=== PATIENT | female | born 1955 | race Caucasian/White ===

== ENCOUNTER 2016-09-08 08:08 | Day surgery (SDC) | payer BC ==
[2016-09-06 15:53] VITALS: BMI 35.5
[~2016-09-08 08:08] MED LIST: LACTATED RINGERS 1,000 ML IV SCH; LIDOCAINE 1% 20 ML VIAL (10MG/ML) FOR IV START INTRADERMA PRN
[2016-09-08 08:36] VITALS: RESP 16; TEMP 97.7
[2016-09-08] MEDS ORDERED: PROPOFOL 10 MG/ML 20 ML VIAL IV ONE (09:09)
[2016-09-08] MEDS ORDERED: LIDOCAINE 1% INJ 10MG/ML (20 ML MDV) ONE (09:09)
--- NOTE | 2016-09-08 09:30 | P.PCN ---
Date of Procedure: 09/08/16 Procedure(s) Performed: BRIEF HISTORY: Patient is a 51-year-old pleasant white female, scheduled for an elective colonoscopy as a part of evaluation of change in bowel habits and chronic constipation for the last several months duration. PROCEDURE PERFORMED: Colonoscopy. PREOPERATIVE DIAGNOSIS: Change in bowel habits IV sedation per Anesthesia. PROCEDURE: After informed consent was obtained, the patient, was brought into the endoscopy unit. IV sedation was administered by Anesthesia under continuous monitoring. Digital rectal examination was normal. Initially the Olympus CF- 160 flexible video colonoscope was then inserted in the rectum, gradually advanced into the cecum without any difficulty. Careful examination was performed as the scope was gradually being withdrawn. Ileocecal valve and the appendiceal orifice were visualized and appeared normal. Prep was excellent. Mucosa of the cecum, ascending colon, transverse colon, descending colon, sigmoid colon, and rectum appeared normal. scattered sigmoid diverticulosis seen. Retroflexion was performed in the rectum and no lesions were seen. The patient tolerated the procedure well. IMPRESSION: Normal-appearing colon from rectum to cecum with no evidence of choledochal neoplasia Scattered sigmoid diverticulosis RECOMMENDATIONS: Findings of this examination were discussed with the patient as well as her family. She was advised to be a high-fiber diet and take fiber supplements on a regular basis. She can have a repeat colonoscopy.
[2016-09-08 09:51] VITALS: BP 121/80; PULSE 65
== END 2016-09-08 10:09 | disposition home or self-care (01) ==
LOC: ORWHC2ENDO 08:08
PROVIDERS: ATTEND Internal Medicine Gastroenterology
DX: K57.30 Diverticulosis of large intestine without perforation or abscess without bleeding (principal); I10 Essential (primary) hypertension; E78.5 Hyperlipidemia, unspecified; J45.909 Unspecified asthma, uncomplicated; F17.200 Nicotine dependence, unspecified, uncomplicated; Z79.899 Other long term (current) drug therapy; Z88.5 Allergy status to narcotic agent; Z88.8 Allergy status to other drugs, medicaments and biological substances; Z91.041 Radiographic dye allergy status
CPT/HCPCS: 45378; J2001; J2704

== ENCOUNTER → 2017-01-18 | Outpatient (CLI) | payer BC ==
--- NOTE | 2017-01-19 07:18 | MM ---
Reason for exam: screening (asymptomatic). Last mammogram was performed 2 years and 4 months ago. History: Family history of breast cancer in aunt. Physical Findings: A clinical breast exam by your physician is recommended on an annual basis and results should be correlated with mammographic findings. MG 3D Screening Mammo W/Cad Bilateral CC and MLO view(s) were taken. Prior study comparison: December 19, 2015, mammogram, performed at [facility]. September 30, 2014, left breast MG diagnostic mammo LT w CAD. April 04, 2014, bilateral MG work up mamm w CAD BILAT. The breast tissue is heterogeneously dense. This may lower the sensitivity of mammography. There is chronic nodularity in the left breast. No significant changes when compared with prior studies. ASSESSMENT: Benign, BI-RAD 2 RECOMMENDATION: Routine screening mammogram of both breasts in 1 year.
== END | disposition home or self-care (01) ==
LOC: RADMAMWWP 07:44
PROVIDERS: ATTEND Family Medicine
DX: Z12.31 Encounter for screening mammogram for malignant neoplasm of breast (principal)
CPT/HCPCS: 77063; G0202

== ENCOUNTER 2017-06-19 11:17 | Observation (INO) | payer BC ==
[2017-06-19] MEDS ORDERED: SODIUM CHLORIDE 0.9% 1,000 ML IV STA ×2 (11:23)
[2017-06-19 11:53] LABS: Basophils # (A) 0.1 k/uL (0-0.2); Basophils % (A) 1 %; Eosinophils # (A) 0.2 k/uL (0-0.7); Eosinophils % (A) 2 %; HCT 40.3 % (34.0-46.0); HGB 13.1 gm/dL (11.4-16.0); Lymphocytes # (A) 3.9 k/uL (1.0-4.8); Lymphocytes % (A) 37 %; MCH 31.5 pg (25.0-35.0); MCHC 32.5 g/dL (31.0-37.0); Mean Platelet Volume 7.4; Monocytes # (A) 0.9 k/uL (0-1.0); Monocytes % (A) 8 %; Neutrophils # (A) 5.2 k/uL (1.3-7.7); Neutrophils % (A) 50 %; Platelet Count 329 k/uL (150-450); RBC 4.15 m/uL (3.80-5.40); RDW 12.9 % (11.5-15.5); WBC 10.6 k/uL (3.8-10.6)
--- NOTE | 2017-06-19 11:58 | ED ---
General Adult HPI - General Chief complaint: Chest Pain Stated complaint: Chest pain Time Seen by Provider: 06/19/17 11:23 Source: patient, RN notes reviewed, old records reviewed Mode of arrival: wheelchair Limitations: no limitations - History of Present Illness Initial comments: This is a 7-year-old female the ER for evaluation regards to chest pain. Patient has history of high blood pressure high cholesterol. History of smoking. No family history, no diabetes. Patient coming in with anterior chest pain occasional radiation. General episode of this earlier in the week and recurrence of this today. Patient states she was at work when the symptoms happen. She is noticeably increased fatigue lately she states she could not get up initially was very tired and fatigued. She denies any fevers or isn't body aches or pains, no known sick contacts. No travel history. Patient states she is not have pain currently right now she does feel discomfort and pressure - Related Data Home Medications Medication Instructions Recorded Confirmed Bisoprolol-Hctz 10-6.25 mg [Ziac 1 tab PO BID 09/18/13 06/19/17 10-6.25 MG] Pravastatin Sodium [Pravachol] 40 mg PO HS 09/18/13 06/19/17 Previous Rx's Medication Instructions Recorded Aspirin 81 mg PO DAILY chew 06/20/17 Nicotine 21Mg/24Hr Patch [Habitrol] 1 patch TRANSDERM DAILY #30 patch 06/20/17 Allergies Allergy/AdvReac Type Severity Reaction Status Date / Time codeine Allergy Unknown Verified 06/19/17 11:42 Iodinated Contrast- Oral and Allergy Rash/Hives Verified 06/19/17 11:42 IV Dye [Iodinated Contrast Media - IV Dye] morphine Allergy Unknown Verified 06/19/17 11:42 sertraline HCl [From Zoloft] Allergy Unknown Verified 06/19/17 11:42 Review of Systems ROS Statement: Those systems with pertinent positive or pertinent negative responses have been documented in the HPI. ROS Other: All systems not noted in ROS Statement are negative. Past Medical History Past Medical History: Asthma, Hyperlipidemia, Hypertension Additional Past Medical History / Comment(s): IBS, History of Any Multi-Drug Resistant Organisms: None Reported Past Surgical History: Back Surgery, Section, Cholecystectomy, Hysterectomy Additional Past Surgical History / Comment(s): cervical fusion, rt knee arthroscopy, rt ankle surgery-fx Past Anesthesia/Blood Transfusion Reactions: No Reported Reaction Past Psychological History: No Psychological Hx Reported Smoking Status: Current every day smoker Past Alcohol Use History: None Reported Past Drug Use History: None Reported - Past Family History Mother Family Medical History: Cancer General Exam Limitations: no limitations General appearance: alert, in no apparent distress Head exam: Present: atraumatic, normocephalic, normal inspection Eye exam: Present: normal appearance, PERRL, EOMI. Absent: scleral icterus, conjunctival injection, periorbital swelling ENT exam: Present: normal exam, mucous membranes moist Neck exam: Present: normal inspection. Absent: tenderness, meningismus, lymphadenopathy Respiratory exam: Present: normal lung sounds bilaterally. Absent: respiratory distress, wheezes, rales, rhonchi, stridor Cardiovascular Exam: Present: regular rate, normal rhythm, normal heart sounds. Absent: systolic murmur, diastolic murmur, rubs, gallop, clicks GI/Abdominal exam: Present: soft, normal bowel sounds. Absent: distended, tenderness, guarding, rebound, rigid Extremities exam: Present: normal inspection, full ROM, normal capillary refill. Absent: tenderness, pedal edema, joint swelling, calf tenderness Back exam: Present: normal inspection Neurological exam: Present: alert, oriented X3, CN II-XII intact Psychiatric exam: Present: normal affect, normal mood Skin exam: Present: warm, dry, intact, normal color. Absent: rash Course Vital Signs 06/19/17 06/19/17 06/19/17 11:18 13:24 14:02 Temperature 98.5 F 97.2 F L Pulse Rate 77 69 Pulse Rate [ 70 Hand Ironer ] Respiratory 18 20 Rate Blood Pressure 137/69 143/93 O2 Sat by Pulse 100 100 Oximetry 06/19/17 15:28 Temperature 97.6 F Pulse Rate 79 Pulse Rate [ Hand Ironer ] Respiratory 16 Rate Blood Pressure 127/74 O2 Sat by Pulse 97 Oximetry EKG Findings - EKG Comments: EKG Findings:: EKG shows normal sinus rhythm rate of 75, [place] 182, QRS 100, QTC 453 Medical Decision Making - Medical Decision Making 61 female the ER for evaluation history of chest pain coming in with chest pain. Patient be admitted for cardiac observation - Lab Data Result diagrams: 06/20/17 04:48 06/19/17 11:40 Lab Results 02/06/19/17 06/19/17 Range/Units 11:40 11:40 11:40 WBC 10.6 (3.8-10.6) k/uL RBC 4.15 (3.80-5.40) m/uL Hgb 13.1 (11.4-16.0) gm/dL Hct 40.3 (34.0-46.0) % MCV 97.0 (80.0-100.0) fL MCH 31.5 (25.0-35.0) pg MCHC 32.5 (31.0-37.0) g/dL RDW 12.9 (11.5-15.5) % Plt Count 329 (150-450) k/uL Neutrophils % 50 % Lymphocytes % 37 % Monocytes % 8 % Eosinophils % 2 % Basophils % 1 % Neutrophils # 5.2 (1.3-7.7) k/uL Lymphocytes # 3.9 (1.0-4.8) k/uL Monocytes # 0.9 (0-1.0) k/uL Eosinophils # 0.2 (0-0.7) k/uL Basophils # 0.1 (0-0.2) k/uL PT (9.0-12.0) sec INR (<1.2) APTT (22.0-30.0) sec D-Dimer (<0.60) mg/L FEU Sodium 136 L (137-145) mmol/L Potassium 4.3 (3.5-5.1) mmol/L Chloride 101 (98-107) mmol/L Carbon Dioxide 25 (22-30) mmol/L Anion Gap 10 mmol/L BUN 19 H (7-17) mg/dL Creatinine 0.80 (0.52-1.04) mg/dL Est GFR (MDRD) Af Amer >60 (>60 ml/min/1.73 sqM) Est GFR (MDRD) Non-Af >60 (>60 ml/min/1.73 sqM) Glucose 100 H (74-99) mg/dL Calcium 9.5 (8.4-10.2) mg/dL Magnesium 1.9 (1.6-2.3) mg/dL Total Bilirubin 0.6 (0.2-1.3) mg/dL AST 17 (14-36) U/L ALT 17 (9-52) U/L Alkaline Phosphatase 67 (38-126) U/L Total Creatine Kinase 74 (30-135) U/L CK-MB (CK-2) 0.9 (0.0-2.4) ng/mL CK-MB (CK-2) Rel Index 1.2 Troponin I <0.012 (0.000-0.034) ng/mL Total Protein 6.7 (6.3-8.2) g/dL Albumin 3.8 (3.5-5.0) g/dL Lipase 118 (23-300) U/L 06/19/17 Range/Units 11:40 WBC (3.8-10.6) k/uL RBC (3.80-5.40) m/uL Hgb (11.4-16.0) gm/dL Hct (34.0-46.0) % MCV (80.0-100.0) fL MCH (25.0-35.0) pg MCHC (31.0-37.0) g/dL RDW (11.5-15.5) % Plt Count (150-450) k/uL Neutrophils % % Lymphocytes % % Monocytes % % Eosinophils % % Basophils % % Neutrophils # (1.3-7.7) k/uL Lymphocytes # (1.0-4.8) k/uL Monocytes # (0-1.0) k/uL Eosinophils # (0-0.7) k/uL Basophils # (0-0.2) k/uL PT 9.7 (9.0-12.0) sec INR 1.0 (<1.2) APTT 24.2 (22.0-30.0) sec D-Dimer 0.44 (<0.60) mg/L FEU Sodium (137-145) mmol/L Potassium (3.5-5.1) mmol/L Chloride (98-107) mmol/L Carbon Dioxide (22-30) mmol/L Anion Gap mmol/L BUN (7-17) mg/dL Creatinine (0.52-1.04) mg/dL Est GFR (MDRD) Af Amer (>60 ml/min/1.73 sqM) Est GFR (MDRD) Non-Af (>60 ml/min/1.73 sqM) Glucose (74-99) mg/dL Calcium (8.4-10.2) mg/dL Magnesium (1.6-2.3) mg/dL Total Bilirubin (0.2-1.3) mg/dL AST (14-36) U/L ALT (9-52) U/L Alkaline Phosphatase (38-126) U/L Total Creatine Kinase (30-135) U/L CK-MB (CK-2) (0.0-2.4) ng/mL CK-MB (CK-2) Rel Index Troponin I (0.000-0.034) ng/mL Total Protein (6.3-8.2) g/dL Albumin (3.5-5.0) g/dL Lipase (23-300) U/L - Radiology Data Radiology results: report reviewed (Chest x-rays negative for acute disease), image reviewed Critical Care Time Critical Care Time: Yes Total Critical Care Time: 31 Disposition Clinical Impression: Chest pain Disposition: ADMITTED IP TO THIS [facility] Condition: Undetermined
[2017-06-19 12:04] LABS: ALT 17 U/L (9-52); AST 17 U/L (14-36); Albumin 3.8 g/dL (3.5-5.0); Alkaline Phosphatase 67 U/L (38-126); Anion Gap 10 mmol/L; Blood Urea Nitrogen 19 mg/dL (7-17); Calcium 9.5 mg/dL (8.4-10.2); Carbon Dioxide 25 mmol/L (22-30); Chloride 101 mmol/L (98-107); Glucose 100 mg/dL (74-99); Lipase 118 U/L (23-300); Magnesium 1.9 mg/dL (1.6-2.3); Potassium 4.3 mmol/L (3.5-5.1); Sodium 136 mmol/L (137-145); Total Bilirubin 0.6 mg/dL (0.2-1.3); Total Protein 6.7 g/dL (6.3-8.2)
[2017-06-19 12:10] LABS: D-Dimer 0.44 mg/L FEU (<0.60)
[2017-06-19 12:14] LABS: Partial Thromboplastin Time 24.2 sec (22.0-30.0); Prothrombin Time 9.7 sec (9.0-12.0)
[2017-06-19 12:16] LABS: Creatine Kinase 74 U/L (30-135)
[2017-06-19 12:28] LABS: Creatine Kinase MB 0.9 ng/mL (0.0-2.4); Troponin I <0.012 ng/mL (0.000-0.034)
--- NOTE | 2017-06-19 13:09 | XR ---
EXAMINATION TYPE: XR chest 2V DATE OF EXAM: 06/19/2017 HISTORY: Chest Pain. REFERENCE: Previous study dated 11/30/2015. FINDINGS: There has been a previous ACDF of the lower cervical spine. The lungs are clear. Pleural space are clear. The heart is not enlarged. IMPRESSION: NO ACTIVE INTRATHORACIC DISEASE.
[2017-06-19] MEDS ORDERED: NITROGLYCERIN SL TABS 0.4 MG TAB SUBLINGUAL PRN (13:24)
[2017-06-19] MEDS ORDERED: HEPARIN SODIUM,PORCINE 5,000 UNIT/ML 1 ML VIAL IV ONE (13:24)
[2017-06-19] MEDS ORDERED: ASPIRIN 81 MG PO STA (13:24)
[2017-06-19] MEDS ORDERED: HEPARIN SODIUM,PORCINE 5,000 UNIT/ML 1 ML VIAL IV PRN (13:24)
[2017-06-19] MEDS ORDERED: HEPARIN SOD,PORK IN 0.45% NACL 25,000 UNIT in 0.45% NACL 1 500ML.BAG IV SCH (13:30)
[2017-06-19] MEDS: NICOTINE 21MG/24HR PATCH TRANSDERM SCH (17:57)
[2017-06-19 19:04] LABS: Creatine Kinase 72 U/L (30-135)
[2017-06-19 19:16] LABS: Creatine Kinase MB 1.1 ng/mL (0.0-2.4); Troponin I <0.012 ng/mL (0.000-0.034)
[2017-06-19] MEDS: METOPROLOL TARTRATE 25 MG TAB PO SCH (20:50)
--- NOTE | 2017-06-20 00:28 | HP ---
HISTORY AND PHYSICAL CHIEF COMPLAINT: Chest pain. HISTORY OF PRESENT ILLNESS: This 61-year-old woman with a past history of asthma, hypertension, irritable bowel syndrome, back surgery, being followed by Dr. Saini in the outpatient setting, has complaints of left-sided chest pain. Pain was really sharp in character and subsequently felt like an ache, which was felt on the left side of the chest without much radiation. The patient was having repeat episodes this week. This was the third episode and the patient came to [facility] and was admitted for further evaluation and treatment. There is no history of fevers or rigors. No history of headache, loss of consciousness, or seizures. PAST MEDICAL HISTORY: Asthma, hypertension, hyperlipidemia, irritable bowel syndrome, history of degenerative joint disease. MEDICATIONS: Home medications are Pravachol 40 mg at bedtime, bisoprolol, Ziac 1 tab p.o. b.i.d. ALLERGIES: CODEINE, IODINATED CONTRAST, MORPHINE, ZOLOFT. FAMILY HISTORY: History of cancer in the family. Coronary artery disease in father and brother who is younger. SOCIAL HISTORY: History of smoking on a daily basis. No history of alcohol intake. REVIEW OF SYSTEMS: ENT: No diminished vision or hearing. Cardiovascular System: As mentioned earlier. GI: No nausea. . No dysuria. NERVOUS SYSTEM: No numbness or weakness. IMMUNOLOGY: As mentioned. ENDOCRINE: No history of diabetes or hypothyroidism. CONSTITUTIONAL: As mentioned earlier. PSYCHOLOGY: As mentioned earlier. PHYSICAL EXAMINATION: Alert and oriented x3. Pulse is 80, blood pressure 100/62, respirations 18, temperature 98.5, pulse ox 97% on room air. HEENT: Conjunctivae normal. Oral mucosa moist. NECK: No jugular venous distention. No carotid bruit. No lymph node enlargement. CARDIOVASCULAR: S1 and S2 muffled. LUNGS: Breath sounds diminished at the bases. No rhonchi. No crackles. ABDOMEN: Soft, nontender. No mass palpable. LEGS: No edema or swelling. NERVOUS SYSTEM: Higher functions as mentioned. Moves all 4 limbs. No focal motor deficits. LYMPHATICS: No lymph node enlargement. SKIN: No ulcers. LABS: CBC within normal limits. APTT 39.4. Sodium is 136. ASSESSMENT: 1. Chest pain, possible unstable angina, possibly musculoskeletal. 2. History of asthma. 3. Hypertension. 4. Hyperlipidemia. 5. History of irritable bowel syndrome. 6. Status post history of cholecystitis with cholecystectomy. 7. History of family history of coronary artery disease. RECOMMENDATIONS: This 61-year-old woman who presented with multiple complex medical issues, we will monitor the patient closely, continue the current management and symptomatic treatment. Unstable angina protocol and acute coronary syndrome protocol. Cardiology consultation. Possible stress test. Resume the rest of the medications. Guarded prognosis because of multiple complex medical issues. Discussed with the patient who understand. MMODL / IJN: [id number] /
[2017-06-20 00:55] LABS: Creatine Kinase 70 U/L (30-135)
[2017-06-20 01:09] LABS: Troponin I <0.012 ng/mL (0.000-0.034)
[2017-06-20 04:59] LABS: Mean Platelet Volume 7.3; Platelet Count 295 k/uL (150-450)
[2017-06-20 05:44] LABS: Cholesterol 154 mg/dL (<200); HDL Cholesterol 45 mg/dL (40-60); LDL Cholesterol,Calculated 93 mg/dL (0-99); Triglycerides 80 mg/dL (<150)
[2017-06-20 08:22] VITALS: BP 119/72; PULSE 61; RESP 16; TEMP 98.3
[2017-06-20] MEDS ORDERED: ASPIRIN 81 MG PO SCH (09:00)
[2017-06-20] MEDS ORDERED: ATORVASTATIN 80 MG TAB PO SCH (09:00)
[2017-06-20] MEDS ORDERED: ASPIRIN 325 MG TAB PO SCH (09:00)
[2017-06-20] MEDS ORDERED: DOBUTamine DRIP for NUC MED 250 MG in DEXTROSE/WATER 1 250ML.BAG IV ONE (11:09)
--- NOTE | 2017-06-20 11:50 | P.CRDCN ---
History of Present Illness Consult date: 06/20/17 Consult reason: chest pain History of present illness: Mrs. Herbert is a pleasant 61-year-old female past medical history significant for hypertension, dyslipidemia, chronic tobacco use and asthma. She denies history of coronary artery disease and has never seen a continuous improvement analyst for any reason. She states her father and brother both have coronary artery disease. We have been asked to see her in consultation for complaints of chest pain. She states over the previous 3 weeks she has had 3 episodes of chest pain. The first one was a heavy sensation over the left anterior chest wall that lasted less than 15 minutes with no associated symptoms. The second was similar to the first with no associated symptoms. Both of these times the pain went away on its own with no aggravating or alleviating factors. Most recently last night she had another episode with the pain on the left side of her chest described as a pressure. This time she got diaphoretic, light headed and mildly short of breath. The symptoms went away on their own. She has had not further episodes since admission. EKG on arrival reveals sinus mechanism with no acute ST or T-wave abnormalities. Chest xray is negative for an acute cardiopulmonary process. Laboratory data reviewed, hemoglobin 13.1, platelets 295, d-dimer negative, potassium 4.3, magnesium 1.9, creatinine 0.8, cardiac enzymes negative 3. LDL 93, HDL 45. Current cardiac medications include pravastatin 40 mg daily and Ziac 10/6.25 mg twice a day. Review of Systems At the time of my exam: CONSTITUTIONAL: Denies fever. Denies chills. EYES: Denies blurred vision. Denies vision changes. Denies eye pain. EARS, NOSE, MOUTH & THROAT: Denies headache. Denies sore throat. Denies ear pain. CARDIOVASCULAR: Denies chest pain. Denies shortness of breath. Denies orthopnea. Denies PND. Denies palpitations. RESPIRATORY: Denies cough. GASTROINTESTINAL: Denies abdominal pain. Denies diarrhea. Denies constipation. Denies nausea. Denies vomiting. MUSCULOSKELETAL: Denies myalgias. INTEGUMENTARY: Denies pruitis. Denies rash. NEUROLOGIC: Denies numbness. Denies tingling. Denies weakness. PSYCHIATRIC: Denies anxiety. Denies depression. ENDOCRINE: Denies fatigue. Denies weight change. Denies polydipsia. Denies polyurina. GENITOURINARY: Denies burning, hematuria or urgency with micturation. HEMATOLOGIC: Denies history of anemia. Denies bleeding. Past Medical History Past Medical History: Asthma, Hyperlipidemia, Hypertension Additional Past Medical History / Comment(s): IBS, History of Any Multi-Drug Resistant Organisms: None Reported Past Surgical History: Back Surgery, Section, Cholecystectomy, Hysterectomy Additional Past Surgical History / Comment(s): cervical fusion, rt knee arthroscopy, rt ankle surgery-fx Past Anesthesia/Blood Transfusion Reactions: No Reported Reaction Past Psychological History: No Psychological Hx Reported Smoking Status: Current every day smoker Past Alcohol Use History: None Reported Additional Past Alcohol Use History / Comment(s): smoikes 1/2 PPD, has smoked for 40 yrs Past Drug Use History: None Reported - Past Family History Mother Family Medical History: Cancer Medications and Allergies Home Medications Medication Instructions Recorded Confirmed Type Bisoprolol-Hctz 10-6.25 mg [Ziac 1 tab PO BID 09/18/13 06/19/17 History 10-6.25 MG] Pravastatin Sodium [Pravachol] 40 mg PO HS 09/18/13 06/19/17 History Allergies Allergy/AdvReac Type Severity Reaction Status Date / Time codeine Allergy Unknown Verified 06/19/17 11:42 Iodinated Contrast- Oral and Allergy Rash/Hives Verified 06/19/17 11:42 IV Dye [Iodinated Contrast Media - IV Dye] morphine Allergy Unknown Verified 06/19/17 11:42 sertraline HCl [From Zoloft] Allergy Unknown Verified 06/19/17 11:42 Physical Exam Vitals: Vital Signs Temp Pulse Pulse Pulse Resp BP BP 06/20/17 08:00 98.3 F 61 16 119/72 06/20/17 04:00 98.6 F 63 18 118/70 06/20/17 03:34 62 16 06/19/17 23:35 65 16 06/19/17 23:29 98.1 F 68 16 121/70 06/19/17 20:00 68 18 06/19/17 19:19 98.5 F 80 18 100/62 06/19/17 16:55 16 06/19/17 16:05 97.9 F 68 16 136/76 06/19/17 15:28 97.6 F 79 16 127/74 06/19/17 14:02 97.2 F L 69 20 143/93 06/19/17 13:24 70 06/19/17 11:18 98.5 F 77 18 137/69 Pulse Ox 06/20/17 08:00 98 06/20/17 04:00 96 06/20/17 03:34 06/19/17 23:35 06/19/17 23:29 98 06/19/17 20:00 06/19/17 19:19 97 06/19/17 16:55 06/19/17 16:05 96 06/19/17 15:28 97 06/19/17 14:02 100 06/19/17 13:24 06/19/17 11:18 100 Intake and Output 06/19/17 06/20/17 06/20/17 22:59 06:59 14:59 Intake Total 1634.933 Balance 1634.933 Intake: Amount of Fluid Infused ( 1000 ml) Intake, IV Titration 134.933 Amount Heparin Sod,Pork in 0.45% 134.933 NaCl 25,000 unit In 0.45 % NaCl 1 500ml.bag @ 11.6 UNITS/KG/HR 19.99 mls/hr IV .Q24H [facility] Rx#: [id number] Oral 500 Other: Voiding Method Toilet Toilet # Voids 2 Weight 87.5 kg Blood pressure 118/70 heart rate 63 afebrile GENERAL: This is a 61-year-old female in no apparent distress at the time of my examination. HEENT: Head is atraumatic, normocephalic. Pupils are equal, round. Sclerae anicteric. Conjunctivae are clear. Mucous membranes of the mouth are moist. Neck is supple. There is no jugular venous distention. No carotid bruit is heard. LUNGS: Clear to auscultation no wheezes, rales or rhonchi. No chest wall tenderness is noted on palpation or with deep breathing. HEART: Regular rate and rhythm without murmurs, rubs or gallops. S1 and S2 heard. ABDOMEN: Soft, nontender. Bowel sounds are heard. No organomegaly noted. EXTREMITIES: No evidence of peripheral edema and no calf tenderness noted. VASCULAR: Radial and dorsalis pedis pulses palpated, no evidence of clubbing. NEUROLOGIC: Patient is awake, alert and oriented x3. Results 06/20/17 04:48 06/19/17 11:40 Cardiac Enzymes 06/19/17 06/19/17 06/19/17 Range/Units 11:40 11:40 18:24 AST 17 (14-36) U/L CK-MB (CK-2) 0.9 1.1 (0.0-2.4) ng/mL Troponin I <0.012 <0.012 (0.000-0.034) ng/mL 06/20/17 Range/Units 00:10 AST (14-36) U/L CK-MB (CK-2) 1.0 (0.0-2.4) ng/mL Troponin I <0.012 (0.000-0.034) ng/mL Coagulation 06/19/17 06/19/17 06/20/17 Range/Units 11:40 21:29 04:48 PT 9.7 (9.0-12.0) sec APTT 24.2 39.4 H 57.3 H (22.0-30.0) sec Lipids 06/20/17 Range/Units 04:48 Triglycerides 80 (<150) mg/dL Cholesterol 154 (<200) mg/dL HDL Cholesterol 45 (40-60) mg/dL CBC 06/19/17 06/20/17 Range/Units 11:40 04:48 WBC 10.6 (3.8-10.6) k/uL RBC 4.15 (3.80-5.40) m/uL Hgb 13.1 (11.4-16.0) gm/dL Hct 40.3 (34.0-46.0) % Plt Count 329 295 (150-450) k/uL Comprehensive Metabolic Panel 06/19/17 Range/Units 11:40 Sodium 136 L (137-145) mmol/L Potassium 4.3 (3.5-5.1) mmol/L Chloride 101 (98-107) mmol/L Carbon Dioxide 25 (22-30) mmol/L BUN 19 H (7-17) mg/dL Creatinine 0.80 (0.52-1.04) mg/dL Glucose 100 H (74-99) mg/dL Calcium 9.5 (8.4-10.2) mg/dL AST 17 (14-36) U/L ALT 17 (9-52) U/L Alkaline Phosphatase 67 (38-126) U/L Total Protein 6.7 (6.3-8.2) g/dL Albumin 3.8 (3.5-5.0) g/dL Current Medications Generic Name Dose Route Start Last Admin Trade Name Freq PRN Reason Stop Dose Admin Aspirin 325 mg 06/20/17 09:00 Aspirin PO DAILY [facility] Atorvastatin Calcium 80 mg 06/20/17 09:00 Lipitor PO DAILY [facility] Heparin Sodium (Porcine) 0 unit 06/19/17 13:24 Heparin IV Q6HR PRN Low PTT Protocol Heparin Sodium/Sodium Chloride 500 mls @ 19.99 mls/hr 06/19/17 13:30 22:20 25,000 unit/ Sodium Chloride IV 14.73 units/kg/hr .Q24H ROSS 25.4 mls/hr Protocol Titration 11.6 UNITS/KG/HR Metoprolol Tartrate 25 mg 06/19/17 21:00 06/19/17 20:50 Lopressor PO 25 mg BID ROSS Administration Nicotine 1 patch 06/19/17 17:30 06/19/17 17:57 Habitrol 21mg/24hr Patch TRANSDERM 1 patch DAILY [facility] Administration Nitroglycerin 0.4 mg 06/19/17 13:24 Nitrostat SUBLINGUAL Q5M PRN Chest Pain Intake and Output 06/19/17 06/20/17 06/20/17 22:59 06:59 14:59 Intake Total 1634.933 Balance 1634.933 Intake: Amount of Fluid Infused ( 1000 ml) Intake, IV Titration 134.933 Amount Heparin Sod,Pork in 0.45% 134.933 NaCl 25,000 unit In 0.45 % NaCl 1 500ml.bag @ 11.6 UNITS/KG/HR 19.99 mls/hr IV .Q24H [facility] Rx#: [id number] Oral 500 Other: Voiding Method Toilet Toilet # Voids 2 Weight 87.5 kg 06/20/17 04:48 06/19/17 11:40 Assessment and Plan Assessment: ASSESSMENT 1. Chest pain, atypical. An acute coronary event has been ruled out with no EKG changes indicative of ischemia and Negative cardiac enzymes. 2. Hypertension 3. Dyslipidemia 4. Chronic tobacco use PLAN Obtain 2-D echocardiogram and Doppler study to assess cardiac structure and function. Perform stress echocardiogram to assess for stress induced cardiac ischemia. Continue with Ziac and pravastatin as previously ordered. Add aspirin 81 mg daily. The above diagnostic testing is negative she is stable from a cardiac perspective. Follow-up with Dr. Prieto in 2-3 weeks. Nurse Practitioner note has been reviewed, I agree with a documented findings and plan of care. Patient was seen and examined.
[2017-06-20] MEDS ORDERED: BISOPROLOL-HCTZ 10-6.25 MG 1 EACH TAB PO SCH (12:00)
[2017-06-20] MEDS: METOPROLOL TARTRATE 25 MG TAB PO SCH (12:02)
[2017-06-20] MEDS: NICOTINE 21MG/24HR PATCH TRANSDERM SCH (12:05)
--- NOTE | 2017-06-20 12:37 | ECHOF ---
Referral Reason:chest pain MEASUREMENTS -------- HEIGHT: 154.9 cm WEIGHT: 87.1 kg BP: 119/72 RVIDd: 2.9 cm (< 3.3) IVSd: 1.0 cm (0.6 - 1.1) LVIDd: 5.1 cm (3.9 - 5.3) LVPWd: 1.0 cm (0.6 - 1.1) IVSs: 1.3 cm LVIDs: 3.3 cm LVPWs: 1.4 cm LAESV Index (A-L): 19.24 ml/m Ao Diam: 3.2 cm (2.0 - 3.7) AV Cusp: 1.8 cm (1.5 - 2.6) LA Diam: 3.0 cm (2.7 - 3.8) MV E Luis: 1.04 m/s MV DecT: 199 ms MV A Luis: 0.80 m/s MV E/A Ratio: 1.29 RAP: 5.00 mmHg RVSP: 26.64 mmHg MV EF SLOPE: 121.94 mm/s (70 - 150) MV EXCURSION: 1.99 cm (> 18.000) FINDINGS -------- Sinus rhythm. This was a technically good study. The left ventricular size is normal. Left ventricular wall thickness is normal. Overall left vent ricular systolic function is normal with, an EF between 55 - 60 %. The right ventricle is normal in size and function. Normal LA size by volume 22+/-6 ml/m2. The right atrium is normal in size. Aortic valve is trileaflet and is mildly thickened. Trace amount of aortic regurgitation. There is no evidence of aortic stenosis. The mitral valve leaflets are mildly thickened. Mild mitral regurgitation is present. Trace tricuspid regurgitation present. Right ventricular systolic pressure is normal at < 35 mmHg. There is no evidence of pulmonary hypertension. Trace/mild (physiologic) pulmonic regurgitation. The aortic root size is normal. Normal inferior vena cava with normal inspiratory collapse consistent with estimated right atrial pre ssure of 5 mmHg. The pericardium is normal. There is no pericardial effusion. CONCLUSIONS -------- 1. Sinus rhythm. 2. This was a technically good study. 3. The left ventricular size is normal. 4. Left ventricular wall thickness is normal. 5. Overall left ventricular systolic function is normal with, an EF between 55 - 60 %. 6. Normal LA size by volume 22+/-6 ml/m2. 7. Aortic valve is trileaflet and is mildly thickened. 8. Trace amount of aortic regurgitation. 9. The mitral valve leaflets are mildly thickened. 10. Mild mitral regurgitation is present. 11. Trace tricuspid regurgitation present. 12. Right ventricular systolic pressure is normal at < 35 mmHg. 13. There is no evidence of pulmonary hypertension. 14. Trace/mild (physiologic) pulmonic regurgitation. 15. The aortic root size is normal. 16. There is no pericardial effusion. DOORMAKER: Joaquín Sheikh RDCS
--- NOTE | 2017-06-20 12:53 | ECHOS ---
STRESS ECHOCARDIOGRAM INDICATIONS: Chest pain. BASELINE HEART RATE: 67 BASELINE BLOOD PRESSURE: 138/44 MAXIMUM HEART RATE: 138 MAXIMUM BLOOD PRESSURE: 154/58 85% MPHR: 136 100% MPHR: 150 MAXIMUM STAGE REACHED: 4 TOTAL EXERCISE TIME: 12:00 CLINICAL INFORMATION: Patient was given dobutamine infusion according to standard protocol. Peak heart rate of 138 was achieved. Maximum blood pressure of 154/58 mmHg was noted. Resting EKG shows normal sinus rhythm with normal QRS interval and QRS duration and normal ST-T waves. No ST-segment depression suggestive of ischemia is noted. The baseline echocardiographic images reveals normal left ventricular chamber size with normal left ventricular systolic function. In the immediate post exercise period. Normal increase in the wall thickness and contractility is noted. FINAL IMPRESSION: This stress echocardiographic study is negative for stress-induced ischemia. EKG portion of the stress test is not suggestive of ischemia. MMODL / IJN: [id number] /
--- NOTE | 2017-06-20 14:36 | US ---
EXAMINATION TYPE: US venous doppler duplex LE BI DATE OF EXAM: 06/20/2017 1:19 PM COMPARISON: NONE CLINICAL HISTORY: 61-year-old female leg swelling; possible DVT. SIDE PERFORMED: Bilateral TECHNIQUE: The lower extremity deep venous system is examined utilizing real time linear array sonog wm with graded compression, doppler sonography and color-flow sonography. FINDINGS: VESSELS IMAGED: External Iliac Vein (EIV) Common Femoral Vein Deep Femoral Vein Greater Saphenous Vein * Femoral Vein Popliteal Vein Small Saphenous Vein * Proximal Calf Veins (* superficial vessels) Right Leg: Negative for DVT Left Leg: Negative for DVT IMPRESSION: No evidence for DVT within the bilateral lower extremities imaged from the groin to the upper calves.
[2017-06-20] MEDS ORDERED: PRAVASTATIN SODIUM 40 MG TAB PO SCH (21:00)
--- NOTE | 2017-06-20 22:14 | DS ---
DISCHARGE SUMMARY FINAL DIAGNOSES: 1. Chest pain possible musculoskeletal pain. Negative stress test with myocardial infarction ruled out. 2. History of asthma. 3. Hypertension. 4. Hyperlipidemia. 5. History of irritable bowel syndrome. 6. History of cholecystitis, cholecystectomy. 7. Family history of coronary artery disease. DISCHARGED DISPOSITION: Patient is being discharged in stable with guarded prognosis. HISTORY OF PRESENT ILLNESS: This 61-year-old woman with a past medical history of multiple medical problems being followed by Dr. Saini in the outpatient setting, complaining of chest pain, myocardial infarction ruled out. A stress echo was negative. The patient discharged in stable condition with guarded prognosis. Cardiology cleared the patient for discharge. On exam vitals are stable. Cardiovascular: S1, S2. Abdomen is soft. Nervous system: No focal deficits. DISCHARGE ADVICE AND MEDICATIONS: 1. Discharge diet is cardiac diet. 2. Activity limited until followup. 3. Follow up with Dr. Saini in 2-3 days. 4. Follow up with Dr. Prieto as advised. MEDICATION: 1. Ecotrin 81 mg p.o. daily. 2. Lisinopril hydrochlorothiazide 1 p.o. b.i.d. 3. Habitrol 21 daily. 4. Pravachol 40 mg q.h.s. Once again, the patient is being discharged in stable condition with guarded prognosis. MMODL / IJN: [id number] /
== END 2017-06-20 16:27 | disposition home or self-care (01) ==
LOC: EC 11:17 → 3OBS 13:24
PROVIDERS: ADMIT Hospitalist; ATTEND Hospitalist
DX: R07.89 Other chest pain (principal); I10 Essential (primary) hypertension; E78.00 Pure hypercholesterolemia, unspecified; R53.83 Other fatigue; R61 Generalized hyperhidrosis; R06.02 Shortness of breath; R42 Dizziness and giddiness; F17.210 Nicotine dependence, cigarettes, uncomplicated; E78.5 Hyperlipidemia, unspecified; K58.9 Irritable bowel syndrome, unspecified; M19.90 Unspecified osteoarthritis, unspecified site; J45.909 Unspecified asthma, uncomplicated; Z79.899 Other long term (current) drug therapy; Z88.5 Allergy status to narcotic agent; Z88.8 Allergy status to other drugs, medicaments and biological substances; Z91.041 Radiographic dye allergy status; Z98.1 Arthrodesis status; Z80.9 Family history of malignant neoplasm, unspecified; Z82.49 Family history of ischemic heart disease and other diseases of the circulatory system; Z90.49 Acquired absence of other specified parts of digestive tract
CPT/HCPCS: 99291; 96361 ×5; 96376 ×2; 96365 ×2; 96366 ×2; 36415; 93005; 93017; 93306; 93350; 85379; 80061; 80053; 82550 ×2; 82553 ×2; 83690; 83735; 84484 ×2; 85025; 85049; 85610; 85730 ×2; 71046; 93970; G0378 ×2; S4990 ×2; J1644 ×2; J1250

== ENCOUNTER 2018-12-19 17:31 | Emergency (ER) | payer BC ==
[2018-12-19 17:56] VITALS: BP 130/83; PULSE 74; RESP 18; TEMP 98.6
[2018-12-19] MEDS ORDERED: methylPREDNISolone SOD SUCCI 125 MG/2 ML VIAL IM ONE (18:22)
[2018-12-19] MEDS ORDERED: KETOROLAC 30 MG/ML 1 ML VIAL IM STA (18:22)
[2018-12-19] MEDS ORDERED: traMADol 50 MG STARTER PACK 3 TAB BTL PO STA (18:34)
--- NOTE | 2018-12-19 18:36 | ED ---
Extremity Problem HPI - General Chief complaint: Extremity Problem,Nontraumatic Stated complaint: arms/legs pain Time Seen by Provider: 12/19/18 18:09 Source: patient Mode of arrival: wheelchair Limitations: physical limitation - History of Present Illness Initial comments: 63-year-old female patient presents to the emergency department today for evaluation of bilateral arm and leg pain. Patient states that she has been having this pain for the last 2 years. Patient states worsening over the last 2 days. Patient does admit that she did stop taking her naproxen a couple of weeks ago to give herself a "break" from it. Patient states she is having mid low back pain, reports radiating pain down bilateral posterior legs to her feet. States that she always has some element of numbness and tingling to her feet which has not changed. States that her legs are hurting so much she is having difficulty raising them and walking. She denies any saddle anesthesia or loss of bowel or bladder control. Denies any chest pain, shortness of breath, abdominal pain, nausea, or vomiting. Denies any hematuria, dysuria, urinary frequency, urinary urgency. Patient denies any new pains just states that her symptoms are worsened usual. Denies fever or chills. Patient denies any recent rash, diarrhea, constipation, dizziness, weakness, headache, visual changes, or any other complaints. - Related Data Home Medications Medication Instructions Recorded Confirmed Bisoprolol-Hctz 10-6.25 mg [Ziac 1 tab PO BID 09/18/13 12/19/18 10-6.25 MG] Pravastatin Sodium [Pravachol] 40 mg PO DAILY 09/18/13 12/19/18 Previous Rx's Medication Instructions Recorded Aspirin 81 mg PO DAILY chew 06/20/17 Ibuprofen [Motrin] 600 mg PO Q8HR PRN #30 tab 12/19/18 predniSONE 50 mg PO DAILY #5 tablet 12/19/18 Allergies Allergy/AdvReac Type Severity Reaction Status Date / Time codeine Allergy Unknown Verified 12/19/18 18:06 Iodinated Contrast- Oral and Allergy Rash/Hives Verified 12/19/18 18:06 IV Dye [Iodinated Contrast Media - IV Dye] morphine Allergy Unknown Verified 12/19/18 18:06 sertraline HCl [From Zoloft] Allergy Unknown Verified 12/19/18 18:06 Review of Systems ROS Statement: Those systems with pertinent positive or pertinent negative responses have been documented in the HPI. ROS Other: All systems not noted in ROS Statement are negative. Past Medical History Past Medical History: Asthma, Hyperlipidemia, Hypertension Additional Past Medical History / Comment(s): IBS, History of Any Multi-Drug Resistant Organisms: None Reported Past Surgical History: Back Surgery, Section, Cholecystectomy, Hysterectomy Additional Past Surgical History / Comment(s): cervical fusion, rt knee arthroscopy, rt ankle surgery-fx Past Anesthesia/Blood Transfusion Reactions: No Reported Reaction Past Psychological History: No Psychological Hx Reported Smoking Status: Current every day smoker Past Alcohol Use History: None Reported Past Drug Use History: None Reported - Past Family History Mother Family Medical History: Cancer General Exam Limitations: physical limitation General appearance: alert, in no apparent distress, other (This is a well- developed, well-nourished adult female patient in no acute distress. Vital signs upon presentation are temperature 98.6F, pulse 74, respirations 18, blood pressure 130/83, pulse ox 98% on room air.) Eye exam: Present: normal appearance, PERRL, EOMI. Absent: scleral icterus, conjunctival injection, periorbital swelling ENT exam: Present: normal exam, normal oropharynx, mucous membranes moist Respiratory exam: Present: normal lung sounds bilaterally. Absent: respiratory distress, wheezes, rales, rhonchi, stridor Cardiovascular Exam: Present: regular rate, normal rhythm, normal heart sounds. Absent: systolic murmur, diastolic murmur, rubs, gallop, clicks GI/Abdominal exam: Present: soft, normal bowel sounds. Absent: distended, tenderness, guarding, rebound, rigid Extremities exam: Present: normal inspection, full ROM, normal capillary refill, other (Skin to all Chevys is pink, warm, dry. Cap refills less than 3 seconds. Radial pulses 2+ and equal bilaterally. Pedal and posttibial pulses are 2+ and equal bilaterally.). Absent: tenderness, pedal edema, joint swelling, calf tenderness Back exam: Present: normal inspection. Absent: vertebral tenderness Neurological exam: Present: alert, oriented X3, CN II-XII intact, other (Strength in all extremities is 5/5.) Psychiatric exam: Present: normal affect, normal mood Skin exam: Present: warm, dry, intact, normal color. Absent: rash Course Vital Signs 12/19/18 17:53 Temperature 98.6 F Pulse Rate 74 Respiratory 18 Rate Blood Pressure 130/83 O2 Sat by Pulse 98 Oximetry Medical Decision Making - Medical Decision Making 63-year-old female patient presents the emergency department today for evaluation of bilateral arm and leg pain. Patient states she's had the pain for the last 2 years worsening over the last 2 days. She does admit to stop taking her naproxen 2 weeks ago. Physical examination is unremarkable. She is neurologically neurovascularly intact. She has no injury. She is afebrile with normal vital signs. She'll be given anti-inflammatory and steroid medication. She is instructed to follow-up with her primary care physician tomorrow as she has planned. Return parameters were discussed in detail. She verbalizes understanding and agrees with this plan. Disposition Clinical Impression: Lumbar radiculopathy Disposition: HOME SELF-CARE Condition: Good Instructions (If sedation given, give patient instructions): Lumbar Radiculopathy (ED), Arthralgia (ED) Additional Instructions: Take medications as directed. Follow-up with her primary care physician for recheck in 1-2 days. Return to the emergency department immediately for any new, worsening, or concerning symptoms. Prescriptions: Ibuprofen [Motrin] 600 mg PO Q8HR PRN #30 tab PRN Reason: Pain predniSONE 50 mg PO DAILY #5 tablet Is patient prescribed a controlled substance at d/c from ED?: No Referrals: Haris Saini DO [Primary Care Provider] - 1-2 days Time of Disposition: 18:36
== END 2018-12-19 19:12 | disposition home or self-care (01) ==
LOC: EC 17:31
DX: M54.16 Radiculopathy, lumbar region (principal); M79.601 Pain in right arm; M79.602 Pain in left arm; E78.5 Hyperlipidemia, unspecified; I10 Essential (primary) hypertension; F17.200 Nicotine dependence, unspecified, uncomplicated; Z88.5 Allergy status to narcotic agent; Z88.8 Allergy status to other drugs, medicaments and biological substances; Z91.041 Radiographic dye allergy status; Z79.899 Other long term (current) drug therapy; Z98.1 Arthrodesis status
CPT/HCPCS: 99283; 96372 ×2; J2930; J1885

== ENCOUNTER → 2019-04-10 | Outpatient (CLI) | payer BC ==
--- NOTE | 2019-04-10 20:08 | MR ---
EXAMINATION TYPE: MR knee LT wo con DATE OF EXAM: 04/10/2019 COMPARISON: None HISTORY: Lt knee pain x 5 mos, no trauma TECHNIQUE: Multiplanar, multisequence imaging of the left knee is performed without IV contrast. FINDINGS: MEDIAL MENISCUS: Root anchor tear is present at the posterior horn of the medial meniscus, abnormal s ignal also present within the body of the meniscus which likely extends to the articular surface, cor onal image 19, there is pseudoextrusion present LATERAL MENISCUS: Within the posterior horn of the lateral meniscus on coronal image #22, sagittal im age 14 there is abnormal signal with signal extending to the articular surface suggestive of tear CRUCIATE LIGAMENTS: The anterior and posterior cruciate ligaments are intact and the origin of the po sterior cruciate ligament shows some abnormal increased signal and thickening suggestive of strain or partial tear COLLATERAL LIGAMENTS: The medial collateral ligament shows some fluid signal along its course, there is possible strain, and lateral collateral ligament complex are intact and unremarkable. EXTENSOR MECHANISM: Visualized quadriceps and patellar tendons are intact. EFFUSION: Suprapatellar joint effusion is present. POPLITEAL CYST: No popliteal/salas cyst. TRICOMPARTMENT SPACES: Joint space loss present especially the medial compartment CARTILAGE: Grade IV chondromalacia present at the medial compartment and grade 3 to grade IV chondrom alacia posterior patella BONE MARROW SIGNAL: Subchondral reactive marrow signal change present in the medial compartment OTHER: Subcutaneous edema is present in the prepatellar location extending along the patellar tendon in the subcutaneous fat, there is marginal spurring especially in the medial compartment. Origin of the medial belly of the gastrocnemius tendon shows possible strain or partial tear, there is increase d signal present IMPRESSION: Tears of the menisci as described. Possible partial tear of the origin of the posterior cruciate liga ment. Osteoarthritis. Additional findings above.
== END | disposition home or self-care (01) ==
LOC: RADMRIMAIN 15:56
PROVIDERS: ATTEND Family Medicine
DX: M17.12 Unilateral primary osteoarthritis, left knee (principal); S83.282A Other tear of lateral meniscus, current injury, left knee, initial encounter; S83.242A Other tear of medial meniscus, current injury, left knee, initial encounter; M22.42 Chondromalacia patellae, left knee

== ENCOUNTER → 2020-11-05 | Outpatient (CLI) | payer BC ==
--- NOTE | 2020-11-06 16:38 | US ---
EXAMINATION TYPE: US thyroid st tissue head/neck DATE OF EXAM: 11/05/2020 COMPARISON: NONE CLINICAL HISTORY: E04.1 Nontoxic single thyroid nodule. Difficult exam due to location of thyroid and patient's heavy breathing GLAND SIZE: Right Lobe: 3.5 x 2.0 x 1.2 cm Overall Parenchyma: heterogenous Left Lobe: 3.6 x 2.2 x 1.4 cm Overall Parenchyma: heterogeneous Isthmus Thickness: 0.5 cm NODULES RIGHT: # of nodules measured on right: 1 1. 1.1 X 1.1 x 1.0 cm, lower mid, mixed cystic and solid, complex cystic nodule, which is wider nomi n tall, with smooth margins, without echogenic foci. Prior size: No previous LEFT: # of nodules measured on left: 1 1. 1.2 X 1.1 x 1.1 cm, lower mid, solid or almost completely solid, hypoechoic nodule, which is yazan ler than wide, with smooth margins, with echogenic foci. Prior size: No previous ISTHMUS: # of nodules measured in the isthmus: 0 Bilateral neck scanned, no evidence of lymphadenopathy. IMPRESSION: 1. Bilateral nodules. Complex cystic nodule within the right lobe. Solid appearing hypoechoic nodule with coarse calcifications in the left lobe suggestive of a TI RADS 4 nodule. Continued sonographic f ollow-up is recommended. 2017 ACR TI-RADS LEVEL: 4 *Highest TI-RADS level nodule reported
== END | disposition home or self-care (01) ==
LOC: RADUSWWP 16:08
PROVIDERS: ATTEND Family Medicine
DX: E04.2 Nontoxic multinodular goiter (principal)
CPT/HCPCS: 76536

== ENCOUNTER → 2022-07-29 | Outpatient (CLI) | payer BC ==
--- NOTE | 2022-07-29 13:53 | CTL ---
EXAMINATION TYPE: CT Low Dose Lung DATE OF EXAM ORDERED: 07/29/2022 HISTORY: . Lung cancer screening CT DLP: 122.[address] CTDI: 3.8 mGy Automated exposure control for dose reduction was used. SCREENING VISIT: Initial COMPARISON: None TECHNIQUE: Low dose computed tomography scan was performed through the chest at 1 mm thick sections a nd reconstructed images in the coronal plane at [address] DIAGNOSTIC QUALITY: Satisfactory FINDINGS: LUNG NODULES: None. LUNGS: COPD: Severity: None Fibrosis: Severity: None Lymph nodes: None Other findings: None RIGHT PLEURAL SPACE: Effusion: None Calcification: None Thickening: None Pneumothorax: None LEFT PLEURAL SPACE: Effusion: None Calcification: None Thickening: None Pneumothorax: None HEART: Heart Size: Normal Coronary calcification: Moderate Pericardial effusion: None OTHER FINDINGS: Upper abdomen: Normal Bony thorax: Normal Supraclavicular region: Normal Other: Ascending thoracic aorta at the level the main pulmonary artery measures 3.6 cm. The main pul monary artery at the bifurcation measures 2.2 cm. IMPRESSION: 1. No suspicious change to suggest primary or metastatic neoplasm. FOLLOW UP CT CHEST RECOMMENDATION: Follow-up low-dose CT chest [address] LUNG RAD: Lung-Rad 1 Negative
== END | disposition home or self-care (01) ==
LOC: RADCTMAIN 07:23
PROVIDERS: ATTEND Family Medicine
DX: Z12.2 Encounter for screening for malignant neoplasm of respiratory organs (principal); F17.210 Nicotine dependence, cigarettes, uncomplicated
CPT/HCPCS: 71271

== ENCOUNTER → 2022-11-03 | Outpatient (CLI) | payer BC ==
--- NOTE | 2022-11-03 09:04 | US ---
EXAMINATION TYPE: US thyroid st tissue head/neck DATE OF EXAM: 11/03/2022 COMPARISON: US 2020 CLINICAL INDICATION: Female, 67 years old with history of E04.1 NONTOXIC SINGLE THYROID NODULE; GLAND SIZE: Right Lobe: 3.7 x 1.8 x 1.6 cm Overall Parenchyma: heterogenous Left Lobe: 4.5 x 1.7 x 1.3 cm Overall Parenchyma: heterogenous Isthmus Thickness: 0.3 cm NODULES RIGHT: # of nodules measured on right: 3 1. 1.2 X 1.2 x 1.0 cm, mid, mixed cystic and solid, hypoechoic nodule, which is taller than wide, w ith smooth margins, without echogenic foci. Prior size: 1.1 x 1.1 x 1.0 cm 2. 1.0 X 0.8 x 0.9 cm, upper medial, cystic or almost completely cystic, anechoic nodule, which is wider than tall, with smooth margins, without echogenic foci. Prior size: no previous 3. 0.8 X 0.5 x 0.9 cm, lower medial, cystic or almost completely cystic, anechoic nodule, which is wider than tall, with smooth margins, without echogenic foci. Prior size: no previous LEFT: # of nodules measured on left: 3 1. 1.2 X 1.3 x 1.1 cm, mid, solid or almost completely solid, hypoechoic nodule, which is as wide a s tall, with ill-defined margins, without echogenic foci. Prior size: 1.2 x 1.1 x 1.1 cm 2. 0.9 X 0.8 x 1.0 cm, upper mid, cystic or almost completely cystic, anechoic nodule, which is wi louann than tall, with smooth margins, without echogenic foci. Prior size: no previous 3. 0.7 X 0.5 x 0.5 cm, upper mid, mixed cystic and solid, hypoechoic nodule, which is wider than ta ll, with smooth margins, without echogenic foci. Prior size: no previous ISTHMUS: # of nodules measured in the isthmus: 0 Bilateral neck scanned, no evidence of lymphadenopathy. IMPRESSION: Stable nonspecific nodularity.
== END | disposition home or self-care (01) ==
LOC: RADUSWWP 08:16
PROVIDERS: ATTEND Family Medicine
DX: E04.2 Nontoxic multinodular goiter (principal)
CPT/HCPCS: 76536

== ENCOUNTER 2022-11-10 07:18 | Emergency (ER) | payer BC ==
--- NOTE | 2022-11-10 07:49 | ED ---
General Adult HPI - General Chief complaint: Extremity Injury, Lower Stated complaint: L knee pain Time Seen by Provider: 11/10/22 07:31 Source: patient, RN notes reviewed Mode of arrival: wheelchair Limitations: no limitations - History of Present Illness Initial comments: Patient is a pleasant 67-year-old female presenting to the emergency department with concerns for left knee pain. Patient has history of chronic knee pain for years. Patient states she has had increased pain over the past 4 months. Patient was walking on steps a few days ago and questions if she may have twisted her knee a little bit more. Patient does have increased pain with attempted ambulation. No weakness. Patient did have an MRI done a week or so ago with her pain doctor at an outside facility however does not have results yet. Patient has not seen an orthopedic doctor recently. - Related Data Home Medications Medication Instructions Recorded Confirmed Bisoprolol-Hctz 10-6.25 mg [Ziac 1 tab PO BID 09/18/13 12/19/18 10-6.25 MG] Pravastatin Sodium [Pravachol] 40 mg PO DAILY 09/18/13 12/19/18 Previous Rx's Medication Instructions Recorded Aspirin 81 mg PO DAILY chew 06/20/17 Ibuprofen [Motrin] 600 mg PO Q8HR PRN #30 tab 12/19/18 predniSONE 50 mg PO DAILY #5 tablet 12/19/18 Allergies Allergy/AdvReac Type Severity Reaction Status Date / Time codeine Allergy Unknown Verified 11/10/22 07:30 Iodinated Contrast Media Allergy Rash/Hives Verified 11/10/22 07:30 [Iodinated Contrast Media - IV Dye] morphine Allergy Unknown Verified 11/10/22 07:30 sertraline HCl [From Zoloft] Allergy Unknown Verified 11/10/22 07:30 Review of Systems ROS Statement: Those systems with pertinent positive or pertinent negative responses have been documented in the HPI. ROS Other: All systems not noted in ROS Statement are negative. Constitutional: Denies: fever Eyes: Denies: eye pain ENT: Denies: ear pain Respiratory: Denies: cough Cardiovascular: Denies: chest pain Endocrine: Denies: fatigue Gastrointestinal: Denies: abdominal pain Genitourinary: Denies: dysuria Musculoskeletal: Reports: as per HPI Past Medical History Past Medical History: Asthma, Hyperlipidemia, Hypertension Additional Past Medical History / Comment(s): IBS, History of Any Multi-Drug Resistant Organisms: None Reported Past Surgical History: Back Surgery, Section, Cholecystectomy, Hysterectomy Additional Past Surgical History / Comment(s): cervical fusion, rt knee arthroscopy, rt ankle surgery-fx, lower back fusion. Past Anesthesia/Blood Transfusion Reactions: No Reported Reaction Past Psychological History: No Psychological Hx Reported Smoking Status: Current every day smoker Past Alcohol Use History: None Reported Past Drug Use History: None Reported - Past Family History Mother Family Medical History: Cancer General Exam Limitations: no limitations General appearance: alert, in no apparent distress Head exam: Present: normocephalic Eye exam: Present: normal appearance Neck exam: Present: normal inspection Respiratory exam: Present: normal lung sounds bilaterally Cardiovascular Exam: Present: regular rate, normal rhythm GI/Abdominal exam: Present: soft. Absent: tenderness Extremities exam: Present: tenderness (Minimal tenderness left anterior knee). Absent: pedal edema, calf tenderness Neurological exam: Present: alert Psychiatric exam: Present: normal affect, normal mood Skin exam: Present: normal color Course Vital Signs 11/10/22 07:25 Temperature 98.6 F Pulse Rate 72 Respiratory 20 Rate Blood Pressure 134/69 O2 Sat by Pulse 99 Oximetry Medical Decision Making - Medical Decision Making Was pt. sent in by a medical professional or institution (NASIMA Swanson, WAREHOUSE FOREMAN, urgent care, hospital, or usp...) When possible be specific @ -No Did you speak to anyone other than the patient for history (EMS, parent, family, police, friend...)? What history was obtained from this source @ -No Did you review nursing and triage notes (agree or disagree)? Why? @ -I reviewed and agree with nursing and triage notes Were old charts reviewed (outside hosp., previous admission, EMS record, old EKG, old radiological studies, urgent care reports/EKG's, usp records)? Report findings @ -No old charts were reviewed Differential Diagnosis (chest pain, altered mental status, abdominal pain women, abdominal pain men, vaginal bleeding, weakness, fever, dyspnea, syncope, headache, dizziness, GI bleed, back pain, seizure, CVA, palpatations, mental health, musculoskeletal)? @ -Differential Musculoskeletal Muscular strain, contusion, ligament sprain, fracture, arthritis, septic arth ritis, bursitis, cellulitis, muscle spasm, nerve compression, DVT, arterial occlusion, herpes zoster, electrolyte abnormality, tumor.... This is not meant to be in all inclusive list EKG interpreted by me (3pts min.). @ -As above X-rays interpreted by me (1pt min.). @ -X-ray left knee does show severe osteoarthritis. CT interpreted by me (1pt min.). @ -None done U/S interpreted by me (1pt. min.). @ -None done What testing was considered but not performed or refused? (CT, X-rays, U/S, labs)? Why? @ -None What meds were considered but not given or refused? Why? @ -None Did you discuss the management of the patient with other professionals (professionals i.e. DrDenny, PA, WAREHOUSE FOREMAN, lab, RT, psych nurse, elementary school social worker, wallpaperer, teacher, weapons officer naval activity, special education case manager)? Give summary @ -No Was smoking cessation discussed for >3mins.? @ -No Was critical care preformed (if so, how long)? @ -No Were there social determinants of health that impacted care today? How? (Homelessness, low income, unemployed, alcoholism, drug addiction, transportation, low edu. Level, literacy, decrease access to med. care, senior living, rehab)? @ -No Was there de-escalation of care discussed even if they declined (Discuss DNR or withdrawal of care, Hospice)? DNR status @ -No What co-morbidities impacted this encounter? (DM, HTN, Smoking, COPD, CAD, Cancer, CVA, ARF, Chemo, Hep., AIDS, mental health diagnosis, sleep apnea, morbid obesity)? @ -None Was patient admitted / discharged? Hospital course, mention meds given and route, prescriptions, significant lab abnormalities, going to OR and other pertinent info. @ -Patient reevaluated and updated. Patient is recommended that she follow-up with her orthopedic surgeon. Patient is receptive to a shot of Toradol and wrap. Patient does admit that she took 2 Reddick was prior to arrival which seemed to help Undiagnosed new problem with uncertain prognosis? @ -No Drug Therapy requiring intensive monitoring for toxicity (Heparin, Nitro, Insulin, Cardizem)? @ -No Were any procedures done? @ -No Diagnosis/symptom? @ -Left knee pain Acute, or Chronic, or Acute on Chronic? @ -Acute on chronic Uncomplicated (without systemic symptoms) or Complicated (systemic symptoms)? @ -default Side effects of treatment? @ -No Exacerbation, Progression, or Severe Exacerbation? @ -No Poses a threat to life or bodily function? How? (Chest pain, [place], [place], pneumonia, PE, COPD, DKA, ARF, appy, cholecystitis, CVA, Diverticulitis, Homicidal, Suicidal, threat to staff... and all critical care pts) @ -No Disposition Clinical Impression: Left knee pain Disposition: HOME SELF-CARE Condition: Stable Instructions (If sedation given, give patient instructions): Knee Pain (ED), Osteoarthritis (ED) Additional Instructions: Please do follow-up with your orthopedic surgeon and primary care physician in the next couple days for recheck. Return for increased pain, swelling, worsening or changing symptoms or any other concerns. Is patient prescribed a controlled substance at d/c from ED?: No Referrals: Haris Saini DO [Primary Care Provider] - 1-2 days Eladio Mcclain MD [STAFF PHYSICIAN] - 1-2 days Time of Disposition: 08:32
--- NOTE | 2022-11-10 08:18 | XR ---
EXAMINATION TYPE: XR knee complete LT DATE OF EXAM: 11/10/2022 COMPARISON: NONE HISTORY: Pain TECHNIQUE: Three views are submitted. FINDINGS: Severe narrowing of the medial injury. Moderate changes joint small cyst versus fluid collection. The re is diffuse.. Osseous structures are intact. No acute fracture seen. IMPRESSION: 1. Severe osteoarthritis
[2022-11-10] MEDS ORDERED: KETOROLAC 15 MG/ML 1 ML VIAL IM STA (08:30)
[2022-11-10 08:54] VITALS: BP 129/76; PULSE 70; RESP 16; TEMP 98.2
== END 2022-11-10 08:54 | disposition home or self-care (01) ==
LOC: EC 07:18
DX: M17.12 Unilateral primary osteoarthritis, left knee (principal); I10 Essential (primary) hypertension; J45.909 Unspecified asthma, uncomplicated; E78.5 Hyperlipidemia, unspecified; F17.200 Nicotine dependence, unspecified, uncomplicated; Z79.899 Other long term (current) drug therapy; Z88.5 Allergy status to narcotic agent; Z88.8 Allergy status to other drugs, medicaments and biological substances; Z91.041 Radiographic dye allergy status
CPT/HCPCS: 73562; 99283; 96372; J1885

== ENCOUNTER → 2022-11-17 | Outpatient (CLI) | payer BC ==
[2022-11-17 14:32] LABS: Basophils # (A) 0.05 X 10*3/uL (0.00-0.10); Basophils % (A) 0.7 %; Eosinophils # (A) 0.16 X 10*3/uL (0.04-0.35); Eosinophils % (A) 2.2 %; HCT 39.2 % (37.2-46.3); HGB 12.8 d/dL (12.0-15.0); Lymphocytes # (A) 2.52 X 10*3/uL (0.90-5.00); Lymphocytes % (A) 34.1 %; MCH 32.3 pg (27.0-32.0); MCHC 32.7 d/dL (32.0-37.0); Mean Platelet Volume 12.4 FL (9.5-12.2); Monocytes # (A) 0.92 X 10*3/uL (0.20-1.00); Monocytes % (A) 12.5 %; NRBC Per 100 WBC 0 X 10*3/uL (0.00-0.01); Neutrophils # (A) 3.69 X 10*3/uL (1.80-7.70); Platelet Count 336 X 10*3/uL (140-440); RBC 3.96 X 10*6/uL (4.10-5.20); WBC 7.38 X 10*3/uL (4.50-10.00)
[2022-11-17 14:46] LABS: Anion Gap 12.2 mmol/L (4.00-12.00); Carbon Dioxide 20.8 mmol/L (21.6-31.8); Potassium 4.5 mmol/L (3.5-5.5)
== END | disposition home or self-care (01) ==
LOC: LABPAT 08:18
PROVIDERS: ATTEND Orthopaedic Surgery
DX: Z01.818 Encounter for other preprocedural examination (principal); M23.92 Unspecified internal derangement of left knee; R94.31 Abnormal electrocardiogram [ECG] [EKG]
CPT/HCPCS: 80051; 85025; 93005

== ENCOUNTER 2022-12-02 12:16 | Day surgery (SDC) | payer BC ==
[2022-11-24 10:06] VITALS: BMI 43.4
--- NOTE | 2022-12-01 14:22 | HP ---
HISTORY AND PHYSICAL DATE OF SURGERY: 12/02/2022. HISTORY OF PRESENT ILLNESS: Karma Herbert is a 67-year-old patient seen with progressive left knee pain. We discussed options. She elected to proceed with left knee arthroscopy. Consent regarding the procedure obtained. PAST MEDICAL HISTORY: Hyperlipidemia, hypertension. PAST SURGICAL HISTORY: Noncontributory. DAILY MEDICATIONS: 1. Aspirin. 2. Ibuprofen. 3. Atorvastatin. 4. Bisoprolol. ALLERGIES: Zoloft, codeine, morphine, IV contrast dye. SOCIAL HISTORY: She denies tobacco use. PHYSICAL EVALUATION OF LEFT KNEE: Range of motion is -2/3 to 115 degrees. Mild to moderate effusion. Tenderness along the medial and lateral joint lines. Positive medial Mahesh's. Positive lateral Mahesh's. Ligaments are stable. Hip rotation is without pain. Distal neurovascular exam is intact. IMAGING STUDIES: Left knee radiographs revealed moderate medial patellofemoral compartment osteoarthritis. MRI of the left knee revealed medial and lateral meniscal tears along with osteoarthritis. IMPRESSION: 1. Internal derangement of left knee with medial and lateral meniscal tears. 2. Hypertension. 3. Hyperlipidemia. PLAN: Left knee arthroscopy with partial medial/lateral meniscectomy and debridement. MMODL / IJN: [id number] /
[~2022-12-02 12:16] MED LIST changes: +DEXAMETHASONE SOD PHOSPHATE 4 MG/ML 1 ML VIAL IV ONE; -LIDOCAINE 1% 20 ML VIAL (10MG/ML) FOR IV START INTRADERMA PRN; +ONDANSETRON 4 MG/2 ML VIAL IVP ONE; +fentaNYL (PF) 50 MCG/ML 2 ML AMP IV PRN
[2022-12-02] MEDS ORDERED: MIDAZOLAM 2 MG/2 ML VIAL ONE (13:44)
[2022-12-02] MEDS ORDERED: fentaNYL (PF) 50 MCG/ML 2 ML AMP ONE (13:44)
[2022-12-02] MEDS ORDERED: LIDOCAINE 2% INJ 20 MG/ML (2 ML VIAL) ONE (13:44)
[2022-12-02] MEDS ORDERED: PROPOFOL 10 MG/ML 20 ML VIAL IV ONE (13:44)
[2022-12-02] MEDS ORDERED: HYDROmorphone (PF) 1 MG/ML ONE (13:44)
[2022-12-02] MEDS ORDERED: BUPIVACAINE (PF) 0.25% 30 ML VIAL INTRAARTIC ONE ×2 (14:03→14:14)
[2022-12-02 14:33] VITALS: TEMP 97
--- NOTE | 2022-12-02 14:39 | P.OP ---
Date of Procedure: 12/02/22 Preoperative Diagnosis: Internal derangement left knee Postoperative Diagnosis: 1. Tear medial and lateral meniscus left knee 2. Grade 4 chondromalacia medial femoral condyle left knee 3. Reactive synovitis medial, lateral and suprapatellar compartments left knee Procedure(s) Performed: 1. Arthroscopic partial medial and lateral meniscectomy left knee 2. Arthroscopic microfracture medial femoral condyle the 3. Arthroscopic partial synovectomy medial, lateral and suprapatellar compartments left knee Anesthesia: GETA, local Surgeon: Jerry Jones Estimated Blood Loss (ml): 11 Pathology: none sent Condition: stable Disposition: PACU Indications for Procedure: 67-year-old patient seen with progressive left knee pain. After having treatment options discussed, she elected to proceed with arthroscopy Operative Findings: See description of procedure Description of Procedure: Patient was taken to the operative suite. Patient underwent a general anesthetic by the department of anesthesia. Patient was given preoperative antibiotics. The left lower extremity was placed in a well-padded arthroscopic leg velez. The left leg was prepped and draped in the normal sterile orthopedic fashion. A lateral parapatellar and suprapatellar incision was made. Trochars were inserted. Arthroscopy was initiated. Suprapatellar pouch revealed diffuse thick reactive synovitis. The patellofemoral joint appeared to articulate congruently. There was grade 2/3 chondromalacia of the patella and grade 3/4 chondromalacia of the femoral sulcus. The scope was guided into the medial gutter. The loose bodies or plica were identified. The scope was then guided into the medial compartment. A medial parapatellar incision was made. Trocar inserted followed by probe. There was a complex tear involving the posterior horn and midbody medial meniscus. There were grade 4 chondromalacia changes of medial femoral condyle and tibial plateau with exposed bone on both size. There was thick reactive synovitis anteriorly. I performed a partial medial meniscectomy getting down to stable meniscal tissue. I performed a partial synovectomy decompressing the reactive synovitis. I introduced a microfracture awl and perform microfractures to the medial femoral condyle area of exposed bone penetrating the bone with resultant bleeding at the microfracture sites Scope and probe were then guided into the intercondylar no tch. Cruciates were identified, probed and found to be stable. The scope and probe were then guided into lateral compartment. There was a radial tear mid body lateral meniscus. There were grade 1/2 chondromalacia changes lateral compartment with no tears. There was some thick reactive synovitis anteriorly. I performed a partial lateral meniscectomy. I performed a partial synovectomy. The residual meniscus was stable. There was good decompression of the synovitis. The scope was in guided back into the suprapatellar compartment. I introduced a motorized shaver into the suprapatellar compartment. I debrided some piecemeal fragments of meniscus I encountered. I performed a partial synovectomy. Shaver was now removed. There was good decompression of the synovitis. I took one more look around the entire knee, no residual debris. Instruments were now removed from the joint. The joint was infiltrated with .25% Marcaine. Steri-Strips were applied to the portal sites. Sterile dressings were applied. The patient was placed into a KEVIN hose. No tourniquet was utilized. The patient was awakened, transferred to a bed and taken to recovery stable satisfactory condition.
[2022-12-02] MEDS ORDERED: HYDROmorphone 0.5 MG/0.5 ML SYRINGE IVP ONE (14:42)
[2022-12-02 15:11] VITALS: RESP 16
[2022-12-02 15:42] VITALS: BP 130/75; PULSE 71
== END 2022-12-02 16:12 | disposition home or self-care (01) ==
LOC: OR 12:16
PROVIDERS: ATTEND Orthopaedic Surgery
DX: S83.282A Other tear of lateral meniscus, current injury, left knee, initial encounter (principal); M94.262 Chondromalacia, left knee; M65.862 Other synovitis and tenosynovitis, left lower leg; I10 Essential (primary) hypertension; E78.5 Hyperlipidemia, unspecified; Z79.82 Long term (current) use of aspirin; Z88.5 Allergy status to narcotic agent; Z79.899 Other long term (current) drug therapy; X58.XXXA Exposure to other specified factors, initial encounter
CPT/HCPCS: 29880; 29879; J2250; J1100; J0690; J2405; J3010; J1170 ×2; J2704; J2001; J0665

== ENCOUNTER → 2023-03-04 | Outpatient (CLI) | payer BC ==
[2023-03-04 16:05] LABS: Blood Urea Nitrogen 17.1 mg/dL (9.0-27.0); Calcium 10.1 mg/dL (8.7-10.3); Carbon Dioxide 25.2 mmol/L (21.6-31.8); Chloride 97 mmol/L (96-109); Glucose 123 mg/dL (70-110); Potassium 4.7 mmol/L (3.5-5.5); Sodium 134 mmol/L (135-145)
[2023-03-04 16:37] LABS: Basophils # (A) 0.06 X 10*3/uL (0.00-0.10); Basophils % (A) 0.7 %; Eosinophils # (A) 0.19 X 10*3/uL (0.04-0.35); Eosinophils % (A) 2.3 %; HCT 39.7 % (37.2-46.3); HGB 13.1 d/dL (12.0-15.0); Lymphocytes # (A) 2.41 X 10*3/uL (0.90-5.00); Lymphocytes % (A) 29.6 %; MCH 32.3 pg (27.0-32.0); Mean Platelet Volume 12.2 FL (9.5-12.2); Monocytes # (A) 0.97 X 10*3/uL (0.20-1.00); Monocytes % (A) 11.9 %; NRBC Per 100 WBC 0 X 10*3/uL (0.00-0.01); Neutrophils # (A) 4.43 X 10*3/uL (1.80-7.70); Neutrophils % (A) 54.6 %; Platelet Count 340 X 10*3/uL (140-440); RBC 4.05 X 10*6/uL (4.10-5.20); RDW 13.1 % (11.5-14.5); WBC 8.13 X 10*3/uL (4.50-10.00)
== END | disposition home or self-care (01) ==
LOC: LABPAT 08:08
PROVIDERS: ATTEND Orthopaedic Surgery
DX: Z01.812 Encounter for preprocedural laboratory examination (principal); M17.12 Unilateral primary osteoarthritis, left knee; Z22.322 Carrier or suspected carrier of Methicillin resistant Staphylococcus aureus
CPT/HCPCS: 80048; 85025; 87070

== ENCOUNTER 2023-03-14 05:48 | Observation (INO) | payer BC ==
[2023-03-08 11:32] VITALS: BMI 44.9
--- NOTE | 2023-03-13 18:16 | HP ---
HISTORY AND PHYSICAL DATE OF SURGERY: 03/14/2023. HISTORY OF PRESENT ILLNESS: Karma Herbert is a 67-year-old patient, seen with symptomatic left knee osteoarthritis. We discussed options for treatment. She elected to proceed with left total knee arthroplasty. Consent regarding the procedure was obtained. Clearance was provided by Dr. Saini. PAST MEDICAL HISTORY: Hypertension and hyperlipidemia. PAST SURGICAL HISTORY: Left knee arthroscopy. DAILY MEDICATIONS: 1. Aspirin. 2. Atorvastatin. 3. Bisoprolol. 4. Hydrocodone. 5. Ibuprofen. ALLERGIES: 1. Zoloft. 2. Codeine. 3. Morphine. 4. Sulfate. 5. IV contrast dye. SOCIAL HISTORY: Noncontributory. PHYSICAL EVALUATION OF THE LEFT KNEE: Range of motion is -6 to 125 degrees. Mild effusion. Tenderness, medial joint line. Crepitus along the medial patellofemoral compartments with range of motion. Pain with patellofemoral compression. Ligaments are stable. Hip rotation is without pain. Distal neurovascular exam is intact. IMAGING STUDIES: Left knee radiographs reveal severe osteoarthritic changes. IMPRESSION: 1. Left knee osteoarthritis. 2. Hypertension. 3. Hyperlipidemia. PLAN: Left total knee arthroplasty. MMODL / IJN: [id number] /
[~2023-03-14 05:48] MED LIST changes: +ACETAMINOPHEN TAB 500 MG TAB PO PRN; -DEXAMETHASONE SOD PHOSPHATE 4 MG/ML 1 ML VIAL IV ONE; -LACTATED RINGERS 1,000 ML IV SCH; +MELOXICAM 7.5 MG TAB PO PRN; -ONDANSETRON 4 MG/2 ML VIAL IVP ONE; +TRANEXAMIC 1,000 MG/100ML-NACL 1,000 MG in SALINE 1 100ML.BAG IVPB PRN; -fentaNYL (PF) 50 MCG/ML 2 ML AMP IV PRN
[2023-03-14] MEDS ORDERED: ONDANSETRON 4 MG/2 ML VIAL IVP ONE (06:29)
[2023-03-14] MEDS ORDERED: fentaNYL (PF) 50 MCG/ML 2 ML AMP IV PRN (06:29)
[2023-03-14] MEDS ORDERED: LIDOCAINE 1% (10MG/ML) FOR IV START INTRADERMA PRN (06:29)
[2023-03-14] MEDS: LACTATED RINGERS 1,000 ML IV SCH ×3 (06:51→21:44)
[2023-03-14] MEDS ORDERED: DEXAMETHASONE SOD PHOSPHATE 4 MG/ML 1 ML VIAL IVP ONE (06:52)
[2023-03-14] MEDS ORDERED: MIDAZOLAM 2 MG/2 ML VIAL IVP ONE (07:14)
[2023-03-14] MEDS ORDERED: fentaNYL (PF) 50 MCG/ML 2 ML AMP IVP ONE (07:14)
[2023-03-14] MEDS ORDERED: TRANEXAMIC 1,000 MG/100ML-NACL PREMIX BAG ONE (07:30)
[2023-03-14] MEDS ORDERED: SODIUM CHLORIDE 0.9% (PF) 10 ML VIAL ONE (07:30)
[2023-03-14] MEDS ORDERED: MIDAZOLAM 2 MG/2 ML VIAL ONE (07:30)
[2023-03-14] MEDS ORDERED: ROPIVACAINE 5 MG/ML 30 ML VIAL ONE (07:30)
[2023-03-14] MEDS ORDERED: PROPOFOL 10 MG/ML 20 ML VIAL IV ONE (07:30)
[2023-03-14] MEDS ORDERED: PHENYLEPHRINE 10 MG/ML 5 ML VIAL ONE (07:30)
[2023-03-14] MEDS ORDERED: ceFAZolin 1,000 MG in SODIUM CHLORIDE 0.9% 1,000 ML IRRIGATION ONE (08:06)
[2023-03-14 08:12] LABS: INR 0.9 (<1.2); Prothrombin Time 10.4 sec (10.0-12.5)
[2023-03-14] MEDS ORDERED: LACTATED RINGERS 1,000 ML IV ONE (09:26)
[2023-03-14] MEDS ORDERED: NALOXONE 0.4 MG/ML 1 ML VIAL IV PRN (09:34)
[2023-03-14] MEDS ORDERED: HYDROmorphone 0.5 MG/0.5 ML SYRINGE IVP PRN (09:34)
[2023-03-14] MEDS ORDERED: HYDROcodone/APAP 5-325MG 1 EACH TAB PO PRN (09:34)
[2023-03-14] MEDS ORDERED: ONDANSETRON 4 MG/2 ML VIAL IVP PRN (09:34)
--- NOTE | 2023-03-14 09:34 | P.OP ---
Date of Procedure: 03/14/23 Preoperative Diagnosis: Left knee osteoarthritis Postoperative Diagnosis: Left knee osteoarthritis Procedure(s) Performed: Left total knee arthroplasty Implants: 1. Depuy attune size 5 narrow left cruciate retaining cemented femur 2. Depuy attune size 4 fixed bearing cemented tibial baseplate 3. Depuy attune size 5 fixed bearing cruciate retaining 14 mm polyethylene tibial insert 4. Depuy attune 35 mm all polyethylene cemented patella Anesthesia: regional (Adductor canal catheter, Ipack block), spinal Surgeon: Jerry Jones Assistant Professor Of Economics #1: Joselito Ruano Estimated Blood Loss (ml): 40 Pathology: none sent Condition: stable Disposition: PACU Indications for Procedure: 67 -year-old patient seen with symptomatic left knee osteoarthritis. After having treatment options discussed, she elected to proceed with total knee arthroplasty. Operative Findings: see description of procedure Description of Procedure: Patient was taken to the operative suite after having an adductor canal catheter placed by the department of anesthesia. Patient underwent a spinal anesthetic by the department of anesthesia. Patient was given preoperative IV intake antibiotics and TXA. A well-padded tourniquet was placed about the left lower extremity. The lower extremity was then prepped and draped in the normal sterile orthopedic fashion. The extremity was elevated, a tourniquet was insufflated to 300. A standard anterior incision was made sharply through skin. Dissection was taken down through the subcutaneous soft tissues down to the extensor mechanism. A medial arthrotomy was performed, patella was everted and knee was flexed. There was advanced osteoarthritis noted. I introduced my distal intramedullary femoral drill. I then introduced the distal femoral cu tting jig. Ye DEL REAL secured the cutting jig with 2 pins. I held retractors in position while Ye DEL REAL performed the distal femoral resection through the guide area we now removed her distal femoral cutting guide. We now placed our 4-in-1 femoral cutting block and positioned and it was secured with 2 pins by Ye DEL REAL while I held the block in position. The distal femoral finishing was now completed. A proximal tibial cutting guide was positioned. I held the guide in the appropriate position with both hands well Ye DEL REAL inserted stabilizing pins into the guide. Proximal tibial cut was made. We now placed a trial femoral component into position, along with an appropriate size tibial tray and insert. We now took the knee through range of motion and had full extension good flexion and good overall soft tissue balance noted. The patella was everted and stabilized with 2 towel clips held by Ye DEL REAL while I performed a flush with patellar quad tendon utilizing a fresh sawblade. We templated the patella, appropriate drill holes were made. An appropriate trial patella was positioned, knee was taken through full range of motion with the patella tracking very nicely. The trial patella was removed. Drill holes were made through the femoral component. All trial components were removed after marking off the appropriate rotation of the tibia. Retractors were now positioned along the proximal tibia. An appropriate keel punch was made with the appropriate size tibial guide by myself on Ye DEL REAL assisted by holding retractors. At this point appropriate size implants were chosen and opened. The joint was irrigated copiously with pulse lavage mechanical irrigation. The wound was irrigated with pulse lavage mechanical irrigation. We mixed antibiotic methylmethacrylate. We placed the knee into flexion. We placed multiple retractors assisted by Ye DEL REAL to expose the proximal tibia. Once the methyl methacrylate was ready, the tibial component was cemented into place removing any excess methylmethacrylate form by both myself and Ye DEL REAL. The femoral component was cemented into place removing the removing any excess methylmethacrylate performed by both myself and Ye DEL REAL. We then inserted the appropriate size polyethylene tibial insert. We made sure that it was locked into position. We took the knee into full extension, and then back in a flexion making sure we had removed any excess methylmethacrylate. The patellar component was then cemented down and secured with clamp. Excess methylmethacrylate removed. We kept the knee in full extension, patellar clamp in position until methylmethacrylate had hardened. Once it had hardened the patellar clamp was removed. The knee was taken through full range of motion. The patella tracked nicely. There was good soft tissue balancing. The tourniquet was now released. Additional hemostasis was achieved via electrocautery. A second gram of TXA was given. The wound again was irrigated with pulse lavage mechanical irrigation. The extensor mechanism was repaired with Ethibond suture. We checked the repair with range of motion and it was stable. The subcutaneous soft tissues were repaired with Vicryl in layers. The skin was approximated with pernio/Dermabond. Sterile dressings were applied followed by loose web roll and Gavino bandage. The patient was transferred to a bed, and taken to recovery in stable and satisfactory condition. Ye DEL REAL assisted with this complex procedure.
[2023-03-14] MEDS: fentaNYL (PF) 50 MCG/ML 2 ML AMP IVP ONE ×3 (10:12→10:34)
[2023-03-14] MEDS ORDERED: ROPIVACAINE 1,100 MG, SODIUM CHLORIDE 0.9% 500 ML 330 ML, EMPTY PAIN BALL 1 EACH MISCELLANE PRN ×2 (10:16)
--- NOTE | 2023-03-14 10:20 | P.ANPRN ---
Procedure Note - Anesthesia - Nerve Block Performed Left Adductor Canal Infusion Time Out Performed: Yes (0713) Date of Procedure: 03/14/23 Procedure Start Time: 07:14 Procedure Stop Time: 07:17 Location of Patient: PreOp Indication: Acute Post-Operative Pain, Requested by Surgeon Specifically requested for management of pain by DrDenny: Jerry Jones Sedation Type: Sedate with meaningful contact maintained Preparation: Sterile Prep, Sterile Dressing Position: Supine Catheter Depth at Skin (cm): 8 Catheter: Indwelling Needle Types: Pajunk Needle Gauge: 18 Ultrasound used to visualize needle placement: Yes Ultrasound used to observe medication spread: Yes Injectate: 0.5% Ropivacaine (see comment for volume) (15cc +5cc nacl pf) Blood Aspirated: No Pain Paresthesia on Injection Noted: No Resistance on Injection: Normal Image Stored and Saved: Yes Events: Uneventful and Well Tolerated
--- NOTE | 2023-03-14 10:21 | P.ANPRN ---
Procedure Note - Anesthesia - Nerve Block Performed Left iPack Single Time Out Performed: Yes (0713.) Date of Procedure: 03/14/23 Procedure Start Time: :18 Procedure Stop Time: :21 Location of Patient: PreOp Indication: Acute Post-Operative Pain, Requested by Surgeon Specifically requested for management of pain by DrDenny: Jerry Jones Sedation Type: Sedate with meaningful contact maintained Preparation: Sterile Prep Position: Supine Catheter: None Needle Types: Pajunk Needle Gauge: 21 Ultrasound used to visualize needle placement: Yes Ultrasound used to observe medication spread: Yes Injectate: 0.5% Ropivacaine (see comment for volume) (15cc +5cc nacl pf) Blood Aspirated: No Pain Paresthesia on Injection Noted: No Resistance on Injection: Normal Image Stored and Saved: Yes Events: Uneventful and Well Tolerated
[2023-03-14] MEDS: HYDROcodone/APAP 7.5-325MG 1 EACH TAB PO PRN ×2 (11:06→17:12)
--- NOTE | 2023-03-14 11:06 | XR ---
EXAMINATION TYPE: XR knee limited LT DATE OF EXAM: 03/14/2023 CLINICAL HISTORY: Postoperative evaluation Two views of the left knee are submitted. Identified are changes of total knee arthroplasty with fem oral and tibial components appearing well seated. Postsurgical soft tissue changes are noted. Align ment is anatomic.
[2023-03-14] MEDS: HYDROmorphone 0.5 MG/0.5 ML SYRINGE IVP PRN ×4 (11:29→20:36)
--- NOTE | 2023-03-14 12:41 | P.CONS ---
History of Present Illness - Reason for Consult Consult date: 03/14/23 Medical management Requesting physician: Jerry Jones - Chief Complaint Left knee surgery - History of Present Illness Pleasant 67 year patient follows with Dr. Saini. Patient undergone left total knee arthroplasty. Postprocedure pain is controlled. No nausea vomiting. No chest pain. Patient's 2 daughters at the bedside. Chronic stable medical conditions include COPD, hypertension, hyperlipidemia, IBS. Review of systems: GEN.: Tired EYES: None HEENT: None NECK: None RESPIRATORY: Occasional cough CARDIOVASCULAR: None GASTROINTESTINAL: None GENITOURINARY: None MUSCULOSKELETAL: Joint pains LYMPHATICS: None HEMATOLOGICAL: None PSYCHIATRY: None NEUROLOGICAL: None Past medical history to include: COPD, hypertension, hyperlipidemia, osteoarthritis, IBS, Coumadin 2020 treated with monoclonal antibody infusion, back surgery Social history: Smoking half a pack a day since age of 17. No alcohol. . Physical examination: VITAL SIGNS: 97.6, 68, 16, 129/80, 95% room air GENERAL: BMI 46.3, declining but awake not in distress. EYES: Pupils equal. Conjunctiva normal. HEENT: External appearance of nose and ears normal, oral cavity grossly normal. NECK: JVD not raised; masses not palpable. HEART: First and second heart sounds are normal; no edema. LUNGS: Respiratory rate normal; decreased breath sounds. ABDOMEN: Soft, nontender, liver spleen not palpable, no masses palpable. PSYCH: Alert and oriented x3; mood and affect normal. MUSCULOSKELETAL:No Clubbing/cyanosis;muscles-grossly intact . Dressing over the left knee NEUROLOGICAL: Cranial nerves grossly intact; no facial asymmetry, power and sensation grossly intact. LYMPHATICS: No lymph nodes palpable in the axilla and neck INVESTIGATIONS, reviewed in the clinical context: March 04: White count 8.1 hemoglobin 13.1 platelets 314 sodium 134 potassium 4.7 creatinine 0.9 Assessment plan: -Left total knee arthroplasty IV cefazolin for infection prophylaxis. Subcu Lovenox for DVT prophylaxis. Pain control -Primary osteoarthritis Pain control as needed -Hyperlipidemia Lipitor 10 mg per day -Essential hypertension Ziac 10/6.25 one tablet twice a day -Muscle spasms Flexeril 5 mg twice a day -Morbid obesity BMI 46.3 Weight loss measures -COPD in a current smoker Use albuterol when necessary -Chronic nicotine dependence, cigarette smoker Patient has declined nicotine patch Care was discussed with the patient. Questions answered. Thank you Dr. Jones Past Medical History Past Medical History: Asthma, Chest Pain / Angina, COPD, Hyperlipidemia, Hypertension, Osteoarthritis (OA) Additional Past Medical History / Comment(s): IBS, chest pain attributed to anxiety(2018), hx Covid 2019 with monoclonal antibody infusion. History of Any Multi-Drug Resistant Organisms: None Reported Past Surgical History: Back Surgery, Section, Cholecystectomy, Hysterectomy, Orthopedic Surgery Additional Past Surgical History / Comment(s): Cervical fusion, bilateral knee arthroscopy, right ankle surgery, lower back fusion, section X2., total knee 03/14/23 Past Anesthesia/Blood Transfusion Reactions: No Reported Reaction Additional Past Anesthesia/Blood Transfusion Reaction / Comm: Has never had blood transfusion. Past Psychological History: No Psychological Hx Reported Smoking Status: Current every day smoker Past Alcohol Use History: None Reported Additional Past Alcohol Use History / Comment(s): Smokes 1/2 PPD, started at age 17. Past Drug Use History: None Reported - Past Family History Mother Family Medical History: Cancer Additional Family Medical History / Comment(s): Colon cancer, at age 55. Medications and Allergies Home Medications Medication Instructions Recorded Confirmed Type Bisoprolol-Hctz 10-6.25 mg [Ziac 1 tab PO BID 09/18/13 03/08/23 History 10-6.25 MG] Aspirin 81 mg PO DAILY chew 06/20/17 03/08/23 Rx Atorvastatin Calcium 10 mg PO DAILY 11/24/22 03/08/23 History HYDROcodone/APAP 7.5-325MG [[place] 1 tab PO TID 11/24/22 03/08/23 History 7.5-325] Ibuprofen [Motrin] 800 mg PO Q8HR PRN 11/24/22 03/08/23 History Cyclobenzaprine [Flexeril] 5 mg PO BID 03/08/23 03/08/23 History Allergies Allergy/AdvReac Type Severity Reaction Status Date / Time Iodinated Contrast Media Allergy Rash/Hives,states Verified 03/14/23 06:30 [Iodinated Contrast Media - "can IV Dye] tolerate iodine on skin" codeine AdvReac severe Verified 03/14/23 06:30 constipation morphine AdvReac Hallucinati Verified 03/14/23 06:30 ons sertraline HCl [From Zoloft] AdvReac Hallucinati Verified 03/14/23 06:30 ons Physical Exam Vitals: Vital Signs Temp Pulse Pulse Resp BP BP Pulse Ox 03/14/23 10:41 68 16 129/80 95 03/14/23 10:26 62 16 143/84 99 03/14/23 10:11 66 16 129/79 99 03/14/23 09:56 97.6 F 69 20 127/70 99 03/14/23 06:40 98.0 F 76 18 136/76 94 L Intake and Output 03/13/23 03/14/23 03/14/23 22:59 06:59 14:59 Intake Total 300 1251 Output Total 40 Balance 300 1211 Intake: IV 300 1251 Output: Estimated Blood Loss 40 Other: Weight 111.2 kg 111.2 kg
[2023-03-14] MEDS: ENOXAPARIN 30 MG/0.3 ML SYRINGE SQ SCH (20:35)
[2023-03-14] MEDS: SENNOSIDES-DOCUSATE SODIUM 1 EACH TAB PO SCH (20:36)
[2023-03-15] MEDS: HYDROcodone/APAP 7.5-325MG 1 EACH TAB PO PRN ×4 (00:02→20:59)
[2023-03-15] MEDS: LACTATED RINGERS 1,000 ML IV SCH ×3 (00:02→17:12)
[2023-03-15] MEDS: BISOPROLOL-HCTZ 10-6.25 MG 1 EACH TAB PO SCH ×3 (00:39→20:59)
[2023-03-15] MEDS: HYDROmorphone 0.5 MG/0.5 ML SYRINGE IVP PRN ×2 (01:24→08:11)
--- NOTE | 2023-03-15 07:39 | P.PN ---
Progress Note - Text Progress Note Date: 03/15/23 (164) Anesthesiology Postop day 1 status post total knee arthroplasty with adductor canal catheter. Patient doing well. VAS 6 out of 10. Gross strength intact in lower extremity. Afebrile. Denies alterations in sensorium. Catheter site intact. Heart regular rate Lungs nonlabored Abdomen nondistended Assessment: Postop day 1 status post total knee arthroplasty with adductor canal catheter Plan: 1.All questions answered. Spoke with the patient about the possibility of inc reasing the rate on the catheter which will allow for pain control potentially. Only downside is it will decrease induration. Maintain catheter 2 more days with patient removal at home. Instructions to be given at discharge. 2.This note was dictated using Let[employer] software. Please be advised there is a potential for misspellings or errors in supervisor ski production.
[2023-03-15] MEDS: ENOXAPARIN 30 MG/0.3 ML SYRINGE SQ SCH ×2 (07:47→20:59)
[2023-03-15] MEDS: ATORVASTATIN 10 MG TAB PO SCH (07:48)
[2023-03-15 10:44] LABS: HCT 38.1 % (37.2-46.3); HGB 12.5 g/dL (12.0-15.0); MCH 32.2 pg (27.0-32.0); MCHC 32.8 g/dL (32.0-37.0); MCV 98.2 FL (80.0-97.0); NRBC Per 100 WBC 0 X 10*3/uL (0.00-0.01); Platelet Count 253 X 10*3/uL (140-440); RBC 3.88 X 10*6/uL (4.10-5.20); RDW 13.2 % (11.5-14.5); WBC 13.11 X 10*3/uL (4.50-10.00)
--- NOTE | 2023-03-15 10:59 | P.PN ---
Subjective Progress Note Date: 03/15/23 Principal diagnosis: Status post left total knee arthroplasty Patient evaluated today at bedside, she appears comfortable resting in bed. She does note some pain in the knee when ambulating. She was a little nervous to do stairs today due to instability and weakness with the knee. She denies any headaches, lightheadedness, chest pain or shortness of breath. Objective - Vital Signs Vital signs: Vital Signs Temp 98.3 F 03/15/23 06:58 Pulse 84 03/15/23 06:58 Resp 19 03/15/23 06:58 BP 120/72 03/15/23 06:58 Pulse Ox 100 03/15/23 06:58 FiO2 Intake & Output 03/14/23 03/15/23 03/15/23 18:59 06:59 18:59 Intake Total 1251 Output Total 40 Balance 1211 Weight 111.2 kg Intake: IV 1251 Output: Estimated Blood Loss 40 Other: Voiding Method Toilet Bedside Commode # Voids 3 1 - Exam Left lower extremity: Incision is clean, dry, and intact. The exofin fusion tape is in good con dition. There is minimal soft tissue swelling and ecchymosis surrounding the medial and lateral aspects of the incision. Calf is soft, no tenderness with palpation. Plantar flexion, dorsiflexion, EHL, FHL are intact. Sensory exam to light touch throughout the extremity is intact, dorsal pedis pulses 2+. - Labs CBC & Chem 7: 03/15/23 06:01 Labs: Abnormal Lab Results - Last 24 Hours (Table) 03/15/23 Range/Units 06:01 WBC 13.11 H (4.50-10.00) X 10*3/uL RBC 3.88 L (4.10-5.20) X 10*6/uL MCV 98.2 H (80.0-97.0) FL MCH 32.2 H (27.0-32.0) pg Assessment and Plan Assessment: Postoperative day #1 status post left total knee arthroplasty Plan: Pain control, continue current medications DVT prophylaxis, continue current medications Wound care, continue to monitor surgical dressing Continue PT/OT Medical recommendations appreciated Discharge planning: Due to inability to do stairs, would like to keep patient in hospital 1 additional night with hope for discharge to home with home care on 03/16/2023 Time with Patient: Less than 30
[2023-03-15 11:43] LABS: Basophils # (A) 0.05 X 10*3/uL (0.00-0.10); Basophils % (A) 0.4 %; Eosinophils # (A) 0.04 X 10*3/uL (0.04-0.35); Eosinophils % (A) 0.3 %; Lymphocytes # (A) 2.27 X 10*3/uL (0.90-5.00); Lymphocytes % (A) 17.3 %; Monocytes # (A) 2.01 X 10*3/uL (0.20-1.00); Monocytes % (A) 15.3 %; Neutrophils # (A) 8.65 X 10*3/uL (1.80-7.70)
[2023-03-15] MEDS: IPRATROPIUM-ALBUTEROL 3 ML NEB INHALATION SCH ×4 (12:22→20:27)
--- NOTE | 2023-03-15 17:20 | P.PN ---
Progress Note - Text Progress Note Date: 03/15/23 - Chief Complaint Left knee surgery - History of Present Illness Pleasant 67 year patient follows with Dr. Saini. Patient undergone left total knee arthroplasty. Postprocedure pain is controlled. No nausea vomiting. No chest pain. Patient's 2 daughters at the bedside. Chronic stable medical conditions include COPD, hypertension, hyperlipidemia, IBS. March 15: Patient had uncomfortable leg. Significant pain. Some nausea. Did eat some this morning. Has been out of bed with therapy. Some wheezing and shortness of breath. DuoNeb being added. Diet discussed. Active Medications Hydrocodone Bitart/Acetaminophen (Hydrocodone/Apap 5-325mg 1 Each Tab) 1 each PO Q6HR PRN PRN Reason: Pain Scale 1 to 5 Stop: 04/13/23 09:35 Hydrocodone Bitart/Acetaminophen (Hydrocodone/Apap 7.5-325mg 1 Each Tab) 1 each PO Q6H PRN PRN Reason: Pain Scale 6 to 10 Stop: 04/13/23 09:35 Last Admin: 03/15/23 12:33 Dose: 1 each Albuterol/Ipratropium (Ipratropium-Albuterol 3 Ml Neb) 3 ml INHALATION RT-QID [facility] Last Admin: 03/15/23 16:37 Dose: Not Given Atorvastatin Calcium (Atorvastatin 10 Mg Tab) 10 mg PO DAILY [facility] Last Admin: 03/15/23 07:48 Dose: 10 mg Bisoprolol Fumarate (Bisoprolol-Hctz 10-6.25 Mg 1 Each Tab) 1 each PO BID [facility] Last Admin: 03/15/23 07:47 Dose: 1 each Ropivacaine 1,100 mg/ Sodium Chloride 330 ml/ Bandage/Support Products 1 each 0 mg MISCELLANE Q2H PRN PRN Reason: Breakthrough Pain Last Admin: 03/14/23 10:20 Dose: 1,100 mg Enoxaparin Sodium (Enoxaparin 30 Mg/0.3 Ml Syringe) 30 mg SQ Q12HR [facility] Stop: 04/13/23 21:01 Last Admin: 03/15/23 07:47 Dose: 30 mg Hydromorphone HCl (Hydromorphone 0.5 Mg/0.5 Ml Syringe) 0.25 mg IVP Q3HR PRN PRN Reason: Pain Scale 4 to 6 Stop: 04/13/23 09:35 Hydromorphone HCl (Hydromorphone 0.5 Mg/0.5 Ml Syringe) 0.5 mg IVP Q3HR PRN PRN Reason: Pain Scale 7 to 10 Stop: 04/13/23 09:35 Last Admin: 03/15/23 08:11 Dose: 0.5 mg Lactated Ringer's (Lactated Ringers) 1,000 mls @ 20 mls/hr IV .Q24H ROSS Stop: 04/13/23 06:30 Last Admin: 03/15/23 07:52 Dose: Not Given Lactated Ringer's (Lactated Ringers) 1,000 mls @ 100 mls/hr IV .Q10H ROSS Stop: 04/13/23 09:46 Last Admin: 03/15/23 17:12 Dose: Not Given Lidocaine HCl (Lidocaine 1% (10mg/Ml) For Iv Start) 0.1 ml INTRADERMA PER PROTOCOL PRN PRN Reason: IV Start Stop: 04/13/23 06:30 Naloxone HCl (Naloxone 0.4 Mg/Ml 1 Ml Vial) 0.2 mg IV Q2M PRN PRN Reason: Opioid Reversal Stop: 04/13/23 09:35 Ondansetron HCl (Ondansetron 4 Mg/2 Ml Vial) 4 mg IVP Q8HR PRN PRN Reason: Nausea And Vomiting Stop: 04/13/23 09:35 Last Admin: 03/15/23 00:02 Dose: 4 mg Senna/Docusate Sodium (Sennosides-Docusate Sodium 1 Each Tab) 2 each PO HS ROSS Stop: 04/13/23 21:01 Last Admin: 03/14/23 20:36 Dose: 2 each Past medical history to include: COPD, hypertension, hyperlipidemia, osteoarthritis, IBS, Coumadin 2020 treated with monoclonal antibody infusion, back surgery Social history: Smoking half a pack a day since age of 17. No alcohol. . Physical examination: VITAL SIGNS: 98.4, 99, 19, 1 47/80, 92% room air GENERAL: BMI 46.3, resting in bed EYES: Pupils equal. Conjunctiva normal. HEENT: External appearance of nose and ears normal, oral cavity grossly normal. NECK: JVD not raised; masses not palpable. HEART: First and second heart sounds are normal; no edema. LUNGS: Respiratory rate increased; decreased breath sounds. Wheezing ABDOMEN: Soft, nontender, liver spleen not palpable, no masses palpable. PSYCH: Alert and oriented x3; mood and affect normal. MUSCULOSKELETAL:No Clubbing/cyanosis;muscles-grossly intact . Dressing over the left knee INVESTIGATIONS, reviewed in the clinical context: March 15: White count 13.1 hemoglobin 12.5 platelets 253 March 14: White count 8.1 hemoglobin 13.1 platelets 314 sodium 134 potassium 4.7 creatinine 0.9 Assessment plan: -Left total knee arthroplasty IV cefazolin for infection prophylaxis. Subcu Lovenox for DVT prophylaxis. Pain control -Primary osteoarthritis Pain control as needed -Hyperlipidemia Lipitor 10 mg per day -Essential hypertension Ziac 10/6.25 one tablet twice a day -Muscle spasms Flexeril 5 mg twice a day -Morbid obesity BMI 46.3 Weight loss measures -Acute COPD exacerbation in a current smoker DuoNeb 4 times a day. Pulmicort nebulizer twice a day -Chronic nicotine dependence, cigarette smoker Patient has declined nicotine patch *DuoNeb 4 times a day, Pulmicort nebulizer. Other medications to continue. Discussed with patient and daughter the bedside. Thank you Dr. Jones
[2023-03-15] MEDS: BUDESONIDE 1 MG/2 ML NEBU INHALATION SCH (20:27)
[2023-03-15] MEDS: SENNOSIDES-DOCUSATE SODIUM 1 EACH TAB PO SCH (20:59)
[2023-03-16] MEDS: LACTATED RINGERS 1,000 ML IV SCH ×2 (01:48→01:49)
[2023-03-16 08:01] VITALS: BP 123/76; RESP 17; TEMP 98.8
[2023-03-16] MEDS: ENOXAPARIN 30 MG/0.3 ML SYRINGE SQ SCH (08:21)
[2023-03-16] MEDS: BISOPROLOL-HCTZ 10-6.25 MG 1 EACH TAB PO SCH (08:22)
[2023-03-16] MEDS: ATORVASTATIN 10 MG TAB PO SCH (08:22)
[2023-03-16] MEDS: BUDESONIDE 1 MG/2 ML NEBU INHALATION SCH (08:25)
[2023-03-16] MEDS: IPRATROPIUM-ALBUTEROL 3 ML NEB INHALATION SCH ×2 (08:25→11:36)
[2023-03-16 08:52] VITALS: PULSE 90
--- NOTE | 2023-03-16 11:30 | P.PN ---
Subjective Progress Note Date: 03/16/23 Principal diagnosis: Status post left total knee arthroplasty Patient evaluated today at bedside, she is resting comfortably. Patient states that she's feeling a lot better since yesterday. She was able to ambulate the halls yesterday with minimal difficulty. She plans to do stairs with physical therapy today. She denies any headaches, lightheadedness, chest pain or shortn ess of breath. Objective - Vital Signs Vital signs: Vital Signs Temp 98.8 F 03/16/23 07:15 Pulse 90 03/16/23 08:39 Resp 17 03/16/23 07:15 BP 123/76 03/16/23 07:15 Pulse Ox 92 L 03/16/23 07:15 FiO2 Intake & Output 03/15/23 03/16/23 03/16/23 18:59 06:59 18:59 Other: Voiding Method Toilet Toilet Bedside Commode # Voids 3 1 - Exam Left lower extremity: Incision is clean, dry, and intact. The exofin fusion tape is in good condition. There is minimal soft tissue swelling and ecchymosis surrounding the medial and lateral aspects of the incision. Calf is soft, no tenderness with palpation. Plantar flexion, dorsiflexion, EHL, FHL are intact. Sensory exam to light touch throughout the extremity is intact, dorsal pedis pulses 2+. - Labs CBC & Chem 7: 03/15/23 06:01 Labs: Abnormal Lab Results - Last 24 Hours (Table) 03/15/23 Range/Units 06:01 Neutrophils # 8.65 H (1.80-7.70) X 10*3/uL Monocytes # 2.01 H (0.20-1.00) X 10*3/uL Assessment and Plan Assessment: Postoperative day #2 status post left total knee arthroplasty Plan: Pain control, patient does take [place] 7.5 mg/325 mg is prescribed from a different provider, she'll resume this after discharge DVT prophylaxis, aspirin 325 mg daily at discharge Wound care, continue to monitor surgical dressing Continue PT/OT Medical recommendations appreciated Discharge planning: Plan for discharge to home today with home health care Time with Patient: Less than 30
--- NOTE | 2023-03-16 11:34 | P.DS ---
Providers Date of admission: 03/15/23 10:59 Expected date of discharge: 03/16/23 Attending physician: Jerry Jones Consults: 03/14/23 09:34 Consult Physician Routine Consulting Provider: Tarun Souza Consult Reason/Comments: Medical management Do you want consulting provider notified?: Yes Primary care physician: [facility] Course: Date of admission: 03/14/2023 Date of discharge: 03/16/2023 Admission diagnosis: Status post left total knee arthroplasty Discharge diagnosis: Same Attending physician: Dr. Jones Surgical procedures: Left total knee arthroplasty Brief history: Patient is a 67-year-old female with a history of as a progressive primary left knee osteoarthritis. At this point patient has failed conservative treatment measures and has opted to proceed with a elective left total knee arthroplasty. Hospital course: Details of patient's surgery can be found in operative report. Patient tolerated the procedure well and was subsequently transported to orthopedic floor. Patient's orthopeidc and medical care was provided daily. Patient had daily laboratory tests performed for evaluation of overall blood counts. Patient had daily physical therapy to include strengthening range of motion as well as education with walker ambulation. Patient was treated with Lovenox for their postoperative DVT prophylaxis during their inpatient stay. Patient was noted to have a relatively uneventful postoperative course. Patient reported satisfactory pain control with oral pain medications by postoperative day 2. Patient showed satisfactory progress with physical therapy. Patient moved steadily through the program and had no difficulty meeting the goals by postoperative day 2. Given patient's otherwise satisfactory course and having met physical therapy goals, plan is to discharge patient home on postoperative day 2. Discharge condition/disposition: Patient will be discharged home in stable condition. Discharge medications: Instructions are given on resumption of patient's normal daily medications per primary care recommendation, in addition patient will be prescribed Senna S, aspirin 325 mg. Discharge instructions: 1. Wound care and infection precautions, keep incision dry and covered while showering, no lotions, creams, moisturizers. No soaking, tubs, pools, hottubs. Do not scrub over the incision. 2. Weight-bear as tolerated with walker / cane until follow-up. 3. Ice and elevate when necessary. Do not exceed 20 minutes per hour with ice pack. 4. Utilize compression sleeve until seen at first follow up appointment. 5. Visiting nursing care. 6. Home physical therapy including home CPM. 7. Pain meds and anticoagulants per prescription. 8. Pain medication has potential to cause constipation. Increase oral fluid and fiber intake. Contact primary care provider if you have not had a bowel movement within 48 hours after discharge 9. No anti-inflammatory medication until discussed at first post operative visit, this including Motrin, Aleve, Mobic, Diclofenac. 10. Follow up in office at 2 weeks postop with Ye Ruano PA-C/Trung Rodriguez 11. Follow up with your primary care doctor 7-10 days after discharge. 12. Contact [facility] with any questions, . Procedures: Left total knee arthroplasty Patient Condition at Discharge: Good Plan - Discharge Summary Discharge Rx Participant: Yes New Discharge Prescriptions: New Aspirin 325 mg PO DAILY #30 tab Sennosides/Docusate Sodium [Senna-S 8.6-50 mg Tablet] 2 each PO DAILY PRN #30 tablet PRN Reason: Constipation Discontinued Aspirin 81 mg PO DAILY chew No Action Bisoprolol-Hctz 10-6.25 mg [Ziac 10-6.25 MG] 1 tab PO BID HYDROcodone/APAP 7.5-325MG [[place] 7.5-325] 1 tab PO TID Ibuprofen [Motrin] 800 mg PO Q8HR PRN PRN Reason: Pain Atorvastatin Calcium 10 mg PO DAILY Cyclobenzaprine [Flexeril] 5 mg PO BID Discharge Medication List Bisoprolol-Hctz 10-6.25 mg [Ziac 10-6.25 MG] 1 tab PO BID 09/18/13 [History] Atorvastatin Calcium 10 mg PO DAILY 11/24/22 [History] HYDROcodone/APAP 7.5-325MG [[place] 7.5-325] 1 tab PO TID 11/24/22 [History] Ibuprofen [Motrin] 800 mg PO Q8HR PRN 11/24/22 [History] Cyclobenzaprine [Flexeril] 5 mg PO BID 03/08/23 [History] Aspirin 325 mg PO DAILY #30 tab 03/16/23 [Rx] Sennosides/Docusate Sodium [Senna-S 8.6-50 mg Tablet] 2 each PO DAILY PRN #30 tablet 03/16/23 [Rx] Follow up Appointment(s)/Referral(s): [facility], [NON-STAFF] - 1-2 Days ([facility] will call you to schedule your in home nursing and physical therapy visits. ) [facility] [NON-STAFF] - As Needed (Please call [facility] once home to arrange for delivery of the Continous Passive Motion (CPM) machine. ) Joselito Ruano, PAC [PHYSICIAN DOOR OPERATOR] - 03/30/23 2:00 pm Patient Instructions/Handouts: Knee Replacement (DC), Knee Replacement (GEN) Activity/Diet/Wound Care/Special Instructions: Orthopedic Discharge Instructions: 1. Wound care and infection precautions, keep incision dry and covered while showering, no lotions, creams, moisturizers. No soaking, pools, hot tubs. Do not scrub over incision. 2. Weight-bear as tolerated with walker / cane until follow-up. 3. Ice and elevate when necessary. Do not exceed 20 minutes per hour with ice pack. 4. Utilize compression sleeve until seen at first follow up appointment. 5. Pain meds and anticoagulants per prescription. 6. Pain medication has potential to cause constipation. Increase oral fluid and fiber intake. Contact primary care provider if you have not had a bowel movement within 48 hours after discharge. 7. No anti-inflammatory medication until discussed at first post operative visit, this including Motrin, Aleve, Mobic, Diclofenac. 8. Follow up in office at 2 weeks postop with Ye Ruano PA-C / Trung Graves PA-C 9. Follow up with your primary care doctor 7-10 days after discharge. 10. Contact [facility] with any questions, . Keep incision clean, dry, intact. While showering, cover dressing with Saran wrap. Keep dressing on until 03/21/2023. Okay to remove dressing on 03/21/2023. It is okay to shower directly over incision once dressing is removed. Discharge Disposition: HOME WITH HOME HEALTH SERVICES
--- NOTE | 2023-03-16 17:21 | P.PN ---
Progress Note - Text Progress Note Date: 03/16/23 - Chief Complaint Left knee surgery - History of Present Illness Pleasant 67 year patient follows with Dr. Saini. Patient undergone left total knee arthroplasty. Postprocedure pain is controlled. No nausea vomiting. No chest pain. Patient's 2 daughters at the bedside. Chronic stable medical conditions include COPD, hypertension, hyperlipidemia, IBS. March 15: Patient had uncomfortable leg. Significant pain. Some nausea. Did eat some this morning. Has been out of bed with therapy. Some wheezing and shortness of breath. DuoNeb being added. Diet discussed. March 16: Breathing much better. Sitting up in a chair. Did work with physical therapy. We will add Advair and albuterol when necessary tp discharge medications. Discussed with patient. Current medications reviewed Past medical history to include: COPD, hypertension, hyperlipidemia, osteoarthritis, IBS, Coumadin 2020 treated with monoclonal antibody infusion, back surgery Social history: Smoking half a pack a day since age of 17. No alcohol. . Physical examination: VITAL SIGNS: ID 8.8, 95, 17, 123.76, 92% room air GENERAL: Up in a recliner, comfortable EYES: Pupils equal. Conjunctiva normal. HEENT: External appearance of nose and ears normal, oral cavity grossly normal. NECK: JVD not raised; masses not palpable. HEART: First and second heart sounds are normal; no edema. LUNGS: Respiratory rate increased; decreased breath sounds. Wheezing ABDOMEN: Soft, nontender, liver spleen not palpable, no masses palpable. PSYCH: Alert and oriented x3; mood and affect normal. MUSCULOSKELETAL:No Clubbing/cyanosis;muscles-grossly intact . Dressing over the left knee INVESTIGATIONS, reviewed in the clinical context: March 15: White count 13.1 hemoglobin 12.5 platelets 253 March 14: White count 8.1 hemoglobin 13.1 platelets 314 sodium 134 potassium 4.7 creatinine 0.9 Assessment plan: -Left total knee arthroplasty IV cefazolin for infection prophylaxis. Subcu Lovenox for DVT prophylaxis. Pain control Aspirin for DVT prophylaxis -Primary osteoarthritis Pain control as needed -Hyperlipidemia Lipitor 10 mg per day -Essential hypertension Ziac 10/6.25 one tablet twice a day -Muscle spasms Flexeril 5 mg twice a day -Morbid obesity BMI 46.3 Weight loss measures -Acute COPD exacerbation in a current smoker: Better Advair 250/50 one puff twice a day. Albuterol when necessary -Chronic nicotine dependence, cigarette smoker Patient has declined nicotine patch Patient counseled Advair and albuterol prescribed. Questions answered. Follow-up with PCP upon discharge. Thank you Dr. Jones
== END 2023-03-16 13:16 | disposition home health service (06) ==
LOC: OR 05:48 → 4SSUR 10:16 → OR 03-15 10:59 → 4SSUR 03-15 10:59
PROVIDERS: ADMIT Orthopaedic Surgery; ATTEND Orthopaedic Surgery
DX: M17.12 Unilateral primary osteoarthritis, left knee (principal); J44.9 Chronic obstructive pulmonary disease, unspecified; I10 Essential (primary) hypertension; E78.5 Hyperlipidemia, unspecified; M62.838 Other muscle spasm; K58.9 Irritable bowel syndrome, unspecified; F17.210 Nicotine dependence, cigarettes, uncomplicated; E66.01 Morbid (severe) obesity due to excess calories; Z68.42 Body mass index [BMI] 45.0-49.9, adult; F41.9 Anxiety disorder, unspecified; Z79.82 Long term (current) use of aspirin; Z79.1 Long term (current) use of non-steroidal anti-inflammatories (NSAID); Z79.899 Other long term (current) drug therapy; Z88.5 Allergy status to narcotic agent; Z88.8 Allergy status to other drugs, medicaments and biological substances; Z91.041 Radiographic dye allergy status; Z86.16 Personal history of COVID-19; Z90.49 Acquired absence of other specified parts of digestive tract; Z98.891 History of uterine scar from previous surgery; Z90.710 Acquired absence of both cervix and uterus; Z98.1 Arthrodesis status; Z98.890 Other specified postprocedural states; Z80.0 Family history of malignant neoplasm of digestive organs
CPT/HCPCS: 27447; 96372 ×3; 94640 ×3; 97116 ×2; 97162; 97166; 64999; 64448; 85025; 85610; 73560; G0378 ×2; C1776; C1713 ×2; C1751; J2250; J1100; J0690 ×3; J2405 ×2; J3010; J1650 ×3; J2795; J2704; J1170 ×2; J2371

== ENCOUNTER → 2023-05-30 | Outpatient (CLI) | payer BC ==
[2023-05-30 12:01] LABS: Basophils # (A) 0.03 X 10*3/uL (0.00-0.10); Basophils % (A) 0.3 %; Eosinophils # (A) 0.04 X 10*3/uL (0.04-0.35); Eosinophils % (A) 0.4 %; HGB 11.5 g/dL (12.0-15.0); Lymphocytes # (A) 1.64 X 10*3/uL (0.90-5.00); Lymphocytes % (A) 17.5 %; MCH 31.7 pg (27.0-32.0); MCHC 32.9 g/dL (32.0-37.0); MCV 96.4 FL (80.0-97.0); Mean Platelet Volume 10.2 FL (9.5-12.2); Monocytes # (A) 0.66 X 10*3/uL (0.20-1.00); Monocytes % (A) 7.1 %; NRBC Per 100 WBC 0 X 10*3/uL (0.00-0.01); Neutrophils # (A) 6.79 X 10*3/uL (1.80-7.70); Neutrophils % (A) 72.6 %; Platelet Count 617 X 10*3/uL (140-440); RBC 3.63 X 10*6/uL (4.10-5.20); RDW 13.5 % (11.5-14.5); WBC 9.36 X 10*3/uL (4.50-10.00)
[2023-05-30 12:08] LABS: Blood Urea Nitrogen 18.2 mg/dL (9.0-27.0); Calcium 9.5 mg/dL (8.7-10.3); Carbon Dioxide 27.2 mmol/L (21.6-31.8); Chloride 94 mmol/L (96-109); Glucose 129 mg/dL (70-110); Potassium 3.6 mmol/L (3.5-5.5); Sodium 135 mmol/L (135-145)
[2023-05-30 12:56] LABS: Prothrombin Time 10.8 sec (9.9-11.9)
== END | disposition home or self-care (01) ==
LOC: LABPAT 08:47
PROVIDERS: ATTEND Orthopaedic Surgery
DX: Z01.812 Encounter for preprocedural laboratory examination (principal); M17.11 Unilateral primary osteoarthritis, right knee; Z22.322 Carrier or suspected carrier of Methicillin resistant Staphylococcus aureus
CPT/HCPCS: 36415; 80048; 85025; 85610; 87070

== ENCOUNTER 2023-05-31 11:59 | Inpatient (IN) | payer BC, MEDICARE ==
[2023-05-31 13:01] LABS: Basophils # (A) 0.1 k/uL (0-0.2); Basophils % (A) 1 %; Eosinophils # (A) 0.1 k/uL (0-0.7); Eosinophils % (A) 1 %; HCT 36.8 % (34.0-46.0); HGB 12.4 gm/dL (11.4-16.0); Lymphocytes # (A) 1.9 k/uL (1.0-4.8); Lymphocytes % (A) 13 %; MCH 32.3 pg (25.0-35.0); MCHC 33.7 g/dL (31.0-37.0); MCV 95.8 fL (80.0-100.0); Mean Platelet Volume 7.6; Monocytes # (A) 0.8 k/uL (0-1.0); Monocytes % (A) 6 %; Neutrophils # (A) 11.2 k/uL (1.3-7.7); Neutrophils % (A) 78 %; Platelet Count 730 k/uL (150-450); RBC 3.85 m/uL (3.80-5.40); RDW 13.3 % (11.5-15.5); WBC 14.3 k/uL (3.8-10.6)
--- NOTE | 2023-05-31 13:21 | US ---
EXAMINATION TYPE: US venous doppler duplex LE LT DATE OF EXAM: 05/31/2023 1:02 PM COMPARISON: CLINICAL INDICATION: Female, 67 years old with history of pain; Left anterior knee redness. On baby aspirin. Knee replacement in March. SIDE PERFORMED: Left TECHNIQUE: The lower extremity deep venous system is examined utilizing real time linear array sonog wm with graded compression, doppler sonography and color-flow sonography. VESSELS IMAGED: Common Femoral Vein Deep Femoral Vein Greater Saphenous Vein * Femoral Vein Popliteal Vein Small Saphenous Vein * Proximal Calf Veins (* superficial vessels) Left Leg: Negative for DVT IMPRESSION: Grayscale, color doppler, spectral doppler imaging performed of the deep veins of the lo wer extremities. There is normal flow, compressibility, vascular waveforms.
[2023-05-31 13:33] LABS: ALT 33 U/L (4-34); AST 32 U/L (14-36); African American GFR (CKD) >90 (>60 ml/min/1.73 sqM); Albumin 3.7 g/dL (3.5-5.0); Alkaline Phosphatase 124 U/L (38-126); Anion Gap 11 mmol/L; Blood Urea Nitrogen 17 mg/dL (7-17); Calcium 9.5 mg/dL (8.4-10.2); Carbon Dioxide 26 mmol/L (22-30); Chloride 96 mmol/L (98-107); Glucose 123 mg/dL (74-99); Non-African American GFR(CKD) >90 (>60 ml/min/1.73 sqM); Potassium 3.6 mmol/L (3.5-5.1); Sodium 133 mmol/L (137-145); Total Bilirubin 0.8 mg/dL (0.2-1.3); Total Protein 7.3 g/dL (6.3-8.2)
--- NOTE | 2023-05-31 13:48 | ED ---
Extremity Problem HPI - General Chief complaint: Extremity Problem,Nontraumatic Stated complaint: poss L Knee Infection, sent by pcp Time Seen by Provider: 05/31/23 12:11 Source: patient, RN notes reviewed Mode of arrival: ambulatory Limitations: no limitations - History of Present Illness Initial comments: 67-year-old female presents emergency department chief complaint of left leg infection. Patient states that she started having some difficulty with the last week was seen orthopedics office had a reevaluation this morning and sent here for possible admission. She states she had a knee replacement March states that she was scheduled to have her right one done coming up until she is developed redness, pain to her left knee region. She denies any fever denies any history of DVT denies any trauma. No drainage - Related Data Home Medications Medication Instructions Recorded Confirmed Bisoprolol-Hctz 10-6.25 mg [Ziac 1 tab PO BID 09/18/13 05/31/23 10-6.25 MG] Atorvastatin Calcium 10 mg PO HS 11/24/22 05/31/23 Cyclobenzaprine [Flexeril] 5 mg PO BID 03/08/23 05/31/23 Aspirin EC [Ecotrin Low Dose] 81 mg PO DAILY 05/31/23 05/31/23 Cephalexin [Keflex] 500 mg PO DIRECTED 05/31/23 05/31/23 HYDROcodone/APAP 7.5-325MG [[employer] 1 tab PO TID PRN 05/31/23 05/31/23 7.5-325] Ibuprofen [Motrin] 800 mg PO TID PRN 05/31/23 05/31/23 Allergies Allergy/AdvReac Type Severity Reaction Status Date / Time Iodinated Contrast Media Allergy Rash/Hives,states Verified 05/31/23 15:09 [Iodinated Contrast Media - "can IV Dye] tolerate iodine on skin" codeine AdvReac severe Verified 05/31/23 15:09 constipation morphine AdvReac Hallucinati Verified 05/31/23 15:09 ons sertraline HCl [From Zoloft] AdvReac Hallucinati Verified 05/31/23 15:09 ons Review of Systems ROS Statement: Those systems with pertinent positive or pertinent negative responses have been documented in the HPI. ROS Other: All systems not noted in ROS Statement are negative. Past Medical History Past Medical History: Asthma, Hyperlipidemia, Hypertension Additional Past Medical History / Comment(s): IBS, History of Any Multi-Drug Resistant Organisms: None Reported Past Surgical History: Back Surgery, Section, Cholecystectomy, Hysterectomy, Orthopedic Surgery Additional Past Surgical History / Comment(s): Cervical fusion, bilateral knee arthroscopy, right ankle surgery, lower back fusion, section X2., total knee 03/14/23 Past Anesthesia/Blood Transfusion Reactions: No Reported Reaction Additional Past Anesthesia/Blood Transfusion Reaction / Comment(s): Has never had blood transfusion. Past Psychological History: No Psychological Hx Reported Smoking Status: Current every day smoker Past Alcohol Use History: None Reported Past Drug Use History: None Reported - Past Family History Mother Family Medical History: Cancer Additional Family Medical History / Comment(s): Colon cancer, at age 55. General Exam Limitations: no limitations General appearance: alert, in no apparent distress Head exam: Present: atraumatic, normocephalic, normal inspection Respiratory exam: Present: normal lung sounds bilaterally. Absent: respiratory distress, wheezes, rales, rhonchi, stridor Cardiovascular Exam: Present: regular rate, normal rhythm, normal heart sounds. Absent: systolic murmur, diastolic murmur, rubs, gallop, clicks Extremities exam: Present: other (Left knee anterior surface there is some erythema noted not circumferential, moderate tenderness neurovascular intact) Course Vital Signs 05/31/23 12:00 Temperature 98.4 F Pulse Rate 94 Respiratory 20 Rate Blood Pressure 121/73 O2 Sat by Pulse 98 Oximetry Medical Decision Making - Medical Decision Making Was pt. sent in by a medical professional or institution (, PA, FANCY SEWER, urgent care, hospital, or [place] health care facility...) When possible be specific @ -Ortho Did you speak to anyone other than the patient for history (EMS, parent, family, police, friend...)? What history was obtained from this source @ -No Did you review nursing and triage notes (agree or disagree)? Why? @ -I reviewed and agree with nursing and triage notes Were old charts reviewed (outside hosp., previous admission, EMS record, old EKG, old radiological studies, urgent care reports/EKG's, [place] health care facility records)? Report findings @ -Reviewed prior labs, imaging Differential Diagnosis (chest pain, altered mental status, abdominal pain women, abdominal pain men, vaginal bleeding, weakness, fever, dyspnea, syncope, headache, dizziness, GI bleed, back pain, seizure, CVA, palpatations, mental health, musculoskeletal)? @ -[Cellulitis, infected joint, prosthetic EKG interpreted by me (3pts min.). @ -None X-rays interpreted by me (1pt min.). @ -[None done CT interpreted by me (1pt min.). @ -None done U/S interpreted by me (1pt. min.). @ -[Ultrasound left venous Doppler negative for acute DVT What testing was considered but not performed or refused? (CT, X-rays, U/S, labs)? Why? @ -Consider x-ray though had completed outpatient on What meds were considered but not given or refused? Why? @ -[None Did you discuss the management of the patient with other professionals (professionals i.e. , PA, FANCY SEWER, lab, RT, psych nurse, social service manager, brush sander, teacher, human resources officer, case investigator)? Give summary @ -Ortho for admission] Was smoking cessation discussed for >3mins.? @ -No Was critical care preformed (if so, how long)? @ -No Were there social determinants of health that impacted care today? How? (Homelessness, low income, unemployed, alcoholism, drug addiction, transportation, low edu. Level, literacy, decrease access to med. care, m[facility], rehab)? @ -No Was there de-escalation of care discussed even if they declined (Discuss DNR or withdrawal of care, Hospice)? DNR status @ -No What co-morbidities impacted this encounter? (DM, HTN, Smoking, COPD, CAD, Cancer, CVA, ARF, Chemo, Hep., AIDS, mental health diagnosis, sleep apnea, morbi d obesity)? @ -None Was patient admitted / discharged? Hospital course, mention meds given and route , prescriptions, significant lab abnormalities, going to OR and other pertinent info. @ -[Admitted to hospital for IV antibiotics, possible surgical intervention if no improvement pending Ortho decision Undiagnosed new problem with uncertain prognosis? @ -No Drug Therapy requiring intensive monitoring for toxicity (Heparin, Nitro, Insulin, Cardizem)? @ -No Were any procedures done? @ -No Diagnosis/symptom? @ -Status post left knee replacement, cellulitis Acute, or Chronic, or Acute on Chronic? @ -[Acute Uncomplicated (without systemic symptoms) or Complicated (systemic symptoms)? @ -Uncomplicated Side effects of treatment? @ -[No Exacerbation, Progression, or Severe Exacerbation? @ -No Poses a threat to life or bodily function? How? (Chest pain, USA, VT, pneumonia, PE, COPD, DKA, ARF, appy, cholecystitis, CVA, Diverticulitis, Homicidal, Suicidal, threat to staff... and all critical care pts) @ -No - Lab Data Result diagrams: 05/31/23 12:33 05/31/23 12:33 Lab Results 05/31/23 05/31/23 05/31/23 Range/Units 12:33 12: 12:33 WBC 14.3 H (3.8-10.6) k/uL RBC 3.85 (3.80-5.40) m/uL Hgb 12.4 (11.4-16.0) gm/dL Hct 36.8 (34.0-46.0) % MCV 95.8 (80.0-100.0) fL MCH 32.3 (25.0-35.0) pg MCHC 33.7 (31.0-37.0) g/dL RDW 13.3 (11.5-15.5) % Plt Count 730 H (150-450) k/uL MPV 7.6 Neutrophils % 78 % Lymphocytes % 13 % Monocytes % 6 % Eosinophils % 1 % Basophils % 1 % Neutrophils # 11.2 H (1.3-7.7) k/uL Lymphocytes # 1.9 (1.0-4.8) k/uL Monocytes # 0.8 (0-1.0) k/uL Eosinophils # 0.1 (0-0.7) k/uL Basophils # 0.1 (0-0.2) k/uL Sodium 133 L (137-145) mmol/L Potassium 3.6 (3.5-5.1) mmol/L Chloride 96 L (98-107) mmol/L Carbon Dioxide 26 (22-30) mmol/L Anion Gap 11 mmol/L BUN 17 (7-17) mg/dL Creatinine 0.64 (0.52-1.04) mg/dL Est GFR (CKD-EPI)AfAm >90 (>60 ml/min/1.73 sqM) Est GFR (CKD-EPI)NonAf >90 (>60 ml/min/1.73 sqM) Glucose 123 H (74-99) mg/dL Plasma Lactic Acid Kenji 1.8 (0.7-2.0) mmol/L Calcium 9.5 (8.4-10.2) mg/dL Total Bilirubin 0.8 (0.2-1.3) mg/dL AST 32 (14-36) U/L ALT 33 (4-34) U/L Alkaline Phosphatase 124 (38-126) U/L C-Reactive Protein 15.2 H (<1.0) mg/dL Total Protein 7.3 (6.3-8.2) g/dL Albumin 3.7 (3.5-5.0) g/dL Disposition Clinical Impression: Cellulitis of left knee, Status post total left knee replacement, Knee pain Disposition: ADMITTED IP TO THIS [facility] Condition: Fair Time of Disposition: 14:27
[2023-05-31 14:06] LABS: C Reactive Protein 15.2 mg/dL (<1.0)
[2023-05-31] MEDS ORDERED: ONDANSETRON 4 MG/2 ML VIAL IVP PRN (14:27)
[2023-05-31] MEDS ORDERED: NALOXONE 0.4 MG/ML 1 ML VIAL IV PRN (14:27)
[2023-05-31] MEDS ORDERED: VANCOMYCIN IV PER PHARMACY 1 EACH MISC MISCELLANE PRN (14:30)
[2023-05-31] MEDS: HYDROcodone/APAP 10-325MG 1 EACH TAB PO ONE (14:34)
[2023-05-31] MEDS: KETOROLAC 15 MG/ML 1 ML VIAL IVP STA (14:35)
[2023-05-31] MEDS: VANCOMYCIN 1,750 MG in SODIUM CHLORIDE 0.9% 500 ML 500 ML IVPB ONE (15:20)
[2023-05-31 20:02] LABS: Erythrocyte Sedimentation Rate 111 mm/Hr (0-30)
[2023-05-31] MEDS: BISOPROLOL-HCTZ 10-6.25 MG 1 EACH TAB PO SCH (20:47)
[2023-05-31] MEDS: ATORVASTATIN 10 MG TAB PO SCH (20:47)
[2023-05-31] MEDS: CYCLOBENZAPRINE 5 MG TAB PO SCH (20:47)
[2023-05-31] MEDS: HYDROcodone/APAP 7.5-325MG 1 EACH TAB PO PRN (20:52)
--- NOTE | 2023-05-31 21:25 | P.CONS ---
History of Present Illness - Reason for Consult Consult date: 05/31/23 Medical management Requesting physician: Jerry Jones - Chief Complaint Left knee redness - History of Present Illness Pleasant 67 year patient follows with Dr. Saini. March 14, 2023 left total knee arthroplasty by Dr. Jones.. About a week ago patient was pushing around a washing machine. She thinks she may have overextended her left knee. Subsequently patient started having increasing pain and swelling in the same. Started to use ice packs. Started to get worse. 5 days ago she went to see Dr. Kelly on a Tuesday in his office. He asked her to return today. It was looking worse. He scented out of the ER concern for infection. For admission. Was started on IV vancomycin. Patient did complain of chills at home. Blood cultures were drawn in the ER. Patient does not remember direct injury to the left knee. Review of systems: GEN.: Chills EYES: None HEENT: None NECK: None RESPIRATORY: Some cough and wheezing CARDIOVASCULAR: None GASTROINTESTINAL: None GENITOURINARY: None MUSCULOSKELETAL: As above LYMPHATICS: None HEMATOLOGICAL: None PSYCHIATRY: None NEUROLOGICAL: None Past medical history to include: COPD, hypertension, hyperlipidemia, osteoarthritis, IBS, Coumadin 2020 treated with monoclonal antibody infusion, back surgery Social history: Smoking half a pack a day since age of 17. No alcohol. . Physical examination: VITAL SIGNS: 99.8, 83, 16, 120/74, 98% room air GENERAL: BMI 45.3, laying in bed EYES: Pupils equal. Conjunctiva normal. HEENT: External appearance of nose and ears normal, oral cavity grossly normal. NECK: JVD not raised; masses not palpable. HEART: First and second heart sounds are normal; no edema. LUNGS: Respiratory rate normal; decreased breath sounds. ABDOMEN: Soft, nontender, liver spleen not palpable, no masses palpable. PSYCH: Alert and oriented x3; mood and affect normal. MUSCULOSKELETAL:No Clubbing/cyanosis;muscles-grossly intact . Increased swelling some redness over the left knee. NEUROLOGICAL: Cranial nerves grossly intact; no facial asymmetry, power and sensation grossly intact. LYMPHATICS: No lymph nodes palpable in the axilla and neck INVESTIGATIONS, reviewed in the clinical context: May 31, 2023: White count 14.3 hemoglobin 12.4 platelets 730 left shift sodium 133 potassium 3.6 creatinine 0.64 CRP 15.2 Venous Doppler left leg: Negative for DVT Assessment plan: -Acute infection/cellulitis in a recent left total knee arthroplasty that was done on March 14, 2023: No history of direct contact injury. Being followed by Dr. Kelly from orthopedics. IV vancomycin. Blood culture. -Left total knee arthroplasty on March 14, 2023 -Primary osteoarthritis Pain control as needed -Hyperlipidemia Lipitor 10 mg per day -Essential hypertension Ziac 10/6.25 one tablet twice a day -Muscle spasms Flexeril 5 mg twice a day -Morbid obesity BMI 45.3 Weight loss measures -COPD n in a current smoker: r Advair 250/50 one puff twice a day. Albuterol when necessary -Chronic nicotine dependence, cigarette smoker Nicotine patch -DNR Discussed with patient. Questions answered. Nicotine patch. Subcu Lovenox. Thank you Dr. Jones Past Medical History Past Medical History: Asthma, Hyperlipidemia, Hypertension, Osteoarthritis (OA) Additional Past Medical History / Comment(s): IBS History of Any Multi-Drug Resistant Organisms: None Reported Past Surgical History: Back Surgery, Section, Cholecystectomy, Hysterectomy, Orthopedic Surgery Additional Past Surgical History / Comment(s): Cervical fusion, bilateral knee arthroscopy, right ankle surgery, lower back fusion, section X2., left total knee 03/14/23 Past Anesthesia/Blood Transfusion Reactions: No Reported Reaction Additional Past Anesthesia/Blood Transfusion Reaction / Comm: Has never had blood transfusion. Past Psychological History: No Psychological Hx Reported Smoking Status: Current every day smoker Past Alcohol Use History: None Reported Additional Past Alcohol Use History / Comment(s): bernardos 1/2 PPD, has smoked for 40-42 yrs Past Drug Use History: None Reported - Past Family History Mother Family Medical History: Cancer Additional Family Medical History / Comment(s): Colon cancer, at age 55. Medications and Allergies Home Medications Medication Instructions Recorded Confirmed Type Bisoprolol-Hctz 10-6.25 mg [Ziac 1 tab PO BID 09/18/13 05/31/23 History 10-6.25 MG] Atorvastatin Calcium 10 mg PO HS 11/24/22 05/31/23 History Cyclobenzaprine [Flexeril] 5 mg PO BID 03/08/23 05/31/23 History Aspirin EC [Ecotrin Low Dose] 81 mg PO DAILY 05/31/23 05/31/23 History Cephalexin [Keflex] 500 mg PO DIRECTED 05/31/23 05/31/23 History HYDROcodone/APAP 7.5-325MG [[place] 1 tab PO TID PRN 05/31/23 05/31/23 History 7.5-325] Ibuprofen [Motrin] 800 mg PO TID PRN 05/31/23 05/31/23 History Allergies Allergy/AdvReac Type Severity Reaction Status Date / Time Iodinated Contrast Media Allergy Rash/Hives,states Verified 05/31/23 15:09 [Iodinated Contrast Media - "can IV Dye] tolerate iodine on skin" codeine AdvReac severe Verified 05/31/23 15:09 constipation morphine AdvReac Hallucinati Verified 05/31/23 15:09 ons sertraline HCl [From Zoloft] AdvReac Hallucinati Verified 05/31/23 15:09 ons Physical Exam Vitals: Vital Signs Temp Pulse Resp BP BP Pulse Ox 05/31/23 20:58 99.7 F H 05/31/23 20:07 99.8 F H 83 16 120/74 98 05/31/23 17:37 98.4 F 18 120/61 05/31/23 12:00 98.4 F 94 20 121/73 98 Intake and Output 05/31/23 05/31/23 05/31/23 06:59 14:59 22:59 Other: # Voids 1 Weight 108.862 kg 108.862 kg Results CBC & Chem 7: 05/31/23 12:33 05/31/23 12:33 Labs: Abnormal Lab Results - Last 24 Hours (Table) 05/31/23 05/31/23 Range/Units 12:33 12:33 WBC 14.3 H (3.8-10.6) k/uL Plt Count 730 H (150-450) k/uL Neutrophils # 11.2 H (1.3-7.7) k/uL ESR 111 H (0-30) mm/Hr Sodium 133 L (137-145) mmol/L Chloride 96 L (98-107) mmol/L Glucose 123 H (74-99) mg/dL C-Reactive Protein 15.2 H (<1.0) mg/dL
[2023-05-31] MEDS: ENOXAPARIN 40 MG/0.4 ML SYRINGE SQ SCH (21:49)
[2023-05-31] MEDS: NICOTINE 14MG/24HR PATCH TRANSDERM SCH (21:58)
[2023-06-01] MEDS ORDERED: ACETAMINOPHEN TAB 325 MG TAB PO PRN (02:31)
[2023-06-01 07:31] LABS: African American GFR (CKD) >90 (>60 ml/min/1.73 sqM); Non-African American GFR(CKD) >90 (>60 ml/min/1.73 sqM)
[2023-06-01] MEDS: VANCOMYCIN 1,750 MG in SODIUM CHLORIDE 0.9% 500 ML 500 ML IVPB SCH (08:43)
[2023-06-01] MEDS: HYDROmorphone 0.5 MG/0.5 ML SYRINGE IVP PRN (08:47)
--- NOTE | 2023-06-01 09:19 | P.HPOR ---
History of Present Illness H&P Date: 06/01/23 Chief Complaint: Left lower extremity cellulitis, possible left knee peripro sthetic infectio Patient is a 67-year-old female who was admitted to [facility] on 05/31/2023 after being evaluated in the outpatient setting for an issue with her left knee. Patient is well-known to our orthopedic service, she had a left total knee done in March 2023. Over the last week or so patient has developed some issues with the left knee. She thought she hyperextended the kne e initially, she was evaluated last week in the outpatient setting. An aspiration was done at that time, it was a bloody aspirate, no cultures are sensitivities were ordered. Patient seemed to improve significantly over the next week. Patient was then evaluated in the office on 05/31/2023, she had extensive redness throughout the extremity. Patient had complained of worsening pain and difficulty with ambulation. Patient was then asked to report to [facility] for lab work, admission and likely surgical intervention. Patient has been evaluated by internal medicine, she was started on IV vancomycin. Patient's white blood cell count was 14, her ESR was 111 and her CRP was 15. Patient was evaluated in the observation unit today, she was resting comfortably. Patient denies any severe pain, she does note discomfort when she attempts to move the leg. She feels that the extremity is quite heavy compared to the other side. The redness has worsened over the anterior, medial and lateral aspect of the knee. I am unable to appreciate an obvious effusion. Passive range of motion reproduces minimal discomfort. She did admit to some chills last night, she has been afebrile. She denies any headaches, lightheadedness, chest pain, shortness of breath, nausea or vomiting. Review of Systems Constitutional: Reports as per HPI Past Medical History Past Medical History: Asthma, Hyperlipidemia, Hypertension, Osteoarthritis (OA) Additional Past Medical History / Comment(s): IBS History of Any Multi-Drug Resistant Organisms: None Reported Past Surgical History: Back Surgery, Section, Cholecystectomy, Hyst erectomy, Orthopedic Surgery Additional Past Surgical History / Comment(s): Cervical fusion, bilateral knee arthroscopy, right ankle surgery, lower back fusion, section X2., left total knee 03/14/23 Past Anesthesia/Blood Transfusion Reactions: No Reported Reaction Additional Past Anesthesia/Blood Transfusion Reaction / Comment(s): Has never had blood transfusion. Past Psychological History: No Psychological Hx Reported Smoking Status: Current every day smoker Past Alcohol Use History: None Reported Additional Past Alcohol Use History / Comment(s): anastacio 1/2 PPD, has smoked for 40-42 yrs Past Drug Use History: None Reported - Past Family History Mother Family Medical History: Cancer Additional Family Medical History / Comment(s): Colon cancer, at age 55. Medications and Allergies Home Medications Medication Instructions Recorded Confirmed Type Bisoprolol-Hctz 10-6.25 mg [Z[employer] 1 tab PO BID 09/18/13 05/31/23 History 10-6.25 MG] Atorvastatin Calcium 10 mg PO HS 11/24/22 05/31/23 History Cyclobenzaprine [Flexeril] 5 mg PO BID 03/08/23 05/31/23 History Aspirin EC [Ecotrin Low Dose] 81 mg PO DAILY 05/31/23 05/31/23 History Cephalexin [Keflex] 500 mg PO DIRECTED 05/31/23 05/31/23 History HYDROcodone/APAP 7.5-325MG [[place] 1 tab PO TID PRN 05/31/23 05/31/23 History 7.5-325] Ibuprofen [Motrin] 800 mg PO TID PRN 05/31/23 05/31/23 History Allergies Allergy/AdvReac Type Severity Reaction Status Date / Time Iodinated Contrast Media Allergy Rash/Hives,states Verified 05/31/23 15:09 [Iodinated Contrast Media - "can IV Dye] tolerate iodine on skin" codeine AdvReac severe Verified 05/31/23 15:09 constipation morphine AdvReac Hallucinati Verified 05/31/23 15:09 ons sertraline HCl [From Zoloft] AdvReac Hallucinati Verified 05/31/23 15:09 ons Physical Examination Left lower extremity: Well-healed incision over the anterior aspect of the knee. There is a scab present on the lateral aspect of the knee, near the portal site from her previous left knee arthroscopy. No obvious effusion is present on exam. There is redness noted throughout the medial, lateral and anterior aspect of the knee. There are no obvious open lesions or areas of fluctuance appreciated. Patient is a very difficult time with flexion and extension actively, passively this reproduces minimal discomfort. Logroll maneuver reproduces no groin pain. Plantarflexion, dorsiflexion, EHL, FHL are intact. Calf is soft, no tenderness with palpation. Sensory exam to light touch throughout the extremity is intact. 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 Jones. With patient's current symptoms along with her lab work, this likely represents a periprosthetic infection involving her left knee. Patient is boarded at this time for an incision and drainage with irrigation and debridement, stage I revision and antibiotic bead placement of the left knee for 06/02/2023. Risk and benefits of the procedure were discussed with the patient, this to include but not exclude worsening infection, blood loss, neurovascular injury, development of blood clot, and adequate healing of soft tissues, long-term IV antibiotics and oral antibiotics, need for subsequent surgery. Patient is in good understanding and would like to proceed. Consent to be obtained prior to procedure Infectious disease consult has been placed, plan for culture and sensitivity during surgery. Would recommend continuing IV antibiotics at this time Medical recommendations appreciated Protective weightbearing, recommend use of a walker at this time. PT/OT evaluation after surgery DVT prophylaxis, subcu medication to be utilized during hospital stay N.p.o. after midnight Further recommendations to follow Time with Patient: Less than 30
[2023-06-01] MEDS: CEFEPIME 2 GM in SODIUM CHLORIDE 0.9% 100 ML IVPB SCH (15:24)
--- NOTE | 2023-06-01 17:16 | P.PN ---
Progress Note - Text Progress Note Date: 06/01/23 - Chief Complaint Left knee redness - History of Present Illness Pleasant 67 year patient follows with Dr. Saini. March 14, 2023 left total knee arthroplasty by Dr. Jones.. About a week ago patient was pushing around a washing machine. She thinks she may have overextended her left knee. Subsequently patient started having increasing pain and swelling in the same. Started to use ice packs. Started to get worse. 5 days ago she went to see Dr. Kelly on a Tuesday in his office. He asked her to return today. It was looking worse. He scented out of the ER concern for infection. For admission. Was started on IV vancomycin. Patient did complain of chills at home. Blood cultures were drawn in the ER. Patient does not remember direct injury to the left knee. June 01: Pain swelling redness around the left knee persist. On IV vancomycin. And cefepime. Planning for I&D per Ortho tomorrow. Tolerating diet. Active Medications Hydrocodone Bitart/Acetaminophen (Hydrocodone/Apap 7.5-325mg 1 Each Tab) 1 each PO Q6HR PRN PRN Reason: Pain Last Admin: 06/01/23 12:12 Dose: 1 each Atorvastatin Calcium (Atorvastatin 10 Mg Tab) 10 mg PO HS [facility] Last Admin: 05/31/23 20:47 Dose: 10 mg Bisoprolol Fumarate (Bisoprolol-Hctz 10-6.25 Mg 1 Each Tab) 1 each PO BID [facility] Last Admin: 06/01/23 08:43 Dose: 1 each Cyclobenzaprine HCl (Cyclobenzaprine 5 Mg Tab) 5 mg PO BID [facility] Last Admin: 06/01/23 08:43 Dose: 5 mg Enoxaparin Sodium (Enoxaparin 40 Mg/0.4 Ml Syringe) 40 mg SQ DAILY [facility] Last Admin: 06/01/23 08:43 Dose: 40 mg Hydromorphone HCl (Hydromorphone 0.5 Mg/0.5 Ml Syringe) 0.5 mg IVP Q3HR PRN PRN Reason: Moderate Pain (Scale 4 to 6) Last Admin: 06/01/23 14:07 Dose: 0.5 mg Vancomycin HCl 1,750 mg/ (Sodium Chloride) 500 mls @ 167 mls/hr IVPB Q16H [facility] Last Admin: 06/01/23 08:43 Dose: 167 mls/hr Cefepime HCl 2 gm/ Sodium (Chloride) 100 mls @ 25 mls/hr IVPB Q8HR [facility]; Protocol Last Admin: 06/01/23 15:24 Dose: 25 mls/hr Naloxone HCl (Naloxone 0.4 Mg/Ml 1 Ml Vial) 0.2 mg IV Q2M PRN PRN Reason: Opioid Reversal Nicotine (Nicotine 14mg/24hr Patch) 1 patch TRANSDERM DAILY [facility] Last Admin: 06/01/23 08:43 Dose: Not Given Ondansetron HCl (Ondansetron 4 Mg/2 Ml Vial) 4 mg IVP Q8HR PRN PRN Reason: Nausea And Vomiting Past medical history to include: COPD, hypertension, hyperlipidemia, osteoarthritis, IBS, Coumadin 2020 treated with monoclonal antibody infusion, back surgery Social history: Smoking half a pack a day since age of 17. No alcohol. . Physical examination: VITAL SIGNS: 98.1, 72, 18, 113/70, 98% room air GENERAL: Resting in bed EYES: Pupils equal. Conjunctiva normal. HEENT: External appearance of nose and ears normal, oral cavity grossly normal. NECK: JVD not raised; masses not palpable. HEART: First and second heart sounds are normal; no edema. LUNGS: Respiratory rate normal; decreased breath sounds. ABDOMEN: Soft, nontender, liver spleen not palpable, no masses palpable. PSYCH: Alert and oriented x3; mood and affect normal. MUSCULOSKELETAL:No Clubbing/cyanosis;muscles-grossly intact . Increased swelling some redness over the left knee. INVESTIGATIONS, reviewed in the clinical context: June 01: Procalcitonin 0.12 May 31, 2023: White count 14.3 hemoglobin 12.4 platelets 730 left shift sodium 133 potassium 3.6 creatinine 0.64 CRP 15.2 Venous Doppler left leg: Negative for DVT Assessment plan: -Acute infection/cellulitis in a recent left total knee arthroplasty that was done on March 14, 2023:: No improvement No history of direct contact injury. Being followed by Dr. Kelly from orthopedics. IV vancomycin. Blood culture. Plan for I&D tomorrow. -Left total knee arthroplasty on March 14, 2023 -Primary osteoarthritis Pain control as needed -Hyperlipidemia Lipitor 10 mg per day -Essential hypertension Ziac 10/6.25 one tablet twice a day -Muscle spasms Flexeril 5 mg twice a day -Morbid obesity BMI 45.3 Weight loss measures -COPD n in a current smoker: r Advair 250/50 one puff twice a day. Albuterol when necessary -Chronic nicotine dependence, cigarette smoker Nicotine patch -DNR Continue current medications. Plan for I&D tomorrow. ID has been consulted Thank you Dr. Jones Past Medical History Past Medical History: Asthma, Hyperlipidemia, Hypertension, Osteoarthritis (OA) Additional Past Medical History / Comment(s): IBS History of Any Multi-Drug Resistant Organisms: None Reported Past Surgical History: Back Surgery, Section, Cholecystectomy, Hysterectomy, Orthopedic Surgery Additional Past Surgical History / Comment(s): Cervical fusion, bilateral knee arthroscopy, right ankle surgery, lower back fusion, section X2., left total knee 03/14/23 Past Anesthesia/Blood Transfusion Reactions: No Reported Reaction Additional Past Anesthesia/Blood Transfusion Reaction / Comm: Has never had blood transfusion. Past Psychological History: No Psychological Hx Reported Smoking Status: Current every day smoker Past Alcohol Use History: None Reported Additional Past Alcohol Use History / Comment(s): anastacio 1/2 PPD, has smoked for 40-42 yrs Past Drug Use History: None Reported
--- NOTE | 2023-06-02 10:28 | P.CONS ---
History of Present Illness - Reason for Consult Consult date: 06/01/23 Periprostatic joint infection Requesting physician: Joselito Ruano - Chief Complaint Left knee pain swelling redness x days - History of Present Illness Patient is a 67-year-old female with a past medical history significant for hypertension hyperlipidemia asthma osteoarthritis patient did have a left knee replacement in March 2023 patient was doing well until about a week ago when the patient started having increasing pain swelling and redness to left knee area patient denies having any history of any trauma however think she may have overstretched it with worsening of her symptoms patient did presented to her orthopedic surgeon last week patient did have aspiration of the left knee which was bloody aspiration, no cultures or sensitivity was done and the patient was not started on antibiotic patient did have a follow-up visit with the surgeon yesterday which was noticed to have worsening cellulitis to the left knee area and the patient was advised to go to the hospital for admission and I&D of the left knee patient denies high-grade fever did have some chills she did have a low-grade fever of 99.8 F last night patient did have mild head ache but no URI symptoms no chest pain shortness of breath or cough no nausea no vomiting no abdominal pain no diarrhea pain to the left knee is down to about 3 out of 10 more of a dull aching to throbbing without any radiation with associated swelling redness currently do not have any open wound or any drainage. Patient did have white count of 14.3 with a left shift, creatinine 0.64 liver exams are normal CRP is 15.2 blood cultures obtained which are currently pending patient did have a venous Doppler negative for DVT Review of Systems Positive point and negatives has been mentioned in the HPI, complete review of systems was performed and all other systems are negative Past Medical History Past Medical History: Asthma, Hyperlipidemia, Hypertension, Osteoarthritis (OA) Additional Past Medical History / Comment(s): IBS History of Any Multi-Drug Resistant Organisms: None Reported Past Surgical History: Back Surgery, Section, Cholecystectomy, Hysterectomy, Orthopedic Surgery Additional Past Surgical History / Comment(s): Cervical fusion, bilateral knee arthroscopy, right ankle surgery, lower back fusion, section X2., left total knee 03/14/23 Past Anesthesia/Blood Transfusion Reactions: No Reported Reaction Additional Past Anesthesia/Blood Transfusion Reaction / Comm: Has never had blood transfusion. Past Psychological History: No Psychological Hx Reported Smoking Status: Current every day smoker Past Alcohol Use History: None Reported Additional Past Alcohol Use History / Comment(s): smoikes 1/2 PPD, has smoked for 40-42 yrs Past Drug Use History: None Reported - Past Family History Mother Family Medical History: Cancer Additional Family Medical History / Comment(s): Colon cancer, at age 55. Medications and Allergies Home Medications Medication Instructions Recorded Confirmed Type Bisoprolol-Hctz 10-6.25 mg [Ziac 1 tab PO BID 09/18/13 05/31/23 History 10-6.25 MG] Atorvastatin Calcium 10 mg PO HS 11/24/22 05/31/23 History Cyclobenzaprine [Flexeril] 5 mg PO BID 03/08/23 05/31/23 History Aspirin EC [Ecotrin Low Dose] 81 mg PO DAILY 05/31/23 05/31/23 History Ibuprofen [Motrin] 800 mg PO TID PRN 05/31/23 05/31/23 History Enoxaparin [Lovenox] 30 mg SQ Q12H each 06/08/23 Rx HYDROcodone/APAP 7.5-325MG [[place] 1 tab PO TID PRN #9 tab 06/08/23 Rx 7.5-325] HYDROcodone/APAP 7.5-325MG [[place] 1 each PO Q6HR PRN #28 tab 06/08/23 Rx 7.5] Multivitamins, Thera [Multivitamin 1 each PO DAILY@1200 tab 06/08/23 Rx (formulary)] Nicotine 14Mg/24Hr Patch [Habitrol] 1 patch TRANSDERM DAILY patch 06/08/23 Rx Sennosides-Docusate Sodium 2 each PO HS tab 06/08/23 Rx [Senokot-S] Vancomycin Oral Solution 250 mg PO Q6HR 10 Days #200 ml 06/13/23 Rx [Vancomycin HCl Oral Soln] cefTRIAXone [Rocephin] 2,000 mg IVP Q24HR #30 each 06/13/23 Rx Nystatin 100,000 Unit/ml Susp 500,000 unit PO QID ml 06/14/23 Rx [Mycostatin Oral Susp] Allergies Allergy/AdvReac Type Severity Reaction Status Date / Time Iodinated Contrast Media Allergy Rash/Hives,states Verified 05/31/23 15:09 [Iodinated Contrast Media - "can IV Dye] tolerate iodine on skin" codeine AdvReac severe Verified 05/31/23 15:09 constipation morphine AdvReac Hallucinati Verified 05/31/23 15:09 ons sertraline HCl [From Zoloft] AdvReac Hallucinati Verified 05/31/23 15:09 ons Physical Exam Vitals: Vital Signs Temp Pulse Pulse Resp BP BP Pulse Ox 06/01/23 07:20 98.3 F 85 135/79 98 06/01/23 02:26 99.4 F 81 18 96/60 96 05/31/23 20:58 99.7 F H 05/31/23 20:07 99.8 F H 83 16 120/74 98 05/31/23 17:37 98.4 F 18 120/61 05/31/23 12:00 98.4 F 94 20 121/73 98 Intake and Output 05/31/23 06/01/23 06/01/23 22:59 06:59 14:59 Other: Voiding Method Toilet # Voids 1 4 Weight 108.862 kg GENERAL DESCRIPTION: Elderly female lying in bed, no distress. No tachypnea or accessory muscle of respiration use. HEENT: Shows Pallor , no scleral icterus. Oral mucous membrane is dry. No pharyngeal erythema or thrush NECK: Trachea central, no thyromegaly. LUNGS: Unlabored breathing. Clear to auscultation anteriorly. No wheeze or crackle. HEART: S1, S2, regular rate and rhythm. No loud murmur ABDOMEN: Soft, no tenderness , guarding or rigidity, no organomegaly EXTREMITIES: Left knee did have area of swelling redness which is warm and tender to touch SKIN: No rash, no masses palpable. NEUROLOGICAL: The patient is awake, alert, oriented x3, mood and affect normal. Results CBC & Chem 7: 06/14/23 05:35 06/14/23 05:35 Labs: Abnormal Lab Results - Last 24 Hours (Table) 05/31/23 05/31/23 Range/Units 12:33 12:33 WBC 14.3 H (3.8-10.6) k/uL Plt Count 730 H (150-450) k/uL Neutrophils # 11.2 H (1.3-7.7) k/uL ESR 111 H (0-30) mm/Hr Sodium 133 L (137-145) mmol/L Chloride 96 L (98-107) mmol/L Glucose 123 H (74-99) mg/dL C-Reactive Protein 15.2 H (<1.0) mg/dL Assessment and Plan (1) Cellulitis of left knee Status: Acute Code(s): L03.116 - CELLULITIS OF LEFT LOWER LIMB SNOMED Code(s): 18238975323271693 (2) Leukocytosis Status: Acute Code(s): D72.829 - ELEVATED WHITE BLOOD CELL COUNT, UNSPECIFIED SNOMED Code(s): 748347634 (3) Septic arthritis of knee, left Status: Acute Code(s): M00.9 - PYOGENIC ARTHRITIS, UNSPECIFIED SNOMED Code(s): 581296797 Plan: 1patient presented to hospital with left knee pain swelling and redness in this patient who recently did have left knee replacement in March 2023 now with evidence of left knee cellulitis and concern for possible periprosthetic joint infection likely from a gram-positive skin corrie gram-negative infection less likely but not entirely excluded. 2patient is scheduled for surgery at which time deep culture should be obtained and that will help determine the depth of infection 3continue with vancomycin will add cefepime for gram-negative coverage while waiting for the culture to finalize We will follow on clinical condition and cultures to further adjust medication if needed Thank you for this consultation we will follow the patient along with you Dictation was produced using [employer] dictation software. please excuse any grammatical, word or spelling errors. Time with Patient: Greater than 30
[2023-06-02] MEDS: LACTATED RINGERS 1,000 ML IV ONE (13:45)
[2023-06-02] MEDS ORDERED: MIDAZOLAM 2 MG/2 ML VIAL ONE (14:26)
[2023-06-02] MEDS ORDERED: SUCCINYLCHOLINE CHLORIDE 200 MG/10 ML VIAL IV ONE (14:26)
[2023-06-02] MEDS ORDERED: GLYCOPYRROLATE 0.2 MG/ML 2 ML VIAL ONE (14:26)
[2023-06-02] MEDS ORDERED: fentaNYL (PF) 50 MCG/ML 2 ML AMP ONE (14:26)
[2023-06-02] MEDS ORDERED: NEOSTIGMINE 1 MG/ML 10 ML VIAL ONE (14:26)
[2023-06-02] MEDS ORDERED: PROPOFOL 10 MG/ML 20 ML VIAL IV ONE (14:26)
[2023-06-02] MEDS ORDERED: HYDROmorphone (PF) 1 MG/ML ONE (14:26)
[2023-06-02] MEDS ORDERED: LIDOCAINE 1% INJ 10MG/ML (20 ML MDV) ONE (14:26)
[2023-06-02] MEDS ORDERED: ROCURONIUM 10 MG/ML (5 ML VIAL) IV ONE (14:26)
[2023-06-02] MEDS: ceFAZolin 1,000 MG in SODIUM CHLORIDE 0.9% 1,000 ML IRRIGATION ONE (14:31)
[2023-06-02] MEDS: VANCOMYCIN 1,000 MG VIAL MISCELLANE ONE (15:01)
--- NOTE | 2023-06-02 15:44 | P.PN ---
Subjective Progress Note Date: 06/02/23 Principal diagnosis: Reason for follow-up is left knee septic arthritis Patient is a 67-year-old female with a past medical history significant for hypertension hyperlipidemia asthma osteoarthritis patient did have a left knee replacement in March 2023, presented to the hospital with worsening pain and swelling and redness to the left knee area concerning for periprosthetic joint infection. On today's evaluation that is 06/02/2023, patient remains to be afebrile, the patient is breathing comfortably on room air denies any chest pain shortness of breath or cough no nausea vomiting no abdominal pain no diarrhea has been reported, denies any worsening pain to the left knee area. Patient did have a sed rate of 79 creatinine is 0.64 CRP 8.7 blood culture negative so far Objective - Vital Signs Vital signs: Vital Signs Temp 98.6 F 06/02/23 06:59 Pulse 75 06/02/23 06:59 Resp 19 06/02/23 06:59 BP 104/71 06/02/23 06:59 Pulse Ox 93 L 06/02/23 06:59 FiO2 Intake & Output 06/01/23 06/02/23 06/02/23 18:59 06:59 18:59 Intake Total 600 Balance 600 Intake: Intake, IV Titration 600 Amount Cefepime 2 gm In Sodium 100 Chloride 0.9% 100 ml @ 25 mls/hr IVPB Q8HR [facility] Rx# :[id number] Vancomycin 1,750 mg In 500 Sodium Chloride 0.9% 500 ml 500 ml @ 167 mls/hr IVPB Q16H [facility] Rx#: [id number] Other: Voiding Method Toilet # Voids 6 3 - Exam GENERAL DESCRIPTION: An elderly female lying in bed in no distress RESPIRATORY SYSTEM: Unlabored breathing , decreased breath sounds at bases HEART: S1 S2 regular rate and rhythm , ABDOMEN: Soft , no tenderness EXTREMITIES: Left knee with swelling and redness which is warm and tender to touch - Labs CBC & Chem 7: 05/31/23 12:33 06/01/23 06:24 Labs: Abnormal Lab Results - Last 24 Hours (Table) 06/01/23 Range/Units 06:24 Procalcitonin 0.12 H (0.02-0.09) ng/mL Microbiology - Last 24 Hours (Table) 05/31/23 12:30 Blood Culture - Preliminary Blood 05/31/23 12:33 Blood Culture - Preliminary Blood Assessment and Plan (1) Septic arthritis of knee, left Current Visit: Yes Status: Acute Code(s): M00.9 - PYOGENIC ARTHRITIS, UNSPECIFIED SNOMED Code(s): 360421616 (2) Leukocytosis Current Visit: Yes Status: Acute Code(s): D72.829 - ELEVATED WHITE BLOOD CELL COUNT, UNSPECIFIED SNOMED Code(s): 089461209 Plan: 1patient presented to hospital with left knee pain swelling and redness in this patient who recently did have left knee replacement in March 2023 now with evidence of left knee cellulitis and concern for possible periprosthetic joint infection likely from a gram-positive skin corrie gram-negative infection less likely but not entirely excluded. 2patient is scheduled for surgery this afternoon at which time deep culture should be obtained and that will help determine the depth of infection 3patient to continue with vancomycin and cefepime while waiting for the culture to finalize Dictation was produced using [employer] dictation software. please excuse any grammatical, word or spelling errors. Time with Patient: Less than 30
--- NOTE | 2023-06-02 16:36 | P.PN ---
Progress Note - Text Progress Note Date: 06/02/23 - Chief Complaint Left knee redness - History of Present Illness Pleasant 67 year patient follows with Dr. Saini. March 14, 2023 left total knee arthroplasty by Dr. Jones.. About a week ago patient was pushing around a washing machine. She thinks she may have overextended her left knee. Subsequently patient started having increasing pain and swelling in the same. Started to use ice packs. Started to get worse. 5 days ago she went to see Dr. Kelly on a Tuesday in his office. He asked her to return today. It was looking worse. He scented out of the ER concern for infection. For admission. Was started on IV vancomycin. Patient did complain of chills at home. Blood cultures were drawn in the ER. Patient does not remember direct injury to the left knee. June 01: Pain swelling redness around the left knee persist. On IV vancomycin. And cefepime. Planning for I&D per Ortho tomorrow. Tolerating diet. June 02: Saw the patient this morning. Pending I&D. On IV cefepime and vancomycin. Active Medications Hydrocodone Bitart/Acetaminophen (Hydrocodone/Apap 7.5-325mg 1 Each Tab) 1 each PO Q6HR PRN PRN Reason: Pain Last Admin: 06/02/23 06:44 Dose: 1 each Atorvastatin Calcium (Atorvastatin 10 Mg Tab) 10 mg PO HS [facility] Last Admin: 06/01/23 20:02 Dose: 10 mg Bisoprolol Fumarate (Bisoprolol-Hctz 10-6.25 Mg 1 Each Tab) 1 each PO BID [facility] Last Admin: 06/02/23 09:54 Dose: 1 each Cyclobenzaprine HCl (Cyclobenzaprine 5 Mg Tab) 5 mg PO BID [facility] Last Admin: 06/02/23 09:54 Dose: 5 mg Enoxaparin Sodium (Enoxaparin 40 Mg/0.4 Ml Syringe) 40 mg SQ DAILY [facility] Last Admin: 06/02/23 10:03 Dose: Not Given Hydromorphone HCl (Hydromorphone 0.5 Mg/0.5 Ml Syringe) 0.5 mg IVP Q3HR PRN PRN Reason: Moderate Pain (Scale 4 to 6) Last Admin: 06/02/23 13:12 Dose: 0.5 mg Vancomycin HCl 1,750 mg/ (Sodium Chloride) 500 mls @ 167 mls/hr IVPB Q16H [facility] Last Admin: 06/02/23 00:10 Dose: 167 mls/hr Cefepime HCl 2 gm/ Sodium (Chloride) 100 mls @ 25 mls/hr IVPB Q8HR [facility]; Protocol Last Admin: 06/02/23 09:54 Dose: 25 mls/hr Lactated Ringer's (Lactated Ringers) 1,000 mls @ 20 mls/hr IV .Q24H [facility] Naloxone HCl (Naloxone 0.4 Mg/Ml 1 Ml Vial) 0.2 mg IV Q2M PRN PRN Reason: Opioid Reversal Nicotine (Nicotine 14mg/24hr Patch) 1 patch TRANSDERM DAILY [facility] Last Admin: 06/02/23 10:03 Dose: Not Given Ondansetron HCl (Ondansetron 4 Mg/2 Ml Vial) 4 mg IVP Q8HR PRN PRN Reason: Nausea And Vomiting Past medical history to include: COPD, hypertension, hyperlipidemia, osteoarthritis, IBS, Coumadin 2020 treated with monoclonal antibody infusion, back surgery Social history: Smoking half a pack a day since age of 17. No alcohol. . Physical examination: VITAL SIGNS: 97.5, 76, 19, 104/71, 93% room air GENERAL: Resting in bed EYES: Pupils equal. Conjunctiva normal. HEENT: External appearance of nose and ears normal, oral cavity grossly normal. NECK: JVD not raised; masses not palpable. HEART: First and second heart sounds are normal; no edema. LUNGS: Respiratory rate normal; decreased breath sounds. ABDOMEN: Soft, nontender, liver spleen not palpable, no masses palpable. PSYCH: Alert and oriented x3; mood and affect normal. MUSCULOSKELETAL:No Clubbing/cyanosis;muscles-grossly intact . Increased swelling some redness over the left knee. INVESTIGATIONS, reviewed in the clinical context: June 02: ESR 79 CRP 8.7 June 01: Procalcitonin 0.12 May 31, 2023: White count 14.3 hemoglobin 12.4 platelets 730 left shift sodium 133 potassium 3.6 creatinine 0.64 CRP 15.2 Venous Doppler left leg: Negative for DVT Assessment plan: -Acute infection/cellulitis in a recent left total knee arthroplasty that was done on March 14, 2023:: No improvement No history of direct contact injury. Being followed by Dr. Kelly from orthopedics. IV vancomycin. Blood culture. Plan for I&D later this afternoon -Left total knee arthroplasty on March 14, 2023 -Primary osteoarthritis Pain control as needed -Hyperlipidemia Lipitor 10 mg per day -Essential hypertension Ziac 10/6.25 one tablet twice a day -Muscle spasms Flexeril 5 mg twice a day -Morbid obesity BMI 45.3 Weight loss measures -COPD n in a current smoker: r Advair 250/50 one puff twice a day. Albuterol when necessary -Chronic nicotine dependence, cigarette smoker Nicotine patch -DNR Continue IV vancomycin and cefepime. Pending I&D. Thank you Dr. Jones Past Medical History Past Medical History: Asthma, Hyperlipidemia, Hypertension, Osteoarthritis (OA) Additional Past Medical History / Comment(s): IBS History of Any Multi-Drug Resistant Organisms: None Reported Past Surgical History: Back Surgery, Section, Cholecystectomy, Hysterectomy, Orthopedic Surgery Additional Past Surgical History / Comment(s): Cervical fusion, bilateral knee arthroscopy, right ankle surgery, lower back fusion, section X2., left total knee 03/14/23 Past Anesthesia/Blood Transfusion Reactions: No Reported Reaction Additional Past Anesthesia/Blood Transfusion Reaction / Comm: Has never had blood transfusion. Past Psychological History: No Psychological Hx Reported Smoking Status: Current every day smoker Past Alcohol Use History: None Reported Additional Past Alcohol Use History / Comment(s): anastacio 1/2 PPD, has smoked for 40-42 yrs Past Drug Use History: None Reported
[2023-06-02] MEDS ORDERED: NALOXONE 0.4 MG/ML 1 ML VIAL IV PRN (17:18)
[2023-06-02] MEDS ORDERED: HYDROmorphone 0.5 MG/0.5 ML SYRINGE IVP PRN (17:18)
[2023-06-02] MEDS ORDERED: HYDROcodone/APAP 5-325MG 1 EACH TAB PO PRN (17:18)
--- NOTE | 2023-06-02 17:18 | P.OP ---
Date of Procedure: 06/02/23 Preoperative Diagnosis: Left knee periprosthetic infection Postoperative Diagnosis: Left knee periprosthetic infection Procedure(s) Performed: Stage I revision left total knee arthroplasty with antibiotic bead placement Implants: 1. Remedy medium antibiotic femoral component 2. Remedy medium antibiotic tibial component 3. Remedy medium antibiotic tibial insert wedge Anesthesia: LEONILAA Surgeon: Jerry Jones Divorce Attorney #1: Joselito Ruano Estimated Blood Loss (ml): 85 Pathology: none sent Condition: stable Disposition: PACU Indications for Procedure: Six 7-year-old patient seen with a left knee periprosthetic infection. I discussed this complex issue with both the patient and her daughter. I recommended a stage I revision which I reviewed would be removing her implant, placing a temporary antibiotic implant and in the future she would need stage II revision. I discussed the procedure, risks, complications and recovery. Patient was agreeable. Consents obtained. Operative Findings: See description of procedure Description of Procedure: Patient was taken to the operative suite. She underwent a general anesthetic by the department of anesthesia. A well-padded tourniquet placed left proximal thigh. The left lower extremity was prepped and draped in the normal sterile orthopedic fashion. We elevated the extremity insufflated tourniquet to 300. An incision was then made through the previous cicatrix sharply through skin. I dissected down to the extensor mechanism. I immediately encountered purulent fluid. Cultures were obtained. There was an erosive defect along the medial retinacular area. I performed a medial arthrotomy. With a sharp blade I debrided out some of that abnormal looking medial retinacular tissue. We took additional cultures of the purulent fluid within the joint itself. We now flexed the knee. With the assistance of Ye DEL REAL I carefully began using various small sawblade's and thin osteotomes to free up the femoral component. I was able to finally remove that with minimal bone loss. We removed removed our polyethylene tibial tray. I now began freeing up the tibial tray utilizing thin osteotomes as well as the thin sawblade. I also finally utilized the tibial extractor device and was able to remove the tibia with again minimal bone loss. I straighten out the knee. I everted the patella. Utilizing a saw blade I cut at the cement bone interface and remove the polyethylene patella. I remove the polyethylene pegs utilizing a drill. I now flex the knee again and worked on removing any residual cement within the proximal tibial canal. I examined the wound and noted all cement had been successfully removed. Utilizing a sharp #10 blade I debrided out any abnormal appearing tissue. I now irrigated the wound out copiously with 9000 cc of fluid via pulse lavage. The last 3000 cc bag was with antibiotic fluid. We now soak the knee with Irrisept. I now reexamine the wound and did not find any evidence for any residual abnormal looking tissue. I now trialed the remedy temporary femur and tibial components and the best close the size was a medium for her. I now mixed antibiotic beads for implantation. When those are completed I mixed antibiotic cement. When the cement was ready. I placed some along the backside of our remedy medium tibial component and then secured it to our tibial insert wide and then placed cement along the edge of that a place along her proximal tibia. We then placed cement along our medium femoral component in place in position. We took the knee to extension. We let the cement hardened. I had noted that the cement mantle had incorporated into the femoral component and the knee was not moving. I now chiseled out away. I remove the remedy medium femoral component. We chose a remedy medium stemmed femoral component. We mix additional antibiotic cement. We cemented that along the distal femur and it was secure. Work we were able to flex and extend the knee without any impingement. We now released the tourniquet. We achieved hemostasis via electrocautery. We inserted a drain exiting out superior laterally. We now implanted the remaining beads into the joint. We now repaired the extensor mechanism and capsule utilizing Ethibond suture. I did note about a 1 cm defect along the medial capsule area. It was stable with flexion extension. The subcutaneous soft tissues were approximately 2-0 Vicryl. The skin was approximated with skin jordan. We connected the drain to Hemovac suction. Sterile dressings were applied. A sterile Gavino bandage was applied. The extremity was placed into a long leg knee immobilizer. The patient was awakened, transferred to bed and recovery in stable condition. Ye DEL REAL assisted in all aspects of this complex procedure.
[2023-06-02] MEDS: HYDROmorphone 0.5 MG/0.5 ML SYRINGE IVP ONE (18:01)
--- NOTE | 2023-06-02 18:55 | XR ---
EXAMINATION TYPE: XR knee limited LT DATE OF EXAM: 06/02/2023 6:42 PM CLINICAL INDICATION:Female, 67 years old with history of Evaluation for Postop abnormality and alignm ent; [facility] COMPARISON: None. TECHNIQUE: XR knee limited LT; examined in Frontal, lateral and oblique projections. FINDINGS: Postsurgical change with suspected antimicrobial bead placement throughout the joint. Angela or metallic hardware is no longer visualized. Hardware with less density may be present. Correlate wi th surgical history. Skin jordan present with subjacent lucencies. IMPRESSION: Post surgical change. No evidence of fracture.
[2023-06-02] MEDS: SENNOSIDES-DOCUSATE SODIUM 1 EACH TAB PO SCH (20:13)
[2023-06-02] MEDS: HYDROcodone/APAP 7.5-325MG 1 EACH TAB PO PRN (20:14)
[2023-06-02] MEDS: LACTATED RINGERS 1,000 ML IV SCH (20:20)
[2023-06-02] MEDS: HYDROmorphone 0.5 MG/0.5 ML SYRINGE IVP PRN (21:18)
[2023-06-03] MEDS: LACTATED RINGERS 1,000 ML IV SCH (01:24)
[2023-06-03] MEDS: ENOXAPARIN 30 MG/0.3 ML SYRINGE SQ SCH (06:21)
[2023-06-03 07:40] LABS: African American GFR (CKD) >90 (>60 ml/min/1.73 sqM); Non-African American GFR(CKD) >90 (>60 ml/min/1.73 sqM)
[2023-06-03 11:10] LABS: Basophils # (A) 0.06 X 10*3/uL (0.00-0.10); Basophils % (A) 0.5 %; Eosinophils # (A) 0.06 X 10*3/uL (0.04-0.35); Eosinophils % (A) 0.5 %; HGB 9.7 g/dL (12.0-15.0); Lymphocytes # (A) 1.96 X 10*3/uL (0.90-5.00); MCH 31.5 pg (27.0-32.0); MCHC 32.3 g/dL (32.0-37.0); MCV 97.4 FL (80.0-97.0); Mean Platelet Volume 9.7 FL (9.5-12.2); Monocytes # (A) 1.34 X 10*3/uL (0.20-1.00); NRBC Per 100 WBC 0 X 10*3/uL (0.00-0.01); Neutrophils # (A) 8.62 X 10*3/uL (1.80-7.70); Neutrophils % (A) 70.4 %; Platelet Count 628 X 10*3/uL (140-440); RBC 3.08 X 10*6/uL (4.10-5.20); RDW 13.8 % (11.5-14.5); WBC 12.23 X 10*3/uL (4.50-10.00)
--- NOTE | 2023-06-03 11:39 | P.PN ---
Subjective Progress Note Date: 06/03/23 Principal diagnosis: Left knee periprosthetic infection t Patient seen at bedside this morning lying; position with knee immobilizer on and wound VAC present over left anterior knee as well as drain present. Patient says she did work with therapy this morning and did need a lot of help when she got up with therapy. Patient was present with daughter during encounter and states that she would like to go to rehab upon discharge from hospital. Patient says the medication is helping control the pain somewhat. Patient says the pain is tolerable when she is resting in bed. Patient says the pain does increase when she gets up with therapy. Nair is currently in place. Case management working on rehab placement. Patient denies chest pain, fever, shortness breath, nausea, vomiting, change in vision. Objective - Vital Signs Vital signs: Vital Signs Temp 98.4 F 06/03/23 06:54 Pulse 83 06/03/23 06:54 Resp 18 06/03/23 06:54 BP 116/69 06/03/23 06:54 Pulse Ox 95 06/03/23 06:54 FiO2 Intake & Output 06/02/23 06/03/23 06/03/23 18:59 06:59 18:59 Intake Total 1601 900 Output Total 133 993 4287 Balance 1266 25 -2000 Weight 108.862 kg Intake: IV 1601 Oral 900 Output: Drainage 25 Left Knee 25 Urine 753 180 6792 Estimated Blood Loss 85 Other: Voiding Method Toilet Indwelling Catheter - Exam Left knee: Incision is clean, and intact. The wound VAC is in good condition. Hemovac drain is in place with minimal output. We will maintain for 1 more day and pos sible removal tomorrow. There is minimal soft tissue swelling and ecchymosis surrounding the medial and lateral aspects of the incision. Calf is soft, no tenderness with palpation. Plantar flexion, dorsiflexion, EHL, FHL are intact. Sensory exam to light touch throughout the extremity is intact, dorsal pedis pulses 2+. - Labs CBC & Chem 7: 06/03/23 06:05 06/03/23 06:05 Labs: Abnormal Lab Results - Last 24 Hours (Table) 06/02/23 06/03/23 Range/Units 07:30 06:05 WBC 12.23 H (4.50-10.00) X 10*3/uL RBC 3.08 L (4.10-5.20) X 10*6/uL Hgb 9.7 L (12.0-15.0) g/dL Hct 30.0 L (37.2-46.3) % MCV 97.4 H (80.0-97.0) FL Plt Count 628 H (140-440) X 10*3/uL Immature Gran # 0.19 H (0.00-0.04) X 10*3/uL Neutrophils # 8.62 H (1.80-7.70) X 10*3/uL Monocytes # 1.34 H (0.20-1.00) X 10*3/uL ESR 79 H (0-30) mm/Hr Microbiology - Last 24 Hours (Table) 05/31/23 12:30 Blood Culture - Preliminary Blood 05/31/23 12:33 Blood Culture - Preliminary Blood Assessment and Plan Assessment: Left knee periprosthetic infection - Postoperative day 1 status post - Stage I revision left total knee arthroplasty with antibiotic bead placement Plan: Left knee periprosthetic infection - surgery performed yesterday, , 06/02/2023 - Stage I revision left total knee arthroplasty with antibiotic bead placement. Patient stable at bedside this morning with surgical drain and wound VAC in place over left anterior knee. Nursing is to continue monitor wound VAC. We'll maintain Hemovac drain for 1 more day with possible removal tomorrow versus Tuesday. Patient is to be toe-touch 25% weightbearing to left lower extremity and use walker while about. Knee immobilizer on while up and about. Cultures pending. ID and medcine following. currently on vancomycin and cefepime IV. Pain medication as needed. We'll continue to follow patient during standard hospital. Case management working on rehab placement. Likely discharge to rehab on Tuesday. 2. Appreciate medical and ID management 3. Pain management - [place]; Flexeril; Dilaudid 4. DVT prophylaxis - Lovenox 5. GI prophylaxis - senna 6. PT/OT - toe-touch weightbearing 25% left lower extremity with walker and knee immobilizer on while up and about. Weight-bear as tolerated right lower e xtremity 7. Encourage incentive spirometer use 8. Discharge planning - likely discharge to rehab on Tuesday Time with Patient: Less than 30
[2023-06-03] MEDS: MULTIVITAMINS, THERA 1 EACH TAB PO SCH (12:31)
--- NOTE | 2023-06-03 15:27 | P.PN ---
Subjective Progress Note Date: 06/03/23 Principal diagnosis: Reason for follow-up is left knee septic arthritis Patient is a 67-year-old female with a past medical history significant for hypertension hyperlipidemia asthma osteoarthritis patient did have a left knee replacement in March 2023, presented to the hospital with worsening pain and swelling and redness to the left knee area concerning for periprosthetic joint infection.Patient is status post stage I revision left total knee arthroplasty with antibiotic bead placement on 06/02/2023. On today's evaluation that is 06/03/2023, the patient continues to be afebrile patient is currently breathing comfortably on room air not requiring any oxygen, the patient denies having any chest pain shortness of breath or cough, the patient denies nausea vomiting no abdominal pain no diarrhea. Patient pain to the left knee is currently controlled with pain medication Patient white count is down to 12.23 creatinine 0.61, ESR was 111 CRP of 15.2 trending down cultures are pending Objective - Vital Signs Vital signs: Vital Signs Temp 98.4 F 06/03/23 06:54 Pulse 83 06/03/23 06:54 Resp 18 06/03/23 06:54 BP 116/69 06/03/23 06:54 Pulse Ox 95 06/03/23 06:54 FiO2 Intake & Output 06/02/23 06/03/23 06/03/23 18:59 06:59 18:59 Intake Total 1601 900 Output Total 273 919 0908 Balance 1266 25 -1999 Weight 108.862 kg Intake: IV 1601 Oral 900 Output: Drainage 25 Left Knee 25 Urine 721 883 9144 Estimated Blood Loss 85 Other: Voiding Method Toilet Indwelling Catheter Indwelling Catheter - Exam GENERAL DESCRIPTION: An elderly female lying in bed in no distress RESPIRATORY SYSTEM: Unlabored breathing , decreased breath sounds at bases HEART: S1 S2 regular rate and rhythm , ABDOMEN: Soft , no tenderness EXTREMITIES: Left knee incision covered with wound VAC - Labs CBC & Chem 7: 06/03/23 06:05 06/03/23 06:05 Labs: Abnormal Lab Results - Last 24 Hours (Table) 06/03/23 Range/Units 06:05 WBC 12.23 H (4.50-10.00) X 10*3/uL RBC 3.08 L (4.10-5.20) X 10*6/uL Hgb 9.7 L (12.0-15.0) g/dL Hct 30.0 L (37.2-46.3) % MCV 97.4 H (80.0-97.0) FL Plt Count 628 H (140-440) X 10*3/uL Immature Gran # 0.19 H (0.00-0.04) X 10*3/uL Neutrophils # 8.62 H (1.80-7.70) X 10*3/uL Monocytes # 1.34 H (0.20-1.00) X 10*3/uL Microbiology - Last 24 Hours (Table) 05/31/23 12:30 Blood Culture - Preliminary Blood 05/31/23 12:33 Blood Culture - Preliminary Blood Assessment and Plan (1) Septic arthritis of knee, left Current Visit: Yes Status: Acute Code(s): M00.9 - PYOGENIC ARTHRITIS, UNSPECIFIED SNOMED Code(s): 587460386 (2) Leukocytosis Current Visit: Yes Status: Acute Code(s): D72.829 - ELEVATED WHITE BLOOD CELL COUNT, UNSPECIFIED SNOMED Code(s): 359050174 Plan: 1patient presented to hospital with left knee pain swelling and redness in this patient who recently did have left knee replacement in March 2023 now with evidence of left knee cellulitis and concern for possible periprosthetic joint infection likely from a gram-positive skin corrie gram-negative infection less likely but not entirely excluded. 2patient is s/p stage I procedure with arthroplasty antibiotic bead placement along with deep cultures which are currently pending 3patient to continue with vancomycin and cefepime while waiting for the culture to finalize will need a PICC line for outpatient IV antibiotic discussed with the case aide Multiple family members at bedside questions were answered Dictation was produced using [employer]ation software. please excuse any grammatical, word or spelling errors. Time with Patient: Less than 30
--- NOTE | 2023-06-03 16:14 | P.PN ---
Progress Note - Text Progress Note Date: 06/03/23 - Chief Complaint Left knee redness - History of Present Illness Pleasant 67 year patient follows with Dr. Saini. March 14, 2023 left total knee arthroplasty by Dr. Jones.. About a week ago patient was pushing around a washing machine. She thinks she may have overextended her left knee. Subsequently patient started having increasing pain and swelling in the same. Started to use ice packs. Started to get worse. 5 days ago she went to see Dr. Kelly on a Tuesday in his office. He asked her to return today. It was looking worse. He scented out of the ER concern for infection. For admission. Was started on IV vancomycin. Patient did complain of chills at home. Blood cultures were drawn in the ER. Patient does not remember direct injury to the left knee. June 01: Pain swelling redness around the left knee persist. On IV vancomycin. And cefepime. Planning for I&D per Ortho tomorrow. Tolerating diet. June 02: Saw the patient this morning. Pending I&D. On IV cefepime and vancomycin. June 03: Patient underwent I&D of the left prosthetic joint. Purulence was obtained. Surgical intervention was further carried out. Antibiotic beads were placed in the joint. Patient has a brace on the left leg. Only toe weightbearing. Spoke to patient daughter at the bedside. Looking into rehab. Active Medications Hydrocodone Bitart/Acetaminophen (Hydrocodone/Apap 5-325mg 1 Each Tab) 1 each PO Q6HR PRN PRN Reason: Pain Scale 1 to 5 Hydrocodone Bitart/Acetaminophen (Hydrocodone/Apap 7.5-325mg 1 Each Tab) 1 each PO Q6H PRN PRN Reason: Pain Scale 6 to 10 Last Admin: 06/03/23 10:49 Dose: 1 each Atorvastatin Calcium (Atorvastatin 10 Mg Tab) 10 mg PO HS [facility] Last Admin: 06/02/23 20:13 Dose: 10 mg Bisoprolol Fumarate (Bisoprolol-Hctz 10-6.25 Mg 1 Each Tab) 1 each PO BID [facility] Last Admin: 06/03/23 09:35 Dose: 1 each Cyclobenzaprine HCl (Cyclobenzaprine 5 Mg Tab) 5 mg PO BID [facility] Last Admin: 06/03/23 09:35 Dose: 5 mg Enoxaparin Sodium (Enoxaparin 30 Mg/0.3 Ml Syringe) 30 mg SQ Q12H [facility] Last Admin: 06/03/23 06:21 Dose: 30 mg Hydromorphone HCl (Hydromorphone 0.5 Mg/0.5 Ml Syringe) 0.25 mg IVP Q3HR PRN PRN Reason: Pain Scale 4 to 6 Hydromorphone HCl (Hydromorphone 0.5 Mg/0.5 Ml Syringe) 0.5 mg IVP Q3HR PRN PRN Reason: Pain Scale 7 to 10 Last Admin: 06/03/23 12:42 Dose: 0.5 mg Hydromorphone HCl (Hydromorphone 0.5 Mg/0.5 Ml Syringe) 0.125 mg IVP Q3HR PRN PRN Reason: Pain Scale 1 to 3 Vancomycin HCl 1,750 mg/ (Sodium Chloride) 500 mls @ 167 mls/hr IVPB Q16H [facility] Last Admin: 06/03/23 09:36 Dose: 167 mls/hr Cefepime HCl 2 gm/ Sodium (Chloride) 100 mls @ 25 mls/hr IVPB Q8HR [facility]; Protocol Last Admin: 06/03/23 09:35 Dose: 25 mls/hr Lactated Ringer's (Lactated Ringers) 1,000 mls @ 100 mls/hr IV .Q10H [facility] Last Admin: 06/03/23 14:32 Dose: Not Given Miscellaneous Information (Vancomycin Trough Due 1 Each Misc) 0 each MISCELLANE DIRECTED ONE Stop: 06/04/23 15:01 Multivitamins (Multivitamins, Thera 1 Each Tab) 1 each PO DAILY@1200 [facility] Last Admin: 06/03/23 12:31 Dose: 1 each Naloxone HCl (Naloxone 0.4 Mg/Ml 1 Ml Vial) 0.2 mg IV Q2M PRN PRN Reason: Opioid Reversal Nicotine (Nicotine 14mg/24hr Patch) 1 patch TRANSDERM DAILY [facility] Last Admin: 06/03/23 08:52 Dose: Not Given Ondansetron HCl (Ondansetron 4 Mg/2 Ml Vial) 4 mg IVP Q8HR PRN PRN Reason: Nausea And Vomiting Senna/Docusate Sodium (Sennosides-Docusate Sodium 1 Each Tab) 2 each PO HS [facility] Last Admin: 06/02/23 20:13 Dose: 2 each Past medical history to include: COPD, hypertension, hyperlipidemia, osteoarthritis, IBS, Coumadin 2020 treated with monoclonal antibody infusion, back surgery Social history: Smoking half a pack a day since age of 17. No alcohol. . Physical examination: VITAL SIGNS: 98.5, 95, 18, 110/73, 95% room air GENERAL: Resting in bed EYES: Pupils equal. Conjunctiva normal. HEENT: External appearance of nose and ears normal, oral cavity grossly normal. NECK: JVD not raised; masses not palpable. HEART: First and second heart sounds are normal; no edema. LUNGS: Respiratory rate normal; decreased breath sounds. ABDOMEN: Soft, nontender, liver spleen not palpable, no masses palpable. PSYCH: Alert and oriented x3; mood and affect normal. MUSCULOSKELETAL:No Clubbing/cyanosis;muscles-grossly intact . Left leg in a brace INVESTIGATIONS, reviewed in the clinical context: June 03: White count 12.2 hemoglobin 9.7 June 02: ESR 79 CRP 8.7 June 01: Procalcitonin 0.12 May 31, 2023: White count 14.3 hemoglobin 12.4 platelets 730 left shift sodium 133 potassium 3.6 creatinine 0.64 CRP 15.2 Venous Doppler left leg: Negative for DVT Assessment plan: -Acute infected left total knee arthroplasty that was done on March 14, 2023:: Pleural fluid was obtained from the joint during I&D by Dr. Kelly on June 02. Followed by antibiotic beads placed.. Left leg in a brace. Toe-touch weightbearing. -Left total knee arthroplasty on March 14, 2023 -Primary osteoarthritis Pain control as needed -Hyperlipidemia Lipitor 10 mg per day -Essential hypertension Ziac 10/6.25 one tablet twice a day -Muscle spasms Flexeril 5 mg twice a day -Morbid obesity BMI 45.3 Weight loss measures -COPD n in a current smoker: r Advair 250/50 one puff twice a day. Albuterol when necessary -Chronic nicotine dependence, cigarette smoker Nicotine patch -DNR -Disposition: Being evaluated for subacute rehab Continue IV vancomycin and cefepime. Discussed with patient daughter. Thank you Dr. Jones Past Medical History Past Medical History: Asthma, Hyperlipidemia, Hypertension, Osteoarthritis (OA) Additional Past Medical History / Comment(s): IBS History of Any Multi-Drug Resistant Organisms: None Reported Past Surgical History: Back Surgery, Section, Cholecystectomy, Hysterectomy, Orthopedic Surgery Additional Past Surgical History / Comment(s): Cervical fusion, bilateral knee arthroscopy, right ankle surgery, lower back fusion, section X2., left total knee 03/14/23 Past Anesthesia/Blood Transfusion Reactions: No Reported Reaction Additional Past Anesthesia/Blood Transfusion Reaction / Comm: Has never had blood transfusion. Past Psychological History: No Psychological Hx Reported Smoking Status: Current every day smoker Past Alcohol Use History: None Reported Additional Past Alcohol Use History / Comment(s): anastacio 1/2 PPD, has smoked for 40-42 yrs Past Drug Use History: None Reported
--- NOTE | 2023-06-04 14:18 | P.PN ---
Subjective Progress Note Date: 06/04/23 Principal diagnosis: Left knee periprosthetic infection Patient seen and examined this morning. Patient is resting comfortably in bed. Left lower extremity presents in immobilizer. Prevena wound VAC is present over the left knee incision, x 4 cartridges have been utilized. Sanguineous output is present. Hemovac present with no measurable output, this drain has been removed. Dressing applied to this site. Patient reports her pain is managed on current regimen. Patient denies any numbness or tingling to the left extremity. She is able to perform ankle flexion and extension without difficulty. No acute concerns at this time. Encourage patient to utilize incentive spirometer. Objective - Vital Signs Vital signs: Vital Signs Temp 99.6 F 06/04/23 07:07 Pulse 83 06/04/23 07:07 Resp 18 06/04/23 07:07 BP 116/74 06/04/23 07:07 Pulse Ox 94 L 06/04/23 08:19 FiO2 Intake & Output 06/03/23 06/04/23 06/04/23 18:59 06:59 18:59 Intake Total 900 Output Total 2800 3110 Balance -2800 -2210 Intake: Oral 900 Output: Drainage 10 Left Knee 10 Urine 2800 3100 Uretheral (Nair) 500 Other: Voiding Method Indwelling Catheter External Catheter Bedside Commode # Bowel Movements 1 - Exam Incision over the left knee presents with Prevana wound vac in place, holding compression and is patent. There is minimal soft tissue swelling and ecchymosis surrounding the medial and lateral aspects of the incision. Calf is soft, no tenderness with palpation. Plantar flexion, dorsiflexion, EHL, FHL are intact. Sensory exam to light touch throughout the extremity is intact, dorsal pedis pulses 2+. - Labs CBC & Chem 7: 06/03/23 06:05 06/03/23 06:05 Labs: Microbiology - Last 24 Hours (Table) 06/02/23 15:56 Gram Stain - Preliminary Knee - Left Wound Culture - Preliminary 06/02/23 15:56 Gram Stain - Preliminary Knee - Left Wound Culture - Preliminary 06/02/23 15:56 Gram Stain - Preliminary Knee - Left Wound Culture - Preliminary 05/31/23 12:30 Blood Culture - Preliminary Blood 05/31/23 12:33 Blood Culture - Preliminary Blood Assessment and Plan Assessment: Postoperative day 2 status post - Stage I revision left total knee arthroplasty with antibiotic bead placement Left knee periprosthetic infection Plan: 1. Appreciate medical and ID management 2. Wound cultures pending, continue on vancomycin and cefepime IV per ID. 3. Nursing is to continue monitor wound VAC. 4. Pain management - [place]; Flexeril; Dilaudid 5. DVT prophylaxis - Lovenox 6. GI prophylaxis - senna 7. PT/OT - toe-touch weightbearing 25% left lower extremity with walker and knee immobilizer on while up and about. Weight-bear as tolerated right lower extremity 8. Encourage incentive spirometer use 9. Discharge planning - likely discharge to rehab on Tuesday *I reviewed and discussed this case with my attending Dr. Jones, whom has reviewed this chart and films and is in agreement with assessment and plan of care as outlined above. I have personally seen and examined the patient, performed the documentation and the assessment and plan as written. Number of minutes spent on the visit: 20m.
[2023-06-04] MEDS: LACTULOSE 20 GM/30 ML CUP PO ONE (14:46)
[2023-06-04 15:22] LABS: African American GFR (CKD) >90 (>60 ml/min/1.73 sqM); Non-African American GFR(CKD) 81 (>60 ml/min/1.73 sqM)
--- NOTE | 2023-06-04 15:58 | P.PN ---
Progress Note - Text Progress Note Date: 06/04/23 - Chief Complaint Left knee redness - History of Present Illness Pleasant 67 year patient follows with Dr. Saini. March 14, 2023 left total knee arthroplasty by Dr. Jones.. About a week ago patient was pushing around a washing machine. She thinks she may have overextended her left knee. Subsequently patient started having increasing pain and swelling in the same. Started to use ice packs. Started to get worse. 5 days ago she went to see Dr. Kelly on a Tuesday in his office. He asked her to return today. It was looking worse. He scented out of the ER concern for infection. For admission. Was started on IV vancomycin. Patient did complain of chills at home. Blood cultures were drawn in the ER. Patient does not remember direct injury to the left knee. June 01: Pain swelling redness around the left knee persist. On IV vancomycin. And cefepime. Planning for I&D per Ortho tomorrow. Tolerating diet. June 02: Saw the patient this morning. Pending I&D. On IV cefepime and vancomycin. June 03: Patient underwent I&D of the left prosthetic joint. Purulence was obtained. Surgical intervention was further carried out. Antibiotic beads were placed in the joint. Patient has a brace on the left leg. Only toe weightbearing. Spoke to patient daughter at the bedside. Looking into rehab. June 04: Some pain in the affected knee. Tolerating diet. No fever. On IV cefepime IV vancomycin. Cultures pending. Active Medications Hydrocodone Bitart/Acetaminophen (Hydrocodone/Apap 5-325mg 1 Each Tab) 1 each PO Q6HR PRN PRN Reason: Pain Scale 1 to 5 Hydrocodone Bitart/Acetaminophen (Hydrocodone/Apap 7.5-325mg 1 Each Tab) 1 each PO Q6H PRN PRN Reason: Pain Scale 6 to 10 Last Admin: 06/04/23 11:57 Dose: 1 each Atorvastatin Calcium (Atorvastatin 10 Mg Tab) 10 mg PO HS [facility] Last Admin: 06/03/23 20:20 Dose: 10 mg Bisoprolol Fumarate (Bisoprolol-Hctz 10-6.25 Mg 1 Each Tab) 1 each PO BID [facility] Last Admin: 06/04/23 08:52 Dose: 1 each Cyclobenzaprine HCl (Cyclobenzaprine 5 Mg Tab) 5 mg PO BID [facility] Last Admin: 06/04/23 08:50 Dose: 5 mg Enoxaparin Sodium (Enoxaparin 30 Mg/0.3 Ml Syringe) 30 mg SQ Q12H [facility] Last Admin: 06/04/23 05:47 Dose: 30 mg Hydromorphone HCl (Hydromorphone 0.5 Mg/0.5 Ml Syringe) 0.25 mg IVP Q3HR PRN PRN Reason: Pain Scale 4 to 6 Hydromorphone HCl (Hydromorphone 0.5 Mg/0.5 Ml Syringe) 0.5 mg IVP Q3HR PRN PRN Reason: Pain Scale 7 to 10 Last Admin: 06/04/23 08:51 Dose: 0.5 mg Hydromorphone HCl (Hydromorphone 0.5 Mg/0.5 Ml Syringe) 0.125 mg IVP Q3HR PRN PRN Reason: Pain Scale 1 to 3 Vancomycin HCl 1,750 mg/ (Sodium Chloride) 500 mls @ 167 mls/hr IVPB Q16H [facility] Last Admin: 06/04/23 00:32 Dose: 167 mls/hr Cefepime HCl 2 gm/ Sodium (Chloride) 100 mls @ 25 mls/hr IVPB Q8HR [facility]; Protocol Last Admin: 06/04/23 08:52 Dose: 25 mls/hr Lactated Ringer's (Lactated Ringers) 1,000 mls @ 100 mls/hr IV .Q10H [facility] Last Admin: 06/04/23 05:43 Dose: Not Given Multivitamins (Multivitamins, Thera 1 Each Tab) 1 each PO DAILY@1200 [facility] Last Admin: 06/04/23 08:50 Dose: 1 each Naloxone HCl (Naloxone 0.4 Mg/Ml 1 Ml Vial) 0.2 mg IV Q2M PRN PRN Reason: Opioid Reversal Nicotine (Nicotine 14mg/24hr Patch) 1 patch TRANSDERM DAILY [facility] Last Admin: 06/04/23 08:31 Dose: Not Given Ondansetron HCl (Ondansetron 4 Mg/2 Ml Vial) 4 mg IVP Q8HR PRN PRN Reason: Nausea And Vomiting Senna/Docusate Sodium (Sennosides-Docusate Sodium 1 Each Tab) 2 each PO HS [facility] Last Admin: 06/03/23 20:20 Dose: 2 each Past medical history to include: COPD, hypertension, hyperlipidemia, osteoarthritis, IBS, Coumadin 2020 treated with monoclonal antibody infusion, back surgery Social history: Smoking half a pack a day since age of 17. No alcohol. . Physical examination: VITAL SIGNS: 98.6, 86, 18, 1 one 9 x 72, 98% room air GENERAL: Resting in bed EYES: Pupils equal. Conjunctiva normal. HEENT: External appearance of nose and ears normal, oral cavity grossly normal. NECK: JVD not raised; masses not palpable. HEART: First and second heart sounds are normal; no edema. LUNGS: Respiratory rate normal; decreased breath sounds. ABDOMEN: Soft, nontender, liver spleen not palpable, no masses palpable. PSYCH: Alert and oriented x3; mood and affect normal. MUSCULOSKELETAL:No Clubbing/cyanosis;muscles-grossly intact . Left leg in a brace INVESTIGATIONS, reviewed in the clinical context: June 03: White count 12.2 hemoglobin 9.7 June 02: ESR 79 CRP 8.7 June 01: Procalcitonin 0.12 May 31, 2023: White count 14.3 hemoglobin 12.4 platelets 730 left shift sodium 133 potassium 3.6 creatinine 0.64 CRP 15.2 Venous Doppler left leg: Negative for DVT Assessment plan: -Acute infected left total knee arthroplasty that was done on March 14, 2023:: Pleural fluid was obtained from the joint during I&D by Dr. Kelly on June 02. Followed by antibiotic beads placed.. Left leg in a brace. Toe-touch weightbearing. -Left total knee arthroplasty on March 14, 2023 -Primary osteoarthritis Pain control as needed -Hyperlipidemia Lipitor 10 mg per day -Essential hypertension Ziac 10/6.25 one tablet twice a day -Muscle spasms Flexeril 5 mg twice a day -Morbid obesity BMI 45.3 Weight loss measures -COPD n in a current smoker: r Advair 250/50 one puff twice a day. Albuterol when necessary -Chronic nicotine dependence, cigarette smoker Nicotine patch -DNR -Disposition: Being evaluated for subacute rehab IV vancomycin and cefepime. Discussed with patient. Follow labs Thank you Dr. Jones Past Medical History Past Medical History: Asthma, Hyperlipidemia, Hypertension, Osteoarthritis (OA) Additional Past Medical History / Comment(s): IBS History of Any Multi-Drug Resistant Organisms: None Reported Past Surgical History: Back Surgery, Section, Cholecystectomy, Hysterectomy, Orthopedic Surgery Additional Past Surgical History / Comment(s): Cervical fusion, bilateral knee arthroscopy, right ankle surgery, lower back fusion, section X2., left total knee 03/14/23 Past Anesthesia/Blood Transfusion Reactions: No Reported Reaction Additional Past Anesthesia/Blood Transfusion Reaction / Comm: Has never had blood transfusion. Past Psychological History: No Psychological Hx Reported Smoking Status: Current every day smoker Past Alcohol Use History: None Reported Additional Past Alcohol Use History / Comment(s): anastacio 1/2 PPD, has smoked for 40-42 yrs Past Drug Use History: None Reported
[2023-06-04] MEDS: VANCOMYCIN TROUGH DUE 1 EACH MISC MISCELLANE ONE (19:30)
--- NOTE | 2023-06-04 23:31 | P.PN ---
Subjective Progress Note Date: 06/04/23 Principal diagnosis: Reason for follow-up is left knee septic arthritis Patient is a 67-year-old female with a past medical history significant for hypertension hyperlipidemia asthma osteoarthritis patient did have a left knee replacement in March 2023, presented to the hospital with worsening pain and swelling and redness to the left knee area concerning for periprosthetic joint infection.Patient is status post stage I revision left total knee arthroplasty with antibiotic bead placement on 06/02/2023. On today's evaluation that is 06/04/2023, the patient denies having any fever or any chills, patient is breathing comfortably on room air, the patient denies hav ing any chest pain shortness of breath , Pt did have occasional cough patient denies having any nausea vomiting diarrhea and abdominal pain. Patient pain to the left knee is currently controlled with the pain medication. No CBC was done today creatinine 0.77 Vanco trough is 11.8 cultures currently pending Objective - Vital Signs Vital signs: Vital Signs Temp 99.6 F 06/04/23 07:07 Pulse 83 06/04/23 07:07 Resp 18 06/04/23 07:07 BP 116/74 06/04/23 07:07 Pulse Ox 94 L 06/04/23 08:19 FiO2 Intake & Output 06/03/23 06/04/23 06/04/23 18:59 06:59 18:59 Intake Total 900 Output Total 2800 3110 Balance -2800 -2210 Intake: Oral 900 Output: Drainage 10 Left Knee 10 Urine 2800 3100 Uretheral (Nair) 500 Other: Voiding Method Indwelling Catheter External Catheter # Bowel Movements 1 - Exam GENERAL DESCRIPTION: An elderly female lying in bed in no distress RESPIRATORY SYSTEM: Unlabored breathing , decreased breath sounds at bases HEART: S1 S2 regular rate and rhythm , ABDOMEN: Soft , no tenderness EXTREMITIES: Left knee incision covered with wound VAC - Labs CBC & Chem 7: 06/03/23 06:05 06/04/23 14:47 Labs: Abnormal Lab Results - Last 24 Hours (Table) 06/03/23 Range/Units 06:05 WBC 12.23 H (4.50-10.00) X 10*3/uL RBC 3.08 L (4.10-5.20) X 10*6/uL Hgb 9.7 L (12.0-15.0) g/dL Hct 30.0 L (37.2-46.3) % MCV 97.4 H (80.0-97.0) FL Plt Count 628 H (140-440) X 10*3/uL Immature Gran # 0.19 H (0.00-0.04) X 10*3/uL Neutrophils # 8.62 H (1.80-7.70) X 10*3/uL Monocytes # 1.34 H (0.20-1.00) X 10*3/uL Microbiology - Last 24 Hours (Table) 06/02/23 15:56 Gram Stain - Preliminary Knee - Left Wound Culture - Preliminary 06/02/23 15:56 Gram Stain - Preliminary Knee - Left Wound Culture - Preliminary 06/02/23 15:56 Gram Stain - Preliminary Knee - Left Wound Culture - Preliminary 05/31/23 12:30 Blood Culture - Preliminary Blood 05/31/23 12:33 Blood Culture - Preliminary Blood Assessment and Plan (1) Septic arthritis of knee, left Current Visit: Yes Status: Acute Code(s): M00.9 - PYOGENIC ARTHRITIS, UNSP ECIFIED SNOMED Code(s): 185826105 (2) Leukocytosis Current Visit: Yes Status: Acute Code(s): D72.829 - ELEVATED WHITE BLOOD CELL COUNT, UNSPECIFIED SNOMED Code(s): 706875214 Plan: 1patient presented to hospital with left knee pain swelling and redness in this patient who recently did have left knee replacement in March 2023 now with evidence of left knee cellulitis and concern for possible periprosthetic joint infection likely from a gram-positive skin corrie gram-negative infection less likely but not entirely excluded. 2patient is s/p stage I procedure with arthroplasty antibiotic bead placement along with deep cultures 3patient to continue with vancomycin and cefepime while waiting for the culture to finalize, which are currently pending questions concern answered Dictation was produced using [employer] dictation software. please excuse any grammatical, word or spelling errors. Time with Patient: Less than 30
[2023-06-05 06:23] LABS: Basophils # (A) 0.1 k/uL (0-0.2); Basophils % (A) 0 %; Eosinophils # (A) 0.2 k/uL (0-0.7); Eosinophils % (A) 1 %; HCT 29.3 % (34.0-46.0); Lymphocytes # (A) 2.3 k/uL (1.0-4.8); Lymphocytes % (A) 12 %; MCH 32.2 pg (25.0-35.0); MCHC 33.3 g/dL (31.0-37.0); MCV 96.7 fL (80.0-100.0); Mean Platelet Volume 7.8; Monocytes # (A) 1.2 k/uL (0-1.0); Monocytes % (A) 6 %; Neutrophils # (A) 15.9 k/uL (1.3-7.7); Neutrophils % (A) 80 %; Platelet Count 671 k/uL (150-450); RBC 3.03 m/uL (3.80-5.40); RDW 13.7 % (11.5-15.5); WBC 19.8 k/uL (3.8-10.6)
[2023-06-05 06:32] LABS: African American GFR (CKD) >90 (>60 ml/min/1.73 sqM); Anion Gap 7 mmol/L; Blood Urea Nitrogen 11 mg/dL (7-17); Calcium 9.8 mg/dL (8.4-10.2); Carbon Dioxide 24 mmol/L (22-30); Chloride 101 mmol/L (98-107); Glucose 98 mg/dL (74-99); Non-African American GFR(CKD) >90 (>60 ml/min/1.73 sqM); Sodium 132 mmol/L (137-145)
[2023-06-05 06:46] LABS: HGB 9.8 gm/dL (11.4-16.0)
[2023-06-05] MEDS: CEFEPIME 2 GM in SODIUM CHLORIDE 0.9% 100 ML IVPB SCH ×2 (08:00→16:47)
[2023-06-05] MEDS: HYDROmorphone 0.5 MG/0.5 ML SYRINGE IVP PRN (09:45)
--- NOTE | 2023-06-05 15:14 | P.PN ---
Progress Note - Text Progress Note Date: 06/05/23 - Chief Complaint Left knee redness - History of Present Illness Pleasant 67 year patient follows with Dr. Saini. March 14, 2023 left total knee arthroplasty by Dr. Jones.. About a week ago patient was pushing around a washing machine. She thinks she may have overextended her left knee. Subsequently patient started having increasing pain and swelling in the same. Started to use ice packs. Started to get worse. 5 days ago she went to see Dr. Kelly on a Tuesday in his office. He asked her to return today. It was looking worse. He scented out of the ER concern for infection. For admission. Was started on IV vancomycin. Patient did complain of chills at home. Blood cultures were drawn in the ER. Patient does not remember direct injury to the left knee. June 01: Pain swelling redness around the left knee persist. On IV vancomycin. And cefepime. Planning for I&D per Ortho tomorrow. Tolerating diet. June 02: Saw the patient this morning. Pending I&D. On IV cefepime and vancomycin. June 03: Patient underwent I&D of the left prosthetic joint. Purulence was obtained. Surgical intervention was further carried out. Antibiotic beads were placed in the joint. Patient has a brace on the left leg. Only toe weightbearing. Spoke to patient daughter at the bedside. Looking into rehab. June 04: Some pain in the affected knee. Tolerating diet. No fever. On IV cefepime IV vancomycin. Cultures pending. June 05: Knee pain better. Some anxiety. Patient counseled at length. Continue IV antibiotics. Cultures coming back negative for now. Eating about 50% Active Medications Hydrocodone Bitart/Acetaminophen (Hydrocodone/Apap 5-325mg 1 Each Tab) 1 each PO Q6HR PRN PRN Reason: Pain Scale 1 to 5 Hydrocodone Bitart/Acetaminophen (Hydrocodone/Apap 7.5-325mg 1 Each Tab) 1 each PO Q6H PRN PRN Reason: Pain Scale 6 to 10 Last Admin: 06/05/23 13:19 Dose: 1 each Atorvastatin Calcium (Atorvastatin 10 Mg Tab) 10 mg PO HS ROSS Last Admin: 06/04/23 20:03 Dose: 10 mg Bisoprolol Fumarate (Bisoprolol-Hctz 10-6.25 Mg 1 Each Tab) 1 each PO BID [facility] Last Admin: 06/05/23 08:00 Dose: 1 each Cyclobenzaprine HCl (Cyclobenzaprine 5 Mg Tab) 5 mg PO BID [facility] Last Admin: 06/05/23 08:00 Dose: 5 mg Enoxaparin Sodium (Enoxaparin 30 Mg/0.3 Ml Syringe) 30 mg SQ Q12H [facility] Last Admin: 06/05/23 06:31 Dose: 30 mg Hydromorphone HCl (Hydromorphone 0.5 Mg/0.5 Ml Syringe) 0.25 mg IVP Q3HR PRN PRN Reason: Pain Scale 4 to 6 Last Admin: 06/05/23 09:45 Dose: 0.25 mg Hydromorphone HCl (Hydromorphone 0.5 Mg/0.5 Ml Syringe) 0.5 mg IVP Q3HR PRN PRN Reason: Pain Scale 7 to 10 Last Admin: 06/04/23 22:20 Dose: 0.5 mg Hydromorphone HCl (Hydromorphone 0.5 Mg/0.5 Ml Syringe) 0.125 mg IVP Q3HR PRN PRN Reason: Pain Scale 1 to 3 Vancomycin HCl 1,750 mg/ (Sodium Chloride) 500 mls @ 167 mls/hr IVPB Q16H [facility] Last Admin: 06/05/23 08:00 Dose: 167 mls/hr Cefepime HCl 2 gm/ Sodium (Chloride) 100 mls @ 25 mls/hr IVPB Q8HR [facility]; Protocol Multivitamins (Multivitamins, Thera 1 Each Tab) 1 each PO DAILY@1200 [facility] Last Admin: 06/05/23 08:00 Dose: 1 each Naloxone HCl (Naloxone 0.4 Mg/Ml 1 Ml Vial) 0.2 mg IV Q2M PRN PRN Reason: Opioid Reversal Nicotine (Nicotine 14mg/24hr Patch) 1 patch TRANSDERM DAILY [facility] Last Admin: 06/05/23 11:44 Dose: Not Given Ondansetron HCl (Ondansetron 4 Mg/2 Ml Vial) 4 mg IVP Q8HR PRN PRN Reason: Nausea And Vomiting Senna/Docusate Sodium (Sennosides-Docusate Sodium 1 Each Tab) 2 each PO HS [facility] Last Admin: 06/04/23 20:03 Dose: 2 each Past medical history to include: COPD, hypertension, hyperlipidemia, osteoarthritis, IBS, Coumadin 2020 treated with monoclonal antibody infusion, back surgery Social history: Smoking half a pack a day since age of 17. No alcohol. . Physical examination: VITAL SIGNS: 98.6, 84, 16, 135/72, 97% room air GENERAL: Reclining in bed EYES: Pupils equal. Conjunctiva normal. HEENT: External appearance of nose and ears normal, oral cavity grossly normal. NECK: JVD not raised; masses not palpable. HEART: First and second heart sounds are normal; no edema. LUNGS: Respiratory rate normal; decreased breath sounds. ABDOMEN: Soft, nontender, liver spleen not palpable, no masses palpable. PSYCH: Alert and oriented x3; mood and affect normal. MUSCULOSKELETAL:No Clubbing/cyanosis;muscles-grossly intact . Left leg in a brace INVESTIGATIONS, reviewed in the clinical context: June 05: White count 19.8 hemoglobin 9.8 potassium 4 creatinine 0.63 procalcitonin 0.25 June 03: White count 12.2 hemoglobin 9.7 June 02: ESR 79 CRP 8.7 June 01: Procalcitonin 0.12 May 31, 2023: White count 14.3 hemoglobin 12.4 platelets 730 left shift sodium 133 potassium 3.6 creatinine 0.64 CRP 15.2 Venous Doppler left leg: Negative for DVT Assessment plan: -Acute infected left total knee arthroplasty that was done on March 14, 2023:: Joint fluid was obtained from the joint during I&D by Dr. Kelly on June 02. Followed by antibiotic beads placed.. Left leg in a brace. Toe-touch weightbearing. IV cefepime. IV vancomycin. Joint fluid cultures: Negative till now. Noted increasing white count. -Left total knee arthroplasty on March 14, 2023 -Primary osteoarthritis Pain control as needed -Hyperlipidemia Lipitor 10 mg per day -Essential hypertension Ziac 10/6.25 one tablet twice a day -Muscle spasms Flexeril 5 mg twice a day -Morbid obesity BMI 45.3 Weight loss measures -COPD n in a current smoker: r Advair 250/50 one puff twice a day. Albuterol when necessary -Chronic nicotine dependence, cigarette smoker Nicotine patch -DNR -Disposition: Being evaluated for subacute rehab IV vancomycin and cefepime. Patient counseled about anxiety. Questions answered. Thank you Dr. Jones Past Medical History Past Medical History: Asthma, Hyperlipidemia, Hypertension, Osteoarthritis (OA) Additional Past Medical History / Comment(s): IBS History of Any Multi-Drug Resistant Organisms: None Reported Past Surgical History: Back Surgery, Section, Cholecystectomy, Hysterectomy, Orthopedic Surgery Additional Past Surgical History / Comment(s): Cervical fusion, bilateral knee arthroscopy, right ankle surgery, lower back fusion, section X2., left total knee 03/14/23 Past Anesthesia/Blood Transfusion Reactions: No Reported Reaction Additional Past Anesthesia/Blood Transfusion Reaction / Comm: Has never had blood transfusion. Past Psychological History: No Psychological Hx Reported Smoking Status: Current every day smoker Past Alcohol Use History: None Reported Additional Past Alcohol Use History / Comment(s): anastacio 1/2 PPD, has smoked for 40-42 yrs Past Drug Use History: None Reported
--- NOTE | 2023-06-05 16:02 | P.PN ---
Subjective Progress Note Date: 06/05/23 Principal diagnosis: Reason for follow-up is left knee septic arthritis Patient is a 67-year-old female with a past medical history significant for hypertension hyperlipidemia asthma osteoarthritis patient did have a left knee replacement in March 2023, presented to the hospital with worsening pain and swelling and redness to the left knee area concerning for periprosthetic joint infection.Patient is status post stage I revision left total knee arthroplasty with antibiotic bead placement on 06/02/2023. On today's evaluation that is 06/05/2023, the patient did have a low-grade fever of 99.9 F this afternoon, patient is breathing comfortably on room air and no need for supplemental oxygen, the patient denies chest pain shortness of breath or cough, patient denies abdominal pain and no nausea vomiting or diarrhea, patient denies any worsening pain to the left knee area. Patient white count is up to 19.8 today, creatinine 0.63 cultures are so far pending Objective - Vital Signs Vital signs: Vital Signs Temp 99.9 F H 06/05/23 14:28 Pulse 77 06/05/23 14:28 Resp 18 06/05/23 14:28 BP 119/78 06/05/23 14:28 Pulse Ox 97 06/05/23 14:28 FiO2 Intake & Output 06/04/23 06/05/23 06/05/23 18:59 06:59 18:59 Intake Total 1350 Output Total 900 Balance -900 1350 Intake: Oral 1350 Output: Urine 900 Other: Voiding Method Bedside Commode # Voids 2 4 # Bowel Movements 1 - Exam GENERAL DESCRIPTION: An elderly female lying in bed in no distress RESPIRATORY SYSTEM: Unlabored breathing , decreased breath sounds at bases HEART: S1 S2 regular rate and rhythm , ABDOMEN: Soft , no tenderness EXTREMITIES: Left knee incision covered with wound VAC - Labs CBC & Chem 7: 06/05/23 05:52 06/05/23 05:52 Labs: Abnormal Lab Results - Last 24 Hours (Table) 06/05/23 06/05/23 06/05/23 Range/Units 05:52 05:52 05:52 WBC 19.8 H (3.8-10.6) k/uL RBC 3.03 L (3.80-5.40) m/uL Hgb 9.8 L D (11.4-16.0) gm/dL Hct 29.3 L (34.0-46.0) % Plt Count 671 H (150-450) k/uL Neutrophils # 15.9 H (1.3-7.7) k/uL Monocytes # 1.2 H (0-1.0) k/uL Sodium 132 L (137-145) mmol/L Procalcitonin 0.25 H (0.02-0.09) ng/mL Microbiology - Last 24 Hours (Table) 06/02/23 15:56 Anaerobic Culture - Preliminary Knee - Left 06/02/23 15:56 Anaerobic Culture - Preliminary Knee - Left 06/02/23 15:56 Anaerobic Culture - Preliminary Knee - Left 06/02/23 15:56 Gram Stain - Preliminary Knee - Left Wound Culture - Preliminary Assessment and Plan (1) Septic arthritis of knee, left Current Visit: Yes Status: Acute Code(s): M00.9 - PYOGENIC ARTHRITIS, UNSPECIFIED SNOMED Code(s): 107296171 (2) Leukocytosis Current Visit: Yes Status: Acute Code(s): D72.829 - ELEVATED WHITE BLOOD CELL COUNT, UNSPECIFIED SNOMED Code(s): 798269598 Plan: 1patient presented to hospital with left knee pain swelling and redness in this patient who recently did have left knee replacement in March 2023 now with evidence of left knee cellulitis and concern for possible periprosthetic joint infection likely from a gram-positive skin corrie gram-negative infection less likely but not entirely excluded. 2patient is s/p stage I procedure with arthroplasty antibiotic bead placement along with deep cultures 3patient did have slight worsening of the white count which is slightly concerning we will switch cefepime to Invanz continue vancomycin while waiting for the culture to finalize PICC line for outpatient antibiotic therapy Dictation was produced using [employer] dictation software. please excuse any grammatical, word or spelling errors.
[2023-06-05] MEDS: ERTAPENEM 1 GM in SODIUM CHLORIDE 0.9% 50 ML IVPB SCH (16:37)
[2023-06-05] MEDS: ONDANSETRON 4 MG/2 ML VIAL IVP PRN (21:53)
[2023-06-05] MEDS: ACETAMINOPHEN TAB 500 MG TAB PO PRN (22:40)
[2023-06-06 07:37] LABS: ALT 27 U/L (4-34); AST 26 U/L (14-36); African American GFR (CKD) >90 (>60 ml/min/1.73 sqM); Albumin 2.8 g/dL (3.5-5.0); Alkaline Phosphatase 152 U/L (38-126); Anion Gap 9 mmol/L; Blood Urea Nitrogen 13 mg/dL (7-17); Calcium 9.5 mg/dL (8.4-10.2); Carbon Dioxide 22 mmol/L (22-30); Chloride 100 mmol/L (98-107); Globulin 2.9 g/dL; Glucose 90 mg/dL (74-99); Non-African American GFR(CKD) 89 (>60 ml/min/1.73 sqM); Potassium 3.8 mmol/L (3.5-5.1); Sodium 131 mmol/L (137-145); Total Bilirubin 0.5 mg/dL (0.2-1.3); Total Protein 5.7 g/dL (6.3-8.2)
[2023-06-06 08:42] LABS: Basophils # (A) 0.08 X 10*3/uL (0.00-0.10); Basophils % (A) 0.4 %; Eosinophils # (A) 0.18 X 10*3/uL (0.04-0.35); Eosinophils % (A) 0.9 %; HCT 26.5 % (37.2-46.3); HGB 8.6 g/dL (12.0-15.0); Lymphocytes # (A) 2.27 X 10*3/uL (0.90-5.00); Lymphocytes % (A) 11.3 %; MCHC 32.5 g/dL (32.0-37.0); MCV 98.5 FL (80.0-97.0); Mean Platelet Volume 10.7 FL (9.5-12.2); Monocytes # (A) 1.97 X 10*3/uL (0.20-1.00); Monocytes % (A) 9.8 %; NRBC Per 100 WBC 0 X 10*3/uL (0.00-0.01); Neutrophils # (A) 15.26 X 10*3/uL (1.80-7.70); Neutrophils % (A) 75.8 %; Platelet Count 540 X 10*3/uL (140-440); RBC 2.69 X 10*6/uL (4.10-5.20); WBC 20.12 X 10*3/uL (4.50-10.00)
[2023-06-06 10:17] LABS: INR 1.06 sec (0.93-1.11); Prothrombin Time 11.4 sec (9.9-11.9)
--- NOTE | 2023-06-06 14:10 | P.PN ---
Subjective Progress Note Date: 06/06/23 Principal diagnosis: Status post stage I revision left knee, incision and drainage with irrigation and debridement and antibiotic bead placement Patient evaluated at bedside today, she has family members present. She is doing rather well she states. She has been having a difficult time with weightbearing with the walker, it is very difficult for her to rest the foot on the ground. The wound VAC continues to put out bloody serosanguineous fluid. The Hemovac was removed yesterday. Patient's white blood cell count was noted to be significantly elevated today, infectious disease has adjusted the IV antibiotics. Patient denies any shortness of breath, chest pain, nausea or vomiting. She has been utilizing the knee immobilizer as instructed. Objective - Vital Signs Vital signs: Vital Signs Temp 98.0 F 06/06/23 13:57 Pulse 90 06/06/23 13:57 Resp 20 06/06/23 13:57 BP 119/71 06/06/23 13:57 Pulse Ox 93 L 06/06/23 13:57 FiO2 Intake & Output 06/05/23 06/06/23 06/06/23 18:59 06:59 18:59 Intake Total 950 Output Total 1200 Balance -1200 950 Intake: Oral 950 Output: Urine 1200 Other: # Voids 4 5 # Bowel Movements 1 1 - Exam Left lower extremity: Wound VAC is in good position and condition, there is no notable leaks present. Notable swelling in the extremity, no excessive erythema is noted. The calf is soft, no tenderness with palpation. Plantarflexion, dorsiflexion, EHL, FHL are intact. Sensory exam to light touch is intact throughout the extremity, dorsalis pedis pulses 2+ - Labs CBC & Chem 7: 06/06/23 05:39 06/06/23 05:39 Labs: Abnormal Lab Results - Last 24 Hours (Table) 06/06/23 06/06/23 Range/Units 05:39 05:39 WBC 20.12 H (4.50-10.00) X 10*3/uL RBC 2.69 L (4.10-5.20) X 10*6/uL Hgb 8.6 L (12.0-15.0) g/dL Hct 26.5 L (37.2-46.3) % MCV 98.5 H (80.0-97.0) FL Plt Count 540 H (140-440) X 10*3/uL Immature Gran # 0.36 H (0.00-0.04) X 10*3/uL Neutrophils # 15.26 H (1.80-7.70) X 10*3/uL Monocytes # 1.97 H (0.20-1.00) X 10*3/uL Sodium 131 L (137-145) mmol/L Alkaline Phosphatase 152 H (38-126) U/L C-Reactive Protein 10.60 H (0.00-0.80) mg/dL Total Protein 5.7 L (6.3-8.2) g/dL Albumin 2.8 L (3.5-5.0) g/dL Microbiology - Last 24 Hours (Table) 06/02/23 15:56 Gram Stain - Preliminary Knee - Left Wound Culture - Preliminary Strep agalactiae - (group b) 06/02/23 15:56 Gram Stain - Preliminary Knee - Left Wound Culture - Preliminary Strep agalactiae - (group b) 06/02/23 15:56 Gram Stain - Preliminary Knee - Left Wound Culture - Preliminary 05/31/23 12:30 Blood Culture - Final Blood 05/31/23 12:33 Blood Culture - Final Blood 06/02/23 15:56 Anaerobic Culture - Preliminary Knee - Left 06/02/23 15:56 Anaerobic Culture - Preliminary Knee - Left 06/02/23 15:56 Anaerobic Culture - Preliminary Knee - Left Assessment and Plan Assessment: Left lower extremity cellulitis Left knee periprosthetic infection History of previous left total knee arthroplasty Postoperative day #4 status post stage I revision left knee, incision and drainage with irrigation and debridement, antibiotic bead placement Plan: Pain control, continue with current medications DVT prophylaxis, continue with current medications Wound care instructions, will change wound VAC on 06/07/2023 Encourage incentive spirometer Toe-touch weightbearing left lower extremity, utilize knee immobilizer at all times Other medical specialty recommendations appreciated Discussed with nursing, patient is scheduled for PICC line on 06/07/2023 Discharge planning: Will continue to follow patient during hospital stay Time with Patient: Less than 30
--- NOTE | 2023-06-06 15:45 | P.PN ---
Progress Note - Text Progress Note Date: 06/06/23 - Chief Complaint Left knee redness - History of Present Illness Pleasant 67 year patient follows with Dr. Saini. March 14, 2023 left total knee arthroplasty by Dr. Jones.. About a week ago patient was pushing around a washing machine. She thinks she may have overextended her left knee. Subsequently patient started having increasing pain and swelling in the same. Started to use ice packs. Started to get worse. 5 days ago she went to see Dr. Kelly on a Tuesday in his office. He asked her to return today. It was looking worse. He scented out of the ER concern for infection. For admission. Was started on IV vancomycin. Patient did complain of chills at home. Blood cultures were drawn in the ER. Patient does not remember direct injury to the left knee. June 01: Pain swelling redness around the left knee persist. On IV vancomycin. And cefepime. Planning for I&D per Ortho tomorrow. Tolerating diet. June 02: Saw the patient this morning. Pending I&D. On IV cefepime and vancomycin. June 03: Patient underwent I&D of the left prosthetic joint. Purulence was obtained. Surgical intervention was further carried out. Antibiotic beads were placed in the joint. Patient has a brace on the left leg. Only toe weightbearing. Spoke to patient daughter at the bedside. Looking into rehab. June 04: Some pain in the affected knee. Tolerating diet. No fever. On IV cefepime IV vancomycin. Cultures pending. June 05: Knee pain better. Some anxiety. Patient counseled at length. Continue IV antibiotics. Cultures coming back negative for now. Eating about 50% June 06: Less anxious. Tolerating diet. Antibiotic changed to IV Ancef. Wound culture growing Streptococcus agalactiae group B. Wound VAC. Active Medications Acetaminophen (Acetaminophen Tab 500 Mg Tab) 500 mg PO Q6HR PRN PRN Reason: Fever and/ or Pain Last Admin: 06/05/23 22:40 Dose: 500 mg Hydrocodone Bitart/Acetaminophen (Hydrocodone/Apap 5-325mg 1 Each Tab) 1 each PO Q6HR PRN PRN Reason: Pain Scale 1 to 5 Hydrocodone Bitart/Acetaminophen (Hydrocodone/Apap 7.5-325mg 1 Each Tab) 1 each PO Q6H PRN PRN Reason: Pain Scale 6 to 10 Last Admin: 06/06/23 12:43 Dose: 1 each Atorvastatin Calcium (Atorvastatin 10 Mg Tab) 10 mg PO HS [facility] Last Admin: 06/05/23 20:07 Dose: 10 mg Bisoprolol Fumarate (Bisoprolol-Hctz 10-6.25 Mg 1 Each Tab) 1 each PO BID [facility] Last Admin: 06/06/23 08:18 Dose: Not Given Cyclobenzaprine HCl (Cyclobenzaprine 5 Mg Tab) 5 mg PO BID [facility] Last Admin: 06/06/23 08:30 Dose: 5 mg Enoxaparin Sodium (Enoxaparin 30 Mg/0.3 Ml Syringe) 30 mg SQ Q12H [facility] Last Admin: 06/06/23 05:32 Dose: 30 mg Hydromorphone HCl (Hydromorphone 0.5 Mg/0.5 Ml Syringe) 0.25 mg IVP Q3HR PRN PRN Reason: Pain Scale 4 to 6 Last Admin: 06/06/23 00:07 Dose: 0.25 mg Hydromorphone HCl (Hydromorphone 0.5 Mg/0.5 Ml Syringe) 0.5 mg IVP Q3HR PRN PRN Reason: Pain Scale 7 to 10 Last Admin: 06/06/23 08:29 Dose: 0.5 mg Hydromorphone HCl (Hydromorphone 0.5 Mg/0.5 Ml Syringe) 0.125 mg IVP Q3HR PRN PRN Reason: Pain Scale 1 to 3 Cefazolin Sodium 2 gm/ Sodium (Chloride) 50 mls @ 100 mls/hr IVPB Q8HR [facility]; Protocol Last Admin: 06/06/23 12:43 Dose: 100 mls/hr Multivitamins (Multivitamins, Thera 1 Each Tab) 1 each PO DAILY@1200 [facility] Last Admin: 06/06/23 08:30 Dose: 1 each Naloxone HCl (Naloxone 0.4 Mg/Ml 1 Ml Vial) 0.2 mg IV Q2M PRN PRN Reason: Opioid Reversal Nicotine (Nicotine 14mg/24hr Patch) 1 patch TRANSDERM DAILY [facility] Last Admin: 06/06/23 08:19 Dose: Not Given Ondansetron HCl (Ondansetron 4 Mg/2 Ml Vial) 4 mg IVP Q8HR PRN PRN Reason: Nausea And Vomiting Last Admin: 06/05/23 21:53 Dose: 4 mg Senna/Docusate Sodium (Sennosides-Docusate Sodium 1 Each Tab) 2 each PO HS [facility] Last Admin: 06/05/23 20:09 Dose: Not Given Past medical history to include: COPD, hypertension, hyperlipidemia, osteoarthritis, IBS, Coumadin 2020 treated with monoclonal antibody infusion, back surgery Social history: Smoking half a pack a day since age of 17. No alcohol. . Physical examination: VITAL SIGNS: 98, 90, 20, 1 one 9 x 71, 93% room air GENERAL: Reclining in bed, comfortable EYES: Pupils equal. Conjunctiva normal. HEENT: External appearance of nose and ears normal, oral cavity grossly normal. NECK: JVD not raised; masses not palpable. HEART: First and second heart sounds are normal; no edema. LUNGS: Respiratory rate normal; decreased breath sounds. ABDOMEN: Soft, nontender, liver spleen not palpable, no masses palpable. PSYCH: Alert and oriented x3; mood and affect normal. MUSCULOSKELETAL:No Clubbing/cyanosis;muscles-grossly intact . Left leg in a immobilizer. Wound VAC. INVESTIGATIONS, reviewed in the clinical context: June 06: White count 20.1 hemoglobin 8.6 potassium 3.8 creatinine 0.71 CRP 10.6 Wound culture [June 02] Streptococcus agalactiae group B June 05: White count 19.8 hemoglobin 9.8 potassium 4 creatinine 0.63 procalcitonin 0.25 June 2: White count 12.2 hemoglobin 9.7 June 02: ESR 79 CRP 8.7 June 01: Procalcitonin 0.12 May 31, 2023: White count 14.3 hemoglobin 12.4 platelets 730 left shift sodium 133 potassium 3.6 creatinine 0.64 CRP 15.2 Venous Doppler left leg: Negative for DVT Assessment plan: -Acute infected left total knee arthroplasty that was done on March 14, 2023:: Joint fluid was obtained from the joint during I&D by Dr. Kelly on June 02. Followed by antibiotic beads placed.. Wound culture growing Streptococcus agalactiae group B Left leg in a brace. Toe-touch weightbearing. IV cefepime. IV vancomycin. Joint fluid cultures: Negative till now. Noted increasing white count. -Left total knee arthroplasty on March 14, 2023 -Primary osteoarthritis Pain control as needed -Hyperlipidemia Lipitor 10 mg per day -Essential hypertension Ziac 10/6.25 one tablet twice a day -Muscle spasms Flexeril 5 mg twice a day -Morbid obesity BMI 45.3 Weight loss measures -COPD n in a current smoker: r Advair 250/50 one puff twice a day. Albuterol when necessary -Chronic nicotine dependence, cigarette smoker Nicotine patch -DNR -Disposition: Being evaluated for subacute rehab Antibiotic changed to IV Ancef. Note white count is further elevated. Follow- up with ID. Thank you Dr. Jones Past Medical History Past Medical History: Asthma, Hyperlipidemia, Hypertension, Osteoarthritis (OA) Additional Past Medical History / Comment(s): IBS History of Any Multi-Drug Resistant Organisms: None Reported Past Surgical History: Back Surgery, Section, Cholecystectomy, Hysterectomy, Orthopedic Surgery Additional Past Surgical History / Comment(s): Cervical fusion, bilateral knee arthroscopy, right ankle surgery, lower back fusion, section X2., left total knee 03/14/23 Past Anesthesia/Blood Transfusion Reactions: No Reported Reaction Additional Past Anesthesia/Blood Transfusion Reaction / Comm: Has never had blood transfusion. Past Psychological History: No Psychological Hx Reported Smoking Status: Current every day smoker Past Alcohol Use History: None Reported Additional Past Alcohol Use History / Comment(s): anastacio 1/2 PPD, has smoked for 40-42 yrs Past Drug Use History: None Reported
--- NOTE | 2023-06-07 07:20 | P.PN ---
Subjective Progress Note Date: 06/06/23 Principal diagnosis: Reason for follow-up is left knee septic arthritis Patient is a 67-year-old female with a past medical history significant for hypertension hyperlipidemia asthma osteoarthritis patient did have a left knee replacement in March 2023, presented to the hospital with worsening pain and swelling and redness to the left knee area concerning for periprosthetic joint infection.Patient is status post stage I revision left total knee arthroplasty with antibiotic bead placement on 06/02/2023. On today's evaluation that is 06/06/2023, the patient continues to be afebrile, patient is breathing comfortably on room air, the patient denies chest pain sh ortness of breath and no significant cough, patient denies nausea no vomiting, no abdominal pain and no diarrhea. Pain to the left knee is controlled with the current medication. Patient white count is 20.12 creatinine 0.71 culture has been finalized with Streptococcus agalactiae group B Objective - Vital Signs Vital signs: Vital Signs Temp 97.6 F 06/06/23 07:51 Pulse 82 06/06/23 07:51 Resp 20 06/06/23 07:51 BP 106/68 06/06/23 07:51 Pulse Ox 92 L 06/06/23 09:29 FiO2 Intake & Output 06/05/23 06/06/23 06/06/23 18:59 06:59 18:59 Intake Total 950 Output Total 1200 Balance -1200 950 Intake: Oral 950 Output: Urine 1200 Other: # Voids 4 5 # Bowel Movements 1 1 - Exam GENERAL DESCRIPTION: An elderly female lying in bed in no distress RESPIRATORY SYSTEM: Unlabored breathing , decreased breath sounds at bases HEART: S1 S2 regular rate and rhythm , ABDOMEN: Soft , no tenderness EXTREMITIES: Left knee incision covered with wound VAC - Labs CBC & Chem 7: 06/06/23 05:39 06/06/23 05:39 Labs: Abnormal Lab Results - Last 24 Hours (Table) 06/05/23 06/06/23 06/06/23 Range/Units 05:52 05:39 05:39 WBC 20.12 H (4.50-10.00) X 10*3/uL RBC 2.69 L (4.10-5.20) X 10*6/uL Hgb 8.6 L (12.0-15.0) g/dL Hct 26.5 L (37.2-46.3) % MCV 98.5 H (80.0-97.0) FL Plt Count 540 H (140-440) X 10*3/uL Immature Gran # 0.36 H (0.00-0.04) X 10*3/uL Neutrophils # 15.26 H (1.80-7.70) X 10*3/uL Monocytes # 1.97 H (0.20-1.00) X 10*3/uL Sodium 131 L (137-145) mmol/L Alkaline Phosphatase 152 H (38-126) U/L C-Reactive Protein 10.60 H (0.00-0.80) mg/dL Total Protein 5.7 L (6.3-8.2) g/dL Albumin 2.8 L (3.5-5.0) g/dL Procalcitonin 0.25 H (0.02-0.09) ng/mL Microbiology - Last 24 Hours (Table) 06/02/23 15:56 Gram Stain - Preliminary Knee - Left Wound Culture - Preliminary Strep agalactiae - (group b) 06/02/23 15:56 Gram Stain - Preliminary Knee - Left Wound Culture - Preliminary Strep agalactiae - (group b) 06/02/23 15:56 Gram Stain - Preliminary Knee - Left Wound Culture - Preliminary 05/31/23 12:30 Blood Culture - Final Blood 05/31/23 12:33 Blood Culture - Final Blood 06/02/23 15:56 Anaerobic Culture - Preliminary Knee - Left 06/02/23 15:56 Anaerobic Culture - Preliminary Knee - Left 06/02/23 15:56 Anaerobic Culture - Preliminary Knee - Left Assessment and Plan (1) Septic arthritis of knee, left Current Visit: Yes Status: Acute Code(s): M00.9 - PYOGENIC ARTHRITIS, UNSPECIFIED SNOMED Code(s): 517930172 (2) Leukocytosis Current Visit: Yes Status: Acute Code(s): D72.829 - ELEVATED WHITE BLOOD CELL COUNT, UNSPECIFIED SNOMED Code(s): 717139260 Plan: 1patient presented to hospital with left knee pain swelling and redness in this patient who recently did have left knee replacement in March 2023 now with evidence of left knee cellulitis and concern for possible periprosthetic joint infection likely from a gram-positive skin corrie gram-negative infection less likely but not entirely excluded. 2patient is s/p stage I procedure with arthroplasty antibiotic bead placement along with deep cultures which are currently growing Streptococcus agalactiae 3we will discontinue vancomycin and Invanz start the patient on cefazolin 2 g every 8 hours on the basis of the culture PICC line has been ordered for outpatient IV antibiotic therapy Dictation was produced using [employer] dictation software. please excuse any grammatical, word or spelling errors. Time with Patient: Less than 30
--- NOTE | 2023-06-07 09:18 | P.PN ---
Subjective Progress Note Date: 06/07/23 Principal diagnosis: Status post stage I revision left knee, incision and drainage with irrigation and debridement and antibiotic bead placement Patient evaluated at bedside today, she is resting in her hospital chair. I was able to discussed with nursing prior to seeing the patient, she has been complaining of some lower abdominal pain over the last few days. She made it aw are to them earlier this morning. She does have a history of previous UTIs. Patient is scheduled for PICC line today. Pain is well-tolerated at this time. She continues to utilize the knee immobilizer. She denies any chest pain, shortness of breath, fever or chills. Objective - Vital Signs Vital signs: Vital Signs Temp 98.8 F 06/07/23 07:51 Pulse 80 06/07/23 07:51 Resp 18 06/07/23 07:51 BP 129/74 06/07/23 07:51 Pulse Ox 94 L 06/07/23 07:51 FiO2 Intake & Output 06/06/23 06/07/23 06/07/23 18:59 06:59 18:59 Other: # Voids 6 1 # Bowel Movements 2 - Exam Left lower extremity: Wound VAC is in good position and condition, there is no notable leaks present. Notable swelling in the extremity, no excessive erythema is noted. The calf is soft, no tenderness with palpation. Plantarflexion, dorsiflexion, EHL, FHL are intact. Sensory exam to light touch is intact throughout the extremity, dorsalis pedis pulses 2+ - Labs CBC & Chem 7: 06/06/23 05:39 06/06/23 05:39 Labs: Abnormal Lab Results - Last 24 Hours (Table) 06/06/23 Range/Units 05:39 C-Reactive Protein 10.60 H (0.00-0.80) mg/dL Microbiology - Last 24 Hours (Table) 06/02/23 15:56 Gram Stain - Final Knee - Left Wound Culture - Final 06/02/23 15:56 Gram Stain - Preliminary Knee - Left Wound Culture - Preliminary Strep agalactiae - (group b) 06/02/23 15:56 Gram Stain - Preliminary Knee - Left Wound Culture - Preliminary Strep agalactiae - (group b) Assessment and Plan Assessment: Left lower extremity cellulitis Left knee periprosthetic infection History of previous left total knee arthroplasty Postoperative day #5 status post stage I revision left knee, incision and drainage with irrigation and debridement, antibiotic bead placement Plan: Pain control, continue with current medications DVT prophylaxis, continue with current medications Plan to change wound VAC later today, will monitor incision at that time Encourage incentive spirometer Toe-touch weightbearing left lower extremity, utilize knee immobilizer at all times Urinalysis has been ordered to rule out UTI CBC ordered for today, recheck white blood cell count and hemoglobin Other medical specialty recommendations appreciated Discharge planning: Will continue to follow patient during hospital stay Time with Patient: Less than 30
[2023-06-07 09:19] LABS: Appearance,Urine Cloudy (Clear); Bilirubin,Urine Negative (Negative); Blood,Urine Negative (Negative); Color,Urine Colorless; Glucose,Urine (UA) Negative (Negative); Hyaline Casts,Urine 3 /lpf (0-2); Ketones,Urine Negative (Negative); Leukocyte Esterase,Urine Negative (Negative); Mucus,Urine Rare /hpf; Nitrite,Urine Negative (Negative); Protein,Urine Trace (Negative); Specific Gravity,Urine 1.009 (1.001-1.035); Squamous Epithelial Cell,Urine 20 /hpf (0-4); Urobilinogen,Urine <2.0 mg/dL (<2.0); WBC,Urine <1 /hpf (0-5)
[2023-06-07 10:06] VITALS: BMI 45.3
[2023-06-07 11:29] LABS: Basophils # (A) 0.1 k/uL (0-0.2); Basophils % (A) 0 %; Eosinophils # (A) 0.2 k/uL (0-0.7); Eosinophils % (A) 1 %; HCT 28.8 % (34.0-46.0); HGB 9.4 gm/dL (11.4-16.0); Hypochromasia Slight; Lymphocytes # (A) 2.1 k/uL (1.0-4.8); Lymphocytes % (A) 13 %; MCH 31.9 pg (25.0-35.0); MCHC 32.7 g/dL (31.0-37.0); MCV 97.5 fL (80.0-100.0); Mean Platelet Volume 7.9; Monocytes # (A) 0.8 k/uL (0-1.0); Monocytes % (A) 5 %; Neutrophils # (A) 12.8 k/uL (1.3-7.7); Neutrophils % (A) 79 %; Platelet Count 709 k/uL (150-450); RBC 2.95 m/uL (3.80-5.40); RDW 13.8 % (11.5-15.5); WBC 16.2 k/uL (3.8-10.6)
--- NOTE | 2023-06-07 12:21 | P.PN ---
Subjective Progress Note Date: 06/07/23 Principal diagnosis: Reason for follow-up is left knee septic arthritis Patient is a 67-year-old female with a past medical history significant for hypertension hyperlipidemia asthma osteoarthritis patient did have a left knee replacement in March 2023, presented to the hospital with worsening pain and swelling and redness to the left knee area concerning for periprosthetic joint infection.Patient is status post stage I revision left total knee arthroplasty with antibiotic bead placement on 06/02/2023. On today's evaluation that is 06/07/2023, the patient did have a low-grade fever 100.7 last night however the patient is afebrile this morning, patient is currently breathing comfortably on room air, the patient denies chest pain or cough, patient denies abdominal pain, no nausea no vomiting or any diarrhea. Has been complaining of urinary symptoms and denies any worsening pain to the left knee area. Patient white count is down to 16.2 creatinine 0.71 UA done this morning negative for leukocyte esterase or WBCs Objective - Vital Signs Vital signs: Vital Signs Temp 98.8 F 06/07/23 07:51 Pulse 80 06/07/23 07:51 Resp 18 06/07/23 07:51 BP 129/74 06/07/23 07:51 Pulse Ox 94 L 06/07/23 07:51 FiO2 Intake & Output 06/06/23 06/07/23 06/07/23 18:59 06:59 18:59 Weight 108.862 kg Other: Voiding Method Bedside Commode # Voids 6 1 # Bowel Movements 2 - Exam GENERAL DESCRIPTION: An elderly female lying in bed in no distress RESPIRATORY SYSTEM: Unlabored breathing , decreased breath sounds at bases HEART: S1 S2 regular rate and rhythm , ABDOMEN: Soft , no tenderness EXTREMITIES: Left knee incision covered with wound VAC - Labs CBC & Chem 7: 06/07/23 11:07 06/06/23 05:39 Labs: Abnormal Lab Results - Last 24 Hours (Table) 06/07/23 06/07/23 Range/Units 09:03 11:07 WBC 16.2 H (3.8-10.6) k/uL RBC 2.95 L (3.80-5.40) m/uL Hgb 9.4 L (11.4-16.0) gm/dL Hct 28.8 L (34.0-46.0) % Plt Count 709 H (150-450) k/uL Neutrophils # 12.8 H (1.3-7.7) k/uL Urine Appearance Cloudy H (Clear) Urine Protein Trace H (Negative) Ur Squamous Epith Cells 20 H (0-4) /hpf Hyaline Casts 3 H (0-2) /lpf Urine Mucus Rare H (None) /hpf Microbiology - Last 24 Hours (Table) 06/02/23 15:56 Anaerobic Culture - Final Knee - Left 06/02/23 15:56 Gram Stain - Final Knee - Left Wound Culture - Final Strep agalactiae - (group b) 06/02/23 15:56 Gram Stain - Final Knee - Left Wound Culture - Final Strep agalactiae - (group b) 06/02/23 15:56 Anaerobic Culture - Final Knee - Left 06/02/23 15:56 Anaerobic Culture - Final Knee - Left 06/02/23 15:56 Gram Stain - Final Knee - Left Wound Culture - Final Assessment and Plan (1) Septic arthritis of knee, left Current Visit: Yes Status: Acute Code(s): M00.9 - PYOGENIC ARTHRITIS, UNSPECIFIED SNOMED Code(s): 099867256 (2) Leukocytosis Current Visit: Yes Status: Acute Code(s): D72.829 - ELEVATED WHITE BLOOD CELL COUNT, UNSPECIFIED SNOMED Code(s): 641516697 Plan: 1patient presented to hospital with left knee pain swelling and redness in this patient who recently did have left knee replacement in March 2023 now with evidence of left knee cellulitis and concern for possible periprosthetic joint infection likely from a gram-positive skin corrie gram-negative infection less likely but not entirely excluded. 2patient is s/p stage I procedure with arthroplasty antibiotic bead placement along with deep cultures which are currently growing Streptococcus agalactiae 3patient to continue with cefazolin 2 g every 8 hours, has been complaining of some urinary symptoms and UA negative with a question of possible vaginal candidiasis we will give her a dose of Diflucan p.o. x 1 Dictation was produced using [employer] dictation software. please excuse any grammatical, word or spelling errors. Time with Patient: Less than 30
--- NOTE | 2023-06-07 13:07 | P.PCN ---
Date of Procedure: 06/07/23 Preoperative Diagnosis: left knee joint infection, need for IV antibiotics Postoperative Diagnosis: Same Procedure(s) Performed: Left upper extremity basilic vein PICC placement under ultrasound and fluoroscopic guidance Anesthesia: local Surgeon: Felipe Poe Pathology: none sent Condition: stable Disposition: floor Description of Procedure: After written and informed consent was obtained the patient and all risks, benefits and competitions were described the patient was brought to the [facility] and laid in a supine position with his left arm outstretched on an armboard. The area of the left arm was prepped and draped in usual sterile fashion. Timeout was performed in normal fashion. Utilizing ultrasound the basilic vein was visualized and shown to be compressible without any visible thrombus. Under ultrasound guidance the basilic vein was then cannulated with a micropuncture needle and wire was placed under direct visualization of fluoroscopy. Introducer sheath was then placed. The catheter was measured and cut to the appropriate length which was 48 cm. The catheter was then guided through the breakaway sheath and the sheath was removed with good positioning was visualized under fluoroscopy. The catheter was pulled and flushed easily. It was then secured in place in normal fashion. Patient tolerated the procedure well was sent back to his room for recovery.
--- NOTE | 2023-06-07 13:42 | P.PN ---
Progress Note - Text Progress Note Date: 06/07/23 - Chief Complaint Left knee redness - History of Present Illness Pleasant 67 year patient follows with Dr. Saini. March 14, 2023 left total knee arthroplasty by Dr. Jones.. About a week ago patient was pushing around a washing machine. She thinks she may have overextended her left knee. Subsequently patient started having increasing pain and swelling in the same. Started to use ice packs. Started to get worse. 5 days ago she went to see Dr. Kelly on a Tuesday in his office. He asked her to return today. It was looking worse. He scented out of the ER concern for infection. For admission. Was started on IV vancomycin. Patient did complain of chills at home. Blood cultures were drawn in the ER. Patient does not remember direct injury to the left knee. June 01: Pain swelling redness around the left knee persist. On IV vancomycin. And cefepime. Planning for I&D per Ortho tomorrow. Tolerating diet. June 02: Saw the patient this morning. Pending I&D. On IV cefepime and vancomycin. June 03: Patient underwent I&D of the left prosthetic joint. Purulence was obtained. Surgical intervention was further carried out. Antibiotic beads were placed in the joint. Patient has a brace on the left leg. Only toe weightbearing. Spoke to patient daughter at the bedside. Looking into rehab. June 04: Some pain in the affected knee. Tolerating diet. No fever. On IV cefepime IV vancomycin. Cultures pending. June 05: Knee pain better. Some anxiety. Patient counseled at length. Continue IV antibiotics. Cultures coming back negative for now. Eating about 50% June 06: Less anxious. Tolerating diet. Antibiotic changed to IV Ancef. Wound culture growing Streptococcus agalactiae group B. Wound VAC. June 07: On IV Ancef. PICC line placed today. Pending discharge to rehab. Tolerating diet. UA unremarkable. White count is started to come down. Active Medications Acetaminophen (Acetaminophen Tab 500 Mg Tab) 500 mg PO Q6HR PRN PRN Reason: Fever and/ or Pain Last Admin: 06/06/23 20:25 Dose: 500 mg Hydrocodone Bitart/Acetaminophen (Hydrocodone/Apap 5-325mg 1 Each Tab) 1 each PO Q6HR PRN PRN Reason: Pain Scale 1 to 5 Hydrocodone Bitart/Acetaminophen (Hydrocodone/Apap 7.5-325mg 1 Each Tab) 1 each PO Q6H PRN PRN Reason: Pain Scale 6 to 10 Last Admin: 06/07/23 07:56 Dose: 1 each Atorvastatin Calcium (Atorvastatin 10 Mg Tab) 10 mg PO HS [facility] Last Admin: 06/06/23 20:25 Dose: 10 mg Bisoprolol Fumarate (Bisoprolol-Hctz 10-6.25 Mg 1 Each Tab) 1 each PO BID [facility] Last Admin: 06/07/23 08:12 Dose: 1 each Cyclobenzaprine HCl (Cyclobenzaprine 5 Mg Tab) 5 mg PO BID [facility] Last Admin: 06/07/23 08:12 Dose: 5 mg Enoxaparin Sodium (Enoxaparin 30 Mg/0.3 Ml Syringe) 30 mg SQ Q12H [facility] Last Admin: 06/07/23 05:58 Dose: 30 mg Hydromorphone HCl (Hydromorphone 0.5 Mg/0.5 Ml Syringe) 0.25 mg IVP Q3HR PRN PRN Reason: Pain Scale 4 to 6 Last Admin: 06/06/23 00:07 Dose: 0.25 mg Hydromorphone HCl (Hydromorphone 0.5 Mg/0.5 Ml Syringe) 0.5 mg IVP Q3HR PRN PRN Reason: Pain Scale 7 to 10 Last Admin: 06/07/23 09:48 Dose: 0.5 mg Hydromorphone HCl (Hydromorphone 0.5 Mg/0.5 Ml Syringe) 0.125 mg IVP Q3HR PRN PRN Reason: Pain Scale 1 to 3 Cefazolin Sodium 2 gm/ Sodium (Chloride) 50 mls @ 100 mls/hr IVPB Q8HR [facility]; Protocol Last Admin: 06/07/23 08:12 Dose: 100 mls/hr Multivitamins (Multivitamins, Thera 1 Each Tab) 1 each PO DAILY@1200 [facility] Last Admin: 06/07/23 12:15 Dose: 1 each Naloxone HCl (Naloxone 0.4 Mg/Ml 1 Ml Vial) 0.2 mg IV Q2M PRN PRN Reason: Opioid Reversal Nicotine (Nicotine 14mg/24hr Patch) 1 patch TRANSDERM DAILY [facility] Last Admin: 06/07/23 08:23 Dose: Not Given Ondansetron HCl (Ondansetron 4 Mg/2 Ml Vial) 4 mg IVP Q8HR PRN PRN Reason: Nausea And Vomiting Last Admin: 06/06/23 20:36 Dose: 4 mg Senna/Docusate Sodium (Sennosides-Docusate Sodium 1 Each Tab) 2 each PO HS ROSS Last Admin: 06/06/23 20:26 Dose: Not Given Past medical history to include: COPD, hypertension, hyperlipidemia, osteoarthritis, IBS, Coumadin 2020 treated with monoclonal antibody infusion, back surgery Social history: Smoking half a pack a day since age of 17. No alcohol. . Physical examination: VITAL SIGNS: 98.8, 80, 18, 129 x 74, 94% room air GENERAL: Reclining in bed, comfortable EYES: Pupils equal. Conjunctiva normal. HEENT: External appearance of nose and ears normal, oral cavity grossly normal. NECK: JVD not raised; masses not palpable. HEART: First and second heart sounds are normal; no edema. LUNGS: Respiratory rate normal; decreased breath sounds. ABDOMEN: Soft, nontender, liver spleen not palpable, no masses palpable. PSYCH: Alert and oriented x3; mood and affect normal. MUSCULOSKELETAL:No Clubbing/cyanosis;muscles-grossly intact . Left leg in a immobilizer. Wound VAC. INVESTIGATIONS, reviewed in the clinical context: June 07: White count 16.2 hemoglobin 9.4 platelets 709 June 06: White count 20.1 hemoglobin 8.6 potassium 3.8 creatinine 0.71 CRP 10.6 Wound culture [June 02] Streptococcus agalactiae group B June 05: White count 19.8 hemoglobin 9.8 potassium 4 creatinine 0.63 procalcitonin 0.25 June 03: White count 12.2 hemoglobin 9.7 June 02: ESR 79 CRP 8.7 June 01: Procalcitonin 0.12 May 31, 2023: White count 14.3 hemoglobin 12.4 platelets 730 left shift sodium 133 potassium 3.6 creatinine 0.64 CRP 15.2 Venous Doppler left leg: Negative for DVT Assessment plan: -Acute infected left total knee arthroplasty that was done on March 14, 2023:: Joint fluid was obtained from the joint during I&D by Dr. Kelly on June 02. Followed by antibiotic beads placed.. Wound culture growing Streptococcus agalactiae group B Left leg in a brace. Toe-touch weightbearing. Antibiotics changed to IV Ancef -Left total knee arthroplasty on March 14, 2023 -Primary osteoarthritis Pain control as needed -Hyperlipidemia Lipitor 10 mg per day -Essential hypertension Ziac 10/6.25 one tablet twice a day -Muscle spasms Flexeril 5 mg twice a day -Morbid obesity BMI 45.3 Weight loss measures -COPD n in a current smoker: r Advair 250/50 one puff twice a day. Albuterol when necessary -Chronic nicotine dependence, cigarette smoker Nicotine patch -DNR -Disposition: Being evaluated for subacute rehab IV Ancef. PICC line in place. Pending DC to rehab. Thank you Dr. Jones Past Medical History Past Medical History: Asthma, Hyperlipidemia, Hypertension, Osteoarthritis (OA) Additional Past Medical History / Comment(s): IBS History of Any Multi-Drug Resistant Organisms: None Reported Past Surgical History: Back Surgery, Section, Cholecystectomy, Hysterectomy, Orthopedic Surgery Additional Past Surgical History / Comment(s): Cervical fusion, bilateral knee arthroscopy, right ankle surgery, lower back fusion, section X2., left total knee 03/14/23 Past Anesthesia/Blood Transfusion Reactions: No Reported Reaction Additional Past Anesthesia/Blood Transfusion Reaction / Comm: Has never had blood transfusion. Past Psychological History: No Psychological Hx Reported Smoking Status: Current every day smoker Past Alcohol Use History: None Reported Additional Past Alcohol Use History / Comment(s): anastacio 1/2 PPD, has smoked for 40-42 yrs Past Drug Use History: None Reported
[2023-06-07] MEDS: FLUCONAZOLE 150 MG TAB PO STA (14:03)
--- NOTE | 2023-06-07 14:19 | IR ---
EXAMINATION TYPE: IR cvc insert >=5 years DATE OF EXAM: 06/07/2023 COMPARISON: NONE HISTORY: Fluoroscopy time. Fluoroscopy was provided to the referring clinician.
--- NOTE | 2023-06-08 10:11 | P.PN ---
Subjective Progress Note Date: 06/08/23 Principal diagnosis: Status post stage I revision left knee, incision and drainage with irrigation and debridement and antibiotic bead placement Patient evaluated at bedside today, she is resting in her hospital bed. Patient is utilizing a knee immobilizer at this time. She did receive the PICC line yesterday. White blood cell count was trending down yesterday, awaiting labs from today. She denies any chest pain, shortness of breath, fever or chills. Objective - Vital Signs Vital signs: Vital Signs Temp 98.3 F 06/08/23 07:01 Pulse 82 06/08/23 07:01 Resp 18 06/08/23 07:01 BP 121/70 06/08/23 07:01 Pulse Ox 95 06/08/23 07:01 FiO2 Intake & Output 06/07/23 06/08/23 06/08/23 18:59 06:59 18:59 Output Total 200 750 Balance -200 -750 Weight 108.862 kg Output: Urine 200 550 Urine/Stool Mix 200 Other: Voiding Method Bedside Commode # Voids 6 6 # Bowel Movements 1 - Exam Left lower extremity: Wound VAC is in good position and condition, there is no notable leaks present. Notable swelling in the extremity, no excessive erythema is noted. The calf is soft, no tenderness with palpation. Plantarflexion, dorsiflexion, EHL, FHL are intact. Sensory exam to light touch is intact throughout the extremity, dorsalis pedis pulses 2+ - Labs CBC & Chem 7: 06/07/23 11:07 06/06/23 05:39 Labs: Abnormal Lab Results - Last 24 Hours (Table) 06/07/23 Range/Units 11:07 WBC 16.2 H (3.8-10.6) k/uL RBC 2.95 L (3.80-5.40) m/uL Hgb 9.4 L (11.4-16.0) gm/dL Hct 28.8 L (34.0-46.0) % Plt Count 709 H (150-450) k/uL Neutrophils # 12.8 H (1.3-7.7) k/uL Microbiology - Last 24 Hours (Table) 06/02/23 15:56 Anaerobic Culture - Final Knee - Left 06/02/23 15:56 Gram Stain - Final Knee - Left Wound Culture - Final Strep agalactiae - (group b) 06/02/23 15:56 Gram Stain - Final Knee - Left Wound Culture - Final Strep agalactiae - (group b) 06/02/23 15:56 Anaerobic Culture - Final Knee - Left 06/02/23 15:56 Anaerobic Culture - Final Knee - Left 06/02/23 15:56 Gram Stain - Final Knee - Left Wound Culture - Final Assessment and Plan Assessment: Left lower extremity cellulitis Left knee periprosthetic infection History of previous left total knee arthroplasty Postoperative day #6 status post stage I revision left knee, incision and drainage with irrigation and debridement, antibiotic bead placement Plan: Pain control, continue with current medications DVT prophylaxis, continue with current medications Continue to monitor wound bed Encourage incentive spirometer Toe-touch weightbearing left lower extremity, utilize knee immobilizer at all times Urinalysis has been ordered to rule out UTI Await CBC results from today Other medical specialty recommendations appreciated Discharge planning: Planning for discharge to subacute rehab today Time with Patient: Less than 30
[2023-06-08 11:07] LABS: Basophils # (A) 0.07 X 10*3/uL (0.00-0.10); Basophils % (A) 0.3 %; Eosinophils # (A) 0.06 X 10*3/uL (0.04-0.35); Eosinophils % (A) 0.3 %; HCT 26.8 % (37.2-46.3); HGB 8.6 g/dL (12.0-15.0); Lymphocytes # (A) 2.34 X 10*3/uL (0.90-5.00); Lymphocytes % (A) 11.3 %; MCH 30.9 pg (27.0-32.0); MCHC 32.1 g/dL (32.0-37.0); MCV 96.4 FL (80.0-97.0); Mean Platelet Volume 10.5 FL (9.5-12.2); Monocytes # (A) 1.96 X 10*3/uL (0.20-1.00); Monocytes % (A) 9.5 %; NRBC Per 100 WBC 0 X 10*3/uL (0.00-0.01); Neutrophils % (A) 76.1 %; Platelet Count 551 X 10*3/uL (140-440); RBC 2.78 X 10*6/uL (4.10-5.20); RDW 13.9 % (11.5-14.5); WBC 20.74 X 10*3/uL (4.50-10.00)
[2023-06-08 11:40] LABS: BUN/Creat Ratio 12.86 Ratio (12.00-20.00); Calcium 9.5 mg/dL (8.7-10.3); Carbon Dioxide 25.2 mmol/L (21.6-31.8); Chloride 95 mmol/L (96-109); Glucose 94 mg/dL (70-110); Potassium 3.8 mmol/L (3.5-5.5); Sodium 133 mmol/L (135-145)
--- NOTE | 2023-06-08 12:09 | P.PN ---
Subjective Progress Note Date: 06/08/23 Principal diagnosis: Reason for follow-up is left knee septic arthritis Patient is a 67-year-old female with a past medical history significant for hypertension hyperlipidemia asthma osteoarthritis patient did have a left knee replacement in March 2023, presented to the hospital with worsening pain and swelling and redness to the left knee area concerning for periprosthetic joint infection.Patient is status post stage I revision left total knee arthroplasty with antibiotic bead placement on 06/02/2023. On today's evaluation that is 06/08/2023, the patient did have resolution of her fever and is afebrile, patient is on room air, the patient denies chest pain s hortness of breath or cough, patient did have some issues with abdominal cramping last night but denies any vomiting or diarrhea, pain to the left knee is currently controlled. Patient white count is up to 20,000 creatinine 0.7 Objective - Vital Signs Vital signs: Vital Signs Temp 98.3 F 06/08/23 07:01 Pulse 82 06/08/23 07:01 Resp 18 06/08/23 07:01 BP 121/70 06/08/23 07:01 Pulse Ox 95 06/08/23 07:01 FiO2 Intake & Output 06/07/23 06/08/23 06/08/23 18:59 06:59 18:59 Output Total 200 750 Balance -200 -750 Weight 108.862 kg Output: Urine 200 550 Urine/Stool Mix 200 Other: Voiding Method Bedside Commode # Voids 6 6 # Bowel Movements 1 - Exam GENERAL DESCRIPTION: An elderly female lying in bed in no distress RESPIRATORY SYSTEM: Unlabored breathing , decreased breath sounds at bases HEART: S1 S2 regular rate and rhythm , ABDOMEN: Soft , no tenderness EXTREMITIES: Left knee incision covered with wound VAC - Labs CBC & Chem 7: 06/08/23 07:43 06/08/23 07:43 Labs: Abnormal Lab Results - Last 24 Hours (Table) 06/08/23 06/08/23 Range/Units 07:43 07:43 WBC 20.74 H (4.50-10.00) X 10*3/uL RBC 2.78 L (4.10-5.20) X 10*6/uL Hgb 8.6 L (12.0-15.0) g/dL Hct 26.8 L (37.2-46.3) % Plt Count 551 H (140-440) X 10*3/uL Immature Gran # 0.51 H (0.00-0.04) X 10*3/uL Neutrophils # 15.80 H (1.80-7.70) X 10*3/uL Monocytes # 1.96 H (0.20-1.00) X 10*3/uL Sodium 133 L (135-145) mmol/L Chloride 95 L (96-109) mmol/L Anion Gap 12.80 H (4.00-12.00) mmol/L C-Reactive Protein 14.20 H (0.00-0.80) mg/dL Microbiology - Last 24 Hours (Table) 06/02/23 15:56 Anaerobic Culture - Final Knee - Left 06/02/23 15:56 Gram Stain - Final Knee - Left Wound Culture - Final Strep agalactiae - (group b) 06/02/23 15:56 Gram Stain - Final Knee - Left Wound Culture - Final Strep agalactiae - (group b) 06/02/23 15:56 Anaerobic Culture - Final Knee - Left 06/02/23 15:56 Anaerobic Culture - Final Knee - Left 06/02/23 15:56 Gram Stain - Final Knee - Left Wound Culture - Final Assessment and Plan (1) Septic arthritis of knee, left Current Visit: Yes Status: Acute Code(s): M00.9 - PYOGENIC ARTHRITIS, UNSPEC IFIED SNOMED Code(s): 596402707 (2) Leukocytosis Current Visit: Yes Status: Acute Code(s): D72.829 - ELEVATED WHITE BLOOD CELL COUNT, UNSPECIFIED SNOMED Code(s): 623120087 Plan: 1patient presented to hospital with left knee pain swelling and redness in this patient who recently did have left knee replacement in March 2023 now with evidence of left knee cellulitis and concern for possible periprosthetic joint infection likely from a gram-positive skin corrie gram-negative infection less likely but not entirely excluded. 2patient is s/p stage I procedure with arthroplasty antibiotic bead placement along with deep cultures which are currently growing Streptococcus agalactiae 3patient did have resolution of her fever however her white count has jumped up to 20,000 today which is slightly concerning recommend keeping the patient hospital on the 24 hours continue with cefazolin we will repeat her CBC and CRP with a.m. lab Dictation was produced using [employer] dictation software. please excuse any grammatical, word or spelling errors. Time with Patient: Less than 30
--- NOTE | 2023-06-08 12:09 | P.DS ---
Providers Date of admission: 05/31/23 14:50 Expected date of discharge: 06/08/23 Attending physician: Jerry Jones Consults: 05/31/23 18:13 Consult Physician Routine Consulting Provider: Tarun Souza Consult Reason/Comments: medical management Do you want consulting provider notified?: Yes 06/01/23 08:06 Consult Physician Routine Consulting Provider: Tristan Mcqueen Consult Reason/Comments: Periprostetic infection, outpatient IV antibiotic Do you want consulting provider notified?: Yes Primary care physician: [facility] Course: Date of admission: 05/31/2023 Date of discharge: 06/08/2023 Admission diagnosis: Periprosthetic infection left knee Discharge diagnosis: Stage I revision left knee, incision and drainage with irrigation debridement, antibiotic bead placement Attending physician: Dr. Jones Surgical procedures: Stage I revision left knee, incision and drainage with irrigation debridement, antibiotic bead placement Brief history: Patient is a 67-year-old female with a history of a previous left total knee arthroplasty. Patient was evaluated in the outpatient setting for worsening left knee pain and swelling, was determined that she had a likely infection of the left periprosthetic knee. The patient was admitted to [facility] on 05/31/2023 with plan for surgical intervention. Hospital course: Details of patient's surgery can be found in operative report. Patient tolerated the procedure well and was subsequently transported to orthopedic floor. Patient's orthopeidc and medical care was provided daily. Patient had daily laboratory tests performed for evaluation of overall blood counts. Patient had daily physical therapy to include strengthening range of motion as well as education with walker ambulation. Patient was treated with Lovenox for their postoperative DVT prophylaxis during their inpatient stay. Patient was noted to have a relatively uneventful postoperative course. Patient reported satisfactory pain control with oral pain medications by postoperative day 2. Patient showed satisfactory progress with physical therapy. Patient moved steadily through the program and had no difficulty meeting the goals by postoperative day 6. Given patient's otherwise satisfactory course and having met physical therapy goals, plan is to discharge patient to rehab on postoperative day 6. Discharge condition/disposition: Patient will be discharged to rehab in stable condition. Discharge medications: Instructions are given on resumption of patient's normal daily medications per primary care recommendation, in addition patient will be prescribed [place] 7.5 mg / 325 mg, senna S, MiraLAX 17 g, Kefzol 2 g, Lovenox 30mg Discharge instructions: 1. Wound VAC may stay in place until 06/13/2023 2. After removal of wound VAC, utilize basic bandage 3. Keep incision covered and dry when showering 4. Knee immobilizer must be worn at all times when up and ambulating 5. Keep the knee in full extension, okay to loosen and on strap knee immobilizer when stationary 6. Toe-touch weightbearing with walker 7. Plan for [facility]-up at [facility] 1 week for reevaluation Procedures: Stage I revision left knee, incision and drainage with irrigation debridement, antibiotic bead placement Patient Condition at Discharge: Fair Plan - Discharge Summary Discharge Rx Participant: No New Discharge Prescriptions: New Nicotine 14Mg/24Hr Patch [Habitrol] 1 patch TRANSDERM DAILY patch Sennosides-Docusate Sodium [Senokot-S] 2 each PO HS tab ceFAZolin [Kefzol] 2 gm IVP Q8HR #120 each Enoxaparin [Lovenox] 30 mg SQ Q12H each Multivitamins, Thera [Multivitamin (formulary)] 1 each PO DAILY@1200 tab HYDROcodone/APAP 7.5-325MG [[place] 7.5] 1 each PO Q6HR PRN #28 tab PRN Reason: Pain Continue Bisoprolol-Hctz 10-6.25 mg [Ziac 10-6.25 MG] 1 tab PO BID Ibuprofen [Motrin] 800 mg PO TID PRN PRN Reason: Pain HYDROcodone/APAP 7.5-325MG [[place] 7.5-325] 1 tab PO TID PRN #9 tab PRN Reason: Pain Atorvastatin Calcium 10 mg PO HS Cyclobenzaprine [Flexeril] 5 mg PO BID Aspirin EC [Ecotrin Low Dose] 81 mg PO DAILY Discontinued Cephalexin [Keflex] 500 mg PO DIRECTED Discharge Medication List Bisoprolol-Hctz 10-6.25 mg [Ziac 10-6.25 MG] 1 tab PO BID 09/18/13 [History] Atorvastatin Calcium 10 mg PO HS 11/24/22 [History] Cyclobenzaprine [Flexeril] 5 mg PO BID 03/08/23 [History] Aspirin EC [Ecotrin Low Dose] 81 mg PO DAILY 05/31/23 [History] Ibuprofen [Motrin] 800 mg PO TID PRN 05/31/23 [History] ceFAZolin [Kefzol] 2 gm IVP Q8HR #120 each 06/06/23 [Rx] Enoxaparin [Lovenox] 30 mg SQ Q12H each 06/08/23 [Rx] HYDROcodone/APAP 7.5-325MG [[place] 7.5-325] 1 tab PO TID PRN #9 tab 06/08/23 [Rx] HYDROcodone/APAP 7.5-325MG [[place] 7.5] 1 each PO Q6HR PRN #28 tab 06/08/23 [Rx] Multivitamins, Thera [Multivitamin (formulary)] 1 each PO DAILY@1200 tab 06/08/23 [Rx] Nicotine 14Mg/24Hr Patch [Habitrol] 1 patch TRANSDERM DAILY patch 06/08/23 [Rx] Sennosides-Docusate Sodium [Senokot-S] 2 each PO HS tab 06/08/23 [Rx] Follow up Appointment(s)/Referral(s): Haris Saini DO [Primary Care Provider] - 1-2 days Joselito Ruano PAC [PHYSICIAN MANAGER PHARMACEUTICAL] - 2 Weeks Tristan Mcqueen MD [STAFF PHYSICIAN] - 1 Week Ambulatory/Diagnostic Orders: Basic Metabolic Panel [LAB.AMB] Location: None Selected C Reactive Protein [LAB.AMB] Location: None Selected Complete Blood Count w/diff [LAB.AMB] Location: None Selected Erythrocyte Sedimentation Rate [LAB.AMB] Location: None Selected Activity/Diet/Wound Care/Special Instructions: Discharge instructions: 1. Wound VAC may stay in place until 06/13/2023 2. After removal of wound VAC, utilize basic bandage 3. Keep incision covered and dry when showering 4. Knee immobilizer must be worn at all times when up and ambulating 5. Keep the knee in full extension, okay to loosen and on strap knee immobilizer when stationary 6. Toe-touch weightbearing with walker 7. Plan for follow-up at [facility] in 1 week for reevaluation Discharge Disposition: TRANSFER TO SNF/ECF
--- NOTE | 2023-06-08 19:46 | P.PN ---
Progress Note - Text Progress Note Date: 06/08/23 - Chief Complaint Left knee redness - History of Present Illness Pleasant 67 year patient follows with Dr. Saini. March 14, 2023 left total knee arthroplasty by Dr. Jones.. About a week ago patient was pushing around a washing machine. She thinks she may have overextended her left knee. Subsequently patient started having increasing pain and swelling in the same. Started to use ice packs. Started to get worse. 5 days ago she went to see Dr. Kelly on a Tuesday in his office. He asked her to return today. It was looking worse. He scented out of the ER concern for infection. For admission. Was started on IV vancomycin. Patient did complain of chills at home. Blood cultures were drawn in the ER. Patient does not remember direct injury to the left knee. June 01: Pain swelling redness around the left knee persist. On IV vancomycin. And cefepime. Planning for I&D per Ortho tomorrow. Tolerating diet. June 02: Saw the patient this morning. Pending I&D. On IV cefepime and vancomycin. June 03: Patient underwent I&D of the left prosthetic joint. Purulence was obtained. Surgical intervention was further carried out. Antibiotic beads were placed in the joint. Patient has a brace on the left leg. Only toe weightbearing. Spoke to patient daughter at the bedside. Looking into rehab. June 04: Some pain in the affected knee. Tolerating diet. No fever. On IV cefepime IV vancomycin. Cultures pending. June 05: Knee pain better. Some anxiety. Patient counseled at length. Continue IV antibiotics. Cultures coming back negative for now. Eating about 50% June 06: Less anxious. Tolerating diet. Antibiotic changed to IV Ancef. Wound culture growing Streptococcus agalactiae group B. Wound VAC. June 07: On IV Ancef. PICC line placed today. Pending discharge to rehab. Tolerating diet. UA unremarkable. White count is started to come down. June 08: Remains on IV Ancef. Does not like hospital food. Pending discharge to rehab. Questions answered. Active Medications Acetaminophen (Acetaminophen Tab 500 Mg Tab) 500 mg PO Q6HR PRN PRN Reason: Fever and/ or Pain Last Admin: 06/06/23 20:25 Dose: 500 mg Hydrocodone Bitart/Acetaminophen (Hydrocodone/Apap 5-325mg 1 Each Tab) 1 each PO Q6HR PRN PRN Reason: Pain Scale 1 to 5 Hydrocodone Bitart/Acetaminophen (Hydrocodone/Apap 7.5-325mg 1 Each Tab) 1 each PO Q6H PRN PRN Reason: Pain Scale 6 to 10 Last Admin: 06/08/23 17:37 Dose: 1 each Atorvastatin Calcium (Atorvastatin 10 Mg Tab) 10 mg PO HS [facility] Last Admin: 06/07/23 21:09 Dose: 10 mg Bisoprolol Fumarate (Bisoprolol-Hctz 10-6.25 Mg 1 Each Tab) 1 each PO BID [facility] Last Admin: 06/08/23 08:26 Dose: 1 each Cyclobenzaprine HCl (Cyclobenzaprine 5 Mg Tab) 5 mg PO BID [facility] Last Admin: 06/08/23 08:25 Dose: 5 mg Enoxaparin Sodium (Enoxaparin 30 Mg/0.3 Ml Syringe) 30 mg SQ Q12H [facility] Last Admin: 06/08/23 17:37 Dose: 30 mg Hydromorphone HCl (Hydromorphone 0.5 Mg/0.5 Ml Syringe) 0.25 mg IVP Q3HR PRN PRN Reason: Pain Scale 4 to 6 Last Admin: 06/08/23 08:26 Dose: 0.25 mg Hydromorphone HCl (Hydromorphone 0.5 Mg/0.5 Ml Syringe) 0.5 mg IVP Q3HR PRN PRN Reason: Pain Scale 7 to 10 Last Admin: 06/07/23 09:48 Dose: 0.5 mg Hydromorphone HCl (Hydromorphone 0.5 Mg/0.5 Ml Syringe) 0.125 mg IVP Q3HR PRN PRN Reason: Pain Scale 1 to 3 Cefazolin Sodium 2 gm/ Sodium (Chloride) 50 mls @ 100 mls/hr IVPB Q8HR [facility]; Protocol Last Admin: 06/08/23 16:17 Dose: 100 mls/hr Multivitamins (Multivitamins, Thera 1 Each Tab) 1 each PO DAILY@1200 ROSS Last Admin: 06/08/23 12:10 Dose: 1 each Naloxone HCl (Naloxone 0.4 Mg/Ml 1 Ml Vial) 0.2 mg IV Q2M PRN PRN Reason: Opioid Reversal Nicotine (Nicotine 14mg/24hr Patch) 1 patch TRANSDERM DAILY [facility] Last Admin: 06/08/23 08:30 Dose: Not Given Ondansetron HCl (Ondansetron 4 Mg/2 Ml Vial) 4 mg IVP Q8HR PRN PRN Reason: Nausea And Vomiting Last Admin: 06/06/23 20:36 Dose: 4 mg Senna/Docusate Sodium (Sennosides-Docusate Sodium 1 Each Tab) 2 each PO HS [facility] Last Admin: 06/07/23 21:10 Dose: 2 each Past medical history to include: COPD, hypertension, hyperlipidemia, osteoarthritis, IBS, Coumadin 2020 treated with monoclonal antibody infusion, back surgery Social history: Smoking half a pack a day since age of 17. No alcohol. . Physical examination: VITAL SIGNS: 99.4, 83, 18, 132/73, 95% room air GENERAL: Reclining in bed, comfortable EYES: Pupils equal. Conjunctiva normal. HEENT: External appearance of nose and ears normal, oral cavity grossly normal. NECK: JVD not raised; masses not palpable. HEART: First and second heart sounds are normal; no edema. LUNGS: Respiratory rate normal; decreased breath sounds. ABDOMEN: Soft, nontender, liver spleen not palpable, no masses palpable. PSYCH: Alert and oriented x3; mood and affect normal. MUSCULOSKELETAL:No Clubbing/cyanosis;muscles-grossly intact . Left leg in a immobilizer. Wound VAC. INVESTIGATIONS, reviewed in the clinical context: June 08: White count 20.7 hemoglobin 8.6 potassium 3.8 creatinine 0.7 CRP 14.2 June 07: White count 16.2 hemoglobin 9.4 platelets 709 June 06: White count 20.1 hemoglobin 8.6 potassium 3.8 creatinine 0.71 CRP 10 .6 Wound culture [June 02] Streptococcus agalactiae group B June 05: White count 19.8 hemoglobin 9.8 potassium 4 creatinine 0.63 procalcitonin 0.25 June 03: White count 12.2 hemoglobin 9.7 June 02: ESR 79 CRP 8.7 June 01: Procalcitonin 0.12 May 31, 2023: White count 14.3 hemoglobin 12.4 platelets 730 left shift sodium 133 potassium 3.6 creatinine 0.64 CRP 15.2 Venous Doppler left leg: Negative for DVT Assessment plan: -Acute infected left total knee arthroplasty that was done on March 14, 2023:: Joint fluid was obtained from the joint during I&D by Dr. Kelly on June 02. Followed by antibiotic beads placed.. Wound culture growing Streptococcus agalactiae group B Left leg in a brace. Toe-touch weightbearing. IV Ancef-3 times daily for 120 doses -Left total knee arthroplasty on March 14, 2023 -Primary osteoarthritis Pain control as needed -Hyperlipidemia Lipitor 10 mg per day -Essential hypertension Ziac 10/6.25 one tablet twice a day -Muscle spasms Flexeril 5 mg twice a day -Morbid obesity BMI 45.3 Weight loss measures -COPD n in a current smoker: r Advair 250/50 one puff twice a day. Albuterol when necessary -Chronic nicotine dependence, cigarette smoker Nicotine patch -DNR -Disposition: Being evaluated for subacute rehab Discussed with the patient. Pending DC to rehab. Thank you Dr. Jones Past Medical History Past Medical History: Asthma, Hyperlipidemia, Hypertension, Osteoarthritis (OA) Additional Past Medical History / Comment(s): IBS History of Any Multi-Drug Resistant Organisms: None Reported Past Surgical History: Back Surgery, Section, Cholecystectomy, Hysterectomy, Orthopedic Surgery Additional Past Surgical History / Comment(s): Cervical fusion, bilateral knee arthroscopy, right ankle surgery, lower back fusion, section X2., left total knee 03/14/23 Past Anesthesia/Blood Transfusion Reactions: No Reported Reaction Additional Past Anesthesia/Blood Transfusion Reaction / Comm: Has never had bl ood transfusion. Past Psychological History: No Psychological Hx Reported Smoking Status: Current every day smoker Past Alcohol Use History: None Reported Additional Past Alcohol Use History / Comment(s): anastacio 1/2 PPD, has smoked for 40-42 yrs Past Drug Use History: None Reported
[2023-06-09 08:42] LABS: Basophils # (A) 0.06 X 10*3/uL (0.00-0.10); Basophils % (A) 0.2 %; Eosinophils # (A) 0.01 X 10*3/uL (0.04-0.35); Eosinophils % (A) 0 %; HCT 25.8 % (37.2-46.3); HGB 8.6 g/dL (12.0-15.0); Lymphocytes # (A) 2.08 X 10*3/uL (0.90-5.00); Lymphocytes % (A) 8.5 %; MCH 31.3 pg (27.0-32.0); MCHC 33.3 g/dL (32.0-37.0); MCV 93.8 FL (80.0-97.0); Mean Platelet Volume 9.8 FL (9.5-12.2); Monocytes # (A) 2.75 X 10*3/uL (0.20-1.00); Monocytes % (A) 11.2 %; NRBC Per 100 WBC 0 X 10*3/uL (0.00-0.01); Neutrophils % (A) 76.8 %; Platelet Count 660 X 10*3/uL (140-440); RBC 2.75 X 10*6/uL (4.10-5.20); RDW 13.9 % (11.5-14.5); WBC 24.51 X 10*3/uL (4.50-10.00)
[2023-06-09 08:52] LABS: ALT 22 U/L (8-44); AST 24 U/L (13-35); Albumin 2.6 g/dL (3.8-4.9); Alkaline Phosphatase 200 U/L (41-126); Blood Urea Nitrogen 7.7 mg/dL (9.0-27.0); Calcium 9.2 mg/dL (8.7-10.3); Carbon Dioxide 25.4 mmol/L (21.6-31.8); Chloride 94 mmol/L (96-109); Globulin 2.9 g/dL (1.6-3.3); Glucose 106 mg/dL (70-110); Potassium 3.2 mmol/L (3.5-5.5); Sodium 131 mmol/L (135-145); Total Bilirubin 0.5 mg/dL (0.3-1.2); Total Protein 5.5 g/dL (6.2-8.2)
[2023-06-09] MEDS: NYSTATIN 100,000 UNIT/ML SUSP 500,000 UNIT/5 ML CUP PO SCH (13:30)
[2023-06-09] MEDS: BARIUM SULFATE 2% - 450 ML ORAL.SUSP BOTTLE PO PRN (13:30)
--- NOTE | 2023-06-09 13:59 | P.PN ---
Subjective Progress Note Date: 06/09/23 Principal diagnosis: Status post stage I revision left knee, incision and drainage with irrigation and debridement and antibiotic bead placement Patient evaluated at bedside today, she is resting in her hospital chair. Patient is utilizing a knee immobilizer at this time. Patient was not discharged yesterday due to her white blood cell count being elevated once again. Patient has also been dealing with bouts of diarrhea. she denies any chest pain, shortness of breath, fever or chills. Objective - Vital Signs Vital signs: Vital Signs Temp 99.5 F 06/09/23 07:10 Pulse 94 06/09/23 08:00 Resp 18 06/09/23 08:00 BP 142/74 06/09/23 07:10 Pulse Ox 97 06/09/23 07:10 FiO2 Intake & Output 06/08/23 06/09/23 06/09/23 18:59 06:59 18:59 Other: Voiding Method Bedside Commode # Voids 4 5 # Bowel Movements 3 11 1 - Exam Left lower extremity: Wound VAC is in good position and condition, there is no notable leaks present. Notable swelling in the extremity, no excessive erythema is noted. The calf is soft, no tenderness with palpation. Plantarflexion, dorsiflexion, EHL, FHL are intact. Sensory exam to light touch is intact throughout the extremity, dorsalis pedis pulses 2+ - Labs CBC & Chem 7: 06/09/23 06:11 06/09/23 06:11 Labs: Abnormal Lab Results - Last 24 Hours (Table) 06/09/23 06/09/23 Range/Units 06:11 06:11 WBC 24.51 H (4.50-10.00) X 10*3/uL RBC 2.75 L (4.10-5.20) X 10*6/uL Hgb 8.6 L (12.0-15.0) g/dL Hct 25.8 L (37.2-46.3) % Plt Count 660 H (140-440) X 10*3/uL Immature Gran # 0.81 H (0.00-0.04) X 10*3/uL Neutrophils # 18.80 H (1.80-7.70) X 10*3/uL Monocytes # 2.75 H (0.20-1.00) X 10*3/uL Eosinophils # 0.01 L (0.04-0.35) X 10*3/uL Sodium 131 L (135-145) mmol/L Potassium 3.2 L (3.5-5.5) mmol/L Chloride 94 L (96-109) mmol/L BUN 7.7 L (9.0-27.0) mg/dL BUN/Creatinine Ratio 11.00 L (12.00-20.00) Ratio Alkaline Phosphatase 200 H (41-126) U/L C-Reactive Protein 18.20 H (0.00-0.80) mg/dL Total Protein 5.5 L (6.2-8.2) g/dL Albumin 2.6 L (3.8-4.9) g/dL Albumin/Globulin Ratio 0.90 L (1.60-3.17) Ratio Assessment and Plan Assessment: Left lower extremity cellulitis Left knee periprosthetic infection History of previous left total knee arthroplasty Postoperative day #7 status post stage I revision left knee, incision and drainage with irrigation and debridement, antibiotic bead placement Plan: Pain control, continue with current medications DVT prophylaxis, continue with current medications Continue to monitor wound bed Encourage incentive spirometer Toe-touch weightbearing left lower extremity, utilize knee immobilizer at all times Other medical specialty recommendations appreciated Discharge planning: Patient has been readmitted under internal medicine, infectious disease also continues to follow patient. Patient is being worked up for C. difficile at this time. We will continue to follow patient during hospital stay. Time with Patient: Less than 30
--- NOTE | 2023-06-09 16:32 | P.PN ---
Subjective Progress Note Date: 06/09/23 Principal diagnosis: Reason for follow-up is left knee septic arthritis Patient is a 67-year-old female with a past medical history significant for hypertension hyperlipidemia asthma osteoarthritis patient did have a left knee replacement in March 2023, presented to the hospital with worsening pain and swelling and redness to the left knee area concerning for periprosthetic joint infection.Patient is status post stage I revision left total knee arthroplasty with antibiotic bead placement on 06/02/2023. On today's evaluation that is 06/09/2023, the patient remains to be afebrile, patient is currently breathing comfortably on room air, the patient denies chest pain and no significant cough, patient has been complaining of abdominal discomfort and apparently also have some diarrhea denies any blood or mucus in the stool or any worsening pain to the left knee area. Patient white count is up to 24.51, creatinine 0.7 Objective - Vital Signs Vital signs: Vital Signs Temp 99.5 F 06/09/23 07:10 Pulse 94 06/09/23 08:00 Resp 18 06/09/23 08:00 BP 142/74 06/09/23 07:10 Pulse Ox 97 06/09/23 07:10 FiO2 Intake & Output 06/08/23 06/09/23 06/09/23 18:59 06:59 18:59 Other: Voiding Method Bedside Commode # Voids 4 5 # Bowel Movements 3 11 1 - Exam GENERAL DESCRIPTION: An elderly female lying in bed in no distress RESPIRATORY SYSTEM: Unlabored breathing , decreased breath sounds at bases HEART: S1 S2 regular rate and rhythm , ABDOMEN: Soft , no tenderness EXTREMITIES: Left knee incision covered with wound VAC - Labs CBC & Chem 7: 06/09/23 06:11 06/09/23 06:11 Labs: Abnormal Lab Results - Last 24 Hours (Table) 06/08/23 06/08/23 06/09/23 Range/Units 07:43 07:43 06:11 WBC 20.74 H 24.51 H (4.50-10.00) X 10*3/uL RBC 2.78 L 2.75 L (4.10-5.20) X 10*6/uL Hgb 8.6 L 8.6 L (12.0-15.0) g/dL Hct 26.8 L 25.8 L (37.2-46.3) % Plt Count 551 H 660 H (140-440) X 10*3/uL Immature Gran # 0.51 H 0.81 H (0.00-0.04) X 10*3/uL Neutrophils # 15.80 H 18.80 H (1.80-7.70) X 10*3/uL Monocytes # 1.96 H 2.75 H (0.20-1.00) X 10*3/uL Eosinophils # 0.01 L (0.04-0.35) X 10*3/uL Sodium 133 L (135-145) mmol/L Potassium (3.5-5.5) mmol/L Chloride 95 L (96-109) mmol/L Anion Gap 12.80 H (4.00-12.00) mmol/L BUN (9.0-27.0) mg/dL BUN/Creatinine Ratio (12.00-20.00) Ratio Alkaline Phosphatase (41-126) U/L C-Reactive Protein 14.20 H (0.00-0.80) mg/dL Total Protein (6.2-8.2) g/dL Albumin (3.8-4.9) g/dL Albumin/Globulin Ratio (1.60-3.17) Ratio // Range/Units 06:11 WBC (4.50-10.00) X 10*3/uL RBC (4.10-5.20) X 10*6/uL Hgb (12.0-15.0) g/dL Hct (37.2-46.3) % Plt Count (140-440) X 10*3/uL Immature Gran # (0.00-0.04) X 10*3/uL Neutrophils # (1.80-7.70) X 10*3/uL Monocytes # (0.20-1.00) X 10*3/uL Eosinophils # (0.04-0.35) X 10*3/uL Sodium 131 L (135-145) mmol/L Potassium 3.2 L (3.5-5.5) mmol/L Chloride 94 L (96-109) mmol/L Anion Gap (4.00-12.00) mmol/L BUN 7.7 L (9.0-27.0) mg/dL BUN/Creatinine Ratio 11.00 L (12.00-20.00) Ratio Alkaline Phosphatase 200 H (41-126) U/L C-Reactive Protein 18.20 H (0.00-0.80) mg/dL Total Protein 5.5 L (6.2-8.2) g/dL Albumin 2.6 L (3.8-4.9) g/dL Albumin/Globulin Ratio 0.90 L (1.60-3.17) Ratio Assessment and Plan (1) Septic arthritis of knee, left Current Visit: Yes Status: Acute Code(s): M00.9 - PYOGENIC ARTHRITIS, UNSPECIFIED SNOMED Code(s): 375227657 (2) Leukocytosis Current Visit: Yes Status: Acute Code(s): D72.829 - ELEVATED WHITE BLOOD CELL COUNT, UNSPECIFIED SNOMED Code(s): 245755836 Plan: 1patient presented to hospital with left knee pain swelling and redness in this patient who recently did have left knee replacement in March 2023 now with evidence of left knee cellulitis and concern for possible periprosthetic joint infection likely from a gram-positive skin corrie gram-negative infection less likely but not entirely excluded. 2patient is s/p stage I procedure with arthroplasty antibiotic bead placement along with deep cultures which are currently growing Streptococcus agalactiae 3patient did have resolution of her fever however did have worsening of the white count patient noticed to have evidence of thrush and also some abdominal tenderness we will go ahead and check a CT of abdominal pelvis with oral contrast and add nystatin swish and swallow Discussed with the medical team Dictation was produced using [employer]Voice dictation software. please excuse any grammatical, word or spelling errors. Time with Patient: Less than 30
--- NOTE | 2023-06-09 20:21 | P.PN ---
Progress Note - Text Progress Note Date: 06/09/23 - Chief Complaint Left knee redness - History of Present Illness Pleasant 67 year patient follows with Dr. Saini. March 14, 2023 left total knee arthroplasty by Dr. Jones.. About a week ago patient was pushing around a washing machine. She thinks she may have overextended her left knee. Subsequently patient started having increasing pain and swelling in the same. Started to use ice packs. Started to get worse. 5 days ago she went to see Dr. Kelly on a Tuesday in his office. He asked her to return today. It was looking worse. He scented out of the ER concern for infection. For admission. Was started on IV vancomycin. Patient did complain of chills at home. Blood cultures were drawn in the ER. Patient does not remember direct injury to the left knee. June 01: Pain swelling redness around the left knee persist. On IV vancomycin. And cefepime. Planning for I&D per Ortho tomorrow. Tolerating diet. June 02: Saw the patient this morning. Pending I&D. On IV cefepime and vancomycin. June 03: Patient underwent I&D of the left prosthetic joint. Purulence was obtained. Surgical intervention was further carried out. Antibiotic beads were placed in the joint. Patient has a brace on the left leg. Only toe weightbearing. Spoke to patient daughter at the bedside. Looking into rehab. June 04: Some pain in the affected knee. Tolerating diet. No fever. On IV cefepime IV vancomycin. Cultures pending. June 05: Knee pain better. Some anxiety. Patient counseled at length. Continue IV antibiotics. Cultures coming back negative for now. Eating about 50% June 06: Less anxious. Tolerating diet. Antibiotic changed to IV Ancef. Wound culture growing Streptococcus agalactiae group B. Wound VAC. June 07: On IV Ancef. PICC line placed today. Pending discharge to rehab. Tolerating diet. UA unremarkable. White count is started to come down. June 08: Remains on IV Ancef. Does not like hospital food. Pending discharge to rehab. Questions answered. June 09: Patient white count has been climbing. Patient started having diarrhea yesterday. Some abdominal discomfort. Patient stool came back positive for C. difficile. Started on oral vancomycin and Flagyl. Metamucil was added to bulk up the stool. Active Medications Acetaminophen (Acetaminophen Tab 500 Mg Tab) 500 mg PO Q6HR PRN PRN Reason: Fever and/ or Pain Last Admin: 06/06/23 20:25 Dose: 500 mg Hydrocodone Bitart/Acetaminophen (Hydrocodone/Apap 5-325mg 1 Each Tab) 1 each PO Q6HR PRN PRN Reason: Pain Scale 1 to 5 Hydrocodone Bitart/Acetaminophen (Hydrocodone/Apap 7.5-325mg 1 Each Tab) 1 each PO Q6H PRN PRN Reason: Pain Scale 6 to 10 Last Admin: 06/09/23 20:05 Dose: 1 each Atorvastatin Calcium (Atorvastatin 10 Mg Tab) 10 mg PO HS [facility] Last Admin: 06/09/23 20:05 Dose: 10 mg Barium Sulfate (Barium Sulfate 2% - 450 Ml Oral.Susp Bottle) 450 ml PO Q3HR PRN PRN Reason: CT Scan Stop: 06/10/23 12:45 Last Admin: 06/09/23 16:30 Dose: 450 ml Bisoprolol Fumarate (Bisoprolol-Hctz 10-6.25 Mg 1 Each Tab) 1 each PO BID [facility] Last Admin: 06/09/23 20:05 Dose: 1 each Cyclobenzaprine HCl (Cyclobenzaprine 5 Mg Tab) 5 mg PO BID [facility] Last Admin: 06/09/23 20:05 Dose: 5 mg Enoxaparin Sodium (Enoxaparin 30 Mg/0.3 Ml Syringe) 30 mg SQ Q12H [facility] Last Admin: 06/09/23 18:42 Dose: 30 mg Hydromorphone HCl (Hydromorphone 0.5 Mg/0.5 Ml Syringe) 0.25 mg IVP Q3HR PRN PRN Reason: Pain Scale 4 to 6 Last Admin: 06/09/23 11:58 Dose: 0.25 mg Hydromorphone HCl (Hydromorphone 0.5 Mg/0.5 Ml Syringe) 0.5 mg IVP Q3HR PRN PRN Reason: Pain Scale 7 to 10 Last Admin: 06/07/23 09:48 Dose: 0.5 mg Hydromorphone HCl (Hydromorphone 0.5 Mg/0.5 Ml Syringe) 0.125 mg IVP Q3HR PRN PRN Reason: Pain Scale 1 to 3 Cefazolin Sodium 2 gm/ Sodium (Chloride) 50 mls @ 100 mls/hr IVPB Q8HR [facility]; Protocol Last Admin: 06/09/23 17:05 Dose: 100 mls/hr Metronidazole (Metronidazole 500 Mg Tab) 500 mg PO QID [facility]; Protocol Multivitamins (Multivitamins, Thera 1 Each Tab) 1 each PO DAILY@1200 ROSS Last Admin: 06/09/23 11:45 Dose: 1 each Naloxone HCl (Naloxone 0.4 Mg/Ml 1 Ml Vial) 0.2 mg IV Q2M PRN PRN Reason: Opioid Reversal Nicotine (Nicotine 14mg/24hr Patch) 1 patch TRANSDERM DAILY [facility] Last Admin: 06/09/23 08:32 Dose: Not Given Nystatin (Nystatin 100,000 Unit/Ml Susp 500,000 Unit/5 Ml Cup) 500,000 unit PO QID [facility]; Protocol Last Admin: 06/09/23 18:42 Dose: 500,000 unit Ondansetron HCl (Ondansetron 4 Mg/2 Ml Vial) 4 mg IVP Q8HR PRN PRN Reason: Nausea And Vomiting Last Admin: 06/06/23 20:36 Dose: 4 mg Senna/Docusate Sodium (Sennosides-Docusate Sodium 1 Each Tab) 2 each PO HS [facility] Last Admin: 06/09/23 20:05 Dose: Not Given Vancomycin HCl (Vancomycin 125 Mg Capsule) 125 mg PO QID [facility]; Protocol Past medical history to include: COPD, hypertension, hyperlipidemia, osteoarthritis, IBS, Coumadin 2020 treated with monoclonal antibody infusion, back surgery Social history: Smoking half a pack a day since age of 17. No alcohol. . Physical examination: VITAL SIGNS: 100.2, 95, 18, 145-73, 96% room air GENERAL: Reclining in bed, comfortable EYES: Pupils equal. Conjunctiva normal. HEENT: External appearance of nose and ears normal, oral cavity grossly normal. NECK: JVD not raised; masses not palpable. HEART: First and second heart sounds are normal; no edema. LUNGS: Respiratory rate normal; decreased breath sounds. ABDOMEN: Soft, nontender, liver spleen not palpable, no masses palpable. PSYCH: Alert and oriented x3; mood and affect normal. MUSCULOSKELETAL:No Clubbing/cyanosis;muscles-grossly intact . Left leg in a immobilizer. Wound VAC. INVESTIGATIONS, reviewed in the clinical context: June 09: White count 24.5 hemoglobin 8.6 potassium 3.2 creatinine 0.7 C. difficile [June 09]: Positive June 08: White count 20.7 hemoglobin 8.6 potassium 3.8 creatinine 0.7 CRP 14.2 June 07: White count 16.2 hemoglobin 9.4 platelets 709 June 06: White count 20.1 hemoglobin 8.6 potassium 3.8 creatinine 0.71 CRP 10.6 Wound culture [June 02] Streptococcus agalactiae group B June 05: White count 19.8 hemoglobin 9.8 potassium 4 creatinine 0.63 procalcitonin 0.25 June 03: White count 12.2 hemoglobin 9.7 June 02: ESR 79 CRP 8.7 June 01: Procalcitonin 0.12 May 31, 2023: White count 14.3 hemoglobin 12.4 platelets 730 left shift sodium 133 potassium 3.6 creatinine 0.64 CRP 15.2 Venous Doppler left leg: Negative for DVT Assessment plan: -Acute infected left total knee arthroplasty that was done on March 14, 2023:: Joint fluid was obtained from the joint during I&D by Dr. Kelly on June 02. Followed by antibiotic beads placed.. Wound culture growing Streptococcus agalactiae group B Left leg in a brace. Toe-touch weightbearing. IV Ancef-3 times daily for 120 doses -C. difficile colitis: New diagnosis Oral vancomycin. Oral Flagyl. Changed to full liquid diet -Left total knee arthroplasty on March 14, 2023 -Primary osteoarthritis Pain control as needed -Hyperlipidemia Lipitor 10 mg per day -Essential hypertension Ziac 10/6.25 one tablet twice a day -Muscle spasms Flexeril 5 mg twice a day -Morbid obesity BMI 45.3 Weight loss measures -COPD n in a current smoker: r Advair 250/50 one puff twice a day. Albuterol when necessary -Chronic nicotine dependence, cigarette smoker Nicotine patch -DNR -Disposition: Being evaluated for subacute rehab Started on vancomycin and oral Flagyl. Full liquid diet. Thank you Dr. Jones Past Medical History Past Medical History: Asthma, Hyperlipidemia, Hypertension, Osteoarthritis (OA) Additional Past Medical History / Comment(s): IBS History of Any Multi-Drug Resistant Organisms: None Reported Past Surgical History: Back Surgery, Section, Cholecystectomy, Hysterectomy, Orthopedic Surgery Additional Past Surgical History / Comment(s): Cervical fusion, bilateral knee arthroscopy, right ankle surgery, lower back fusion, section X2., left total knee 03/14/23 Past Anesthesia/Blood Transfusion Reactions: No Reported Reaction Additional Past Anesthesia/Blood Transfusion Reaction / Comm: Has never had blood transfusion. Past Psychological History: No Psychological Hx Reported Smoking Status: Current every day smoker Past Alcohol Use History: None Reported Additional Past Alcohol Use History / Comment(s): bernardos 1/2 PPD, has smoked for 40-42 yrs Past Drug Use History: None Reported
[2023-06-09] MEDS: POTASSIUM CHLORIDE ER 20 MEQ TAB.ER PO STA (21:13)
[2023-06-09] MEDS: VANCOMYCIN 125 MG CAPSULE PO SCH ×3 (21:13→23:29)
[2023-06-09] MEDS: metroNIDAZOLE 500 MG TAB PO SCH (21:13)
--- NOTE | 2023-06-09 21:24 | CT ---
EXAMINATION TYPE: CT abdomen pelvis wo con DATE OF EXAM: 06/09/2023 HISTORY: Leukocytosis. Abd pain. Inpatient. TECHNIQUE: CT scan of the abdomen and pelvis is performed without oral or IV contrast. Automated Exp osure Control for Dose Reduction was Utilized. CT DLP: 1368.4 mGycm. COMPARISON: 04/11/2011 FINDINGS: LUNG BASES: No acute process. LIVER/GB: No significant abnormality is appreciated. PANCREAS: No significant abnormality is seen. SPLEEN: No significant abnormality is seen. ADRENALS: No significant abnormality is seen. KIDNEYS: No acute process. BOWEL: The sigmoid colon shows circumferential mural thickening and indistinctness with sigmoid mesoc olon edematous reticulation, findings consistent with colitis. The cecum is dilated to 10 cm(top norm al 9 cm) with mild indistinctness which also involves the ascending colon and could also represent co litis. No pneumatosis. No focal fluid collection to suggest abscess. PERITONEAL CAVITY: There is no pneumoperitoneum or fluid. PELVIC VISCERA: Unremarkable. LYMPH NODES: No greater than 1cm abdominal or pelvic lymph nodes are appreciated. OSSEOUS STRUCTURES: No aggressive lesion. Limitation of the study: Without IV contrast there is limited sensitivity for focal visceral lesions, intraluminal filling def ects, and vascular pathology. IMPRESSION: Findings of colitis involving the sigmoid colon and right colon as detailed. 3
[2023-06-09] MEDS ORDERED: metroNIDAZOLE 500 MG TAB PO SCH (22:00)
[2023-06-09] MEDS ORDERED: VANCOMYCIN 125 MG CAPSULE PO SCH (22:00)
[2023-06-09] MEDS: VANCOMYCIN 125 MG CAPSULE PO ONE (23:44)
[2023-06-10 06:27] LABS: Basophils # (A) 0.1 k/uL (0-0.2); Basophils % (A) 0 %; Eosinophils # (A) 0.1 k/uL (0-0.7); Eosinophils % (A) 0 %; HCT 26.6 % (34.0-46.0); HGB 8.7 gm/dL (11.4-16.0); Lymphocytes # (A) 1.8 k/uL (1.0-4.8); Lymphocytes % (A) 7 %; MCH 31.4 pg (25.0-35.0); MCHC 32.8 g/dL (31.0-37.0); MCV 95.7 fL (80.0-100.0); Mean Platelet Volume 7.9; Monocytes # (A) 1.7 k/uL (0-1.0); Monocytes % (A) 7 %; Neutrophils # (A) 19.9 k/uL (1.3-7.7); Neutrophils % (A) 84 %; Platelet Count 710 k/uL (150-450); RBC 2.79 m/uL (3.80-5.40); RDW 13.8 % (11.5-15.5); WBC 23.8 k/uL (3.8-10.6)
[2023-06-10 06:37] LABS: African American GFR (CKD) >90 (>60 ml/min/1.73 sqM); Anion Gap 6 mmol/L; Blood Urea Nitrogen 8 mg/dL (7-17); Calcium 8.5 mg/dL (8.4-10.2); Carbon Dioxide 26 mmol/L (22-30); Chloride 94 mmol/L (98-107); Glucose 104 mg/dL (74-99); Non-African American GFR(CKD) >90 (>60 ml/min/1.73 sqM); Potassium 3.2 mmol/L (3.5-5.1); Sodium 126 mmol/L (137-145)
[2023-06-10] MEDS ORDERED: Potassium Replacement Protocol 1 EACH MISC MISCELLANE PRN (09:28)
--- NOTE | 2023-06-10 09:47 | P.PN ---
Progress Note - Text Progress Note Date: 06/10/23 Diagnosis: Left lower extremity cellulitis Left knee periprosthetic infection History of previous left total knee arthroplasty Subjective: Patient seen at bedside this morning with knee immobilizer present to left lower extremity. Wound VAC is present of left anterior knee. Patient says her knee seems be doing a lot better. Patient denies any other issues at this time interested her left knee. Medicine and other specialties continue to follow and workup for GI Objective: Knee immobilizer present to left lower extremity. Wound VAC is present over the left anterior knee. Maintain wound VAC at this time. Sensation is equal, symmetric, bilaterally intact throughout the upper and lower extremity. Patient does have good range of motion throughout bilateral upper extremities and right lower extremity exam. Patient is able to wiggle digits and foot and left lower extremity. Patient does have full range of motion throughout dorsi and plantarflexion of left ankle. 5/5 in all major motor groups in bilateral upper extremities and right lower extremity on exam. Negative Homans bilaterally. Radial pulses intact bilaterally. Cap refill under 3 seconds in digits of upper extremities. Assessment: Left lower extremity cellulitis Left knee periprosthetic infection History of previous left total knee arthroplasty Postoperative day #8 status post stage I revision left knee, incision and drainage with irrigation and debridement, antibiotic bead placement Plan: Maintain wound VAC at this time. Continue medication for pain and DVT prophylaxis. Toe-touch weightbearing with knee immobilizer onto left lower extremity at all times. Patient is stable from an orthopedic standpoint for discharge from hospital. Follow up in office in 1 week. Orthopedics will continue to be available as needed.
[2023-06-10] MEDS: POTASSIUM CHLORIDE ER 20 MEQ TAB.ER PO SCH (09:52)
--- NOTE | 2023-06-10 12:50 | P.PN ---
Subjective Progress Note Date: 06/10/23 Principal diagnosis: Reason for follow-up is left knee septic arthritis Patient is a 67-year-old female with a past medical history significant for hypertension hyperlipidemia asthma osteoarthritis patient did have a left knee replacement in March 2023, presented to the hospital with worsening pain and swelling and redness to the left knee area concerning for periprosthetic joint infection.Patient is status post stage I revision left total knee arthroplasty with antibiotic bead placement on 06/02/2023. On today's evaluation that is 06/10/2023, the patient is afebrile today, patient is on room air, the patient denies chest pain shortness of breath or cough, pawan leon denies nausea no vomiting still complaining of some abdominal discomfort to have decreased in intensity and mention about 4 loose stools today denies any worsening pain to the left knee area. Patient white count is 23.8, creatinine 0.68 stool for C. difficile was positive CT abdominal pelvis did shows evidence of colitis Objective - Vital Signs Vital signs: Vital Signs Temp 97.6 F 06/10/23 07:17 Pulse 70 06/10/23 07:17 Resp 18 06/10/23 07:17 BP 102/59 06/10/23 07:17 Pulse Ox 97 06/10/23 08:09 FiO2 Intake & Output 06/09/23 06/10/23 06/10/23 18:59 06:59 18:59 Intake Total 525 Output Total 10 Balance 525 -10 Intake: Intake, IV Titration 50 Amount ceFAZolin 2 gm In Sodium 50 Chloride 0.9% 50 ml @ 100 mls/hr IVPB Q8HR [facility] Rx# :[id number] Oral 475 Output: Stool 10 Other: Voiding Method Bedside Commode Diaper # Voids 3 6 # Bowel Movements 3 - Exam GENERAL DESCRIPTION: An elderly female lying in bed in no distress RESPIRATORY SYSTEM: Unlabored breathing , decreased breath sounds at bases HEART: S1 S2 regular rate and rhythm , ABDOMEN: Soft , no tenderness EXTREMITIES: Left knee incision covered with wound VAC - Labs CBC & Chem 7: 06/10/23 05:40 06/10/23 05:40 Labs: Abnormal Lab Results - Last 24 Hours (Table) 06/09/23 06/10/23 06/10/23 Range/Units 16:14 05:40 05:40 WBC 23.8 H (3.8-10.6) k/uL RBC 2.79 L (3.80-5.40) m/uL Hgb 8.7 L (11.4-16.0) gm/dL Hct 26.6 L (34.0-46.0) % Plt Count 710 H (150-450) k/uL Neutrophils # 19.9 H (1.3-7.7) k/uL Monocytes # 1.7 H (0-1.0) k/uL Sodium 126 L (137-145) mmol/L Potassium 3.2 L (3.5-5.1) mmol/L Chloride 94 L (98-107) mmol/L Glucose 104 H (74-99) mg/dL C. difficile (EIA) Intrp Positive A (Negative) Assessment and Plan (1) Septic arthritis of knee, left Current Visit: Yes Status: Acute Code(s): M00.9 - PYOGENIC ARTHRITIS, U NSPECIFIED SNOMED Code(s): 714818102 (2) Leukocytosis Current Visit: Yes Status: Acute Code(s): D72.829 - ELEVATED WHITE BLOOD CELL COUNT, UNSPECIFIED SNOMED Code(s): 073270398 Plan: 1patient presented to hospital with left knee pain swelling and redness in this patient who recently did have left knee replacement in March 2023 now with evidence of left knee cellulitis and concern for possible periprosthetic joint infection likely from a gram-positive skin corrie gram-negative infection less likely but not entirely excluded. 2patient is s/p stage I procedure with arthroplasty antibiotic bead placement along with deep cultures which are currently growing Streptococcus agalactiae, antibiotic will be switched over to Rocephin 2 g daily 3patient did have complication of C. difficile colitis oral vancomycin was added last night white count is still elevated and the patient did have significant diarrhea recommend keeping the patient in the hospital did have some improvement in her diarrhea and the white count improves Dictation was produced using [employer] dictation software. please excuse any grammatical, word or spelling errors. Time with Patient: Less than 30
--- NOTE | 2023-06-10 15:08 | P.PN ---
Progress Note - Text Progress Note Date: 06/10/23 - Chief Complaint Left knee redness - History of Present Illness Pleasant 67 year patient follows with Dr. Saini. March 14, 2023 left total knee arthroplasty by Dr. Jones.. About a week ago patient was pushing around a washing machine. She thinks she may have overextended her left knee. Subsequently patient started having increasing pain and swelling in the same. Started to use ice packs. Started to get worse. 5 days ago she went to see Dr. Kelly on a Tuesday in his office. He asked her to return today. It was looking worse. He scented out of the ER concern for infection. For admission. Was started on IV vancomycin. Patient did complain of chills at home. Blood cultures were drawn in the ER. Patient does not remember direct injury to the left knee. June 01: Pain swelling redness around the left knee persist. On IV vancomycin. And cefepime. Planning for I&D per Ortho tomorrow. Tolerating diet. June 02: Saw the patient this morning. Pending I&D. On IV cefepime and vancomycin. June 03: Patient underwent I&D of the left prosthetic joint. Purulence was obtained. Surgical intervention was further carried out. Antibiotic beads were placed in the joint. Patient has a brace on the left leg. Only toe weightbearing. Spoke to patient daughter at the bedside. Looking into rehab. June 04: Some pain in the affected knee. Tolerating diet. No fever. On IV cefepime IV vancomycin. Cultures pending. June 05: Knee pain better. Some anxiety. Patient counseled at length. Continue IV antibiotics. Cultures coming back negative for now. Eating about 50% June 06: Less anxious. Tolerating diet. Antibiotic changed to IV Ancef. Wound culture growing Streptococcus agalactiae group B. Wound VAC. June 07: On IV Ancef. PICC line placed today. Pending discharge to rehab. Tolerating diet. UA unremarkable. White count is started to come down. June 08: Remains on IV Ancef. Does not like hospital food. Pending discharge to rehab. Questions answered. June 09: Patient white count has been climbing. Patient started having diarrhea yesterday. Some abdominal discomfort. Patient stool came back positive for C. difficile. Started on oral vancomycin and Flagyl. Metamucil was added to bulk up the stool. June 10: Patient diagnosed with C. difficile colitis yesterday. CT scan did show findings consistent with colitis. On vancomycin and Flagyl. Full liquid diet. Decreased abdominal pain. Decreased diarrhea. Active Medications Acetaminophen (Acetaminophen Tab 500 Mg Tab) 500 mg PO Q6HR PRN PRN Reason: Fever and/ or Pain Last Admin: 06/06/23 20:25 Dose: 500 mg Hydrocodone Bitart/Acetaminophen (Hydrocodone/Apap 5-325mg 1 Each Tab) 1 each PO Q6HR PRN PRN Reason: Pain Scale 1 to 5 Hydrocodone Bitart/Acetaminophen (Hydrocodone/Apap 7.5-325mg 1 Each Tab) 1 each PO Q6H PRN PRN Reason: Pain Scale 6 to 10 Last Admin: 06/10/23 04:58 Dose: 1 each Atorvastatin Calcium (Atorvastatin 10 Mg Tab) 10 mg PO HS [facility] Last Admin: 06/09/23 20:05 Dose: 10 mg Bisoprolol Fumarate (Bisoprolol-Hctz 10-6.25 Mg 1 Each Tab) 1 each PO BID [facility] Last Admin: 06/10/23 08:50 Dose: 1 each Cyclobenzaprine HCl (Cyclobenzaprine 5 Mg Tab) 5 mg PO BID [facility] Last Admin: 06/10/23 08:50 Dose: 5 mg Enoxaparin Sodium (Enoxaparin 30 Mg/0.3 Ml Syringe) 30 mg SQ Q12H [facility] Last Admin: 06/10/23 04:59 Dose: 30 mg Hydromorphone HCl (Hydromorphone 0.5 Mg/0.5 Ml Syringe) 0.25 mg IVP Q3HR PRN PRN Reason: Pain Scale 4 to 6 Last Admin: 06/10/23 08:52 Dose: 0.25 mg Hydromorphone HCl (Hydromorphone 0.5 Mg/0.5 Ml Syringe) 0.5 mg IVP Q3HR PRN PRN Reason: Pain Scale 7 to 10 Last Admin: 06/07/23 09:48 Dose: 0.5 mg Hydromorphone HCl (Hydromorphone 0.5 Mg/0.5 Ml Syringe) 0.125 mg IVP Q3HR PRN PRN Reason: Pain Scale 1 to 3 Ceftriaxone Sodium 2 gm/ (Sodium Chloride) 50 mls @ 100 mls/hr IVPB Q24HR [facility]; Protocol Metronidazole (Metronidazole 500 Mg Tab) 500 mg PO QID [facility]; Protocol Last Admin: 06/10/23 13:22 Dose: 500 mg Miscellaneous Information (Potassium Replacement Protocol 1 Each Misc) 1 each MISCELLANE DAILY PRN; Protocol PRN Reason: Per Protocol Multivitamins (Multivitamins, Thera 1 Each Tab) 1 each PO DAILY@1200 ROSS Last Admin: 06/10/23 13:23 Dose: 1 each Naloxone HCl (Naloxone 0.4 Mg/Ml 1 Ml Vial) 0.2 mg IV Q2M PRN PRN Reason: Opioid Reversal Nicotine (Nicotine 14mg/24hr Patch) 1 patch TRANSDERM DAILY [facility] Last Admin: 06/10/23 09:09 Dose: Not Given Nystatin (Nystatin 100,000 Unit/Ml Susp 500,000 Unit/5 Ml Cup) 500,000 unit PO QID [facility]; Protocol Last Admin: 06/10/23 13:23 Dose: 500,000 unit Ondansetron HCl (Ondansetron 4 Mg/2 Ml Vial) 4 mg IVP Q8HR PRN PRN Reason: Nausea And Vomiting Last Admin: 06/10/23 12:45 Dose: 4 mg Senna/Docusate Sodium (Sennosides-Docusate Sodium 1 Each Tab) 2 each PO HS [facility] Last Admin: 06/09/23 20:05 Dose: Not Given Vancomycin HCl (Vancomycin 125 Mg Capsule) 250 mg PO QID [facility]; Protocol Last Admin: 06/10/23 13:22 Dose: 250 mg Past medical history to include: COPD, hypertension, hyperlipidemia, osteoarthritis, IBS, Coumadin 2020 treated with monoclonal antibody infusion, back surgery Social history: Smoking half a pack a day since age of 17. No alcohol. . Physical examination: VITAL SIGNS: 97.6, 70, 18, 102 x 59, 100% room air GENERAL: Reclining in bed, tired EYES: Pupils equal. Conjunctiva normal. HEENT: External appearance of nose and ears normal, oral cavity grossly normal. NECK: JVD not raised; masses not palpable. HEART: First and second heart sounds are normal; no edema. LUNGS: Respiratory rate normal; decreased breath sounds. ABDOMEN: Soft, mild tenderness, some distention liver spleen not palpable, no masses palpable. PSYCH: Alert and oriented x3; mood and affect with anxious MUSCULOSKELETAL:No Clubbing/cyanosis;muscles-grossly intact . Left leg in a immobilizer. Wound VAC. INVESTIGATIONS, reviewed in the clinical context: CT scan abdomen: Sigmoid colon showing circumferential mural thickening with edema at ends reticulation. Cecum was dilated to 10 cm. And also involves ascending colon. June 10: White count 23.8 hemoglobin 8.7 sodium 126 potassium 3.2 creatinine 0.68 June 09: White count 24.5 hemoglobin 8.6 potassium 3.2 creatinine 0.7 C. difficile [June 09]: Positive June 08: White count 20.7 hemoglobin 8.6 potassium 3.8 creatinine 0.7 CRP 14.2 June 07: White count 16.2 hemoglobin 9.4 platelets 709 June 06: White count 20.1 hemoglobin 8.6 potassium 3.8 creatinine 0.71 CRP 10.6 Wound culture [June 02] Streptococcus agalactiae group B June 05: White count 19.8 hemoglobin 9.8 potassium 4 creatinine 0.63 procalcitonin 0.25 June 03: White count 12.2 hemoglobin 9.7 June 02: ESR 79 CRP 8.7 June 01: Procalcitonin 0.12 May 31, 2023: White count 14.3 hemoglobin 12.4 platelets 730 left shift sodium 133 potassium 3.6 creatinine 0.64 CRP 15.2 Venous Doppler left leg: Negative for DVT Assessment plan: -Acute infected left total knee arthroplasty that was done on March 14, 2023:: Joint fluid was obtained from the joint during I&D by Dr. Kelly on June 02. Followed by antibiotic beads placed.. Wound culture growing Streptococcus agalactiae group B Left leg in a brace. Toe-touch weightbearing. IV Ancef-3 times daily for 120 doses -Acute C. difficile colitis: Slow to respond Oral vancomycin to 50 mg 4 times daily. Oral Flagyl. full liquid diet -Left total knee arthroplasty on March 14, 2023 -Primary osteoarthritis Pain control as needed -Hyperlipidemia Lipitor 10 mg per day -Essential hypertension Ziac 10/6.25 one tablet twice a day -Muscle spasms Flexeril 5 mg twice a day -Morbid obesity BMI 45.3 Weight loss measures -COPD n in a current smoker: r Advair 250/50 one puff twice a day. Albuterol when necessary -Chronic nicotine dependence, cigarette smoker Nicotine patch -DNR -Disposition: Being evaluated for subacute rehab Continue with current medication treatment plan. Discussed with patient. Not ready for discharge. Thank you Dr. Jones Past Medical History Past Medical History: Asthma, Hyperlipidemia, Hypertension, Osteoarthritis (OA) Additional Past Medical History / Comment(s): IBS History of Any Multi-Drug Resistant Organisms: None Reported Past Surgical History: Back Surgery, Section, Cholecystectomy, Hysterectomy, Orthopedic Surgery Additional Past Surgical History / Comment(s): Cervical fusion, bilateral knee arthroscopy, right ankle surgery, lower back fusion, section X2., left total knee 03/14/23 Past Anesthesia/Blood Transfusion Reactions: No Reported Reaction Additional Past Anesthesia/Blood Transfusion Reaction / Comm: Has never had blood transfusion. Past Psychological History: No Psychological Hx Reported Smoking Status: Current every day smoker Past Alcohol Use History: None Reported Additional Past Alcohol Use History / Comment(s): anastacio 1/2 PPD, has smoked for 40-42 yrs Past Drug Use History: None Reported
--- NOTE | 2023-06-11 07:57 | P.PN ---
Progress Note - Text Progress Note Date: 06/11/23 Diagnosis: Left lower extremity cellulitis Left knee periprosthetic infection History of previous left total knee arthroplasty Subjective: Patient seen at bedside this morning with knee immobilizer present to left lower extremity. Wound VAC is present of left anterior knee. Patient says her knee seems be doing a lot better. Patient denies any other issues at this time interested her left knee. Medicine and other specialties continue to follow and workup for GI Objective: Knee immobilizer present to left lower extremity. Wound VAC is present over the left anterior knee. Maintain wound VAC at this time. Sensation is equal, symmetric, bilaterally intact throughout the upper and lower extremity. Patient does have good range of motion throughout bilateral upper extremities and right lower extremity exam. Patient is able to wiggle digits and foot and left lower extremity. Patient does have full range of motion throughout dorsi and plantarflexion of left ankle. 5/5 in all major motor groups in bilateral upper extremities and right lower extremity on exam. Negative Homans bilaterally. Radial pulses intact bilaterally. Cap refill under 3 seconds in digits of upper extremities. Assessment: Left lower extremity cellulitis Left knee periprosthetic infection History of previous left total knee arthroplasty Postoperative day #9 status post stage I revision left knee, incision and drainage with irrigation and debridement, antibiotic bead placement Plan: Maintain wound VAC at this time. Continue medication for pain and DVT prophylaxis. Toe-touch weightbearing with knee immobilizer onto left lower extremity at all times. Patient is stable from an orthopedic standpoint for discharge from hospital. Follow up in office in 1 week. Orthopedics will be available as needed.
[2023-06-11 08:02] LABS: HCT 26.2 % (34.0-46.0); HGB 8.6 gm/dL (11.4-16.0); MCH 31.2 pg (25.0-35.0); MCHC 32.8 g/dL (31.0-37.0); MCV 95.3 fL (80.0-100.0); Mean Platelet Volume 7.7; Platelet Count 692 k/uL (150-450); RBC 2.75 m/uL (3.80-5.40)
[2023-06-11 08:12] LABS: African American GFR (CKD) >90 (>60 ml/min/1.73 sqM); Anion Gap 4 mmol/L; Blood Urea Nitrogen 9 mg/dL (7-17); Calcium 8.6 mg/dL (8.4-10.2); Carbon Dioxide 28 mmol/L (22-30); Chloride 97 mmol/L (98-107); Glucose 92 mg/dL (74-99); Non-African American GFR(CKD) 89 (>60 ml/min/1.73 sqM); Potassium 3.3 mmol/L (3.5-5.1); Sodium 129 mmol/L (137-145)
[2023-06-11] MEDS ORDERED: ZINC OXIDE PASTE (Z-GUARD) 1 APPLIC TOPICAL PRN (09:12)
[2023-06-11 09:33] LABS: Band Neutrophils % 1 %; Eosinophils # (M) 0.69 k/uL (0-0.7); Lymphocytes # (M) 2.07 k/uL (1.0-4.8); Monocytes # (M) 2.76 k/uL (0-1.0); Neutrophils % (M) 75 %; Nucleated Red Blood Cells 0 /100 WBC (0-0); Total Cells Counted 100
[2023-06-11 09:36] LABS: RBC Morphology Normal
--- NOTE | 2023-06-11 12:48 | P.PN ---
Subjective Progress Note Date: 06/11/23 Principal diagnosis: Reason for follow-up is left knee septic arthritis Patient is a 67-year-old female with a past medical history significant for hypertension hyperlipidemia asthma osteoarthritis patient did have a left knee replacement in March 2023, presented to the hospital with worsening pain and swelling and redness to the left knee area concerning for periprosthetic joint infection.Patient is status post stage I revision left total knee arthroplasty with antibiotic bead placement on 06/02/2023. On today's evaluation that is 06/11/2023, the patient denies any fever or any chills, patient is breathing comfortably on room air, the patient denies chest pain shortness of breath and no significant cough cough, patient abdominal pain has decreased in intensity mention did have 2 small bowel movements today not as watery. Patient white count still up 23,000 creatinine 0.71 Objective - Vital Signs Vital signs: Vital Signs Temp 98.4 F 06/11/23 07:52 Pulse 84 06/11/23 07:52 Resp 20 06/11/23 07:52 BP 107/65 06/11/23 07:52 Pulse Ox 94 L 06/11/23 07:52 FiO2 Intake & Output 06/10/23 06/11/23 06/11/23 18:59 06:59 18:59 Intake Total 1800 Balance 1800 Intake: Oral 1800 Other: Voiding Method Diaper # Voids 2 3 # Bowel Movements 7 4 - Exam GENERAL DESCRIPTION: An elderly female lying in bed in no distress RESPIRATORY SYSTEM: Unlabored breathing , decreased breath sounds at bases HEART: S1 S2 regular rate and rhythm , ABDOMEN: Soft , did have mild abdominal distention and tenderness EXTREMITIES: Left knee incision covered with wound VAC - Labs CBC & Chem 7: 06/11/23 07:10 06/11/23 07:10 Labs: Abnormal Lab Results - Last 24 Hours (Table) 06/11/23 06/11/23 Range/Units 07:10 07:10 WBC 23.0 H (3.8-10.6) k/uL RBC 2.75 L (3.80-5.40) m/uL Hgb 8.6 L (11.4-16.0) gm/dL Hct 26.2 L (34.0-46.0) % Plt Count 692 H (150-450) k/uL Neutrophils # (Manual) 17.40 H (1.3-7.7) k/uL Monocytes # (Manual) 2.76 H (0-1.0) k/uL Sodium 129 L (137-145) mmol/L Potassium 3.3 L (3.5-5.1) mmol/L Chloride 97 L (98-107) mmol/L Assessment and Plan (1) Septic arthritis of knee, left Current Visit: Yes Status: Acute Code(s): M00.9 - PYOGENIC ARTHRITIS, UNSPECIFIED SNOMED Code(s): 761310021 (2) Leukocytosis Current Visit: Yes Status: Acute Code(s): D72.829 - ELEVATED WHITE BLOOD CELL COUNT, UNSPECIFIED SNOMED Code(s): 096336888 Plan: 1patient presented to hospital with left knee pain swelling and redness in this patient who recently did have left knee replacement in March 2023 now with evidence of left knee cellulitis and concern for possible periprosthetic joint infection likely from a gram-positive skin corrie gram-negative infection less likely but not entirely excluded. 2patient is s/p stage I procedure with arthroplasty antibiotic bead placement a long with deep cultures which are currently growing Streptococcus agalactiae, antibiotic will be switched over to Rocephin 2 g daily 3patient did have complication of C. difficile colitis white count remains to be elevated and did have some abdominal distention concerning for ileus we will add IV Flagyl and continue with oral vancomycin Dictation was produced using [employer] dictation software. please excuse any grammatical, word or spelling errors. Time with Patient: Greater than 30
[2023-06-11] MEDS ORDERED: metroNIDAZOLE-NS PMX 500 MG in SALINE 1 100ML.BAG IVPB SCH (14:00)
--- NOTE | 2023-06-11 18:57 | P.PN ---
Progress Note - Text Progress Note Date: 06/11/23 - Chief Complaint Left knee redness - History of Present Illness Pleasant 67 year patient follows with Dr. Saini. March 14, 2023 left total knee arthroplasty by Dr. Jones.. About a week ago patient was pushing around a washing machine. She thinks she may have overextended her left knee. Subsequently patient started having increasing pain and swelling in the same. Started to use ice packs. Started to get worse. 5 days ago she went to see Dr. Kelly on a Tuesday in his office. He asked her to return today. It was looking worse. He scented out of the ER concern for infection. For admission. Was started on IV vancomycin. Patient did complain of chills at home. Blood cultures were drawn in the ER. Patient does not remember direct injury to the left knee. June 01: Pain swelling redness around the left knee persist. On IV vancomycin. And cefepime. Planning for I&D per Ortho tomorrow. Tolerating diet. June 02: Saw the patient this morning. Pending I&D. On IV cefepime and vancomycin. June 03: Patient underwent I&D of the left prosthetic joint. Purulence was obtained. Surgical intervention was further carried out. Antibiotic beads were placed in the joint. Patient has a brace on the left leg. Only toe weightbearing. Spoke to patient daughter at the bedside. Looking into rehab. June 04: Some pain in the affected knee. Tolerating diet. No fever. On IV cefepime IV vancomycin. Cultures pending. June 05: Knee pain better. Some anxiety. Patient counseled at length. Continue IV antibiotics. Cultures coming back negative for now. Eating about 50% June 06: Less anxious. Tolerating diet. Antibiotic changed to IV Ancef. Wound culture growing Streptococcus agalactiae group B. Wound VAC. June 07: On IV Ancef. PICC line placed today. Pending discharge to rehab. Tolerating diet. UA unremarkable. White count is started to come down. June 08: Remains on IV Ancef. Does not like hospital food. Pending discharge to rehab. Questions answered. June 09: Patient white count has been climbing. Patient started having diarrhea yesterday. Some abdominal discomfort. Patient stool came back positive for C. difficile. Started on oral vancomycin and Flagyl. Metamucil was added to bulk up the stool. June 10: Patient diagnosed with C. difficile colitis yesterday. CT scan did show findings consistent with colitis. On vancomycin and Flagyl. Full liquid diet. Decreased abdominal pain. Decreased diarrhea. June 11: Patient diarrhea is better. Down to about 3 times the last 24 hours. Abdominal discomfort is better. On oral vancomycin and Flagyl. Follow full liquid diet. White count remains at 23. But clinically patient feels better. Active Medications Acetaminophen (Acetaminophen Tab 500 Mg Tab) 500 mg PO Q6HR PRN PRN Reason: Fever and/ or Pain Last Admin: 06/11/23 02:37 Dose: 500 mg Hydrocodone Bitart/Acetaminophen (Hydrocodone/Apap 5-325mg 1 Each Tab) 1 each PO Q6HR PRN PRN Reason: Pain Scale 1 to 5 Hydrocodone Bitart/Acetaminophen (Hydrocodone/Apap 7.5-325mg 1 Each Tab) 1 each PO Q6H PRN PRN Reason: Pain Scale 6 to 10 Last Admin: 06/11/23 18:19 Dose: 1 each Atorvastatin Calcium (Atorvastatin 10 Mg Tab) 10 mg PO HS [facility] Last Admin: 06/10/23 21:22 Dose: 10 mg Bisoprolol Fumarate (Bisoprolol-Hctz 10-6.25 Mg 1 Each Tab) 1 each PO BID [facility] Last Admin: 06/11/23 09:15 Dose: 1 each Cyclobenzaprine HCl (Cyclobenzaprine 5 Mg Tab) 5 mg PO BID [facility] Last Admin: 06/11/23 09:15 Dose: 5 mg Enoxaparin Sodium (Enoxaparin 30 Mg/0.3 Ml Syringe) 30 mg SQ Q12H [facility] Last Admin: 06/11/23 18:20 Dose: 30 mg Hydromorphone HCl (Hydromorphone 0.5 Mg/0.5 Ml Syringe) 0.25 mg IVP Q3HR PRN PRN Reason: Pain Scale 4 to 6 Last Admin: 06/10/23 08:52 Dose: 0.25 mg Hydromorphone HCl (Hydromorphone 0.5 Mg/0.5 Ml Syringe) 0.5 mg IVP Q3HR PRN PRN Reason: Pain Scale 7 to 10 Last Admin: 06/07/23 09:48 Dose: 0.5 mg Hydromorphone HCl (Hydromorphone 0.5 Mg/0.5 Ml Syringe) 0.125 mg IVP Q3HR PRN PRN Reason: Pain Scale 1 to 3 Ceftriaxone Sodium 2 gm/ (Sodium Chloride) 50 mls @ 100 mls/hr IVPB Q24HR [facility]; Protocol Last Admin: 06/11/23 09:16 Dose: 100 mls/hr Metronidazole 500 mg/ IV (Solution) 100 mls @ 100 mls/hr IVPB Q8HR [facility]; Protocol Miscellaneous Information (Potassium Replacement Protocol 1 Each Misc) 1 each MISCELLANE DAILY PRN; Protocol PRN Reason: Per Protocol Multivitamins (Multivitamins, Thera 1 Each Tab) 1 each PO DAILY@1200 ROSS Last Admin: 06/11/23 09:15 Dose: 1 each Naloxone HCl (Naloxone 0.4 Mg/Ml 1 Ml Vial) 0.2 mg IV Q2M PRN PRN Reason: Opioid Reversal Nicotine (Nicotine 14mg/24hr Patch) 1 patch TRANSDERM DAILY [facility] Last Admin: 06/11/23 09:16 Dose: Not Given Nystatin (Nystatin 100,000 Unit/Ml Susp 500,000 Unit/5 Ml Cup) 500,000 unit PO QID [facility]; Protocol Last Admin: 06/11/23 18:20 Dose: 500,000 unit Ondansetron HCl (Ondansetron 4 Mg/2 Ml Vial) 4 mg IVP Q8HR PRN PRN Reason: Nausea And Vomiting Last Admin: 06/10/23 12:45 Dose: 4 mg Petrolatum (Zinc Oxide Paste (Z-Guard) 1 Applic) 1 applic TOPICAL DAILY PRN; Protocol PRN Reason: Wound Healing Senna/Docusate Sodium (Sennosides-Docusate Sodium 1 Each Tab) 2 each PO HS [facility] Last Admin: 06/10/23 21:23 Dose: Not Given Vancomycin HCl (Vancomycin 125 Mg Capsule) 250 mg PO QID [facility]; Protocol Last Admin: 06/11/23 18:20 Dose: 250 mg Past medical history to include: COPD, hypertension, hyperlipidemia, osteoarthritis, IBS, Coumadin 2020 treated with monoclonal antibody infusion, back surgery Social history: Smoking half a pack a day since age of 17. No alcohol. . Physical examination: VITAL SIGNS: 97.6, 82, 19, 1 one 4 x 72, 96% room air GENERAL: Reclining in bed, EYES: Pupils equal. Conjunctiva normal. HEENT: External appearance of nose and ears normal, oral cavity grossly normal. NECK: JVD not raised; masses not palpable. HEART: First and second heart sounds are normal; no edema. LUNGS: Respiratory rate normal; decreased breath sounds. ABDOMEN: Soft, decreased tenderness, decreased distention liver spleen not palpable, no masses palpable. PSYCH: Alert and oriented x3; mood and affect with anxious MUSCULOSKELETAL:No Clubbing/cyanosis;muscles-grossly intact . Left leg in a immobilizer. Wound VAC. INVESTIGATIONS, reviewed in the clinical context: June 11: White count 23 hemoglobin 8.6 potassium 3.3 sodium [address] scan abdomen: Sigmoid colon showing circumferential mural thickening with edema at ends reticulation. Cecum was dilated to 10 cm. And also involves ascending colon. June 10: White count 23.8 hemoglobin 8.7 sodium 126 potassium 3.2 creatinine 0.68 June 09: White count 24.5 hemoglobin 8.6 potassium 3.2 creatinine 0.7 C. difficile [June 09]: Positive June 08: White count 20.7 hemoglobin 8.6 potassium 3.8 creatinine 0.7 CRP 14.2 June 07: White count 16.2 hemoglobin 9.4 platelets 709 June 06: White count 20.1 hemoglobin 8.6 potassium 3.8 creatinine 0.71 CRP 10.6 Wound culture [June 02] Streptococcus agalactiae group B June 05: White count 19.8 hemoglobin 9.8 potassium 4 creatinine 0.63 procalcitonin 0.25 June 03: White count 12.2 hemoglobin 9.7 June 02: ESR 79 CRP 8.7 June 01: Procalcitonin 0.12 May 31, 2023: White count 14.3 hemoglobin 12.4 platelets 730 left shift sodium 133 potassium 3.6 creatinine 0.64 CRP 15.2 Venous Doppler left leg: Negative for DVT Assessment plan: -Acute infected left total knee arthroplasty that was done on March 14, 2023:: Joint fluid was obtained from the joint during I&D by Dr. Kelly on June 02. Followed by antibiotic beads placed.. Wound culture growing Streptococcus agalactiae group B Left leg in a brace. Toe-touch weightbearing. IV Ancef-3 times daily for 120 doses -Acute C. difficile colitis: Slow improvement Oral vancomycin 250 mg 4 times daily. Oral Flagyl. full liquid diet -Left total knee arthroplasty on March 14, 2023 -Primary osteoarthritis Pain control as needed -Hyperlipidemia Lipitor 10 mg per day -Essential hypertension Ziac 10/6.25 one tablet twice a day -Muscle spasms Flexeril 5 mg twice a day -Morbid obesity BMI 45.3 Weight loss measures -COPD n in a current smoker: r Advair 250/50 one puff twice a day. Albuterol when necessary -Chronic nicotine dependence, cigarette smoker Nicotine patch -DNR -Disposition: Pending subacute rehab Continue vancomycin Flagyl full liquid diet. Discussed with patient. Past Medical History Past Medical History: Asthma, Hyperlipidemia, Hypertension, Osteoarthritis (OA) Additional Past Medical History / Comment(s): IBS History of Any Multi-Drug Resistant Organisms: None Reported Past Surgical History: Back Surgery, Section, Cholecystectomy, Hysterectomy, Orthopedic Surgery Additional Past Surgical History / Comment(s): Cervical fusion, bilateral knee a rthroscopy, right ankle surgery, lower back fusion, section X2., left total knee 03/14/23 Past Anesthesia/Blood Transfusion Reactions: No Reported Reaction Additional Past Anesthesia/Blood Transfusion Reaction / Comm: Has never had blood transfusion. Past Psychological History: No Psychological Hx Reported Smoking Status: Current every day smoker Past Alcohol Use History: None Reported Additional Past Alcohol Use History / Comment(s): anastacio 1/2 PPD, has smoked for 40-42 yrs Past Drug Use History: None Reported
[2023-06-12] MEDS: metroNIDAZOLE-NS PMX 500 MG in SALINE 1 100ML.BAG IVPB SCH (00:27)
--- NOTE | 2023-06-12 12:45 | P.PN ---
Subjective Progress Note Date: 06/12/23 Principal diagnosis: Reason for follow-up is left knee septic arthritis Patient is a 67-year-old female with a past medical history significant for hypertension hyperlipidemia asthma osteoarthritis patient did have a left knee replacement in March 2023, presented to the hospital with worsening pain and swelling and redness to the left knee area concerning for periprosthetic joint infection.Patient is status post stage I revision left total knee arthroplasty with antibiotic bead placement on 06/02/2023. On today's evaluation that is 06/12/2023,the patient remains to be afebrile, patient is on room air not requiring supplemental oxygen and denies any shortness of breath no chest pain or cough.Patient denies having any nausea or vomiting, abdominal pain has decreased intensity diarrhea has slowed down he did have a 2 bowel movement slightly following up. No lab draw today Objective - Vital Signs Vital signs: Vital Signs Temp 97.6 F 06/12/23 07:36 Pulse 81 06/12/23 07:36 Resp 19 06/12/23 07:36 BP 119/72 06/12/23 07:36 Pulse Ox 96 06/12/23 07:36 FiO2 Intake & Output 06/11/23 06/12/23 06/12/23 18:59 06:59 18:59 Output Total 1 Balance -1 Output: Urine 1 Other: Voiding Method Diaper Bedside Commode Bedside Commode Diaper Diaper # Voids 6 6 # Bowel Movements 4 6 - Exam Elderly female up on the commode Unlabored breathing Left knee is currently covered with Prevana - Labs CBC & Chem 7: 06/11/23 07:10 06/11/23 07:10 Labs: Abnormal Lab Results - Last 24 Hours (Table) 06/11/23 Range/Units 07:10 Procalcitonin 0.54 H (0.02-0.09) ng/mL Assessment and Plan (1) Septic arthritis of knee, left Current Visit: Yes Status: Acute Code(s): M00.9 - PYOGENIC ARTHRITIS, UNSPECIFIED SNOMED Code(s): 155515269 (2) Leukocytosis Current Visit: Yes Status: Acute Code(s): D72.829 - ELEVATED WHITE BLOOD CELL COUNT, UNSPECIFIED SNOMED Code(s): 363253406 Plan: 1patient presented to hospital with left knee pain swelling and redness in this patient who recently did have left knee replacement in March 2023 now with evidence of left knee cellulitis and concern for possible periprosthetic joint infection likely from a gram-positive skin corrie gram-negative infection less likely but not entirely excluded. 2patient is s/p stage I procedure with arthroplasty antibiotic bead placement along with deep cultures which are currently growing Streptococcus agalactiae, antibiotic will be switched over to Rocephin 2 g daily 3patient did have complication of C. difficile colitis white count remains to be elevated and did have some abdominal distention concerning for ileus, patient mentions some improvement in her symptomatology today diarrhea slowed down, we will add IV Flagyl and continue with oral vancomycin and repeat a CBC with a.m. lab Dictation was produced using [employer] dictation software. please excuse any grammatical, word or spelling errors. Time with Patient: Less than 30
--- NOTE | 2023-06-12 16:49 | P.PN ---
Progress Note - Text Progress Note Date: 06/12/23 - Chief Complaint Left knee redness - History of Present Illness Pleasant 67 year patient follows with Dr. Saini. March 14, 2023 left total knee arthroplasty by Dr. Jones.. About a week ago patient was pushing around a washing machine. She thinks she may have overextended her left knee. Subsequently patient started having increasing pain and swelling in the same. Started to use ice packs. Started to get worse. 5 days ago she went to see Dr. Kelly on a Tuesday in his office. He asked her to return today. It was looking worse. He scented out of the ER concern for infection. For admission. Was started on IV vancomycin. Patient did complain of chills at home. Blood cultures were drawn in the ER. Patient does not remember direct injury to the left knee. June 01: Pain swelling redness around the left knee persist. On IV vancomycin. And cefepime. Planning for I&D per Ortho tomorrow. Tolerating diet. June 02: Saw the patient this morning. Pending I&D. On IV cefepime and vancomycin. June 03: Patient underwent I&D of the left prosthetic joint. Purulence was obtained. Surgical intervention was further carried out. Antibiotic beads were placed in the joint. Patient has a brace on the left leg. Only toe weightbearing. Spoke to patient daughter at the bedside. Looking into rehab. June 04: Some pain in the affected knee. Tolerating diet. No fever. On IV cefepime IV vancomycin. Cultures pending. June 05: Knee pain better. Some anxiety. Patient counseled at length. Continue IV antibiotics. Cultures coming back negative for now. Eating about 50% June 06: Less anxious. Tolerating diet. Antibiotic changed to IV Ancef. Wound culture growing Streptococcus agalactiae group B. Wound VAC. June 07: On IV Ancef. PICC line placed today. Pending discharge to rehab. Tolerating diet. UA unremarkable. White count is started to come down. June 08: Remains on IV Ancef. Does not like hospital food. Pending discharge to rehab. Questions answered. June 09: Patient white count has been climbing. Patient started having diarrhea yesterday. Some abdominal discomfort. Patient stool came back positive for C. difficile. Started on oral vancomycin and Flagyl. Metamucil was added to bulk up the stool. June 10: Patient diagnosed with C. difficile colitis yesterday. CT scan did show findings consistent with colitis. On vancomycin and Flagyl. Full liquid diet. Decreased abdominal pain. Decreased diarrhea. June 11: Patient diarrhea is better. Down to about 3 times the last 24 hours. Abdominal discomfort is better. On oral vancomycin and Flagyl. Follow full liquid diet. White count remains at 23. But clinically patient feels better. June 12: Diarrhea about 2-3 times a day. Some abdominal pain is present. Full liquid diet. On oral vancomycin and Flagyl. Active Medications Acetaminophen (Acetaminophen Tab 500 Mg Tab) 500 mg PO Q6HR PRN PRN Reason: Fever and/ or Pain Last Admin: 06/11/23 02:37 Dose: 500 mg Hydrocodone Bitart/Acetaminophen (Hydrocodone/Apap 5-325mg 1 Each Tab) 1 each PO Q6HR PRN PRN Reason: Pain Scale 1 to 5 Hydrocodone Bitart/Acetaminophen (Hydrocodone/Apap 7.5-325mg 1 Each Tab) 1 each PO Q6H PRN PRN Reason: Pain Scale 6 to 10 Last Admin: 06/12/23 09:01 Dose: 1 each Atorvastatin Calcium (Atorvastatin 10 Mg Tab) 10 mg PO HS [facility] Last Admin: 06/11/23 20:06 Dose: 10 mg Bisoprolol Fumarate (Bisoprolol-Hctz 10-6.25 Mg 1 Each Tab) 1 each PO BID [facility] Last Admin: 06/12/23 09:00 Dose: 1 each Cyclobenzaprine HCl (Cyclobenzaprine 5 Mg Tab) 5 mg PO BID [facility] Last Admin: 06/12/23 09:00 Dose: 5 mg Enoxaparin Sodium (Enoxaparin 30 Mg/0.3 Ml Syringe) 30 mg SQ Q12H [facility] Last Admin: 06/12/23 06:12 Dose: 30 mg Hydromorphone HCl (Hydromorphone 0.5 Mg/0.5 Ml Syringe) 0.25 mg IVP Q3HR PRN PRN Reason: Pain Scale 4 to 6 Last Admin: 06/10/23 08:52 Dose: 0.25 mg Hydromorphone HCl (Hydromorphone 0.5 Mg/0.5 Ml Syringe) 0.5 mg IVP Q3HR PRN PRN Reason: Pain Scale 7 to 10 Last Admin: 06/07/23 09:48 Dose: 0.5 mg Hydromorphone HCl (Hydromorphone 0.5 Mg/0.5 Ml Syringe) 0.125 mg IVP Q3HR PRN PRN Reason: Pain Scale 1 to 3 Ceftriaxone Sodium 2 gm/ (Sodium Chloride) 50 mls @ 100 mls/hr IVPB Q24HR [facility]; Protocol Last Admin: 06/12/23 08:59 Dose: 100 mls/hr Metronidazole 500 mg/ IV (Solution) 100 mls @ 100 mls/hr IVPB Q8HR [facility]; Protocol Last Admin: 06/12/23 16:01 Dose: 100 mls/hr Miscellaneous Information (Potassium Replacement Protocol 1 Each Misc) 1 each MISCELLANE DAILY PRN; Protocol PRN Reason: Per Protocol Multivitamins (Multivitamins, Thera 1 Each Tab) 1 each PO DAILY@1200 ROSS Last Admin: 06/12/23 09:01 Dose: 1 each Naloxone HCl (Naloxone 0.4 Mg/Ml 1 Ml Vial) 0.2 mg IV Q2M PRN PRN Reason: Opioid Reversal Nicotine (Nicotine 14mg/24hr Patch) 1 patch TRANSDERM DAILY [facility] Last Admin: 06/12/23 09:02 Dose: Not Given Nystatin (Nystatin 100,000 Unit/Ml Susp 500,000 Unit/5 Ml Cup) 500,000 unit PO QID [facility]; Protocol Last Admin: 06/12/23 15:59 Dose: Not Given Ondansetron HCl (Ondansetron 4 Mg/2 Ml Vial) 4 mg IVP Q8HR PRN PRN Reason: Nausea And Vomiting Last Admin: 06/10/23 12:45 Dose: 4 mg Petrolatum (Zinc Oxide Paste (Z-Guard) 1 Applic) 1 applic TOPICAL DAILY PRN; Protocol PRN Reason: Wound Healing Senna/Docusate Sodium (Sennosides-Docusate Sodium 1 Each Tab) 2 each PO HS [facility] Last Admin: 06/11/23 20:06 Dose: Not Given Vancomycin HCl (Vancomycin 125 Mg Capsule) 250 mg PO QID [facility]; Protocol Last Admin: 06/12/23 15:59 Dose: Not Given Past medical history to include: COPD, hypertension, hyperlipidemia, osteoarthritis, IBS, Coumadin 2020 treated with monoclonal antibody infusion, back surgery Social history: Smoking half a pack a day since age of 17. No alcohol. . Physical examination: VITAL SIGNS: 98.4, 82, 19, 116/73, 97% room air GENERAL: Reclining in bed, EYES: Pupils equal. Conjunctiva normal. HEENT: External appearance of nose and ears normal, oral cavity grossly normal. NECK: JVD not raised; masses not palpable. HEART: First and second heart sounds are normal; no edema. LUNGS: Respiratory rate normal; decreased breath sounds. ABDOMEN: Soft, some tenderness, decreased distention liver spleen not palpable, no masses palpable. PSYCH: Alert and oriented x3; mood and affect with anxious MUSCULOSKELETAL:No Clubbing/cyanosis;muscles-grossly intact . Left leg in a immobilizer. Wound VAC. INVESTIGATIONS, reviewed in the clinical context: June 11: White count 23 hemoglobin 8.6 potassium 3.3 sodium [address] scan abdomen: Sigmoid colon showing circumferential mural thickening with edema at ends reticulation. Cecum was dilated to 10 cm. And also involves ascending colon. June 10: White count 23.8 hemoglobin 8.7 sodium 126 potassium 3.2 creatinine 0.68 June 09: White count 24.5 hemoglobin 8.6 potassium 3.2 creatinine 0.7 C. difficile [June 09]: Positive June 08: White count 20.7 hemoglobin 8.6 potassium 3.8 creatinine 0.7 CRP 14.2 June 07: White count 16.2 hemoglobin 9.4 platelets 709 June 06: White count 20.1 hemoglobin 8.6 potassium 3.8 creatinine 0.71 CRP 10.6 Wound culture [June 02] Streptococcus agalactiae group B June 05: White count 19.8 hemoglobin 9.8 potassium 4 creatinine 0.63 procalcitonin 0.25 June 03: White count 12.2 hemoglobin 9.7 June 02: ESR 79 CRP 8.7 June 01: Procalcitonin 0.12 May 31, 2023: White count 14.3 hemoglobin 12.4 platelets 730 left shift sodium 133 potassium 3.6 creatinine 0.64 CRP 15.2 Venous Doppler left leg: Negative for DVT Assessment plan: -Acute infected left total knee arthroplasty that was done on March 14, 2023:: Joint fluid was obtained from the joint during I&D by Dr. Kelly on June 02. Followed by antibiotic beads placed.. Wound culture growing Streptococcus agalactiae group B Left leg in a brace. Toe-touch weightbearing. IV Ancef-3 times daily for 120 doses -Acute C. difficile colitis: Slow improvement-white count slow to come down Oral vancomycin 250 mg 4 times daily. IV Flagyl. full liquid diet -Left total knee arthroplasty on March 14, 2023 -Primary osteoarthritis Pain control as needed -Hyperlipidemia Lipitor 10 mg per day -Essential hypertension Ziac 10/6.25 one tablet twice a day -Muscle spasms Flexeril 5 mg twice a day -Morbid obesity BMI 45.3 Weight loss measures -COPD n in a current smoker: r Advair 250/50 one puff twice a day. Albuterol when necessary -Chronic nicotine dependence, cigarette smoker Nicotine patch -DNR -Disposition: Pending subacute rehab Oral vancomycin, IV Flagyl. Still has some abdominal tenderness. Continue full liquid diet. Past Medical History Past Medical History: Asthma, Hyperlipidemia, Hypertension, Osteoarthritis (OA) Additional Past Medical History / Comment(s): IBS History of Any Multi-Drug Resistant Organisms: None Reported Past Surgical History: Back Surgery, Section, Cholecystectomy, Hysterectomy, Orthopedic Surgery Additional Past Surgical History / Comment(s): Cervical fusion, bilateral knee arthroscopy, right ankle surgery, lower back fusion, section X2., left total knee 03/14/23 Past Anesthesia/Blood Transfusion Reactions: No Reported Reaction Additional Past Anesthesia/Blood Transfusion Reaction / Comm: Has never had blood transfusion. Past Psychological History: No Psychological Hx Reported Smoking Status: Current every day smoker Past Alcohol Use History: None Reported Additional Past Alcohol Use History / Comment(s): anastacio 1/2 PPD, has smoked for 40-42 yrs Past Drug Use History: None Reported
[2023-06-13 06:12] LABS: HCT 27.8 % (34.0-46.0); HGB 8.9 gm/dL (11.4-16.0); Hypochromasia Slight; MCH 30.7 pg (25.0-35.0); MCHC 31.9 g/dL (31.0-37.0); MCV 96.1 fL (80.0-100.0); Mean Platelet Volume 8.3; Platelet Count 619 k/uL (150-450); RDW 14.5 % (11.5-15.5); WBC 17.1 k/uL (3.8-10.6)
[2023-06-13 07:59] LABS: Band Neutrophils % 1 %; Eosinophils # (M) 0.17 k/uL (0-0.7); Lymphocytes # (M) 2.74 k/uL (1.0-4.8); Metamyelocytes # (M) 0.86 k/uL (0); Metamyelocytes % 5 %; Monocytes # (M) 1.37 k/uL (0-1.0); Myelocytes % 7 %; Neutrophils % (M) 63 %; Nucleated Red Blood Cells 0 /100 WBC (0-0); Total Cells Counted 200
[2023-06-13 08:52] LABS: BUN/Creat Ratio 14.33 Ratio (12.00-20.00); Blood Urea Nitrogen 8.6 mg/dL (9.0-27.0); Calcium 8.7 mg/dL (8.7-10.3); Carbon Dioxide 26.2 mmol/L (21.6-31.8); Chloride 97 mmol/L (96-109); Glucose 90 mg/dL (70-110); Potassium 3.2 mmol/L (3.5-5.5); Sodium 135 mmol/L (135-145)
--- NOTE | 2023-06-13 11:29 | P.PN ---
Subjective Progress Note Date: 06/13/23 Principal diagnosis: Reason for follow-up is left knee septic arthritis Patient is a 67-year-old female with a past medical history significant for hypertension hyperlipidemia asthma osteoarthritis patient did have a left knee replacement in March 2023, presented to the hospital with worsening pain and swelling and redness to the left knee area concerning for periprosthetic joint infection.Patient is status post stage I revision left total knee arthroplasty with antibiotic bead placement on 06/02/2023. On today's evaluation that is 06/13/2023, the patient continues to be afebrile, the patient is on room air and breathing comfortably, the Pt denies having any c hest pain or cough, the patient abdominal pain and distention has decreased in intensity denies any nausea no vomiting patient diarrhea has slowed down have about 2-3 episodes per day and mention slightly forming up denies any worsening pain to the left knee area. Patient white count is down to 17.1, creatinine 0.6 Objective - Vital Signs Vital signs: Vital Signs Temp 98.0 F 06/13/23 07:12 Pulse 91 06/13/23 07:12 Resp 17 06/13/23 07:12 BP 135/70 06/13/23 07:12 Pulse Ox 95 06/13/23 07:12 FiO2 Intake & Output 06/12/23 06/13/23 06/13/23 18:59 06:59 18:59 Other: Voiding Method Bedside Commode Diaper # Voids 7 5 1 # Bowel Movements 3 5 1 - Exam Elderly female up on the commode Unlabored breathing Left knee is currently covered with Prevana - Labs CBC & Chem 7: 06/13/23 05:28 06/13/23 05:28 Labs: Abnormal Lab Results - Last 24 Hours (Table) 06/13/23 06/13/23 06/13/23 Range/Units 05:28 05:28 05:28 WBC 17.1 H (3.8-10.6) k/uL RBC 2.90 L (3.80-5.40) m/uL Hgb 8.9 L (11.4-16.0) gm/dL Hct 27.8 L (34.0-46.0) % Plt Count 619 H (150-450) k/uL Neutrophils # (Manual) 10.90 H (1.3-7.7) k/uL Monocytes # (Manual) 1.37 H (0-1.0) k/uL Metamyelocytes # (Man) 0.86 H (0) k/uL Myelocytes # (Manual) 1.20 H (0) k/uL Potassium 3.2 L (3.5-5.5) mmol/L BUN 8.6 L (9.0-27.0) mg/dL C-Reactive Protein 10.90 H (0.00-0.80) mg/dL Procalcitonin 0.48 H (0.02-0.09) ng/mL Assessment and Plan (1) Septic arthritis of knee, left Current Visit: Yes Status: Acute Code(s): M00.9 - PYOGENIC ARTHRITIS, UNSPECIFIED SNOMED Code(s): 407372525 (2) Leukocytosis Current Visit: Yes Status: Acute Code(s): D72.829 - ELEVATED WHITE BLOOD CELL COUNT, UNSPECIFIED SNOMED Code(s): 921365547 Plan: 1patient presented to hospital with left knee pain swelling and redness in this patient who recently did have left knee replacement in March 2023 now with evidence of left knee cellulitis and concern for possible periprosthetic joint infection likely from a gram-positive skin corrie gram-negative infection less likely but not entirely excluded. 2patient is s/p stage I procedure with arthroplasty antibiotic bead placement along with deep cultures which are currently growing Streptococcus agalactiae, patient to continue with Rocephin 2 g daily, plan is for total of 6 weeks of antibiotics 3patient did have complication of C. difficile colitis white count remains to be elevated and did have some abdominal distention concerning for ileus, patient is slowly clinical improving and the patient white count is trending down we will continue patient on IV Flagyl and oral vancomycin repeat a CBC tomorrow if white count continues to trend down and the patient shown clinical improvement will be able to finish therapy with oral vancomycin and close outpatient follow- up Multiple question concern answered Dictation was produced using [employer] software. please excuse any grammatical, word or spelling errors. Time with Patient: Less than 30
--- NOTE | 2023-06-13 19:14 | P.PN ---
Progress Note - Text Progress Note Date: 06/13/23 - Chief Complaint Left knee redness - History of Present Illness Pleasant 67 year patient follows with Dr. Saiin. March 14, 2023 left total knee arthroplasty by Dr. Jones.. About a week ago patient was pushing around a washing machine. She thinks she may have overextended her left knee. Subsequently patient started having increasing pain and swelling in the same. Started to use ice packs. Started to get worse. 5 days ago she went to see Dr. Kelly on a Tuesday in his office. He asked her to return today. It was looking worse. He scented out of the ER concern for infection. For admission. Was started on IV vancomycin. Patient did complain of chills at home. Blood cultures were drawn in the ER. Patient does not remember direct injury to the left knee. June 01: Pain swelling redness around the left knee persist. On IV vancomycin. And cefepime. Planning for I&D per Ortho tomorrow. Tolerating diet. June 02: Saw the patient this morning. Pending I&D. On IV cefepime and vancomycin. June 03: Patient underwent I&D of the left prosthetic joint. Purulence was obtained. Surgical intervention was further carried out. Antibiotic beads were placed in the joint. Patient has a brace on the left leg. Only toe weightbearing. Spoke to patient daughter at the bedside. Looking into rehab. June 04: Some pain in the affected knee. Tolerating diet. No fever. On IV cefepime IV vancomycin. Cultures pending. June 05: Knee pain better. Some anxiety. Patient counseled at length. Continue IV antibiotics. Cultures coming back negative for now. Eating about 50% June 06: Less anxious. Tolerating diet. Antibiotic changed to IV Ancef. Wound culture growing Streptococcus agalactiae group B. Wound VAC. June 07: On IV Ancef. PICC line placed today. Pending discharge to rehab. Tolerating diet. UA unremarkable. White count is started to come down. June 08: Remains on IV Ancef. Does not like hospital food. Pending discharge to rehab. Questions answered. June 09: Patient white count has been climbing. Patient started having diarrhea yesterday. Some abdominal discomfort. Patient stool came back positive for C. difficile. Started on oral vancomycin and Flagyl. Metamucil was added to bulk up the stool. June 10: Patient diagnosed with C. difficile colitis yesterday. CT scan did show findings consistent with colitis. On vancomycin and Flagyl. Full liquid diet. Decreased abdominal pain. Decreased diarrhea. June 11: Patient diarrhea is better. Down to about 3 times the last 24 hours. Abdominal discomfort is better. On oral vancomycin and Flagyl. Follow full liquid diet. White count remains at 23. But clinically patient feels better. June 12: Diarrhea about 2-3 times a day. Some abdominal pain is present. Full liquid diet. On oral vancomycin and Flagyl. June 13: Diarrhea well-controlled. Abdominal pain is better. Remains on full liquid diet. Will advance to soft bland tomorrow morning. Per ID hopefully discharge tomorrow. For total of 6 weeks of IV Rocephin. Active Medications Acetaminophen (Acetaminophen Tab 500 Mg Tab) 500 mg PO Q6HR PRN PRN Reason: Fever and/ or Pain Last Admin: 06/11/23 02:37 Dose: 500 mg Hydrocodone Bitart/Acetaminophen (Hydrocodone/Apap 5-325mg 1 Each Tab) 1 each PO Q6HR PRN PRN Reason: Pain Scale 1 to 5 Hydrocodone Bitart/Acetaminophen (Hydrocodone/Apap 7.5-325mg 1 Each Tab) 1 each PO Q6H PRN PRN Reason: Pain Scale 6 to 10 Last Admin: 06/13/23 17:07 Dose: 1 each Atorvastatin Calcium (Atorvastatin 10 Mg Tab) 10 mg PO HS [facility] Last Admin: 06/12/23 19:50 Dose: 10 mg Bisoprolol Fumarate (Bisoprolol-Hctz 10-6.25 Mg 1 Each Tab) 1 each PO BID [facility] Last Admin: 06/13/23 09:13 Dose: 1 each Cyclobenzaprine HCl (Cyclobenzaprine 5 Mg Tab) 5 mg PO BID [facility] Last Admin: 06/13/23 09:12 Dose: 5 mg Enoxaparin Sodium (Enoxaparin 30 Mg/0.3 Ml Syringe) 30 mg SQ Q12H [facility] Last Admin: 06/13/23 17:23 Dose: 30 mg Hydromorphone HCl (Hydromorphone 0.5 Mg/0.5 Ml Syringe) 0.25 mg IVP Q3HR PRN PRN Reason: Pain Scale 4 to 6 Last Admin: 06/10/23 08:52 Dose: 0.25 mg Hydromorphone HCl (Hydromorphone 0.5 Mg/0.5 Ml Syringe) 0.5 mg IVP Q3HR PRN PRN Reason: Pain Scale 7 to 10 Last Admin: 06/07/23 09:48 Dose: 0.5 mg Hydromorphone HCl (Hydromorphone 0.5 Mg/0.5 Ml Syringe) 0.125 mg IVP Q3HR PRN PRN Reason: Pain Scale 1 to 3 Ceftriaxone Sodium 2 gm/ (Sodium Chloride) 50 mls @ 100 mls/hr IVPB Q24HR [facility]; Protocol Last Admin: 06/13/23 10:49 Dose: 100 mls/hr Metronidazole 500 mg/ IV (Solution) 100 mls @ 100 mls/hr IVPB Q8HR ROSS; Pr otocol Last Admin: 06/13/23 17:23 Dose: 100 mls/hr Miscellaneous Information (Potassium Replacement Protocol 1 Each Misc) 1 each MISCELLANE DAILY PRN; Protocol PRN Reason: Per Protocol Multivitamins (Multivitamins, Thera 1 Each Tab) 1 each PO DAILY@1200 ROSS Last Admin: 06/13/23 12:56 Dose: 1 each Naloxone HCl (Naloxone 0.4 Mg/Ml 1 Ml Vial) 0.2 mg IV Q2M PRN PRN Reason: Opioid Reversal Nicotine (Nicotine 14mg/24hr Patch) 1 patch TRANSDERM DAILY [facility] Last Admin: 06/13/23 09:13 Dose: Not Given Nystatin (Nystatin 100,000 Unit/Ml Susp 500,000 Unit/5 Ml Cup) 500,000 unit PO QID [facility]; Protocol Last Admin: 06/13/23 16:48 Dose: Not Given Ondansetron HCl (Ondansetron 4 Mg/2 Ml Vial) 4 mg IVP Q8HR PRN PRN Reason: Nausea And Vomiting Last Admin: 06/10/23 12:45 Dose: 4 mg Petrolatum (Zinc Oxide Paste (Z-Guard) 1 Applic) 1 applic TOPICAL DAILY PRN; Protocol PRN Reason: Wound Healing Senna/Docusate Sodium (Sennosides-Docusate Sodium 1 Each Tab) 2 each PO HS [facility] Last Admin: 06/12/23 19:50 Dose: Not Given Vancomycin HCl (Vancomycin 125 Mg Capsule) 250 mg PO QID [facility]; Protocol Last Admin: 06/13/23 17:23 Dose: 250 mg Past medical history to include: COPD, hypertension, hyperlipidemia, osteoarthritis, IBS, Coumadin 2020 treated with monoclonal antibody infusion, back surgery Social history: Smoking half a pack a day since age of 17. No alcohol. . Physical examination: VITAL SIGNS: 98.6, 81, 18, 106 x 63, 93% room air GENERAL: Reclining in bed, comfortable EYES: Pupils equal. Conjunctiva normal. HEENT: External appearance of nose and ears normal, oral cavity grossly normal. NECK: JVD not raised; masses not palpable. HEART: First and second heart sounds are normal; no edema. LUNGS: Respiratory rate normal; decreased breath sounds. ABDOMEN: Soft, nontender decreased distention liver spleen not palpable, no masses palpable. PSYCH: Alert and oriented x3; mood and affect with anxious MUSCULOSKELETAL:No Clubbing/cyanosis;muscles-grossly intact . Left leg in a immobilizer. Wound VAC. INVESTIGATIONS, reviewed in the clinical context: June 13: White count 17.1 hemoglobin 8.9 potassium 3.2 creatinine 0.6 June 11: White count 23 hemoglobin 8.6 potassium 3.3 sodium [address] scan abdomen: Sigmoid colon showing circumferential mural thickening with edema at ends reticulation. Cecum was dilated to 10 cm. And also involves ascending colon. June 10: White count 23.8 hemoglobin 8.7 sodium 126 potassium 3.2 creatinine 0.68 June 09: White count 24.5 hemoglobin 8.6 potassium 3.2 creatinine 0.7 C. difficile [June 09]: Positive June 08: White count 20.7 hemoglobin 8.6 potassium 3.8 creatinine 0.7 CRP 14.2 June 07: White count 16.2 hemoglobin 9.4 platelets 709 June 06: White count 20.1 hemoglobin 8.6 potassium 3.8 creatinine 0.71 CRP 10.6 Wound culture [June 02] Streptococcus agalactiae group B June 05: White count 19.8 hemoglobin 9.8 potassium 4 creatinine 0.63 procalcitonin 0.25 June 03: White count 12.2 hemoglobin 9.7 June 02: ESR 79 CRP 8.7 June 01: Procalcitonin 0.12 May 31, 2023: White count 14.3 hemoglobin 12.4 platelets 730 left shift sodium 133 potassium 3.6 creatinine 0.64 CRP 15.2 Venous Doppler left leg: Negative for DVT Assessment plan: -Acute infected left total knee arthroplasty that was done on March 14, 2023:: Joint fluid was obtained from the joint during I&D by Dr. Kelly on June 02. Followed by antibiotic beads placed.. Wound culture growing Streptococcus agalactiae group B Left leg in a brace. Toe-touch weightbearing. IV ceftriaxone for a total of 6 weeks -Acute C. difficile colitis: Improving Oral vancomycin 250 mg 4 times daily. IV Flagyl. full liquid diet Advance to soft bland diet tomorrow -Left total knee arthroplasty on March 14, 2023 -Primary osteoarthritis Pain control as needed -Hyperlipidemia Lipitor 10 mg per day -Essential hypertension Ziac 10/6.25 one tablet twice a day -Muscle spasms Flexeril 5 mg twice a day -Morbid obesity BMI 45.3 Weight loss measures -COPD n in a current smoker: r Advair 250/50 one puff twice a day. Albuterol when necessary -Chronic nicotine dependence, cigarette smoker Nicotine patch -DNR -Disposition: Pending subacute rehab Advance to soft bland diet tomorrow. Hopefully DC home if okay with ID. Past Medical History Past Medical History: Asthma, Hyperlipidemia, Hypertension, Osteoarthritis (OA) Additional Past Medical History / Comment(s): IBS History of Any Multi-Drug Resistant Organisms: None Reported Past Surgical History: Back Surgery, Section, Cholecystectomy, Hysterectomy, Orthopedic Surgery Additional Past Surgical History / Comment(s): Cervical fusion, bilateral knee arthroscopy, right ankle surgery, lower back fusion, section X2., left total knee 03/14/23 Past Anesthesia/Blood Transfusion Reactions: No Reported Reaction Additional Past Anesthesia/Blood Transfusion Reaction / Comm: Has never had blood transfusion. Past Psychological History: No Psychological Hx Reported Smoking Status: Current every day smoker Past Alcohol Use History: None Reported Additional Past Alcohol Use History / Comment(s): anastacio 1/2 PPD, has smoked for 40-42 yrs Past Drug Use History: None Reported
[2023-06-14 06:38] LABS: African American GFR (CKD) >90 (>60 ml/min/1.73 sqM); Anion Gap 6 mmol/L; Blood Urea Nitrogen 7 mg/dL (7-17); Calcium 8.4 mg/dL (8.4-10.2); Carbon Dioxide 27 mmol/L (22-30); Chloride 100 mmol/L (98-107); Glucose 94 mg/dL (74-99); Non-African American GFR(CKD) >90 (>60 ml/min/1.73 sqM); Sodium 133 mmol/L (137-145)
[2023-06-14 06:43] LABS: HCT 26.2 % (34.0-46.0); HGB 8.7 gm/dL (11.4-16.0); MCH 31.7 pg (25.0-35.0); MCHC 33.3 g/dL (31.0-37.0); MCV 95.4 fL (80.0-100.0); Mean Platelet Volume 7.7; Platelet Count 652 k/uL (150-450); RBC 2.75 m/uL (3.80-5.40); RDW 14.6 % (11.5-15.5); WBC 17.3 k/uL (3.8-10.6)
[2023-06-14 07:35] LABS: Band Neutrophils % 3 %; Eosinophils # (M) 0.17 k/uL (0-0.7); Lymphocytes # (M) 2.77 k/uL (1.0-4.8); Metamyelocytes # (M) 1.56 k/uL (0); Metamyelocytes % 9 %; Monocytes # (M) 1.04 k/uL (0-1.0); Myelocytes # (M) 0.87 k/uL (0); Myelocytes % 5 %; Neutrophils % (M) 62 %; Nucleated Red Blood Cells 0 /100 WBC (0-0); Total Cells Counted 200
[2023-06-14 07:43] LABS: Hypochromasia (M) Present
[2023-06-14] MEDS ORDERED: Potassium Replacement Protocol 1 EACH MISC MISCELLANE PRN (09:59)
--- NOTE | 2023-06-14 12:34 | P.PN ---
Subjective Progress Note Date: 06/14/23 Principal diagnosis: Reason for follow-up is left knee septic arthritis Patient is a 67-year-old female with a past medical history significant for hypertension hyperlipidemia asthma osteoarthritis patient did have a left knee replacement in March 2023, presented to the hospital with worsening pain and swelling and redness to the left knee area concerning for periprosthetic joint infection.Patient is status post stage I revision left total knee arthroplasty with antibiotic bead placement on 06/02/2023. On today's evaluation that is 06/14/2023, Patient is afebrile , patient is currently on room air and denies having any shortness of breath, the patient denies any chest pain or cough, the patient denies any nausea vomiting abdominal discomfort has significant improved and did have resolution of her diarrhea patient pain to the left knee is controlled. Patient did have white count of 17.3, creatinine 0.62 Objective - Vital Signs Vital signs: Vital Signs Temp 98.5 F 06/14/23 07:12 Pulse 80 06/14/23 07:12 Resp 19 06/14/23 07:12 BP 145/74 06/14/23 07:12 Pulse Ox 94 L 06/14/23 07:12 FiO2 Intake & Output 06/13/23 06/14/23 06/14/23 18:59 06:59 18:59 Other: # Voids 1 4 # Bowel Movements 1 4 - Exam Elderly female up on the commode Unlabored breathing Left knee is currently covered with Prevana - Labs CBC & Chem 7: 06/14/23 05:35 06/14/23 05:35 Labs: Abnormal Lab Results - Last 24 Hours (Table) 06/14/23 06/14/23 Range/Units 05:35 05:35 WBC 17.3 H (3.8-10.6) k/uL RBC 2.75 L (3.80-5.40) m/uL Hgb 8.7 L (11.4-16.0) gm/dL Hct 26.2 L (34.0-46.0) % Plt Count 652 H (150-450) k/uL Neutrophils # (Manual) 11.20 H (1.3-7.7) k/uL Monocytes # (Manual) 1.04 H (0-1.0) k/uL Metamyelocytes # (Man) 1.56 H (0) k/uL Myelocytes # (Manual) 0.87 H (0) k/uL Sodium 133 L (137-145) mmol/L Potassium 3.0 L (3.5-5.1) mmol/L Assessment and Plan (1) Septic arthritis of knee, left Current Visit: Yes Status: Acute Code(s): M00.9 - PYOGENIC ARTHRITIS, UNSPECIFIED SNOMED Code(s): 043148847 (2) Leukocytosis Current Visit: Yes Status: Acute Code(s): D72.829 - ELEVATED WHITE BLOOD CELL COUNT, UNSPECIFIED SNOMED Code(s): 245342714 Plan: 1patient presented to hospital with left knee pain swelling and redness in this patient who recently did have left knee replacement in March 2023 now with evidence of left knee cellulitis and concern for possible periprosthetic joint infection likely from a gram-positive skin corrie gram-negative infection less likely but not entirely excluded. 2patient is s/p stage I procedure with arthroplasty antibiotic bead placement along with deep cultures which are currently growing Streptococcus agalactiae, patient to continue with Rocephin 2 g daily, plan is for total of 6 weeks of antibiotics, she will needs 4 more weeks on discharge discharge medication has been updated 3patient did have complication of C. difficile colitis, the patient have a improvement her abdominal symptoms and resolution of her diarrhea white count is trending down we will consider vancomycin 250 mg p.o. every 6 hours for 10 days advised to increase her probiotic and yogurt intake Follow-up in the office in 1 to 2 weeks earlier if any problem Dictation was produced using [employer] dictation software. please excuse any grammatical, word or spelling errors. Time with Patient: Less than 30
[2023-06-14] MEDS: POTASSIUM CHLORIDE ER 20 MEQ TAB.ER PO SCH (12:43)
--- NOTE | 2023-06-14 12:43 | P.DS ---
Providers Date of admission: 05/31/23 14:50 Expected date of discharge: 06/14/23 Attending physician: Tarun Souza Consults: 05/31/23 18:13 Consult Physician Routine Consulting Provider: Tarun Souza Consult Reason/Comments: medical management Do you want consulting provider notified?: Yes 06/01/23 08:06 Consult Physician Routine Consulting Provider: Tristan Mcqueen Consult Reason/Comments: Periprostetic infection, outpatient IV antibiotic Do you want consulting provider notified?: Yes Primary care physician: Haris [facility] Course: - Chief Complaint Left knee redness - History of Present Illness Pleasant 67 year patient follows with Dr. Saini. March 14, 2023 left total knee arthroplasty by Dr. Jones.. About a week ago patient was pushing around a washing machine. She thinks she may have overextended her left knee. Subsequently patient started having increasing pain and swelling in the same. Started to use ice packs. Started to get worse. 5 days ago she went to see Dr. Kelly on a Tuesday in his office. He asked her to return today. It was looking worse. He scented out of the ER concern for infection. For admission. Was started on IV vancomycin. Patient did complain of chills at home. Blood cultures were drawn in the ER. Patient does not remember direct injury to the left knee. June 01: Pain swelling redness around the left knee persist. On IV vancomycin. And cefepime. Planning for I&D per Ortho tomorrow. Tolerating diet. June 02: Saw the patient this morning. Pending I&D. On IV cefepime and vancomycin. June 03: Patient underwent I&D of the left prosthetic joint. Purulence was obtained. Surgical intervention was further carried out. Antibiotic beads were placed in the joint. Patient has a brace on the left leg. Only toe weightbearing. Spoke to patient daughter at the bedside. Looking into rehab. June 04: Some pain in the affected knee. Tolerating diet. No fever. On IV cefepime IV vancomycin. Cultures pending. June 05: Knee pain better. Some anxiety. Patient counseled at length. Continue IV antibiotics. Cultures coming back negative for now. Eating about 50% June 06: Less anxious. Tolerating diet. Antibiotic changed to IV Ancef. Wound culture growing Streptococcus agalactiae group B. Wound VAC. June 07: On IV Ancef. PICC line placed today. Pending discharge to rehab. Tolerating diet. UA unremarkable. White count is started to come down. June 08: Remains on IV Ancef. Does not like hospital food. Pending discharge to rehab. Questions answered. June 09: Patient white count has been climbing. Patient started having diarrhea yesterday. Some abdominal discomfort. Patient stool came back positive for C. difficile. Started on oral vancomycin and Flagyl. Metamucil was added to bulk up the stool. June 10: Patient diagnosed with C. difficile colitis yesterday. CT scan did show findings consistent with colitis. On vancomycin and Flagyl. Full liquid diet. Decreased abdominal pain. Decreased diarrhea. June 11: Patient diarrhea is better. Down to about 3 times the last 24 hours. Abdominal discomfort is better. On oral vancomycin and Flagyl. Follow full liquid diet. White count remains at 23. But clinically patient feels better. June 12: Diarrhea about 2-3 times a day. Some abdominal pain is present. Full liquid diet. On oral vancomycin and Flagyl. June 13: Diarrhea well-controlled. Abdominal pain is better. Remains on full liquid diet. Will advance to soft bland tomorrow morning. Per ID hopefully discharge tomorrow. For total of 6 weeks of IV Rocephin. June 14: Doing well. Abdominal pain creatinine proved. Advance to chopped diet. Patient to get vancomycin oral for 10 more days. And IV ceftriaxone for 30 more days. Care was discussed with the patient. Questions answered. Cleared by ID. Follow-up with Ortho. And ID. Discussion and discharge planning more than 35 minutes Past medical history to include: COPD, hypertension, hyperlipidemia, osteoarthritis, IBS, Coumadin 2020 treated with monoclonal antibody infusion, back surgery Social history: Smoking half a pack a day since age of 17. No alcohol. . Physical examination: VITAL SIGNS: 98.5, 80, 19, 145 x 74, 94% room air GENERAL: Reclining in bed, comfortable EYES: Pupils equal. Conjunctiva normal. HEENT: External appearance of nose and ears normal, oral cavity grossly normal. NECK: JVD not raised; masses not palpable. HEART: First and second heart sounds are normal; no edema. LUNGS: Respiratory rate normal; decreased breath sounds. ABDOMEN: Soft, nontender decreased distention liver spleen not palpable, no masses palpable. PSYCH: Alert and oriented x3; mood and affect with anxious MUSCULOSKELETAL:No Clubbing/cyanosis;muscles-grossly intact . Left leg in a immobilizer. Wound VAC. INVESTIGATIONS, reviewed in the clinical context: June 14: White count 17.3, hemoglobin 8.7 sodium [address] scan abdomen: Sigmoid colon showing circumferential mural thickening with edema at ends reticulation. Cecum was dilated to 10 cm. And also involves ascending colon. June 09: White count 24.5 hemoglobin 8.6 potassium 3.2 creatinine 0.7 C. difficile [June 09]: Positive June 08: White count 20.7 hemoglobin 8.6 potassium 3.8 creatinine 0.7 CRP 14.2 Wound culture [June 02] Streptococcus agalactiae group B June 05: White count 19.8 hemoglobin 9.8 potassium 4 creatinine 0.63 procalcitonin 0.25 June 03: White count 12.2 hemoglobin 9.7 June 02: ESR 79 CRP 8.7 June 01: Procalcitonin 0.12 May 31, 2023: White count 14.3 hemoglobin 12.4 platelets 730 left shift sodium 133 potassium 3.6 creatinine 0.64 CRP 15.2 Venous Doppler left leg: Negative for DVT Assessment plan: -Acute infected left total knee arthroplasty that was done on March 14, 2023:: Joint fluid was obtained from the joint during I&D by Dr. Kelly on June 02. Followed by antibiotic beads placed.. Wound culture growing Streptococcus agalactiae group B Left leg in a brace. Toe-touch weightbearing. IV ceftriaxone for a total of 6 weeks: 30 more days -Acute C. difficile colitis: Improving Oral vancomycin 250 mg 4 times daily. IV Flagyl. Chopped diet Vancomycin for 10 more days -Left total knee arthroplasty on March 14, 2023 -Primary osteoarthritis Pain control as needed -Hyperlipidemia Lipitor 10 mg per day -Essential hypertension Ziac 10/6.25 one tablet twice a day -Muscle spasms Flexeril 5 mg twice a day -Morbid obesity BMI 45.3 Weight loss measures -COPD n in a current smoker: r Advair 250/50 one puff twice a day. Albuterol when necessary -Chronic nicotine dependence, cigarette smoker Nicotine patch -Full code -Disposition: Subacute rehab at [facility] Diet: Soft plan/chopped diet Labs as ordered by Dr. Mcqueen/ID. Past Medical History Past Medical History: Asthma, Hyperlipidemia, Hypertension, Osteoarthritis (OA) Additional Past Medical History / Comment(s): IBS History of Any Multi-Drug Resistant Organisms: None Reported Past Surgical History: Back Surgery, Section, Cholecystectomy, Hysterectomy, Orthopedic Surgery Additional Past Surgical History / Comment(s): Cervical fusion, bilateral knee arthroscopy, right ankle surgery, lower back fusion, section X2., left total knee 03/14/23 Past Anesthesia/Blood Transfusion Reactions: No Reported Reaction Additional Past Anesthesia/Blood Transfusion Reaction / Comm: Has never had blood transfusion. Past Psychological History: No Psychological Hx Reported Smoking Status: Current every day smoker Past Alcohol Use History: None Reported Additional Past Alcohol Use History / Comment(s): anastacio 1/2 PPD, has smoked for 40-42 yrs Past Drug Use History: None Reported Plan - Discharge Summary Discharge Rx Participant: No New Discharge Prescriptions: New Nicotine 14Mg/24Hr Patch [Habitrol] 1 patch TRANSDERM DAILY patch Sennosides-Docusate Sodium [Senokot-S] 2 each PO HS tab cefTRIAXone [Rocephin] 2,000 mg IVP Q24HR #30 each Vancomycin Oral Solution [Vancomycin HCl Oral Soln] 250 mg PO Q6HR 10 Days #200 ml Enoxaparin [Lovenox] 30 mg SQ Q12H each Multivitamins, Thera [Multivitamin (formulary)] 1 each PO DAILY@1200 tab HYDROcodone/APAP 7.5-325MG [[place]ass[place] 7.5] 1 each PO Q6HR PRN #28 tab PRN Reason: Pain Nystatin 100,000 Unit/ml Susp [Mycostatin Oral Susp] 500,000 unit PO QID ml Continue Bisoprolol-Hctz 10-6.25 mg [Ziac 10-6.25 MG] 1 tab PO BID Ibuprofen [Motrin] 800 mg PO TID PRN PRN Reason: Pain HYDROcodone/APAP 7.5-325MG [[place] 7.5-325] 1 tab PO TID PRN #9 tab PRN Reason: Pain Atorvastatin Calcium 10 mg PO HS Cyclobenzaprine [Flexeril] 5 mg PO BID Aspirin EC [Ecotrin Low Dose] 81 mg PO DAILY Discontinued Cephalexin [Keflex] 500 mg PO DIRECTED Discharge Medication List Bisoprolol-Hctz 10-6.25 mg [Ziac 10-6.25 MG] 1 tab PO BID 09/18/13 [History] Atorvastatin Calcium 10 mg PO HS 11/24/22 [History] Cyclobenzaprine [Flexeril] 5 mg PO BID 03/08/23 [History] Aspirin EC [Ecotrin Low Dose] 81 mg PO DAILY 05/31/23 [History] Ibuprofen [Motrin] 800 mg PO TID PRN 05/31/23 [History] Enoxaparin [Lovenox] 30 mg SQ Q12H each 06/08/23 [Rx] HYDROcodone/APAP 7.5-325MG [[place]ass[place] 7.5-325] 1 tab PO TID PRN #9 tab 06/08/23 [Rx] HYDROcodone/APAP 7.5-325MG [Lacassine 7.5] 1 each PO Q6HR PRN #28 tab 06/08/23 [Rx] Multivitamins, Thera [Multivitamin (formulary)] 1 each PO DAILY@1200 tab 06/08/23 [Rx] Nicotine 14Mg/24Hr Patch [Habitrol] 1 patch TRANSDERM DAILY patch 06/08/23 [Rx] Sennosides-Docusate Sodium [Senokot-S] 2 each PO HS tab 06/08/23 [Rx] Vancomycin Oral Solution [Vancomycin HCl Oral Soln] 250 mg PO Q6HR 10 Days #200 ml 06/13/23 [Rx] cefTRIAXone [Rocephin] 2,000 mg IVP Q24HR #30 each 06/13/23 [Rx] Nystatin 100,000 Unit/ml Susp [Mycostatin Oral Susp] 500,000 unit PO QID ml 06/14/23 [Rx] Follow up Appointment(s)/Referral(s): Haris Saini DO [Primary Care Provider] - 1-2 days Joselito Ruano PAC [PHYSICIAN FIELD CARE MANAGER] - 2 Weeks Tristan Mcqueen MD [STAFF PHYSICIAN] - 1 Week Ambulatory/Diagnostic Orders: Basic Metabolic Panel [LAB.AMB] Location: None Selected C Reactive Protein [LAB.AMB] Location: None Selected Complete Blood Count w/diff [LAB.AMB] Location: None Selected Erythrocyte Sedimentation Rate [LAB.AMB] Location: None Selected Activity/Diet/Wound Care/Special Instructions: Discharge instructions: 1. Wound VAC may stay in place until 06/13/2023 2. After removal of wound VAC, utilize basic bandage 3. Keep incision covered and dry when showering 4. Knee immobilizer must be worn at all times when up and ambulating 5. Keep the knee in full extension, okay to loosen and on strap knee immobilizer when stationary 6. Toe-touch weightbearing with walker 7. Plan for [facility]-up at [facility] 1 week for reevaluation Discharge/Stand Alone Forms: Work/Release Restrictions Form Discharge Disposition: TRANSFER TO SNF/ECF
--- NOTE | 2023-06-14 13:26 | P.PN ---
Subjective Progress Note Date: 06/14/23 Principal diagnosis: Status post stage I revision left knee, incision and drainage with irrigation and debridement and antibiotic bead placement Patient evaluated at bedside today, she is resting in her hospital chair. Patient is doing rather well she states. She continues on IV antibiotics for C. difficile. She continues to utilize the knee immobilizer as instructed. she d enies any chest pain, shortness of breath, fever or chills. Objective - Vital Signs Vital signs: Vital Signs Temp 98.5 F 06/14/23 07:12 Pulse 80 06/14/23 07:12 Resp 19 06/14/23 07:12 BP 145/74 06/14/23 07:12 Pulse Ox 94 L 06/14/23 07:12 FiO2 Intake & Output 06/13/23 06/14/23 06/14/23 18:59 06:59 18:59 Other: # Voids 1 4 1 # Bowel Movements 1 4 - Exam Left lower extremity: wound VAC was removed today at bedside, jordan are all in good position and condition. There is no active drainage. A new foam dressing was applied. Soft tissue swelling is much improved, no erythema noted surrounding the incision. The calf is soft, no tenderness with palpation. Plantarflexion, dorsiflexion, EHL, FHL are intact. Sensory exam to light touch is intact throughout the extremity, dorsalis pedis pulses 2+ - Labs CBC & Chem 7: 06/14/23 05:35 06/14/23 05:35 Labs: Abnormal Lab Results - Last 24 Hours (Table) 06/14/23 06/14/23 Range/Units 05:35 05:35 WBC 17.3 H (3.8-10.6) k/uL RBC 2.75 L (3.80-5.40) m/uL Hgb 8.7 L (11.4-16.0) gm/dL Hct 26.2 L (34.0-46.0) % Plt Count 652 H (150-450) k/uL Neutrophils # (Manual) 11.20 H (1.3-7.7) k/uL Monocytes # (Manual) 1.04 H (0-1.0) k/uL Metamyelocytes # (Man) 1.56 H (0) k/uL Myelocytes # (Manual) 0.87 H (0) k/uL Sodium 133 L (137-145) mmol/L Potassium 3.0 L (3.5-5.1) mmol/L Assessment and Plan Assessment: Left lower extremity cellulitis Left knee periprosthetic infection History of previous left total knee arthroplasty Postoperative day #12 status post stage I revision left knee, incision and drainage with irrigation and debridement, antibiotic bead placement C diff Plan: Pain control, continue with current medications DVT prophylaxis, continue with current medications Continue to monitor wound bed Encourage incentive spirometer Toe-touch weightbearing left lower extremity, utilize knee immobilizer at all times Other medical specialty recommendations appreciated Discharge planning: patient is being discharged to subacute rehab today. Plan for follow-up in office in 1 week Time with Patient: Less than 30
[2023-06-14 15:44] VITALS: BP 117/72; PULSE 78; RESP 18; TEMP 97.8
== END 2023-06-14 16:32 | DRG 467 ==
LOC: EC 11:59 → 4SSUR 14:50 → 1SOBS 17:10 → 4SSUR 06-01 18:58
PROVIDERS: ADMIT Hospitalist; ATTEND Hospitalist
PROC: 0SPD0JZ Removal of Synthetic Substitute from Left Knee Joint, Open Approach (ICD-10-PCS; principal; 2023-06-02 12:50)
PROC: 0SRD0EZ Replacement of Left Knee Joint with Articulating Spacer, Open Approach (ICD-10-PCS; principal; 2023-06-02 12:50)
PROC: 05HY33Z Insertion of Infusion Device into Upper Vein, Percutaneous Approach (ICD-10-PCS; 2023-06-07)
DX: T84.54XA Infection and inflammatory reaction due to internal left knee prosthesis, initial encounter (principal); A04.72 Enterocolitis due to Clostridium difficile, not specified as recurrent; L03.116 Cellulitis of left lower limb; Z68.42 Body mass index [BMI] 45.0-49.9, adult; E66.01 Morbid (severe) obesity due to excess calories; I10 Essential (primary) hypertension; B95.1 Streptococcus, group B, as the cause of diseases classified elsewhere; Z28.310 Unvaccinated for COVID-19; J44.89 Other specified chronic obstructive pulmonary disease; E78.5 Hyperlipidemia, unspecified; K58.9 Irritable bowel syndrome, unspecified; F41.9 Anxiety disorder, unspecified; M19.91 Primary osteoarthritis, unspecified site; F17.210 Nicotine dependence, cigarettes, uncomplicated; Z71.6 Tobacco abuse counseling; Z79.82 Long term (current) use of aspirin; Z79.51 Long term (current) use of inhaled steroids; Z79.899 Other long term (current) drug therapy; Z98.1 Arthrodesis status; Z87.440 Personal history of urinary (tract) infections; Z71.3 Dietary counseling and surveillance; Y83.1 Surgical operation with implant of artificial internal device as the cause of abnormal reaction of the patient, or of later complication, without mention of misadventure at the time of the procedure; Z88.5 Allergy status to narcotic agent; Z88.8 Allergy status to other drugs, medicaments and biological substances; Z91.041 Radiographic dye allergy status
CPT/HCPCS: 36415; 36573; 74176; 80048; 80053; 80202; 81001; 82565; 83605; 84145; 85025; 85610; 85652; 86140; 87040; 87070; 87075; 87077; 87186; 87205; 87324; 94760; 96372; 96374; 96375; 99285

== ENCOUNTER 2023-07-13 11:33 | Inpatient (IN) | payer BC, MEDICARE ==
--- NOTE | 2023-07-13 12:12 | ED ---
Abdominal Pain HPI - General Source: patient, EMS, RN notes reviewed Mode of arrival: EMS Limitations: no limitations <Bibi Rosen - Last Filed: 07/13/23 16:10> - General Source: EMS, RN notes reviewed, old records reviewed Mode of arrival: EMS Limitations: no limitations - History of Present Illness MD Complaint: abdominal pain, other (Weakness) -: days(s) Radiation: none Migration to: periumbilical, epigastric, suprapubic Severity: severe Severity scale (1-10): 10 Quality: fullness Consistency: constant Improves With: nothing Associated Symptoms: nausea, vomiting, diarrhea <Teo Medina - Last Filed: 07/19/23 22:10> - General Chief Complaint: Abdominal Pain Stated Complaint: Diarrhea Time Seen by Provider: 07/13/23 11:50 - History of Present Illness Initial Comments: 68-year-old female presents emergency department via EMS with chief complaint of abdominal pain, distention, and diarrhea. Patient states that over the last 5 days she has had increasing abdominal distention, discomfort, and diarrhea. Patient currently has C. difficile And is being treated with a PICC line and intravenous antibiotics at [facility]. Patient has also been experiencing nausea and vomiting over the past few days. Patient denies hematochezia, hematemesis. (Bibi Rosen) This is a 68-year-old female to the ER for evaluation of severe abdominal pain with known abdominal distention concern for persistent C. difficile with worsening condition with worsening clinical condition. (Teo Medina) - Related Data Home Medications Medication Instructions Recorded Confirmed Bisoprolol-Hctz 10-6.25 mg [Ziac 1 tab PO BID@09,209909/18/13 07/13/23 10-6.25 MG] Atorvastatin Calcium 10 mg PO HS@209911/24/22 07/13/23 Cyclobenzaprine [Flexeril] 5 mg PO BID@899,209903/08/23 07/13/23 Aspirin EC [Ecotrin Low Dose] 81 mg PO DAILY@0900 05/31/23 07/13/23 Ibuprofen [Motrin] 800 mg PO TID PRN 05/31/23 07/13/23 Acetaminophen [Tylenol] 650 mg PO Q6H PRN 07/13/23 07/13/23 Cholestyramine/Aspartame 4 gm PO BID@0900,209907/13/23 07/13/23 [Cholestyramine Light Packet] Enoxaparin [Lovenox] 30 mg SQ BID@0900,209907/13/23 07/13/23 Fidaxomicin [Dificid] 200 mg PO BID@0900,209907/13/23 07/13/23 HYDROcodone/APAP 7.5-325MG [Hardtner 1 tab PO Q6HR PRN 07/13/23 07/13/23 7.5] Lactobacillus Acidophilus 1 cap PO BID@0900,209907/13/23 07/13/23 [Acidophilus Probiotic] Multivitamins, Thera [Multivitamin 1 tab PO DAILY@89907/13/23 07/13/23 (formulary)] Potassium Chloride ER [K-Dur 10] 10 meq PO DAILY@0900 07/13/23 07/13/23 cefTRIAXone [Rocephin] 2,000 mg IVP DAILY@0907/13/23 07/13/23 Allergies Allergy/AdvReac Type Severity Reaction Status Date / Time Iodinated Contrast Media Allergy Rash/Hives,states Verified 07/13/23 16:56 [Iodinated Contrast Media - "can IV Dye] tolerate iodine on skin" codeine AdvReac severe Verified 07/13/23 16:56 constipation morphine AdvReac Hallucinati Verified 07/13/23 16:56 ons sertraline HCl [From Zoloft] AdvReac Hallucinati Verified 07/13/23 16:56 ons Review of Systems ROS Other: All systems not noted in ROS Statement are negative. <Bibi Rosen - Last Filed: 07/13/23 16:10> ROS Other: All systems not noted in ROS Statement are negative. <Teo Medina - Last Filed: 07/19/23 22:10> ROS Statement: Those systems with pertinent positive or pertinent negative responses have been documented in the HPI. Past Medical History Past Medical History: Asthma, Hyperlipidemia, Hypertension, Osteoarthritis (OA) Additional Past Medical History / Comment(s): IBS History of Any Multi-Drug Resistant Organisms: None Reported Past Surgical History: Back Surgery, Section, Cholecystectomy, Hysterectomy, Orthopedic Surgery Additional Past Surgical History / Comment(s): Cervical fusion, bilateral knee arthroscopy, right ankle surgery, lower back fusion, section X2., left total knee 03/14/23 with spacer Past Anesthesia/Blood Transfusion Reactions: No Reported Reaction Additional Past Anesthesia/Blood Transfusion Reaction / Comment(s): Has never had blood transfusion. Past Psychological History: No Psychological Hx Reported Smoking Status: Current every day smoker Past Alcohol Use History: None Reported Past Drug Use History: None Reported - Past Family History Mother Family Medical History: Cancer Additional Family Medical History / Comment(s): Colon cancer, at age 55. <Bibi Rosen - Last Filed: 07/13/23 16:10> General Exam Limitations: no limitations General appearance: alert, in no apparent distress Head exam: Present: atraumatic, normocephalic, normal inspection Eye exam: Present: normal appearance, PERRL, EOMI. Absent: scleral icterus, conjunctival injection, periorbital swelling ENT exam: Present: normal exam, mucous membranes moist Neck exam: Present: normal inspection. Absent: tenderness, meningismus, lymphadenopathy Respiratory exam: Present: normal lung sounds bilaterally. Absent: respiratory distress, wheezes, rales, rhonchi, stridor Cardiovascular Exam: Present: regular rate, normal rhythm, normal heart sounds. Absent: systolic murmur, diastolic murmur, rubs, gallop, clicks GI/Abdominal exam: Present: soft, distended, tenderness (LLQ), normal bowel sounds. Absent: mass, pulsatile mass, hernia Extremities exam: Present: normal inspection, full ROM, normal capillary refill. Absent: tenderness, pedal edema, joint swelling, calf tenderness Back exam: Present: normal inspection Neurological exam: Present: alert, oriented X3, CN II-XII intact Psychiatric exam: Present: normal affect, normal mood Skin exam: Present: warm, dry, intact, normal color. Absent: rash <Bibi Rosen - Last Filed: 07/13/23 16:10> General appearance: alert, in no apparent distress Head exam: Present: atraumatic, normocephalic, normal inspection Eye exam: Present: normal appearance, PERRL, EOMI. Absent: scleral icterus, conjunctival injection, periorbital swelling ENT exam: Present: normal exam, mucous membranes moist Neck exam: Present: normal inspection. Absent: tenderness, meningismus, lymphadenopathy Respiratory exam: Present: normal lung sounds bilaterally. Absent: respiratory distress, wheezes, rales, rhonchi, stridor Cardiovascular Exam: Present: regular rate, normal rhythm, normal heart sounds. Absent: systolic murmur, diastolic murmur, rubs, gallop, clicks GI/Abdominal exam: Present: soft, normal bowel sounds. Absent: distended, tenderness, guarding, rebound, rigid Extremities exam: Present: normal inspection, full ROM, normal capillary refill. Absent: tenderness, pedal edema, joint swelling, calf tenderness Back exam: Present: normal inspection Neurological exam: Present: alert, oriented X3, CN II-XII intact Psychiatric exam: Present: normal affect, normal mood Skin exam: Present: warm, dry, intact, normal color. Absent: rash <Teo Medina - Last Filed: 07/19/23 22:10> Course <Teo Medina - Last Filed: 07/19/23 22:10> Vital Signs 07/13/23 07/13/23 07/13/23 11:42 11:48 12:00 Temperature 98.2 F Pulse Rate 95 99 108 H Respiratory 18 16 18 Rate Blood Pressure 107/77 129/90 107/77 O2 Sat by Pulse 95 95 94 L Oximetry 07/13/23 07/13/23 07/13/23 13:00 14:00 15:00 Temperature Pulse Rate 99 104 H 105 H Respiratory 20 18 16 Rate Blood Pressure 105/73 107/74 107/74 O2 Sat by Pulse 96 Oximetry 07/13/23 07/13/23 07/13/23 16:00 17:00 18:39 Temperature Pulse Rate 106 H 111 H 105 H Respiratory 16 18 158 H Rate Blood Pressure 120/79 128/90 108/78 O2 Sat by Pulse 96 97 94 L Oximetry 07/13/23 19:39 Temperature Pulse Rate 104 H Respiratory 18 Rate Blood Pressure 111/93 O2 Sat by Pulse 95 Oximetry - Reevaluation(s) Reevaluation #1: Medical record is reviewed (Teo Medina) Reevaluation #2: Patient symptoms are worsening (Teo Medina) Reevaluation #3: Patient is informed of results and questions answered (Teo Medina) Procedures - Sepsis Sepsis Focused Exam #1 Time Sepsis Criteria Met: 14:00 Sepsis Focused Exam Date: 07/13/23 Sepsis Focused Exam Time: 20:00 Sepsis Focused Exam Complete: Yes Vital Signs & RN Notes Reviewed: Yes Capillary Refill: < 2 Seconds: Fingers, Toes Peripheral Pulses: Normal: Radial (R), Radial (L), Posterior Tibialis (R), Posterior Tibialis (L), Dorsalis Pedis (R), Dorsalis Pedis (L) Skin Color: Normal for Patient Respiratory Exam: decreased breath sounds Cardiovascular Exam: regular rate <Teo Medina - Last Filed: 07/19/23 22:10> Medical Decision Making - Lab Data Result diagrams: 07/13/23 12:33 <Bibi Rosen - Last Filed: 07/13/23 16:10> - Lab Data Result diagrams: 07/14/23 06:07 07/14/23 11:40 - Radiology Data Radiology results: report reviewed (CT abdomen and pelvis is significant for severe colitis), image reviewed <Teo Medina - Last Filed: 07/19/23 22:10> - Medical Decision Making Was pt. sent in by a medical professional or institution (, PA, EMT DISPATCHER, urgent care, hospital, or fci...) When possible be specific @ -[No] Did you speak to anyone other than the patient for history (EMS, parent, family, police, friend...)? What history was obtained from this source @ -[No] Did you review nursing and triage notes (agree or disagree)? Why? @ -[I reviewed and agree with nursing and triage notes] Were old charts reviewed (outside hosp., previous admission, EMS record, old EKG, old radiological studies, urgent care reports/EKG's, fci records)? Report findings @ -[No old charts were reviewed] Differential Diagnosis (chest pain, altered mental status, abdominal pain women, abdominal pain men, vaginal bleeding, weakness, fever, dyspnea, syncope, headache, dizziness, GI bleed, back pain, seizure, CVA, palpatations, mental h ealth, musculoskeletal)? @ -Differential Abdominal Pain Women: Appendicitis, Cholecystitis, diverticulosis, ischemic bowel, pancreatitis, hepatitis, UTI, gastroenteritis, AAA, incarcerated hernia, bowel obstruction, constipation, inflammatory bowel, hepatitis, peptic ulcer disease, splenic infarction, perforated viscus, vulvitis, ovarian torsion, PID, kidney stone, placenta abruption, this is not meant to be an all-inclusive list EKG interpreted by me (3pts min.). @ -None X-rays interpreted by me (1pt min.). @ -[None done] CT interpreted by me (1pt min.). @ -CT abdomen pelvis without contrast revealed thickened colitis involving the region of the distal transverse colon through the anal rectal region scattered diverticuli also seen no bowel obstruction or appendicitis U/S interpreted by me (1pt. min.). @ -[None done] What testing was considered but not performed or refused? (CT, X-rays, U/S, labs)? Why? @ -[None] What meds were considered but not given or refused? Why? @ -[None] Did you discuss the management of the patient with other professionals (professionals i.e. , PA, EMT DISPATCHER, lab, RT, psych nurse, social media designer, chocolate dipper, teacher, correctional security officer, bilingual patient support caseworker)? Give summary @ -[No] Was smoking cessation discussed for >3mins.? @ -[No] Was critical care preformed (if so, how long)? @ -[No] Were there social determinants of health that impacted care today? How? (Homelessness, low income, unemployed, alcoholism, drug addiction, transportation, low edu. Level, literacy, decrease access to med. care, fpc, rehab)? @ -[No] Was there de-escalation of care discussed even if they declined (Discuss DNR or withdrawal of care, Hospice)? DNR status @ -[No] What co-morbidities impacted this encounter? (DM, HTN, Smoking, COPD, CAD, Cancer, CVA, ARF, Chemo, Hep., AIDS, mental health diagnosis, sleep apnea, morbid obesity)? @ -HTN, DM Was patient admitted / discharged? Hospital course, mention meds given and route, prescriptions, significant lab abnormalities, going to OR and other pertinent info. @ -68-year-old female presents emergency department with chief complaint of abdominal pain. CT abdomen pelvis without contrast revealed thickened colitis involving the region of the distal transverse colon through the anal rectal region scattered diverticuli also seen no bowel obstruction or appendicitis. pending repeat labs, signed out to Dr. Medina at 16:00 Undiagnosed new problem with uncertain prognosis? @ -[No] Drug Therapy requiring intensive monitoring for toxicity (Heparin, Nitro, Insulin, Cardizem)? @ -[No] Were any procedures done? @ -[No] Diagnosis/symptom? @ -[default] Acute, or Chronic, or Acute on Chronic? @ -[default] Uncomplicated (without systemic symptoms) or Complicated (systemic symptoms)? @ -[default] Side effects of treatment? @ -[No] Exacerbation, Progression, or Severe Exacerbation? @ -[No] Poses a threat to life or bodily function? How? (Chest pain, USA, OR, pneumonia, PE, COPD, DKA, ARF, appy, cholecystitis, CVA, Diverticulitis, Homicidal, Suicidal, threat to staff... and all critical care pts) @ -[No] (NickcleoArceliaBibi) She 71 female in significant distress coming in for significant colitis and C. difficile. Patient will be admitted for increasing white blood cell count and abnormal lab testing (Teo Medina) - Lab Data Lab Results 07/13/23 07/13/23 07/13/23 Range/Units 12:33 12:33 13:10 WBC 54.0 H* (3.8-10.6) k/uL RBC 4.75 (3.80-5.40) m/uL Hgb 14.9 (11.4-16.0) gm/dL Hct 44.8 (34.0-46.0) % MCV 94.3 (80.0-100.0) fL MCH 31.3 (25.0-35.0) pg MCHC 33.2 (31.0-37.0) g/dL RDW 16.0 H (11.5-15.5) % Plt Count 492 H (150-450) k/uL MPV 9.5 Neutrophils % (Manual) 78 % Band Neuts % (Manual) 4 % Lymphocytes % (Manual) 3 % Monocytes % (Manual) 6 % Metamyelocytes % 7 % Myelocytes % 4 % Neutrophils # (Manual) 44.20 H (1.3-7.7) k/uL Lymphocytes # (Manual) 1.62 (1.0-4.8) k/uL Monocytes # (Manual) 3.24 H (0-1.0) k/uL Metamyelocytes # (Man) 3.78 H (0) k/uL Myelocytes # (Manual) 2.16 H (0) k/uL Nucleated RBCs 0 (0-0) /100 WBC Manual Slide Review Performed Sodium (137-145) mmol/L Potassium (3.5-5.1) mmol/L Chloride (98-107) mmol/L Carbon Dioxide (22-30) mmol/L Anion Gap mmol/L BUN (7-17) mg/dL Creatinine (0.52-1.04) mg/dL Est GFR (CKD-EPI)AfAm (>60 ml/min/1.73 sqM) Est GFR (CKD-EPI)NonAf (>60 ml/min/1.73 sqM) Glucose (74-99) mg/dL Plasma Lactic Acid Kenji 1.6 (0.7-2.0) mmol/L Calcium (8.4-10.2) mg/dL Total Bilirubin (0.2-1.3) mg/dL AST (14-36) U/L ALT (4-34) U/L Alkaline Phosphatase (38-126) U/L Total Protein (6.3-8.2) g/dL Albumin (3.5-5.0) g/dL Amylase (30-110) U/L Lipase (23-300) U/L Urine Color Dark Yellow Urine Appearance Cloudy H (Clear) Urine pH 6.0 (5.0-8.0) Ur Specific [place] 1.030 (1.001-1.035) Urine Protein 1+ H (Negative) Urine Glucose (UA) Negative (Negative) Urine Ketones Trace H (Negative) Urine Blood Negative (Negative) Urine Nitrite Negative (Negative) Urine Bilirubin Negative (Negative) Urine Urobilinogen <2.0 (<2.0) mg/dL Ur Leukocyte Esterase Negative (Negative) Urine RBC 2 (0-5) /hpf Urine WBC 2 (0-5) /hpf Ur Squamous Epith Cells 3 (0-4) /hpf Hyaline Casts 21 H (0-2) /lpf Urine Mucus Occasional H (None) /hpf 07/13/23 07/13/23 Range/Units 17:25 17:25 WBC (3.8-10.6) k/uL RBC (3.80-5.40) m/uL Hgb (11.4-16.0) gm/dL Hct (34.0-46.0) % MCV (80.0-100.0) fL MCH (25.0-35.0) pg MCHC (31.0-37.0) g/dL RDW (11.5-15.5) % Plt Count (150-450) k/uL MPV Neutrophils % (Manual) % Band Neuts % (Manual) % Lymphocytes % (Manual) % Monocytes % (Manual) % Metamyelocytes % % Myelocytes % % Neutrophils # (Manual) (1.3-7.7) k/uL Lymphocytes # (Manual) (1.0-4.8) k/uL Monocytes # (Manual) (0-1.0) k/uL Metamyelocytes # (Man) (0) k/uL Myelocytes # (Manual) (0) k/uL Nucleated RBCs (0-0) /100 WBC Manual Slide Review Sodium 120 L (137-145) mmol/L Potassium 4.2 (3.5-5.1) mmol/L Chloride 86 L (98-107) mmol/L Carbon Dioxide 18 L (22-30) mmol/L Anion Gap 16 mmol/L BUN 29 H (7-17) mg/dL Creatinine 1.57 H (0.52-1.04) mg/dL Est GFR (CKD-EPI)AfAm 39 (>60 ml/min/1.73 sqM) Est GFR (CKD-EPI)NonAf 34 (>60 ml/min/1.73 sqM) Glucose 162 H (74-99) mg/dL Plasma Lactic Acid Kenji (0.7-2.0) mmol/L Calcium 9.7 (8.4-10.2) mg/dL Total Bilirubin 0.7 (0.2-1.3) mg/dL AST 64 H (14-36) U/L ALT 138 H (4-34) U/L Alkaline Phosphatase 392 H (38-126) U/L Total Protein 6.0 L (6.3-8.2) g/dL Albumin 2.9 L (3.5-5.0) g/dL Amylase 39 (30-110) U/L Lipase 28 (23-300) U/L Urine Color Urine Appearance (Clear) Urine pH (5.0-8.0) Ur Specific [place] (1.001-1.035) Urine Protein (Negative) Urine Glucose (UA) (Negative) Urine Ketones (Negative) Urine Blood (Negative) Urine Nitrite (Negative) Urine Bilirubin (Negative) Urine Urobilinogen (<2.0) mg/dL Ur Leukocyte Esterase (Negative) Urine RBC (0-5) /hpf Urine WBC (0-5) /hpf Ur Squamous Epith Cells (0-4) /hpf Hyaline Casts (0-2) /lpf Urine Mucus (None) /hpf Critical Care Time Critical Care Time: Yes Total Critical Care Time: 31 <Teo Medina - Last Filed: 07/19/23 22:10> Disposition <Bibi Rosen - Last Filed: 07/13/23 16:10> Is patient prescribed a controlled substance at d/c from ED?: No Time of Disposition: 19:00 <Teo Medina - Last Filed: 07/19/23 22:10> Clinical Impression: Abdominal pain, C. difficile colitis, Abdominal colic, Leukocytosis, Hypotension Disposition: ADMITTED IP TO THIS HOSP Condition: Serious
--- NOTE | 2023-07-13 13:29 | CT ---
EXAMINATION: CT ABDOMEN AND PELVIS WITHOUT IV CONTRAST DATE OF EXAMINATION: 07/13/2023. COMPARISON: None available. INDICATION: Abdominal pain, distention and diarrhea with new diagnosis of C. difficile colitis. PROCEDURE: Axial CT of the abdomen and pelvis was performed with sagittal and coronal reformatted i mages without contrast enhancement. The exam is limited because some types of pathology may not be ad equately demonstrated due to lack of contrast enhancement. CT dose lowering techniques were used, to include: automated exposure control, adjustment for patient size, and/or use of iterative reconstruct ion. FINDINGS: LOWER CHEST : The visualized lung bases are clear. There are no pleural or pericardial effusions. ABDOMEN: Liver and Biliary system: Normal. Adrenal glands: Normal. Kidneys and ureters: There are no renal stones or hydronephrosis. No ureteral stones are present.. Spleen: Normal. Pancreas: Normal. Gallbladder: Surgically absent. Lymph nodes, Peritoneum and mesentery: There is no mesenteric or retroperitoneal lymphadenopathy. Gastrointestinal tract: There are no dilated loops of bowel or free intraperitoneal air. . There is significant thickening of the colonic wall extending from the distal transverse colon to the anal re ctal region compatible with colitis. Aorta/IVC: There is moderate to significant vascular calcification throughout the abdominal aorta w ithout evidence of aneurysmal dilation. IVC normal. Abdominal wall: Normal. PELVIS: Fluid: There is no free fluid in the pelvis. Lymph Nodes: There is no pelvic or inguinal lymphadenopathy.. Urinary bladder: Normal. BONES: There is a posterior spinal fusion between L4 and L5. There are no acute osseous abnormalitie s. ADDITIONAL SIGNIFICANT FINDINGS: None. IMPRESSION: 1. Significant colitis involving the region of the distal transverse colon through the anal rectal re gion. Scattered diverticuli are also seen.. 2. No bowel obstruction or appendicitis.
[2023-07-13 14:52] LABS: HCT 44.8 % (34.0-46.0); HGB 14.9 gm/dL (11.4-16.0); MCH 31.3 pg (25.0-35.0); MCHC 33.2 g/dL (31.0-37.0); MCV 94.3 fL (80.0-100.0); Mean Platelet Volume 9.5; Platelet Count 492 k/uL (150-450); RBC 4.75 m/uL (3.80-5.40)
[2023-07-13 14:57] LABS: Appearance,Urine Cloudy (Clear); Bilirubin,Urine Negative (Negative); Blood,Urine Negative (Negative); Color,Urine Dark Yellow; Glucose,Urine (UA) Negative (Negative); Hyaline Casts,Urine 21 /lpf (0-2); Ketones,Urine Trace (Negative); Leukocyte Esterase,Urine Negative (Negative); Mucus,Urine Occasional /hpf; Nitrite,Urine Negative (Negative); Protein,Urine 1+ (Negative); RBC,Urine 2 /hpf (0-5); Squamous Epithelial Cell,Urine 3 /hpf (0-4); Urobilinogen,Urine <2.0 mg/dL (<2.0); WBC,Urine 2 /hpf (0-5)
[2023-07-13 15:30] LABS: Band Neutrophils % 4 %; Lymphocytes # (M) 1.62 k/uL (1.0-4.8); Metamyelocytes # (M) 3.78 k/uL (0); Metamyelocytes % 7 %; Monocytes # (M) 3.24 k/uL (0-1.0); Myelocytes # (M) 2.16 k/uL (0); Myelocytes % 4 %; Neutrophils % (M) 78 %; Nucleated Red Blood Cells 0 /100 WBC (0-0); Total Cells Counted 200
[2023-07-13] MEDS: HYDROmorphone 1 MG/ML 1 ML SYRINGE IVP STA (16:05)
[2023-07-13 17:55] LABS: ALT 138 U/L (4-34); AST 64 U/L (14-36); African American GFR (CKD) 39 (>60 ml/min/1.73 sqM); Albumin 2.9 g/dL (3.5-5.0); Alkaline Phosphatase 392 U/L (38-126); Amylase 39 U/L (30-110); Anion Gap 16 mmol/L; Blood Urea Nitrogen 29 mg/dL (7-17); Calcium 9.7 mg/dL (8.4-10.2); Carbon Dioxide 18 mmol/L (22-30); Chloride 86 mmol/L (98-107); Glucose 162 mg/dL (74-99); Non-African American GFR(CKD) 34 (>60 ml/min/1.73 sqM); Potassium 4.2 mmol/L (3.5-5.1); Sodium 120 mmol/L (137-145); Total Bilirubin 0.7 mg/dL (0.2-1.3)
[2023-07-13] MEDS: ZINC OXIDE PASTE (Z-GUARD) 1 APPLIC TOPICAL PRN (18:02)
[2023-07-13] MEDS ORDERED: NALOXONE 0.4 MG/ML 1 ML VIAL IV PRN (18:59)
[2023-07-13] MEDS: SODIUM CHLORIDE 0.9% 1,000 ML IV SCH (19:41)
[2023-07-13] MEDS: ONDANSETRON 4 MG/2 ML VIAL IVP PRN (19:49)
[2023-07-13] MEDS ORDERED: HYDROcodone/APAP 7.5-325MG 1 EACH TAB PO PRN (23:53)
[2023-07-14] MEDS: HYDROmorphone 1 MG/ML 1 ML SYRINGE IVP PRN (01:07)
[2023-07-14] MEDS ORDERED: ACETAMINOPHEN TAB 325 MG TAB PO PRN (04:20)
[2023-07-14 06:43] LABS: Glucose,Whole Blood 176 mg/dL (70-110)
[2023-07-14 07:01] LABS: Basophils # (A) 12.3 k/uL (0-0.2); Basophils % (A) 10 %; Eosinophils # (A) 0.6 k/uL (0-0.7); Eosinophils % (A) 1 %; HCT 53.4 % (34.0-46.0); HGB 16.7 gm/dL (11.4-16.0); Hypochromasia Moderate; Lymphocytes # (A) 4.4 k/uL (1.0-4.8); Lymphocytes % (A) 4 %; MCH 31.5 pg (25.0-35.0); MCHC 31.3 g/dL (31.0-37.0); Macrocytosis Slight; Mean Platelet Volume 11.4; Monocytes # (A) 2.7 k/uL (0-1.0); Monocytes % (A) 2 %; Platelet Count 282 k/uL (150-450); RBC 5.29 m/uL (3.80-5.40); RDW 15.7 % (11.5-15.5)
[2023-07-14 07:11] LABS: Glucose,Whole Blood 170 mg/dL (70-110)
[2023-07-14 07:11] LABS: ALT 131 U/L (4-34); AST 141 U/L (14-36); Albumin 2.9 g/dL (3.5-5.0); Albumin/Globulin Ratio 0.9; Alkaline Phosphatase 432 U/L (38-126); Anion Gap 31 mmol/L; Blood Urea Nitrogen 37 mg/dL (7-17); Calcium 9.7 mg/dL (8.4-10.2); Chloride 89 mmol/L (98-107); Globulin 3.1 g/dL; Glucose 171 mg/dL (74-99); Magnesium 3.5 mg/dL (1.6-2.3); Potassium 3.8 mmol/L (3.5-5.1); Sodium 129 mmol/L (137-145); Total Bilirubin 0.6 mg/dL (0.2-1.3)
[2023-07-14 07:22] LABS: Carbon Dioxide 9 mmol/L (22-30)
[2023-07-14 07:23] LABS: Phosphorus 9.3 mg/dL (2.5-4.5)
[2023-07-14 07:45] LABS: MCV 100.9 fL (80.0-100.0); WBC 120.2 k/uL (3.8-10.6)
[2023-07-14 07:49] LABS: Band Neutrophils % 28 %; Metamyelocytes % 2 %; Myelocytes % 1 %; Neutrophils % (M) 64 %; Nucleated Red Blood Cells 0 /100 WBC (0-0); Total Cells Counted 100
[2023-07-14] MEDS: NOREPINEPHRINE 4 MG in SODIUM CHLORIDE 0.9% 250 ML IV SCH (07:57)
[2023-07-14] MEDS: SODIUM BICARB 8.4% 50 ML SYR (1 MEQ/ML) IV STA ×3 (08:12→12:44)
[2023-07-14 08:27] LABS: African American GFR (CKD) 19 (>60 ml/min/1.73 sqM); Non-African American GFR(CKD) 16 (>60 ml/min/1.73 sqM)
[2023-07-14 08:40] LABS: ABG Base Excess -21.5 mmol/L; ABG PO2 105 mmHg (83-108); ABG TCO2 7 mmol/L (19-24); Allen Test Performed? Yes
[2023-07-14 08:42] LABS: ABG HCO3 7 mmol/L (21-25); ABG PCO2 18 mmHg (35-45); ABG PH 7.18 (7.35-7.45)
[2023-07-14 08:43] LABS: ABG Oxygen Saturation 96.3 % (94-97)
[2023-07-14 08:50] VITALS: TEMP 96.8
--- NOTE | 2023-07-14 09:00 | XR ---
EXAMINATION TYPE: XR chest 1V confirm line [facility] DATE OF EXAM: 07/14/2023 COMPARISON: 06/19/2017 HISTORY: 68-year-old female left IJ central line placement TECHNIQUE: Single frontal view of the chest is obtained. FINDINGS: ACDF hardware. Heart normal size. Some strandy atelectasis of left base. No consolidation or pleural effusion. Annual left sided CVC tip at the upper right atrium. Subtle foci of air left sup raclavicular region likely relates to the procedure. Some increased density is also present in this l ocation. Left PICC tip obscured by the CVC. IMPRESSION: 1. Left CVC tip upper right atrium. Left PICC tip obscured by the CVC. 2. There may be mild left supraclavicular hematoma at the entry site. Small foci of air here likely r elate to the procedure. Correlate with physical exam findings. 3. No acute cardiopulmonary process.
[2023-07-14] MEDS: DEXTROSE 5% IN WATER 1,000 ML with SODIUM BICARB (1 MEQ/ML) 150 ML IV SCH (09:02)
[2023-07-14] MEDS: LACTATED RINGERS 1,000 ML IV SCH (09:05)
--- NOTE | 2023-07-14 09:13 | PCN ---
PROCEDURE NOTE CRITICAL CARE PROCEDURE NOTE: PROCEDURE PERFORMED: Right radial arterial line. PREOPERATIVE DIAGNOSES: Hypotension, administration of fluids, frequent blood draws, and blood gas monitoring. POSTOPERATIVE DIAGNOSES: Hypotension, administration of fluids, frequent blood draws, and blood gas monitoring. SERVICE ORDER DISPATCHER: Dr. Palomo. FIRST WRECKER OPERATOR: Dr. Rachael Oro. We used a right radial artery. ARTERIAL LINE PLACEMENT: Indications: Hemodynamic monitoring. A time-out was completed verifying correct patient, procedure, site, positioning, and implant(s) or special equipment if applicable. Hitesh's test was performed to ensure adequate perfusion. The patient's right wrist or right groin was prepped and draped in sterile fashion. 1% Lidocaine was used to anesthetize the area. An 18G Arrow arterial line was introduced into the radial artery. The catheter was threaded over the guide wire and the needle was removed with appropriate pulsatile blood return. Blood loss was minimal. The catheter was then sutured in place to the skin and a sterile dressing applied. Perfusion to the extremity distal to the point of catheter insertion was checked and found to be adequate. The patient tolerated the procedure well and there were no complications. There was good blood return and waveform. The patient tolerated the procedure well. The catheter was sutured in place. A sterile dressing was applied by the nurse. There was no immediate complication. PROCEDURE PERFORMED: Left internal jugular triple-lumen catheter. PREOPERATIVE DIAGNOSES: Administration of fluids and pressors, hypotension. POSTOPERATIVE DIAGNOSES: Administration of fluids and pressors, hypotension. SERVICE ORDER DISPATCHER: Dr. Palomo. FIRST WRECKER OPERATOR: Dr. Rachael Oro. There was informed consent and universal timeout. The patient's procedure took place in room 262. TRIPLE LUMEN CATHETER PLACEMENT: Indication: Hemodynamic monitoring/Intravenous access. A time-out was completed verifying correct patient, procedure, site, positioning, and implant(s) or special equipment if applicable. The patient was placed in a dependent position appropriate for triple lumen catheter placement based on the vein to be cannulated. The patient's left shoulder or left neck or left groin was prepped and draped in sterile fashion. 1% Lidocaine was used to anesthetize the surrounding skin area. A triple lumen 9F Cordis catheter was introduced into the left internal jugular vein using Seldinger technique. The catheter was threaded smoothly over the guide wire and appropriate blood return was obtained. Each lumen of the catheter was evacuated of air and flushed with sterile saline. The catheter was then sutured in place to the skin and a sterile dressing applied. Perfusion to the extremity distal to the point of catheter insertion was checked and found to be adequate. We used the left internal jugular vein. We went via the posterior approach. There was good blood return from all 3 ports. The patient tolerated the procedure well. The catheter was sutured in place. The tip of the catheter was seen in the junction of superior vena cava and right atrium. The catheter was sutured in place and sterile dressing was applied by the nurse. There was no immediate complication. MMODL / IJN: [id number] /
[2023-07-14] MEDS: LACTOBACILLUS ACIDOPHILUS/PECT 1 EACH CAPSULE PO SCH (09:39)
[2023-07-14] MEDS: CHOLESTYRAMINE (WITH SUGAR) 4 GM PACKET PO SCH (09:39)
[2023-07-14] MEDS: CYCLOBENZAPRINE 5 MG TAB PO SCH (09:39)
[2023-07-14] MEDS: ASPIRIN 81 MG PO SCH (09:39)
[2023-07-14] MEDS: FIDAXOMICIN 200 MG TABLET PO SCH (09:39)
[2023-07-14] MEDS: POTASSIUM CHLORIDE ER 10 MEQ TAB.ER.PRT PO SCH (09:40)
[2023-07-14] MEDS: MULTIVITAMINS, THERA 1 EACH TAB PO SCH (09:40)
[2023-07-14] MEDS: ENOXAPARIN 30 MG/0.3 ML SYRINGE SQ SCH (09:57)
[2023-07-14] MEDS: PANTOPRAZOLE 40 MG/10 ML VIAL IVP SCH (10:46)
--- NOTE | 2023-07-14 10:46 | P.CNPUL ---
History of Present Illness Consult date: 07/14/23 Requesting physician: Iesha Mendieta Chief complaint: Abdominal pain, diarrhea. History of present illness: Pulmonary consult dated July 14, 2023. 68-year-old female seen in the emergency department, on July 12, complaining of abdominal pain, abdominal distention, and diarrhea. This has been going on for at least 5 days, and getting worse. The patient was apparently being treated for C. difficile colitis, and receiving antibiotics, IV, while a patient at one of the local nursing homes. In addition to the above complaints, the patient had nausea, and vomiting. This morning, a rapid response was called on this patient, and the ICU nurse, who evaluated the patient, was concerned because the patient appeared very toxic looking. In addition, they could not get a blood pressure on the patient, the patient was tachycardic, and the patient's white count, had jumped significantly. I told the nurse to move the patient to the ICU. In the ICU, we evaluated her, and placed a right radial art line, and a left internal jugular triple-lumen catheter. We ordered blood gases, fluids, and a sodium bicarbonate drip. We also asked nephrology to see the patient. When we saw the patient in the ICU, she was on 2 L of oxygen, getting a bolus of saline, and placed on a small amount of norepinephrine. Current labs include a white count of 120,000, hemoglobin 16.7, hematocrit 53.4, and a platelet count of 282,000. Blood gases showed a pO2 105, pCO2 of 18, pH is 7.18. Sodium 129, potassium 3.8, chloride 89, bicarbonate concentration 9, anion gap 31, BUN 37, creatinine 2.91, up from 29 and 1.57 respectively. Glucose was 171. Lactic acid was 11.8. Phosphorus was 9.3. AST was 141, ALT 131, and albumin was 2.9. Amylase and lipase are normal. Urine was dark yellow and cloudy. There is trace positive for ketones. The rest of the urinalysis was unremarkable. Chest x-ray showed a properly placed left internal jugular triple-lumen catheter, with the tip at the junction of the SVC and right atrium. Chest x-ray was otherwise normal. Review of Systems REVIEW OF SYSTEMS: CONSTITUTIONAL: [Negative.] NEUROLOGIC: [ Negative.] HEENT: [ Negative.] CARDIAC: [Negative.] PULMONARY: [Negative.] GI: Abdominal pain, abdominal distention, diarrhea, nausea, and vomiting. : [Negative.] RHEUMATOLOGIC: [ Negative.] IMMUNOLOGIC: [ Negative.] ENDOCRINE: [Negative. ] DERMATOLOGIC: [Negative.] Past Medical History Past Medical History: Asthma, Hyperlipidemia, Hypertension, Osteoarthritis (OA) Additional Past Medical History / Comment(s): IBS History of Any Multi-Drug Resistant Organisms: None Reported Past Surgical History: Back Surgery, Section, Cholecystectomy, Hysterectomy, Orthopedic Surgery Additional Past Surgical History / Comment(s): Cervical fusion, bilateral knee arthroscopy, right ankle surgery, lower back fusion, section X2., left total knee 03/14/23 with spacer Past Anesthesia/Blood Transfusion Reactions: No Reported Reaction Additional Past Anesthesia/Blood Transfusion Reaction / Comment(s): Has never had blood transfusion. Past Psychological History: No Psychological Hx Reported Smoking Status: Current every day smoker Past Alcohol Use History: None Reported Additional Past Alcohol Use History / Comment(s): bernardos 1/2 PPD, has smoked for 40-42 yrs Past Drug Use History: None Reported - Past Family History Mother Family Medical History: Cancer Additional Family Medical History / Comment(s): Colon cancer, at age 55. Medications and Allergies Home Medications Medication Instructions Recorded Confirmed Type Bisoprolol-Hctz 10-6.25 mg [Ziac 1 tab PO BID@0900,209909/18/13 07/13/23 History 10-6.25 MG] Atorvastatin Calcium 10 mg PO HS@209911/24/22 07/13/23 History Cyclobenzaprine [Flexeril] 5 mg PO BID@0900,209903/08/23 07/13/23 History Aspirin EC [Ecotrin Low Dose] 81 mg PO DAILY@0900 05/31/23 07/13/23 History Ibuprofen [Motrin] 800 mg PO TID PRN 05/31/23 07/13/23 History Acetaminophen [Tylenol] 650 mg PO Q6H PRN 07/13/23 07/13/23 History Cholestyramine/Aspartame 4 gm PO BID@0900,209907/13/23 07/13/23 History [Cholestyramine Light Packet] Enoxaparin [Lovenox] 30 mg SQ BID@0900,209907/13/23 07/13/23 History Fidaxomicin [Dificid] 200 mg PO BID@0900,2100 07/13/23 07/13/23 History HYDROcodone/APAP 7.5-325MG [[place] 1 tab PO Q6HR PRN 07/13/23 07/13/23 History 7.5] Lactobacillus Acidophilus 1 cap PO BID@0900,2100 07/13/23 07/13/23 History [Acidophilus Probiotic] Multivitamins, Thera [Multivitamin 1 tab PO DAILY@0900 07/13/23 07/13/23 History (formulary)] Potassium Chloride ER [K-Dur 10] 10 meq PO DAILY@0900 07/13/23 07/13/23 History cefTRIAXone [Rocephin] 2,000 mg IVP DAILY@0900 07/13/23 07/13/23 History Allergies Allergy/AdvReac Type Severity Reaction Status Date / Time Iodinated Contrast Media Allergy Rash/Hives,states Verified 07/13/23 16:56 [Iodinated Contrast Media - "can IV Dye] tolerate iodine on skin" codeine AdvReac severe Verified 07/13/23 16:56 constipation morphine AdvReac Hallucinati Verified 07/13/23 16:56 ons sertraline HCl [From Zoloft] AdvReac Hallucinati Verified 07/13/23 16:56 ons Physical Exam Osteopathic Statement: *. No significant issues noted on an osteopathic structural exam other than those noted in the History and Physical/Consult. Vitals: Vital Signs Temp Pulse Pulse Resp BP BP Pulse Ox 07/14/23 09:00 106 H 23 126/80 97 07/14/23 08:45 102 H 20 120/97 97 07/14/23 08:30 96 20 112/85 98 07/14/23 08:00 96.8 F L 105 H 24 94/26 96 07/14/23 00:51 97.5 F L 103 H 17 99/64 96 07/13/23 20:55 97.5 F L 104 H 16 120/84 96 07/13/23 19:39 104 H 18 111/93 95 07/13/23 18:39 105 H 158 H 108/78 94 L 07/13/23 17:00 111 H 18 128/90 97 07/13/23 16:00 106 H 16 120/79 96 07/13/23 15:00 105 H 16 107/74 96 07/13/23 14:00 104 H 18 107/74 07/13/23 13:00 99 20 105/73 07/13/23 12:00 108 H 18 107/77 94 L 07/13/23 11:48 99 16 129/90 95 07/13/23 11:42 98.2 F 95 18 107/77 95 Intake and Output 07/13/23 07/14/23 07/14/23 22:59 06:59 14:59 Intake Total 320.116 Output Total 97 Balance 223.116 Intake: IV 150 Lactated Ringers 1,000 ml 150 @ 150 mls/hr IV .Q6H40M [facility] Rx#:[id number] Intake, IV Titration 170.116 Amount Dextrose 5% in Water 1, 150 000 ml @ 150 mls/hr IV . Q7H40M [facility] with Sodium Bicarb (1 Meq/ml) 150 ml Rx#:[id number] Norepinephrine 4 mg In 20.116 Sodium Chloride 0.9% 250 ml @ 0.03 MCG/KG/MIN 12. 443 mls/hr IV .[id number] [facility] Rx#:[id number] Output: Urine 97 Other: Voiding Method Bedpan # Bowel Movements 8 Weight 108.862 kg ABP, PAP, CO, CI - Last 8 Hours Arterial Blood Pressure 108/63 Arterial Blood Pressure 114/77 Arterial Blood Pressure 94/60 Toxic appearing patient, in mild distress, confused, but arousable. Currently on 2 L of oxygen. HEENT examination is grossly unremarkable. Mucous membranes are moist. No oral lesions. Neck supple. Full range of motion. No adenopathy thyromegaly or neck vein distention. Cardiovascular examination reveals regular rhythm rate. S1-S2 normal. No S3 or S4. No discernible murmur noted. Heart rate 106 bpm. Heart sounds are distant. Lungs reveal clear breath sounds. Breath sounds are equal bilaterally. No adventitious lung sounds including wheezes rhonchi or crackles. Saturations are 97% on 2 L. Abdomen very distended, with hypoactive bowel sounds. Tenderness on palpation. Extremities are intact. No cyanosis clubbing or edema. Skin is without rash or lesion. Neurologic examination is brief but nonfocal. Results - Laboratory Findings CBC and BMP: 07/14/23 06:07 07/14/23 06:07 ABG ABG pH 7.18 (7.35-7.45) L* 07/14/23 08:36 ABG pCO2 18 mmHg (35-45) L* 07/14/23 08:36 ABG pO2 105 mmHg (83-108) 07/14/23 08:36 ABG O2 Saturation 96.3 % (94-97) 07/14/23 08:36 Abnormal lab findings: Abnormal Labs 07/13/23 07/13/23 07/13/23 12:33 13:10 17:25 WBC 54.0 H* Hgb Hct MCV RDW 16.0 H Plt Count 492 H Neutrophils # Neutrophils # (Manual) 44.20 H Monocytes # Monocytes # (Manual) 3.24 H Eosinophils # (Manual) Basophils # Metamyelocytes # (Man) 3.78 H Myelocytes # (Manual) 2.16 H ABG pH ABG pCO2 ABG HCO3 ABG Total CO2 Sodium 120 L Chloride 86 L Carbon Dioxide 18 L BUN 29 H Creatinine 1.57 H Glucose 162 H POC Glucose (mg/dL) Plasma Lactic Acid Kenji Phosphorus Magnesium AST 64 H ALT 138 H Alkaline Phosphatase 392 H Total Protein 6.0 L Albumin 2.9 L Urine Appearance Cloudy H Urine Protein 1+ H Urine Ketones Trace H Hyaline Casts 21 H Urine Mucus Occasional H 07/14/23 07/14/23 07/14/23 06:07 06:07 06:42 WBC 120.2 H* Hgb 16.7 H Hct 53.4 H MCV 100.9 H D RDW 15.7 H Plt Count Neutrophils # 111.0 H Neutrophils # (Manual) 110.50 H Monocytes # 2.7 H Monocytes # (Manual) 2.40 H Eosinophils # (Manual) 1.20 H Basophils # 12.3 H Metamyelocytes # (Man) 2.40 H Myelocytes # (Manual) 1.20 H ABG pH ABG pCO2 ABG HCO3 ABG Total CO2 Sodium 129 L Chloride 89 L Carbon Dioxide 9 L* BUN 37 H Creatinine 2.91 H Glucose 171 H POC Glucose (mg/dL) 176 H Plasma Lactic Acid Kenji Phosphorus 9.3 H* Magnesium 3.5 H AST 141 H ALT 131 H Alkaline Phosphatase 432 H Total Protein 6.0 L Albumin 2.9 L Urine Appearance Urine Protein Urine Ketones Hyaline Casts Urine Mucus 07/14/23 07/14/23 07/14/23 06:56 07:11 08:36 WBC Hgb Hct MCV RDW Plt Count Neutrophils # Neutrophils # (Manual) Monocytes # Monocytes # (Manual) Eosinophils # (Manual) Basophils # Metamyelocytes # (Man) Myelocytes # (Manual) ABG pH 7.18 L* ABG pCO2 18 L* ABG HCO3 7 L* ABG Total CO2 7 L Sodium Chloride Carbon Dioxide BUN Creatinine Glucose POC Glucose (mg/dL) 170 H Plasma Lactic Acid Kenji 11.8 H* Phosphorus Magnesium AST ALT Alkaline Phosphatase Total Protein Albumin Urine Appearance Urine Protein Urine Ketones Hyaline Casts Urine Mucus - Diagnostic Findings Chest x-ray: image reviewed Assessment and Plan Assessment: Severe sepsis, secondary to C. difficile colitis. Hypotension, secondary to sepsis. Abdominal pain, abdominal distention, diarrhea, nausea, and vomiting, all secondary to C. difficile colitis. Profound leukocytosis, secondary to sepsis. Severe anion gap metabolic acidosis, secondary to lactic acidemia, and acute kidney injury. Probable ATN, secondary to sepsis, and hypotension. Severe lactic acidosis. Septic hepatopathy. Hyperlipidemia. History of hypertension. History of chronic bronchial asthma. History of irritable bowel syndrome. History of ongoing tobacco use with nicotine addiction. Plan: Plan dated July 14, 2023. The patient was transferred down from [facility], and to the intensive care unit, for further monitoring and management. A right radial arterial line was placed. A left internal jugular triple-lumen catheter was placed. The patient was started on fluids, sodium bicarbonate drip, and, norepinephrine, for blood pressure support. Nephrology was consulted. Labs, x-rays, and medications are reviewed. We will continue to follow make recommendations along the way. Prognosis is certainly guarded. Time with Patient: Greater than 30
[2023-07-14] MEDS: metroNIDAZOLE-NS PMX 500 MG in SALINE 1 100ML.BAG IVPB SCH (11:19)
[2023-07-14] MEDS ORDERED: IPRATROPIUM-ALBUTEROL 3 ML NEB INHALATION PRN (11:50)
[2023-07-14 11:55] LABS: ABG PH 7.21 (7.35-7.45); ABG PO2 120 mmHg (83-108); Allen Test Performed? Yes
--- NOTE | 2023-07-14 12:04 | P.NPCON ---
History of Present Illness - Reason for Consult acute renal failure - History of Present Illness Reason for consultation: Acute kidney injury History of present illness: Patient is a 68-year-old female seen in renal consultation for acute kidney injury. Patient is a poor historian. Patient's creatinine as of yesterday morning was 0.87. Patient was brought to the hospital from extended-care facility due to hypotension and dehydration. Patient's creatinine on admission yesterday was 1.57 and is up to 2.91 today. Patient did receive 2 L of fluid bolus and is currently maintained on LR as well as bicarb drip. Patient is on nasal cannula. Patient is noted to be hypotensive and is currently on Levophed. Nonoliguric. Patient underwent knee replacement in June and subsequently had developed staph infection. She was also recently diagnosed with C. difficile and was maintained on oral antibiotics. She has been having multiple bowel movements per nurse. Currently she is not able to take oral meds and receiving IV antibiotics. She underwent CT of the abdomen and pelvis without contrast which showed no hydronephrosis. Colitis was noted. I do see Motrin on her home medication list but is not clear if she was taking this or not. Additionally she was also on a thiazide diuretic which is currently held. Vital signs -hypotensive on vasopressor support. Tachycardic. General: Lethargic. HEENT: Head exam is unremarkable. On nasal cannula. LUNGS: No audible rhonchi or wheezes. HEART: Tachycardic. ABDOMEN: Generalized tenderness. EXTREMITITES: No edema. Past Medical History Past Medical History: Asthma, Hyperlipidemia, Hypertension, Osteoarthritis (OA) Additional Past Medical History / Comment(s): IBS History of Any Multi-Drug Resistant Organisms: None Reported Past Surgical History: Back Surgery, Section, Cholecystectomy, Hysterectomy, Orthopedic Surgery Additional Past Surgical History / Comment(s): Cervical fusion, bilateral knee arthroscopy, right ankle surgery, lower back fusion, section X2., left total knee 03/14/23 with spacer Past Anesthesia/Blood Transfusion Reactions: No Reported Reaction Additional Past Anesthesia/Blood Transfusion Reaction / Comment(s): Has never had blood transfusion. Past Psychological History: No Psychological Hx Reported Smoking Status: Current every day smoker Past Alcohol Use History: None Reported Additional Past Alcohol Use History / Comment(s): bernardos 1/2 PPD, has smoked for 40-42 yrs Past Drug Use History: None Reported - Past Family History Mother Family Medical History: Cancer Additional Family Medical History / Comment(s): Colon cancer, at age 55. Medications and Allergies Home Medications Medication Instructions Recorded Confirmed Type Bisoprolol-Hctz 10-6.25 mg [Ziac 1 tab PO BID@0900,209909/18/13 07/13/23 History 10-6.25 MG] Atorvastatin Calcium 10 mg PO HS@209911/24/22 07/13/23 History Cyclobenzaprine [Flexeril] 5 mg PO BID@0900,209903/08/23 07/13/23 History Aspirin EC [Ecotrin Low Dose] 81 mg PO DAILY@89905/31/23 07/13/23 History Ibuprofen [Motrin] 800 mg PO TID PRN 05/31/23 07/13/23 History Acetaminophen [Tylenol] 650 mg PO Q6H PRN 07/13/23 07/13/23 History Cholestyramine/Aspartame 4 gm PO BID@0900,209907/13/23 07/13/23 History [Cholestyramine Light Packet] Enoxaparin [Lovenox] 30 mg SQ BID@0900,209907/13/23 07/13/23 History Fidaxomicin [Dificid] 200 mg PO BID@0900,209907/13/23 07/13/23 History HYDROcodone/APAP 7.5-325MG [[place] 1 tab PO Q6HR PRN 07/13/23 07/13/23 History 7.5] Lactobacillus Acidophilus 1 cap PO BID@0900,209907/13/23 07/13/23 History [Acidophilus Probiotic] Multivitamins, Thera [Multivitamin 1 tab PO DAILY@89907/13/23 07/13/23 History (formulary)] Potassium Chloride ER [K-Dur 10] 10 meq PO DAILY@89907/13/23 07/13/23 History cefTRIAXone [Rocephin] 2,000 mg IVP DAILY@89907/13/23 07/13/23 History Allergies Allergy/AdvReac Type Severity Reaction Status Date / Time Iodinated Contrast Media Allergy Rash/Hives,states Verified 07/13/23 16:56 [Iodinated Contrast Media - "can IV Dye] tolerate iodine on skin" codeine AdvReac severe Verified 07/13/23 16:56 constipation morphine AdvReac Hallucinati Verified 07/13/23 16:56 ons sertraline HCl [From Zoloft] AdvReac Hallucinati Verified 07/13/23 16:56 ons Physical Exam Vitals: Vital Signs Temp Pulse Pulse Resp BP BP Pulse Ox 07/14/23 11:00 108 H 23 99/55 98 07/14/23 10:45 108 H 26 H 95/63 97 07/14/23 10:30 110 H 27 H 83/40 97 07/14/23 10:15 109 H 18 114/39 97 07/14/23 10:00 111 H 21 86/37 97 07/14/23 09:45 108 H 19 94/76 98 07/14/23 09:30 109 H 21 101/84 98 07/14/23 09:15 105 H 23 94/77 97 07/14/23 09:00 106 H 23 126/80 97 07/14/23 08:45 102 H 20 120/97 97 07/14/23 08:30 96 20 112/85 98 07/14/23 08:00 96.8 F L 105 H 24 94/26 96 07/14/23 00:51 97.5 F L 103 H 17 99/64 96 07/13/23 20:55 97.5 F L 104 H 16 120/84 96 07/13/23 19:39 104 H 18 111/93 95 07/13/23 18:39 105 H 158 H 108/78 94 L 07/13/23 17:00 111 H 18 128/90 97 07/13/23 16:00 106 H 16 120/79 96 07/13/23 15:00 105 H 16 107/74 96 07/13/23 14:00 104 H 18 107/74 07/13/23 13:00 99 20 105/73 07/13/23 12:00 108 H 18 107/77 94 L Intake and Output 07/13/23 07/14/23 07/14/23 22:59 06:59 14:59 Intake Total 1020.116 Output Total 99 Balance 921.116 Intake: IV 450 Lactated Ringers 1,000 ml 450 @ 150 mls/hr IV .Q6H40M [facility] Rx#:[id number] Intake, IV Titration 570.116 Amount Dextrose 5% in Water 1, 450 000 ml @ 150 mls/hr IV . Q7H40M [facility] with Sodium Bicarb (1 Meq/ml) 150 ml Rx#:[id number] Norepinephrine 4 mg In 20.116 Sodium Chloride 0.9% 250 ml @ 0.03 MCG/KG/MIN 12. 443 mls/hr IV .[id number] [facility] Rx#:[id number] metroNIDAZOLE-NS PMX 500 100 mg In Saline 1 100ml.bag @ 100 mls/hr IVPB Q8HR [facility] Rx#:[id number] Output: Urine 99 Other: Voiding Method Bedpan # Bowel Movements 8 Weight 108.862 kg ABP, PAP, CO, CI - Last 8 Hours Arterial Blood Pressure 73/62 Arterial Blood Pressure 69/60 Arterial Blood Pressure 88/73 Arterial Blood Pressure 83/69 Arterial Blood Pressure 88/66 Arterial Blood Pressure 88/64 Arterial Blood Pressure 80/56 Arterial Blood Pressure 97/65 Arterial Blood Pressure 108/63 Arterial Blood Pressure 114/77 Arterial Blood Pressure 94/60 Results - Lab Results Most recent lab results ABG pH 7.18 (7.35-7.45) L* 07/14/23 08:36 ABG pCO2 18 mmHg (35-45) L* 07/14/23 08:36 ABG pO2 105 mmHg (83-108) 07/14/23 08:36 ABG HCO3 7 mmol/L (21-25) L* 07/14/23 08:36 ABG O2 Saturation 96.3 % (94-97) 07/14/23 08:36 Calcium 9.7 mg/dL (8.4-10.2) 07/14/23 06:07 Phosphorus 9.3 mg/dL (2.5-4.5) H* 07/14/23 06:07 Magnesium 3.5 mg/dL (1.6-2.3) H 07/14/23 06:07 07/14/23 06:07 07/14/23 06:07 Assessment and Plan Plan: Assessment: 1. Acute kidney injury secondary to ATN secondary to septic shock. Baseline creatinine near 1 and is up to 2.91 today. Nonoliguric. No hydronephrosis noted on CAT scan. 2. Septic shock secondary to secondary to C. difficile colitis. On Levophed. On IV antibiotics. 3. Hypovolemic hyponatremia improved with IV fluids. 4. Metabolic acidosis secondary to acute kidney injury, lactic acidosis IV fluids and GI losses. Plan: Stop LR. Increase rate of bicarb drip to 200 cc an hour. Follow-up cultures. Avoid nephrotoxins. Discontinue potassium supplementation. Wean FiO2. Monitor respiratory status closely. May need to be intubated. Repeat labs pending. Thank you for the consultation. I will continue to follow the patient with you during her hospital stay.
[2023-07-14 12:15] LABS: Anion Gap 31 mmol/L; Blood Urea Nitrogen 38 mg/dL (7-17); Calcium 7.8 mg/dL (8.4-10.2); Chloride 93 mmol/L (98-107); Glucose 145 mg/dL (74-99); Sodium 131 mmol/L (137-145)
[2023-07-14 12:16] LABS: ABG PCO2 <15 mmHg (35-45)
[2023-07-14 12:17] LABS: ABG Oxygen Saturation 96.7 % (94-97)
[2023-07-14 12:19] VITALS: BMI 45.3
[2023-07-14 12:21] LABS: African American GFR (CKD) 18 (>60 ml/min/1.73 sqM); Non-African American GFR(CKD) 16 (>60 ml/min/1.73 sqM)
[2023-07-14 12:27] LABS: Carbon Dioxide 7 mmol/L (22-30)
[2023-07-14 12:29] LABS: ABG Base Excess -22.4 mmol/L; ABG PCO2 22 mmHg (35-45); ABG PO2 300 mmHg (83-108); ABG TCO2 8 mmol/L (19-24); Allen Test Performed? Yes
[2023-07-14 12:30] LABS: ABG HCO3 7 mmol/L (21-25); ABG PH 7.11 (7.35-7.45)
[2023-07-14 12:31] LABS: ABG Oxygen Saturation 98.5 % (94-97)
[2023-07-14] MEDS: propofoL 100 ML IV ONE (12:35)
--- NOTE | 2023-07-14 12:44 | XR ---
EXAMINATION TYPE: XR chest 1V portable DATE OF EXAM: 07/14/2023 Comparison: 07/14/2023 Clinical History: 68-year-old female Tube placement Findings: ACDF hardware. ET tube satisfactory. NG tube courses below the diaphragm. There is an extra loop with in the stomach. Left CVC tip at the upper right atrium. Lung volumes mildly diminished with crowding of vascular markings and some accentuation of heart size. No consolidation or pleural effusion. Impression: 1. Satisfactory ET tube. 2. NG tube is in place. There is an extra loop within the stomach. 3. No acute cardiopulmonary process.
[2023-07-14] MEDS ORDERED: VANCOMYCIN 125 MG CAPSULE PO SCH ×2 (13:00)
--- NOTE | 2023-07-14 13:05 | P.HPIM ---
History of Present Illness H&P Date: 07/14/23 History of present illness; patient 68-year-old lady with past medical history significant for left knee infection, CHF, hypertension, bulimia plan to the ER because of abdominal pain and diarrhea. Patient is currently a resident of a half-way and is getting IV antibiotics through a PICC line and is also being treated for C. difficile. Patient stated for the last few days she has been noticing that her diarrhea is worsening, patient also complaining of worsening abdominal pain. Patient in bed is also distended. Denies any nausea or vomiting. There is no current fever or chills. Initial lab work done in the ER showed WBC 54, hemoglobin 14.9, platelet count 492, sodium 120, potassium 4.2, BUN 29, creatinine 1.57, AST 64, ALT 138, Chest x-ray done in the ER left CVC tip in the right atrium, left PICC tip obstructed by the CBC CT abdominal and pelvis done showed significant colitis involving the region of the distal transverse colon through the anal rectal region Patient was initially planned to go to stepdown unit but patient became hypothermic and less responsive. Repeat labs were drawn and showed patient to have an increasing white count and elevated lactate levels. Patient was transferred to ICU REVIEW OF SYSTEMS: Review of system cannot be obtained because of patient mental status PHYSICAL EXAMINATION: GENERAL: The patient is confused, lethargic HEENT: Pupils are round and equally reacting to light. EOMI. CARDIOVASCULAR: S1 and S2 present. No murmurs, rubs, or gallops. PULMONARY: Coarse breath sounds bilaterally, no wheezing or crackles. ABDOMEN: Distended, tenderness noticeable MUSCULOSKELETAL: No joint swelling or deformity. EXTREMITIES: No cyanosis, clubbing, or pedal edema. NEUROLOGICAL: Moving extremities, detailed neuroexam cannot be performed SKIN: No rashes. Assessment and plan Septic shock Fulminant C. difficile colitis Acute hypoxic respiratory failure Metabolic acidosis Acute kidney injury Hyponatremia History of left knee infection Osteoarthritis Hyperlipidemia Hypertension Morbid obesity Severe lactic acidosis. Septic hepatopathy. Monitor vital signs Monitor CBC Monitor CMP Continue telemetry monitoring Follow-up on blood cultures Monitor electrolytes. Avoid nephrotoxic agents Strict I's and O's Continue oral vancomycin and Flagyl. Start vancomycin enema Continue IV fluids Continue Levophed ICU consulted for critical care management Consult ID Consult GI Labs and medication were reviewed.. Continue same treatment. Continue with symptomatic treatment. Resume home medication. Monitor labs and vitals. DVT and GI prophylaxis. Further recommendations as per clinical course of the patient Dictation was produced using [employer] dictation software. please excuse any grammatical, word or spelling errors. Past Medical History Past Medical History: Asthma, Hyperlipidemia, Hypertension, Osteoarthritis (OA) Additional Past Medical History / Comment(s): IBS History of Any Multi-Drug Resistant Organisms: None Reported Past Surgical History: Back Surgery, Section, Cholecystectomy, Hysterectomy, Orthopedic Surgery Additional Past Surgical History / Comment(s): Cervical fusion, bilateral knee arthroscopy, right ankle surgery, lower back fusion, section X2., left total knee 03/14/23 with spacer Past Anesthesia/Blood Transfusion Reactions: No Reported Reaction Additional Past Anesthesia/Blood Transfusion Reaction / Comment(s): Has never had blood transfusion. Past Psychological History: No Psychological Hx Reported Smoking Status: Current every day smoker Past Alcohol Use History: None Reported Additional Past Alcohol Use History / Comment(s): smoikes 1/2 PPD, has smoked for 40-42 yrs Past Drug Use History: None Reported - Past Family History Mother Family Medical History: Cancer Additional Family Medical History / Comment(s): Colon cancer, at age 55. Medications and Allergies Home Medications Medication Instructions Recorded Confirmed Type Bisoprolol-Hctz 10-6.25 mg [Ziac 1 tab PO BID@0900,209909/18/13 07/13/23 History 10-6.25 MG] Atorvastatin Calcium 10 mg PO HS@209911/24/22 07/13/23 History Cyclobenzaprine [Flexeril] 5 mg PO BID@0900,209903/08/23 07/13/23 History Aspirin EC [Ecotrin Low Dose] 81 mg PO DAILY@00 05/31/23 07/13/23 History Ibuprofen [Motrin] 800 mg PO TID PRN 05/31/23 07/13/23 History Acetaminophen [Tylenol] 650 mg PO Q6H PRN 07/13/23 07/13/23 History Cholestyramine/Aspartame 4 gm PO BID@0900,209907/13/23 07/13/23 History [Cholestyramine Light Packet] Enoxaparin [Lovenox] 30 mg SQ BID@0900,209907/13/23 07/13/23 History Fidaxomicin [Dificid] 200 mg PO BID@0900,2100 07/13/23 07/13/23 History HYDROcodone/APAP 7.5-325MG [[place] 1 tab PO Q6HR PRN 07/13/23 07/13/23 History 7.5] Lactobacillus Acidophilus 1 cap PO BID@0900,2100 07/13/23 07/13/23 History [Acidophilus Probiotic] Multivitamins, Thera [Multivitamin 1 tab PO DAILY@0900 07/13/23 07/13/23 History (formulary)] Potassium Chloride ER [K-Dur 10] 10 meq PO DAILY@0900 07/13/23 07/13/23 History cefTRIAXone [Rocephin] 2,000 mg IVP DAILY@0900 07/13/23 07/13/23 History Allergies Allergy/AdvReac Type Severity Reaction Status Date / Time Iodinated Contrast Media Allergy Rash/Hives,states Verified 07/13/23 16:56 [Iodinated Contrast Media - "can IV Dye] tolerate iodine on skin" codeine AdvReac severe Verified 07/13/23 16:56 constipation morphine AdvReac Hallucinati Verified 07/13/23 16:56 ons sertraline HCl [From Zoloft] AdvReac Hallucinati Verified 07/13/23 16:56 ons Physical Exam Vitals: Vital Signs Temp Pulse Pulse Resp BP BP Pulse Ox 07/14/23 08:00 96.8 F L 105 H 24 94/26 96 07/14/23 00:51 97.5 F L 103 H 17 99/64 96 07/13/23 20:55 97.5 F L 104 H 16 120/84 96 07/13/23 19:39 104 H 18 111/93 95 07/13/23 18:39 105 H 158 H 108/78 94 L 07/13/23 17:00 111 H 18 128/90 97 07/13/23 16:00 106 H 16 120/79 96 07/13/23 15:00 105 H 16 107/74 96 07/13/23 14:00 104 H 18 107/74 07/13/23 13:00 99 20 105/73 07/13/23 12:00 108 H 18 107/77 94 L 07/13/23 11:48 99 16 129/90 95 07/13/23 11:42 98.2 F 95 18 107/77 95 Intake and Output 07/13/23 07/14/23 07/14/23 22:59 06:59 14:59 Output Total 95 Balance -95 Output: Urine 95 Other: Voiding Method Bedpan # Bowel Movements 8 Weight 108.862 kg Results CBC & Chem 7: 07/14/23 06:07 07/14/23 11:40 Labs: Abnormal Lab Results - Last 24 Hours (Table) 07/13/23 07/13/23 07/13/23 Range/Units 12:33 13:10 17:25 WBC 54.0 H* (3.8-10.6) k/uL Hgb (11.4-16.0) gm/dL Hct (34.0-46.0) % MCV (80.0-100.0) fL RDW 16.0 H (11.5-15.5) % Plt Count 492 H (150-450) k/uL Neutrophils # (1.3-7.7) k/uL Neutrophils # (Manual) 44.20 H (1.3-7.7) k/uL Monocytes # (0-1.0) k/uL Monocytes # (Manual) 3.24 H (0-1.0) k/uL Eosinophils # (Manual) (0-0.7) k/uL Basophils # (0-0.2) k/uL Metamyelocytes # (Man) 3.78 H (0) k/uL Myelocytes # (Manual) 2.16 H (0) k/uL ABG pH (7.35-7.45) ABG pCO2 (35-45) mmHg ABG HCO3 (21-25) mmol/L ABG Total CO2 (19-24) mmol/L Sodium 120 L (137-145) mmol/L Chloride 86 L (98-107) mmol/L Carbon Dioxide 18 L (22-30) mmol/L BUN 29 H (7-17) mg/dL Creatinine 1.57 H (0.52-1.04) mg/dL Glucose 162 H (74-99) mg/dL POC Glucose (mg/dL) (70-110) mg/dL Plasma Lactic Acid Kenji (0.7-2.0) mmol/L Phosphorus (2.5-4.5) mg/dL Magnesium (1.6-2.3) mg/dL AST 64 H (14-36) U/L ALT 138 H (4-34) U/L Alkaline Phosphatase 392 H (38-126) U/L Total Protein 6.0 L (6.3-8.2) g/dL Albumin 2.9 L (3.5-5.0) g/dL Urine Appearance Cloudy H (Clear) Urine Protein 1+ H (Negative) Urine Ketones Trace H (Negative) Hyaline Casts 21 H (0-2) /lpf Urine Mucus Occasional H (None) /hpf 07/14/23 07/14/23 07/14/23 Range/Units 06:07 06:07 06:42 WBC 120.2 H* (3.8-10.6) k/uL Hgb 16.7 H (11.4-16.0) gm/dL Hct 53.4 H (34.0-46.0) % MCV 100.9 H D (80.0-100.0) fL RDW 15.7 H (11.5-15.5) % Plt Count (150-450) k/uL Neutrophils # 111.0 H (1.3-7.7) k/uL Neutrophils # (Manual) 110.50 H (1.3-7.7) k/uL Monocytes # 2.7 H (0-1.0) k/uL Monocytes # (Manual) 2.40 H (0-1.0) k/uL Eosinophils # (Manual) 1.20 H (0-0.7) k/uL Basophils # 12.3 H (0-0.2) k/uL Metamyelocytes # (Man) 2.40 H (0) k/uL Myelocytes # (Manual) 1.20 H (0) k/uL ABG pH (7.35-7.45) ABG pCO2 (35-45) mmHg ABG HCO3 (21-25) mmol/L ABG Total CO2 (19-24) mmol/L Sodium 129 L (137-145) mmol/L Chloride 89 L (98-107) mmol/L Carbon Dioxide 9 L* (22-30) mmol/L BUN 37 H (7-17) mg/dL Creatinine 2.91 H (0.52-1.04) mg/dL Glucose 171 H (74-99) mg/dL POC Glucose (mg/dL) 176 H (70-110) mg/dL Plasma Lactic Acid Kenji (0.7-2.0) mmol/L Phosphorus 9.3 H* (2.5-4.5) mg/dL Magnesium 3.5 H (1.6-2.3) mg/dL AST 141 H (14-36) U/L ALT 131 H (4-34) U/L Alkaline Phosphatase 432 H (38-126) U/L Total Protein 6.0 L (6.3-8.2) g/dL Albumin 2.9 L (3.5-5.0) g/dL Urine Appearance (Clear) Urine Protein (Negative) Urine Ketones (Negative) Hyaline Casts (0-2) /lpf Urine Mucus (None) /hpf 07/14/23 07/14/23 07/14/23 Range/Units 06:56 07:11 08:36 WBC (3.8-10.6) k/uL Hgb (11.4-16.0) gm/dL Hct (34.0-46.0) % MCV (80.0-100.0) fL RDW (11.5-15.5) % Plt Count (150-450) k/uL Neutrophils # (1.3-7.7) k/uL Neutrophils # (Manual) (1.3-7.7) k/uL Monocytes # (0-1.0) k/uL Monocytes # (Manual) (0-1.0) k/uL Eosinophils # (Manual) (0-0.7) k/uL Basophils # (0-0.2) k/uL Metamyelocytes # (Man) (0) k/uL Myelocytes # (Manual) (0) k/uL ABG pH 7.18 L* (7.35-7.45) ABG pCO2 18 L* (35-45) mmHg ABG HCO3 7 L* (21-25) mmol/L ABG Total CO2 7 L (19-24) mmol/L Sodium (137-145) mmol/L Chloride (98-107) mmol/L Carbon Dioxide (22-30) mmol/L BUN (7-17) mg/dL Creatinine (0.52-1.04) mg/dL Glucose (74-99) mg/dL POC Glucose (mg/dL) 170 H (70-110) mg/dL Plasma Lactic Acid Kenji 11.8 H* (0.7-2.0) mmol/L Phosphorus (2.5-4.5) mg/dL Magnesium (1.6-2.3) mg/dL AST (14-36) U/L ALT (4-34) U/L Alkaline Phosphatase (38-126) U/L Total Protein (6.3-8.2) g/dL Albumin (3.5-5.0) g/dL Urine Appearance (Clear) Urine Protein (Negative) Urine Ketones (Negative) Hyaline Casts (0-2) /lpf Urine Mucus (None) /hpf Thrombosis Risk Factor Assmnt - Choose All That Apply Each Factor Represents 1 point: Obesity (BMI >25), Varicose veins Other Risk Factors: Yes Each Risk Factor Represents 2 Points: Age 61-74 years Other congenital or acquired thrombophilia - If yes, enter type in comment: No Thrombosis Risk Factor Assessment Total Risk Factor Score: 4 Thrombosis Risk Factor Assessment Level: Moderate Risk
[2023-07-14] MEDS: VASOPRESSIN 20 UNIT in SODIUM CHLORIDE 0.9% 50 ML IV SCH (13:08)
--- NOTE | 2023-07-14 13:10 | P.GSCN ---
History of Present Illness Consult date: 07/14/23 Reason for Consult: abdominal distention History of present illness: this is a 68-year-old female who is admitted to the hospital with complaints of abdominal pain. Patient has had a previous orthopedics procedure by Dr. Vaishali Gonzalez March. Patient developed C. diff colitis. Patsincerely states that she is undergoing treatment for C. diff since her original orthopedic procedure. Patient admitted hospital complaints of abdominal pain. Patient was transferred to the ICU this morning due to hypothermia. I was called by the ICU staff due to her significant abdominal distention. Patient appears to have fulminant C. diff colitis with evidence of toxic megacolon. Her white blood cell count is 121. Her lactic acid is 21. The patient is hypotensive on pressors with a systolic blood pressure in the 80s. Past Medical History Past Medical History: Asthma, Hyperlipidemia, Hypertension, Osteoarthritis (OA) Additional Past Medical History / Comment(s): IBS History of Any Multi-Drug Resistant Organisms: None Reported Past Surgical History: Back Surgery, Section, Cholecystectomy, Hysterectomy, Orthopedic Surgery Additional Past Surgical History / Comment(s): Cervical fusion, bilateral knee arthroscopy, right ankle surgery, lower back fusion, section X2., left total knee 03/14/23 with spacer Past Anesthesia/Blood Transfusion Reactions: No Reported Reaction Additional Past Anesthesia/Blood Transfusion Reaction / Comm: Has never had blood transfusion. Past Psychological History: No Psychological Hx Reported Smoking Status: Current every day smoker Past Alcohol Use History: None Reported Additional Past Alcohol Use History / Comment(s): smoikes 1/2 PPD, has smoked for 40-42 yrs Past Drug Use History: None Reported - Past Family History Mother Family Medical History: Cancer Additional Family Medical History / Comment(s): Colon cancer, at age 55. Medications and Allergies Home Medications Medication Instructions Recorded Confirmed Type Bisoprolol-Hctz 10-6.25 mg [Ziac 1 tab PO BID@0900,209909/18/13 07/13/23 History 10-6.25 MG] Atorvastatin Calcium 10 mg PO HS@209911/24/22 07/13/23 History Cyclobenzaprine [Flexeril] 5 mg PO BID@0900,209903/08/23 07/13/23 History Aspirin EC [Ecotrin Low Dose] 81 mg PO DAILY@0900 05/31/23 07/13/23 History Ibuprofen [Motrin] 800 mg PO TID PRN 05/31/23 07/13/23 History Acetaminophen [Tylenol] 650 mg PO Q6H PRN 07/13/23 07/13/23 History Cholestyramine/Aspartame 4 gm PO BID@0900,209907/13/23 07/13/23 History [Cholestyramine Light Packet] Enoxaparin [Lovenox] 30 mg SQ BID@0900,209907/13/23 07/13/23 History Fidaxomicin [Dificid] 200 mg PO BID@0900,209907/13/23 07/13/23 History HYDROcodone/APAP 7.5-325MG [[place] 1 tab PO Q6HR PRN 07/13/23 07/13/23 History 7.5] Lactobacillus Acidophilus 1 cap PO BID@0900,209907/13/23 07/13/23 History [Acidophilus Probiotic] Multivitamins, Thera [Multivitamin 1 tab PO DAILY@89907/13/23 07/13/23 History (formulary)] Potassium Chloride ER [K-Dur 10] 10 meq PO DAILY@0900 07/13/23 07/13/23 History cefTRIAXone [Rocephin] 2,000 mg IVP DAILY@89907/13/23 07/13/23 History Allergies Allergy/AdvReac Type Severity Reaction Status Date / Time Iodinated Contrast Media Allergy Rash/Hives,states Verified 07/13/23 16:56 [Iodinated Contrast Media - "can IV Dye] tolerate iodine on skin" codeine AdvReac severe Verified 07/13/23 16:56 constipation morphine AdvReac Hallucinati Verified 07/13/23 16:56 ons sertraline HCl [From Zoloft] AdvReac Hallucinati Verified 07/13/23 16:56 ons Surgical - Exam Vital Signs Temp Pulse Resp BP Pulse Ox 98.2 F 95 18 107/77 95 07/13/23 11:42 07/13/23 11:42 07/13/23 11:42 07/13/23 11:42 07/13/23 11:42 - General is on the ventilator. - Abdomen abdomen is massively distended. It is tympanitic. Results - Labs 07/14/23 06:07 07/14/23 11:40 Abnormal Lab Results - Last 24 Hours (Table) 07/13/23 07/13/23 07/13/23 Range/Units 12:33 13:10 17:25 WBC 54.0 H* (3.8-10.6) k/uL Hgb (11.4-16.0) gm/dL Hct (34.0-46.0) % MCV (80.0-100.0) fL RDW 16.0 H (11.5-15.5) % Plt Count 492 H (150-450) k/uL Neutrophils # (1.3-7.7) k/uL Neutrophils # (Manual) 44.20 H (1.3-7.7) k/uL Monocytes # (0-1.0) k/uL Monocytes # (Manual) 3.24 H (0-1.0) k/uL Eosinophils # (Manual) (0-0.7) k/uL Basophils # (0-0.2) k/uL Metamyelocytes # (Man) 3.78 H (0) k/uL Myelocytes # (Manual) 2.16 H (0) k/uL ABG pH (7.35-7.45) ABG pCO2 (35-45) mmHg ABG pO2 (83-108) mmHg ABG HCO3 (21-25) mmol/L ABG Total CO2 (19-24) mmol/L ABG O2 Saturation (94-97) % ABG Lactic Acid (0.5-1.6) mmol/L Sodium 120 L (137-145) mmol/L Chloride 86 L (98-107) mmol/L Carbon Dioxide 18 L (22-30) mmol/L BUN 29 H (7-17) mg/dL Creatinine 1.57 H (0.52-1.04) mg/dL Glucose 162 H (74-99) mg/dL POC Glucose (mg/dL) (70-110) mg/dL Plasma Lactic Acid Kenji (0.7-2.0) mmol/L Calcium (8.4-10.2) mg/dL Phosphorus (2.5-4.5) mg/dL Magnesium (1.6-2.3) mg/dL AST 64 H (14-36) U/L ALT 138 H (4-34) U/L Alkaline Phosphatase 392 H (38-126) U/L Total Protein 6.0 L (6.3-8.2) g/dL Albumin 2.9 L (3.5-5.0) g/dL Urine Appearance Cloudy H (Clear) Urine Protein 1+ H (Negative) Urine Ketones Trace H (Negative) Hyaline Casts 21 H (0-2) /lpf Urine Mucus Occasional H (None) /hpf 07/14/23 07/14/23 07/14/23 Range/Units 06:07 06:07 06:42 WBC 120.2 H* (3.8-10.6) k/uL Hgb 16.7 H (11.4-16.0) gm/dL Hct 53.4 H (34.0-46.0) % MCV 100.9 H D (80.0-100.0) fL RDW 15.7 H (11.5-15.5) % Plt Count (150-450) k/uL Neutrophils # 111.0 H (1.3-7.7) k/uL Neutrophils # (Manual) 110.50 H (1.3-7.7) k/uL Monocytes # 2.7 H (0-1.0) k/uL Monocytes # (Manual) 2.40 H (0-1.0) k/uL Eosinophils # (Manual) 1.20 H (0-0.7) k/uL Basophils # 12.3 H (0-0.2) k/uL Metamyelocytes # (Man) 2.40 H (0) k/uL Myelocytes # (Manual) 1.20 H (0) k/uL ABG pH (7.35-7.45) ABG pCO2 (35-45) mmHg ABG pO2 (83-108) mmHg ABG HCO3 (21-25) mmol/L ABG Total CO2 (19-24) mmol/L ABG O2 Saturation (94-97) % ABG Lactic Acid (0.5-1.6) mmol/L Sodium 129 L (137-145) mmol/L Chloride 89 L (98-107) mmol/L Carbon Dioxide 9 L* (22-30) mmol/L BUN 37 H (7-17) mg/dL Creatinine 2.91 H (0.52-1.04) mg/dL Glucose 171 H (74-99) mg/dL POC Glucose (mg/dL) 176 H (70-110) mg/dL Plasma Lactic Acid Kenji (0.7-2.0) mmol/L Calcium (8.4-10.2) mg/dL Phosphorus 9.3 H* (2.5-4.5) mg/dL Magnesium 3.5 H (1.6-2.3) mg/dL AST 141 H (14-36) U/L ALT 131 H (4-34) U/L Alkaline Phosphatase 432 H (38-126) U/L Total Protein 6.0 L (6.3-8.2) g/dL Albumin 2.9 L (3.5-5.0) g/dL Urine Appearance (Clear) Urine Protein (Negative) Urine Ketones (Negative) Hyaline Casts (0-2) /lpf Urine Mucus (None) /hpf 07/14/23 07/14/23 07/14/23 Range/Units 06:56 07:11 08:36 WBC (3.8-10.6) k/uL Hgb (11.4-16.0) gm/dL Hct (34.0-46.0) % MCV (80.0-100.0) fL RDW (11.5-15.5) % Plt Count (150-450) k/uL Neutrophils # (1.3-7.7) k/uL Neutrophils # (Manual) (1.3-7.7) k/uL Monocytes # (0-1.0) k/uL Monocytes # (Manual) (0-1.0) k/uL Eosinophils # (Manual) (0-0.7) k/uL Basophils # (0-0.2) k/uL Metamyelocytes # (Man) (0) k/uL Myelocytes # (Manual) (0) k/uL ABG pH 7.18 L* (7.35-7.45) ABG pCO2 18 L* (35-45) mmHg ABG pO2 (83-108) mmHg ABG HCO3 7 L* (21-25) mmol/L ABG Total CO2 7 L (19-24) mmol/L ABG O2 Saturation (94-97) % ABG Lactic Acid (0.5-1.6) mmol/L Sodium (137-145) mmol/L Chloride (98-107) mmol/L Carbon Dioxide (22-30) mmol/L BUN (7-17) mg/dL Creatinine (0.52-1.04) mg/dL Glucose (74-99) mg/dL POC Glucose (mg/dL) 170 H (70-110) mg/dL Plasma Lactic Acid Kenji 11.8 H* (0.7-2.0) mmol/L Calcium (8.4-10.2) mg/dL Phosphorus (2.5-4.5) mg/dL Magnesium (1.6-2.3) mg/dL AST (14-36) U/L ALT (4-34) U/L Alkaline Phosphatase (38-126) U/L Total Protein (6.3-8.2) g/dL Albumin (3.5-5.0) g/dL Urine Appearance (Clear) Urine Protein (Negative) Urine Ketones (Negative) Hyaline Casts (0-2) /lpf Urine Mucus (None) /hpf 07/14/23 07/14/23 07/14/23 Range/Units 11:40 11:40 11:54 WBC (3.8-10.6) k/uL Hgb (11.4-16.0) gm/dL Hct (34.0-46.0) % MCV (80.0-100.0) fL RDW (11.5-15.5) % Plt Count (150-450) k/uL Neutrophils # (1.3-7.7) k/uL Neutrophils # (Manual) (1.3-7.7) k/uL Monocytes # (0-1.0) k/uL Monocytes # (Manual) (0-1.0) k/uL Eosinophils # (Manual) (0-0.7) k/uL Basophils # (0-0.2) k/uL Metamyelocytes # (Man) (0) k/uL Myelocytes # (Manual) (0) k/uL ABG pH 7.21 L (7.35-7.45) ABG pCO2 <15 L* (35-45) mmHg ABG pO2 120 H (83-108) mmHg ABG HCO3 (21-25) mmol/L ABG Total CO2 (19-24) mmol/L ABG O2 Saturation (94-97) % ABG Lactic Acid 21.7 H* (0.5-1.6) mmol/L Sodium 131 L (137-145) mmol/L Chloride 93 L (98-107) mmol/L Carbon Dioxide 7 L* (22-30) mmol/L BUN 38 H (7-17) mg/dL Creatinine 2.96 H (0.52-1.04) mg/dL Glucose 145 H (74-99) mg/dL POC Glucose (mg/dL) (70-110) mg/dL Plasma Lactic Acid Kenji (0.7-2.0) mmol/L Calcium 7.8 L (8.4-10.2) mg/dL Phosphorus (2.5-4.5) mg/dL Magnesium (1.6-2.3) mg/dL AST (14-36) U/L ALT (4-34) U/L Alkaline Phosphatase (38-126) U/L Total Protein (6.3-8.2) g/dL Albumin (3.5-5.0) g/dL Urine Appearance (Clear) Urine Protein (Negative) Urine Ketones (Negative) Hyaline Casts (0-2) /lpf Urine Mucus (None) /hpf 07/14/23 Range/Units 12:27 WBC (3.8-10.6) k/uL Hgb (11.4-16.0) gm/dL Hct (34.0-46.0) % MCV (80.0-100.0) fL RDW (11.5-15.5) % Plt Count (150-450) k/uL Neutrophils # (1.3-7.7) k/uL Neutrophils # (Manual) (1.3-7.7) k/uL Monocytes # (0-1.0) k/uL Monocytes # (Manual) (0-1.0) k/uL Eosinophils # (Manual) (0-0.7) k/uL Basophils # (0-0.2) k/uL Metamyelocytes # (Man) (0) k/uL Myelocytes # (Manual) (0) k/uL ABG pH 7.11 L* (7.35-7.45) ABG pCO2 22 L (35-45) mmHg ABG pO2 300 H (83-108) mmHg ABG HCO3 7 L* (21-25) mmol/L ABG Total CO2 8 L (19-24) mmol/L ABG O2 Saturation 98.5 H (94-97) % ABG Lactic Acid (0.5-1.6) mmol/L Sodium (137-145) mmol/L Chloride (98-107) mmol/L Carbon Dioxide (22-30) mmol/L BUN (7-17) mg/dL Creatinine (0.52-1.04) mg/dL Glucose (74-99) mg/dL POC Glucose (mg/dL) (70-110) mg/dL Plasma Lactic Acid Kenji (0.7-2.0) mmol/L Calcium (8.4-10.2) mg/dL Phosphorus (2.5-4.5) mg/dL Magnesium (1.6-2.3) mg/dL AST (14-36) U/L ALT (4-34) U/L Alkaline Phosphatase (38-126) U/L Total Protein (6.3-8.2) g/dL Albumin (3.5-5.0) g/dL Urine Appearance (Clear) Urine Protein (Negative) Urine Ketones (Negative) Hyaline Casts (0-2) /lpf Urine Mucus (None) /hpf Diabetes panel 07/13/23 07/14/23 07/14/23 Range/Units 17:25 06:07 11:40 Sodium 120 L 129 L 131 L (137-145) mmol/L Potassium 4.2 3.8 4.0 (3.5-5.1) mmol/L Chloride 86 L 89 L 93 L (98-107) mmol/L Carbon Dioxide 18 L 9 L* 7 L* (22-30) mmol/L BUN 29 H 37 H 38 H (7-17) mg/dL Creatinine 1.57 H 2.91 H 2.96 H (0.52-1.04) mg/dL Glucose 162 H 171 H 145 H (74-99) mg/dL Calcium 9.7 9.7 7.8 L (8.4-10.2) mg/dL AST 64 H 141 H (14-36) U/L ALT 138 H 131 H (4-34) U/L Alkaline Phosphatase 392 H 432 H (38-126) U/L Total Protein 6.0 L 6.0 L (6.3-8.2) g/dL Albumin 2.9 L 2.9 L (3.5-5.0) g/dL Calcium panel 07/13/23 07/14/23 07/14/23 Range/Units 17:25 06:07 11:40 Calcium 9.7 9.7 7.8 L (8.4-10.2) mg/dL Phosphorus 9.3 H* (2.5-4.5) mg/dL Albumin 2.9 L 2.9 L (3.5-5.0) g/dL Pituitary panel 07/13/23 07/14/23 07/14/23 Range/Units 17:25 06:07 11:40 Sodium 120 L 129 L 131 L (137-145) mmol/L Potassium 4.2 3.8 4.0 (3.5-5.1) mmol/L Chloride 86 L 89 L 93 L (98-107) mmol/L Carbon Dioxide 18 L 9 L* 7 L* (22-30) mmol/L BUN 29 H 37 H 38 H (7-17) mg/dL Creatinine 1.57 H 2.91 H 2.96 H (0.52-1.04) mg/dL Glucose 162 H 171 H 145 H (74-99) mg/dL Calcium 9.7 9.7 7.8 L (8.4-10.2) mg/dL Adrenal panel 07/13/23 07/14/23 07/14/23 Range/Units 17:25 06:07 11:40 Sodium 120 L 129 L 131 L (137-145) mmol/L Potassium 4.2 3.8 4.0 (3.5-5.1) mmol/L Chloride 86 L 89 L 93 L (98-107) mmol/L Carbon Dioxide 18 L 9 L* 7 L* (22-30) mmol/L BUN 29 H 37 H 38 H (7-17) mg/dL Creatinine 1.57 H 2.91 H 2.96 H (0.52-1.04) mg/dL Glucose 162 H 171 H 145 H (74-99) mg/dL Calcium 9.7 9.7 7.8 L (8.4-10.2) mg/dL Total Bilirubin 0.7 0.6 (0.2-1.3) mg/dL AST 64 H 141 H (14-36) U/L ALT 138 H 131 H (4-34) U/L Alkaline Phosphatase 392 H 432 H (38-126) U/L Total Protein 6.0 L 6.0 L (6.3-8.2) g/dL Albumin 2.9 L 2.9 L (3.5-5.0) g/dL Assessment and Plan Plan: 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 Patient is not stable for surgery given her hypotension. I discussed these findings with patient's daughter. The family will decide whether or not to make her comfort care. No surgery is planned at this point.
[2023-07-14] MEDS: VANCOMYCIN ORAL SOLUTION 250 MG/5 ML BOTTLE NG-TUBE SCH (13:19)
[2023-07-14] MEDS ORDERED: CISATRACURIUM 2 MG/ML 5 ML VIAL IV ONE (13:31)
[2023-07-14] MEDS ORDERED: CISATRACURIUM 200 MG in SODIUM CHLORIDE 0.9% 180 ML IV SCH (13:45)
[2023-07-14] MEDS ORDERED: MORPHINE SULFATE 4 MG/ML SYRINGE IVP ONE (13:50)
[2023-07-14] MEDS ORDERED: GLYCOPYRROLATE 0.2 MG/ML 2 ML VIAL IVP PRN (13:50)
[2023-07-14] MEDS ORDERED: ONDANSETRON 4 MG/2 ML VIAL IVP PRN (13:50)
[2023-07-14] MEDS ORDERED: MORPHINE SULFATE (100 MG/2 ML) 100 MG in SODIUM CHLORIDE 0.9% 100 ML IV SCH (14:00)
--- NOTE | 2023-07-14 14:08 | P.PN ---
Progress Note - Text Progress Note Date: 07/14/23 Gastroenterology was consulted for C. difficile toxin, failed outpatient setting. Patient is in the ICU and has become very ill. Family is opting to make patient comfort care. Consultation will be deferred and we will sign off. Dr. Inés Kc I agree with the dictator's note, documented as a scribe by Saba Rodriguez.
[2023-07-14] MEDS: LORazepam 2 MG/ML INJ IV PRN (15:33)
[2023-07-14] MEDS: MORPHINE SULFATE 4 MG/ML SYRINGE IV PRN (15:34)
[2023-07-14 15:53] VITALS: BP 103/66; PULSE 111; RESP 37
[2023-07-14] MEDS: VANCOMYCIN 500 MG in SODIUM CHLORIDE 0.9% 100 ML MISCELLANE SCH (15:53)
[2023-07-14] MEDS ORDERED: CHLORHEXIDINE GLUCONATE 15 ML CUP MUCOUS MEM SCH (21:00)
--- NOTE | 2023-07-15 09:37 | P.DS ---
Providers Date of admission: 07/13/23 19:03 Expected date of discharge: 07/14/23 Attending physician: Iesha Mendieta Consults: 07/13/23 18:59 Consult Physician Routine Consulting Provider: Tristan Mcqueen Consult Reason/Comments: cdiff Do you want consulting provider notified?: Yes 07/14/23 08:45 Consult Physician Urgent Consulting Provider: Angelo Palomo Consult Reason/Comments: ICU mgmt Do you want consulting provider notified?: Yes 07/14/23 08:54 Consult Physician Routine Consulting Provider: Prabhakar Mccann Consult Reason/Comments: FLACO Do you want consulting provider notified?: Yes 07/14/23 09:16 Consult Physician Routine Consulting Provider: Eunice Kc Consult Reason/Comments: Severe C. difficile colitis Do you want consulting provider notified?: Yes 07/14/23 12:44 Consult Physician Urgent Consulting Provider: Anish Gray Consult Reason/Comments: Distended abdomen Do you want consulting provider notified?: Yes Primary care physician: [facility] Course: Discharge diagnoses; Septic shock Fulminant C. difficile colitis Acute hypoxic respiratory failure Metabolic acidosis Acute kidney injury Hyponatremia History of left knee infection Osteoarthritis Hyperlipidemia Hypertension Morbid obesity Severe lactic acidosis. Septic hepatopathy. Hospital course; patient 68-year-old lady with past medical history significant for left knee infection, CHF, hypertension, bulimia plan to the ER because of abdominal pain and diarrhea. Patient is currently a [facility] of a [facility] and is getting IV antibiotics through a PICC line and is also being treated for C. difficile. Patient stated for the last few days she has been noticing that her diarrhea is worsening, patient also complaining of worsening abdominal pain. Patient in bed is also distended. Denies any nausea or vomiting. There is no current fever or chills. Initial lab work done in the ER showed WBC 54, hemoglobin 14.9, platelet count 492, sodium 120, potassium 4.2, BUN 29, creatinine 1.57, AST 64, ALT 138, Chest x-ray done in the ER left CVC tip in the right atrium, left PICC tip obstructed by the CBC CT abdominal and pelvis done showed significant colitis involving the region of the distal transverse colon through the anal rectal region Patient was initially planned to go to stepdown unit but patient became hypothermic and less responsive. Repeat labs were drawn and showed patient to have an increasing white count and elevated lactate levels. Patient was transferred to ICU. Patient was intubated because of reduced responsiveness and was started on pressors.Patient was started on oral vancomycin and vancomycin enema. ID, nephrology, general surgery were consulted. While in the hospital, patient continued to be critically ill, family opted to make patient comfort care. Patient was pronounced on 07/14/2023 at 16;14 p.m. Dictation was produced using [employer] dictation software. please excuse any grammatical, word or spelling errors. Patient Condition at Discharge: Serious Plan - Discharge Summary Discharge Rx Participant: Yes New Discharge Prescriptions: No Action Bisoprolol-Hctz 10-6.25 mg [Ziac 10-6.25 MG] 1 tab PO BID@0900,2100 Ibuprofen [Motrin] 800 mg PO TID PRN PRN Reason: Pain Enoxaparin [Lovenox] 30 mg SQ BID@0900,2100 Fidaxomicin [Dificid] 200 mg PO BID@0900,2100 Cholestyramine/Aspartame [Cholestyramine Light Packet] 4 gm PO BID@0900,2100 Lactobacillus Acidophilus [Acidophilus Probiotic] 1 cap PO BID@0900,2100 Potassium Chloride ER [K-Dur 10] 10 meq PO DAILY@0900 cefTRIAXone [Rocephin] 2,000 mg IVP DAILY@0900 Atorvastatin Calcium 10 mg PO HS@2100 Cyclobenzaprine [Flexeril] 5 mg PO BID@0900,2100 Aspirin EC [Ecotrin Low Dose] 81 mg PO DAILY@0900 Acetaminophen [Tylenol] 650 mg PO Q6H PRN PRN Reason: Pain Or Fever > 100.5 HYDROcodone/APAP 7.5-325MG [Magalia 7.5] 1 tab PO Q6HR PRN PRN Reason: Pain Multivitamins, Thera [Multivitamin (formulary)] 1 tab PO DAILY@0900 Discharge Medication List Bisoprolol-Hctz 10-6.25 mg [Ziac 10-6.25 MG] 1 tab PO BID@0900,2100 09/18/13 [History] Atorvastatin Calcium 10 mg PO HS@2100 11/24/22 [History] Cyclobenzaprine [Flexeril] 5 mg PO BID@0900,2100 11/07/23 [History] Aspirin EC [Ecotrin Low Dose] 81 mg PO DAILY@89905/31/23 [History] Ibuprofen [Motrin] 800 mg PO TID PRN 05/31/23 [History] Acetaminophen [Tylenol] 650 mg PO Q6H PRN 07/13/23 [History] Cholestyramine/Aspartame [Cholestyramine Light Packet] 4 gm PO BID@899,209907/13/23 [History] Enoxaparin [Lovenox] 30 mg SQ BID@899,209907/13/23 [History] Fidaxomicin [Dificid] 200 mg PO BID@00,209907/13/23 [History] HYDROcodone/APAP 7.5-325MG [Mag[place] 7.5] 1 tab PO Q6HR PRN 07/13/23 [History] Lactobacillus Acidophilus [Acidophilus Probiotic] 1 cap PO BID@899,209907/13/23 [History] Multivitamins, Thera [Multivitamin (formulary)] 1 tab PO DAILY@89907/13/23 [History] Potassium Chloride ER [K-Dur 10] 10 meq PO DAILY@89907/13/23 [History] cefTRIAXone [Rocephin] 2,000 mg IVP DAILY@89907/13/23 [History] Follow up Appointment(s)/Referral(s): Haris Saini DO [Primary Care Provider] - 1-2 days Discharge Disposition: - Preliminary Cause of Preliminary Cause of : Septic shock
== END 2023-07-14 18:48 | disposition expired | DRG 871 ==
LOC: EC 11:33 → 4SSUR 19:03 → 2SICU 07-14 07:20
PROVIDERS: ADMIT Hospitalist; ATTEND Hospitalist
PROC: 4A133B1 Monitoring of Arterial Pressure, Peripheral, Percutaneous Approach (ICD-10-PCS; principal; 2023-07-14)
PROC: 4A133J1 Monitoring of Arterial Pulse, Peripheral, Percutaneous Approach (ICD-10-PCS; 2023-07-14)
PROC: 03HY32Z Insertion of Monitoring Device into Upper Artery, Percutaneous Approach (ICD-10-PCS; 2023-07-14)
PROC: 3E033XZ Introduction of Vasopressor into Peripheral Vein, Percutaneous Approach (ICD-10-PCS; 2023-07-14)
PROC: 02HV33Z Insertion of Infusion Device into Superior Vena Cava, Percutaneous Approach (ICD-10-PCS; 2023-07-14)
PROC: B5181ZA Fluoroscopy of Superior Vena Cava using Low Osmolar Contrast, Guidance (ICD-10-PCS; 2023-07-14)
PROC: B548ZZA Ultrasonography of Superior Vena Cava, Guidance (ICD-10-PCS; 2023-07-14)
PROC: 5A1935Z Respiratory Ventilation, Less than 24 Consecutive Hours (ICD-10-PCS; 2023-07-14)
PROC: 0BH17EZ Insertion of Endotracheal Airway into Trachea, Via Natural or Artificial Opening (ICD-10-PCS; 2023-07-14)
DX: A41.4 Sepsis due to anaerobes (principal); J96.01 Acute respiratory failure with hypoxia; N17.0 Acute kidney failure with tubular necrosis; R65.21 Severe sepsis with septic shock; A04.72 Enterocolitis due to Clostridium difficile, not specified as recurrent; E87.1 Hypo-osmolality and hyponatremia; Z68.42 Body mass index [BMI] 45.0-49.9, adult; E66.01 Morbid (severe) obesity due to excess calories; Z51.5 Encounter for palliative care; E78.5 Hyperlipidemia, unspecified; E86.0 Dehydration; E86.1 Hypovolemia; F17.210 Nicotine dependence, cigarettes, uncomplicated; K76.89 Other specified diseases of liver; I11.0 Hypertensive heart disease with heart failure; M19.90 Unspecified osteoarthritis, unspecified site; I10 Essential (primary) hypertension; Z66 Do not resuscitate; Z79.82 Long term (current) use of aspirin; Z90.710 Acquired absence of both cervix and uterus; Z98.1 Arthrodesis status; Z90.49 Acquired absence of other specified parts of digestive tract; Z86.59 Personal history of other mental and behavioral disorders; Z88.5 Allergy status to narcotic agent; K58.9 Irritable bowel syndrome, unspecified; Z91.041 Radiographic dye allergy status; Z79.899 Other long term (current) drug therapy
CPT/HCPCS: 36415; 71045; 74176; 80048; 80053; 81001; 82150; 82805; 83605; 83690; 83735; 84100; 85025; 87040; 93005; 94002; 96374; 96375; 99285